=== PATIENT | female | born 1975 | race Hispanic/Latino ===

== ENCOUNTER 2017-03-13 11:59 | Inpatient (IN) | payer OTHER, MEDICARE ==
[~2017-03-13] VITALS: Ht 147.3 cm; Wt 54.2 kg
[~2017-03-13 11:59] MED LIST: ARTHRITIS PAIN650 M2 PO; BACLOFEN10 M1 PO; BACLOFEN20 M1 PO; CLARITIN10 M1 PO; COLACE100 M1 PO; DIAZEPAM10 M1 PO; IPRAT-ALBUT 0.5-3 ML INH; LEVETIRACETAM500 M2 PO; MIRALAX17 G1 PO; MUCINEX D ER T1 EACH PO; MUCINEX1200 M1 PO; MYTAB GAS80 M1 PO; NYSTATIN-TRIAMC15 GM TOP; PHENOBARBITAL32.4 M1 PO; PHENOBARBITAL64.8 M1 PO; ROBAFEN-DM SYR118 ML PO; SENNA8.8 MG/51 PO; VICKS VAPORUB O50 GM TOP
--- NOTE | 2017-03-13 12:35 | ED DYSPNEA/ASTHMA COMPLAINT ---
See Addendum History of Present Illness General Chief Complaint: Dyspnea (COPD, CHF, Other) Stated Complaint: BIBA WITH PROBLEM BREATHING Source: patient, family (SISTERS ) Exam Limitations: clinical condition Allergies Coded Allergies: Penicillins (HIVES 10/18/16) ceftriaxone (HIVES 10/18/16) Reconcile Medications Acetaminophen (Arthritis Pain) 650 MG TABLET.ER 1 TAB PO Q4H PRN PAIN/TEMP ( Reported) Baclofen 20 MG TABLET 2 TAB PO TID MUSCLE RELAXER (Reported) Diazepam 10 MG TABLET 2 TAB PO TID MUSCLE SPASMS (Reported) Docusate Sodium (Colace) 100 MG CAPSULE 1 CAP PO BID PRN STOOL SOFTENER ( Reported) Eucalyptus Oil/Menthol/Camphor (Vicks Vaporub Ointment) 1.2 %-2.6 %-4.7 % OINT...G. 1 JULIUS TOP TID PRN COUGH (Reported) Guaifenesin/Dextromethorphan (Robafen-Dm Syrup) 100 MG-10 MG/5 ML SYRUP 10 ML PO Q6 PRN COUGH/MUCUS (Reported) Guaifenesin/Pseudoephedrne HCl (Mucinex D ER Tablet) 600 MG-60 MG TAB.ER.12H 1 TAB PO DAILY SECRETIONS (Reported) Ipratropium/Albuterol Sulfate (Iprat-Albut 0.5-3(2.5) MG/3 Ml) 0.5 MG-3 MG (2.5 MG BASE)/3 ML AMPUL.NEB 1 VIAL INH Q4H PRN RESP. (Reported) Levetiracetam 500 MG TABLET 1 TAB PO TID SEIZURES (Reported) Levofloxacin 500 MG TABLET 1 TAB PO DAILY ANTIBIOTIC, INFECTION (Reported) Loratadine (Claritin) 10 MG TABLET 1 TAB PO DAILY PRN ALLERGIES (Reported) Phenobarbital 32.4 MG TABLET 1 TAB PO BID SEIZURES (Reported) Phenobarbital 64.8 MG TABLET 1 TAB PO QHS SEIZURES (Reported) Phenobarbital 32.4 MG TABLET 32.4 MG PO 8AM SEIZURES (Reported) Polyethylene Glycol 3350 (Miralax) 17 GRAM POWD.PACK 1 PAC PO DAILY PRN CONSTIPATION (Reported) dissolve in water Core Measure Meds Pre-Hospital antibiotics Triage Note: REPORT THAT THE PATIENT WAS TAKEN OFF OF THE VENT AND PLACED ON TRACH MASK O2, THE PATIENT BECAME "BRIGHT PURPLE" AND HAD A SYNCOPAL EPISODE. PATIENT WAS PUT BACK ON THE VENT. WHEN EMS ARRIVED, PULSE OX WAS 88-93% THE PATIENT WAS AMBUED AND SUCTIONED. INNER CANNULA CHANGED. CURRENTLY THE PATIENT IS ALERT, PLACED ON VENT SETTINGS BY RT. SISTER IS PRESENT AT THE BEDSIDE. Triage Nurses Notes Reviewed? yes Onset: Abrupt Duration: day(s): (1), constant, continues in ED, getting worse Timing: single episode today Severity: mild, moderate Activities at Onset: none Prior Episodes/Possible Cause: no prior episodes, occasional episodes Associated Symptoms: cough : No Patient currently breastfeeds: No HPI: 41-year-old female past medical history of cerebral palsy with trach and nighttime vent dependence presents for evaluation of cough, congestion, shortness of breath and hypoxia. Patient's sister who takes care of her reports that this morning when she took her off the vent patient was unable to breathe through her trach. She suddenly became very cyanotic and unresponsive. They were able to suction the trach and place her back on the vent and patient responded well. Patient is currently taking Levaquin prescribed by her primary care doctor for the past 3 days due to a pneumonia. She has not had Any fevers at home but has had a very large amounts of mucus in her ventilator. Patient denies any chest pain there's been no vomiting or abdominal pain. She is not able to talk when she is on the ventilator. No recent surgery or trauma. Sister does note that there is some blood in her trach in the sputum. (Brown Duarte) Vital Signs & Intake/Output Vital Signs & Intake/Output Vital Signs Date Time Temp Pulse Resp B/P B/P Pulse O2 O2 Flow FiO2 Mean Ox Delivery Rate 03/13 1631 30 03/13 1610 98.4 87 14 111/71 99 Ventilator 30% 03/13 1416 30 03/13 1404 98.8 115 15 140/83 100 Ventilator 30% 03/13 1223 100 Ventilator 30% 03/13 1220 98.4 109 16 118/81 100 Ventilator 30% 03/13 1200 30 (Lary CRUZ,Clemente Murrell) Past History Travel History Traveled to [place] past 21 day No Medical History Any Pertinent Medical History? see below for history Neurological: CP Cardiovascular: NONE Respiratory: ASP PNEUMONIA Gastrointestinal: constipation Hepatic: NONE Renal: NONE Musculoskeletal: NONE Psychiatric: NONE Endocrine: NONE Other Medical Hx: CEREBAL PALSY, PNA History of MRSA: Yes History of VRE: No History of CDIFF: No Surgical History Surgical History: TRACHEOSTOMY Psychosocial History Who do you live with Family Services at Home Home Health Aide, Nursing What is your primary language Tristanian Tobacco Use: Never used ETOH Use: denies use Illicit Drug Use: denies illicit drug use Family History Hx Contributory? No (Brown Duarte) Review of Systems Review of Systems Constitutional: Reports: no symptoms. EENTM: Reports: no symptoms. Respiratory: Reports: see HPI, cough, short of breath, sputum production. Cardiovascular: Reports: no symptoms. GI: Reports: no symptoms. Genitourinary: Reports: no symptoms. Musculoskeletal: Reports: no symptoms. Skin: Reports: no symptoms. Neurological/Psychological: Reports: no symptoms. Hematologic/Endocrine: Reports: no symptoms. Immunologic/Allergic: Reports: no symptoms. All Other Systems: Reviewed and Negative (Brown Duarte) Physical Exam Physical Exam General Appearance: well developed/nourished, no apparent distress, alert, awake Head: atraumatic, normal appearance Eyes: Bilateral: normal appearance, PERRL, EOMI. Ears, Nose, Throat: normal pharynx, normal ENT inspection, hearing grossly normal Neck: normal inspection, supple, full range of motion Respiratory: chest non-tender, no respiratory distress, rhonchi Cardiovascular: regular rate/rhythm, normal peripheral pulses Peripheral Pulses: 2+ radial (R), 2+ radial (L) Gastrointestinal: normal bowel sounds, soft, non-tender, no organomegaly Extremities: normal inspection, no edema, PATIENT IS UNABLE TO AMBULATE AT BASELINE Neurologic/Psych: no motor/sensory deficits, awake, alert, PATIENT IS NONVERBALWHEN TRACH IS IN PLACE Skin: intact, normal color, warm/dry Lymphatic: no anterior cervical olvin Core Measures ACS in differential dx? No CVA/TIA Diagnosis No Sepsis Present: No Sepsis Focused Exam Completed? No (Brown Duarte) Progress Differential Diagnosis: asthma, bronchitis, CHF, COPD, pulmonary embolism, pneumonia Diagnostic Imaging: Viewed by Me: Radiology Read, CT Scan. Discussed w/RAD: Radiology Read, CT Scan. Radiology Impression: PATIENT: ANU BROWN PRESENT AGE: 41 PATIENT ACCOUNT NO: [id number] : 75 LOCATION: [facility] ORDERING PHYSICIAN: Brown BENTON SERVICE DATE: 03/13/17 EXAM TYPE: CAT - CTA CHEST-PULMONARY EMBOLISM EXAMINATION: CT ANGIOGRAM OF THE CHEST WITH AND WITHOUT CONTRAST (CT PULMONARY ANGIOGRAM FOR PE) CLINICAL INFORMATION: SOB, hypoxia. COMPARISON: CT angiogram chest 06/22/2013. CT chest 04/03/2012. Portable chest x-ray 03/13/2017. TECHNIQUE: Prior to contrast administration, noncontrast localization images were obtained. Subsequently, multidetector volumetric imaging was performed from the thoracic inlet to below the diaphragms following the administration of 95 mL Optiray 350 intravenous contrast. No contrast reaction reported. Sagittal, coronal, and MIP oblique sagittal reformatted images were obtained on the CT workstation, uploaded to PACS, and reviewed. DLP: 370.84 mGy-cm FINDINGS: QUALITY OF STUDY/CONTRAST BOLUS: Satisfactory. There is breathing motion which limits study. There is also artifact from the Vazquez rods in the thoracic spine. PULMONARY ARTERIES: No central or segmental pulmonary emboli. THORACIC AORTA: No aneurysm or dissection. LUNG: Low inspiratory effort. This causes crowding of the bronchovascular markings. There is hazy bilateral perihilar airspace disease greater on the left than right. This could be cardiogenic in etiology versus inflammatory or infectious. No air bronchograms. There is a tracheostomy tube present. PLEURA: Small dependent left pleural effusion. MEDIASTINUM: Normal heart size. No pericardial effusion. No hilar or mediastinal lymphadenopathy. No evidence of septal bowing or right heart strain. CHEST WALL/AXILLA: No axillary or internal mammary lymphadenopathy. OSSEOUS STRUCTURES: Vazquez rods in the dorsal spine. UPPER ABDOMEN: Unremarkable. No reflux of contrast into the hepatic veins to suggest elevated right heart pressures. IMPRESSION: 1. Exam limited by low inspiratory effort, breathing motion and Vazquez rods. 2. No evidence of central pulmonary emboli. 3. Bilateral perihilar airspace disease greater on the left than right. This could be inflammatory or infectious in etiology or cardiogenic. There is a small left pleural effusion. VTE: DICTATED BY: Jm Stout MD DATE/TIME DICTATED:03/13/171525 SENIOR JAVA UI DEVELOPER:LUZ DATE/TIME TRANSCRIBED:03/13/171525 CONFIDENTIAL, DO NOT COPY WITHOUT APPROPRIATE AUTHORIZATIO Initial ED EKG: normal sinus rhythm, nonspecific ST T wave chg (Brown Duarte) Plan of Care: Orders Procedure Date/time Status Patient Data 03/13 1609 Active LACTIC ACID 03/13 1530 Complete BLOOD CULTURE 03/13 1353 Active LOWER RESPIRATORY CULTURE 03/13 1319 Active ARTERIAL BLOOD GAS (GEN) 03/13 1230 Complete TROPONIN LEVEL 03/13 1230 Complete MAGNESIUM 03/13 1230 Complete LACTIC ACID 03/13 1230 Complete D-DIMER 03/13 1230 Complete COMPREHENSIVE METABOLIC PANEL 03/13 1230 Complete CBC WITHOUT DIFFERENTIAL 03/13 1230 Complete B-TYPE NATRIURETIC PEP (BNP) 03/13 1230 Complete EKG 03/13 1230 Active VENTILATOR PARAMETERS 03/13 1200 Complete Current Medications Sig/Martinez Start time Last Medication Dose Stop Time Status Admin Ceftazidime 1,000 MG .[ONCE ] 03/13 171 UNVr (Fortaz) Vancomycin HCl 1,000 MG ONCE ONE 03/13 171 UNir Sodium Chloride 250 ML 03/13 1814 (Normal Saline 0.9%) Laboratory Tests 03/13/17 1530: Lactic Acid 1.2 03/13/17 1315: pH 7.41, pCO2 44, pO2 113 H, HCO3 27, ABG O2 Sat (Measured) 98.0, Carboxyhemoglobin 0.3 L, O2 Concentration % 30%, Respiration Rate 14, O2 Delivery Method VENT, Vent Mode AC, Expiratory Pressure 5, Tidal Volume 400, Phlebotomy Draw Site LEFT RADIAL 03/13/17 1306: Anion Gap 16, Estimated GFR > 60, BUN/Creatinine Ratio 6.7 L, Glucose 118 H, Lactic Acid 2.1, Calcium 8.9, Magnesium 1.7, Total Bilirubin 0.3, AST 18, ALT 23 , Alkaline Phosphatase 146 H, Troponin I 0.06, Exo-E-Afdbjmqkpnf Pept 87.6, Total Protein 8.1, Albumin 3.8, Globulin 4.3 H, Albumin/Globulin Ratio 0.9 L, D-Dimer High Sensitivty 1750 H, CBC w Diff MAN DIFF ORDERED, RBC 4.28, MCV 81.8 , MCH 26.8 L, RDW 15.9 H, MPV 7.4, Gran % 88.9 H, Lymphocytes % 6.1 L, Monocytes % 4.1, Eosinophils % 0.5, Basophils % 0.4, Absolute Granulocytes 14.6 H, Segmented Neutrophils 82 H, Band Neutrophils 1, Absolute Lymphocytes 1.0 L, Lymphocytes 12 L, Monocytes 5, Absolute Monocytes 0.7 H, Absolute Eosinophils 0.1, Absolute Basophils 0.1, Platelet Estimate VERIFIED BY SMEAR, Normocytic RBCs VERIFIED, Hypochromic-Microcytic 1+, Stomatocytes 1+, PUBS MCHC 32.8 L Microbiology 03/13 1537 BLOOD: Blood Culture - RECD 03/13 1530 BLOOD: Blood Culture - RECD 03/13 1319 LOWER RESP: Respiratory Culture - ORD 03/13 131 LOWER RESP: Gram Stain - ORD Patient seen and evaluated. She had an episode of hypoxia/syncope this morning when she was unable to be through her trach due to mucus plugging. She's been on antibiotics for 3 days without any improvement. She continued to cough and have large amount of mucus. Patient has a complicated medical history including ventilator use an aspiration pneumonia. She has multiple antibiotic allergies. Elevated white blood cell count and elevated lactic acid. She will require admission to the hospital for IV antibiotics serial labs chest physical therapy weaning from the ventilator, frequent suctioning of mucous plugs. She has failed outpatient treatment on antibiotics. Case discussed with Dr. Barth he agrees. Patient will be admitted to the ICU. Dr. Galvan requested antibiotics not be given until the case is discussed with infectious disease doctor Darrian Balderas MD. A page was placed for him. Infectious disease recommends starting brought with vancomycin and Fortaz and following up on sputum cultures. Patient has tolerated Fortaz in the past despite the ceftriaxone allergy. (Brown Duarte) (Lary CRUZ,Clemente Murrell) Departure Departure Disposition: STILL A PATIENT Condition: Stable Clinical Impression Primary Impression: Pneumonia Qualifiers: Pneumonia type: due to unspecified organism Laterality: left Lung location: lower lobe of lung Qualified Code: J18.1 - Lobar pneumonia, unspecified organism Referrals: Mahesh Galvan MD (PCP/Family) Departure Forms: Customer Survey General Discharge Information Admission Note Spoke With: Mahesh Galvan MD Documentation of Exam: Documentation of any treatments & extenuating circumstances including Concerns Regarding Discharge (functional status, medication knowledge or non-compliance, living conditions, etc.) that warrant an admission rather than observation: [IV antibiotics, IV fluids, serial labs, serial chest x-rays, pulmonary rehabilitation, pulmonology consult, infectious disease consult] (Brown Duarte) PA/TRIGONOMETRY TUTOR Co-Sign Statement Statement: ED Attending supervision documentation- [X] I saw and evaluated the patient. I have also reviewed all the pertinent lab results and diagnostic results. I agree with the findings and the plan of care as documented in the PA's/TRIGONOMETRY TUTOR's documentation. Patient presents for evaluation of difficulty breathing and cyanosis when she was converted from her overnight ventilator to a trach mask. On the ventilator in the emergency department the patient appears to be back to baseline mental status and respirations. Lung examination reveals clear bilateral breath sounds with good air entry. [] I have reviewed the ED Record and agree with the PA's/TRIGONOMETRY TUTOR's documentation. [] Additions or exceptions (if any) to the PAs/TRIGONOMETRY TUTOR's note and plan are summarized below: [] (Lary CRUZ,Clemente Murrell) Critical Care Note Critical Care Note Critical Care Time: non-applicable (Brown Duarte)
[2017-03-13] MEDS ORDERED: LEVOFLOXACIN500 M1 PO (12:46)
[2017-03-13] MEDS ORDERED: PHENOBARBITAL32.4 M1 PO (12:48)
[2017-03-13 13:17] LABS: ABSOLUTE BASOPHIL COUNT 0.1 /CUMM (0.0-0.2); ABSOLUTE EOSINOPHIL COUNT 0.1 /CUMM (0.0-0.7); ABSOLUTE GRANULOCYTE CT 14.6 /CUMM (1.4-6.5); ABSOLUTE MONOCYTE COUNT 0.7 /CUMM (0.10-0.60); BASOPHIL % 0.4 % (0.0-2.0); EOSINOPHIL % 0.5 % (0-5); GRANULOCYTE % 88.9 % (42.2-75.2); MEAN CORPUSCULAR HGB 26.8 PG (27.0-31.0); MEAN CORPUSCULAR HGB CONC 32.8 G/DL (33.0-37.0); MEAN CORPUSCULAR VOLUME 81.8 FL (81.0-99.0); MEAN PLATELET VOLUME 7.4 FL (7.4-10.4); PLATELET COUNT 530 /CUMM (130-400); RBC DISTRIBUTION WIDTH 15.9 % (11.5-14.5); RED BLOOD CELL CT 4.28 /CUMM (4.20-5.40); WHITE BLOOD CELL COUNT 16.5 /CUMM (4.8-10.8)
--- NOTE | 2017-03-13 13:52 | RADIOLOGY REPORT ---
EXAMINATION: XR PORTABLE CHEST CLINICAL INFORMATION: Hypoxia. COMPARISON: Chest done on 10/18/2016. TECHNIQUE: Portable frontal view of the chest was obtained. FINDINGS: There is asymmetric opacification of the entire left lung present with air bronchogram in the retrocardiac region and patchy opacification of the left upper and left perihilar lung field. The finding is highly concerning for either asymmetric edema or infection/pneumonia, or combination thereof. The right lung field is well-expanded and appear clear. The cardiac mediastinal silhouette is within normal limits. Specific note is made of a tracheostomy tube and a right-sided Port-A-Cath with its tip seen projecting at the cavoatrial junction, unchanged. Note is also made of Vazquez rods within the visualized part of the thoracic and upper lumbar spine, appear intact. IMPRESSION: Asymmetric airspace opacity involving the left lung field, may represent edema versus infection or combination thereof.
--- NOTE | 2017-03-13 15:42 | CT SCAN REPORT ---
EXAMINATION: CT ANGIOGRAM OF THE CHEST WITH AND WITHOUT CONTRAST (CT PULMONARY ANGIOGRAM FOR PE) CLINICAL INFORMATION: SOB, hypoxia. COMPARISON: CT angiogram chest 06/22/2013. CT chest 04/03/2012. Portable chest x-ray 03/13/2017. TECHNIQUE: Prior to contrast administration, noncontrast localization images were obtained. Subsequently, multidetector volumetric imaging was performed from the thoracic inlet to below the diaphragms following the administration of 95 mL Optiray 350 intravenous contrast. No contrast reaction reported. Sagittal, coronal, and MIP oblique sagittal reformatted images were obtained on the CT workstation, uploaded to PACS, and reviewed. DLP: 370.84 mGy-cm FINDINGS: QUALITY OF STUDY/CONTRAST BOLUS: Satisfactory. There is breathing motion which limits study. There is also artifact from the Vazquez rods in the thoracic spine. PULMONARY ARTERIES: No central or segmental pulmonary emboli. THORACIC AORTA: No aneurysm or dissection. LUNG: Low inspiratory effort. This causes crowding of the bronchovascular markings. There is hazy bilateral perihilar airspace disease greater on the left than right. This could be cardiogenic in etiology versus inflammatory or infectious. No air bronchograms. There is a tracheostomy tube present. PLEURA: Small dependent left pleural effusion. MEDIASTINUM: Normal heart size. No pericardial effusion. No hilar or mediastinal lymphadenopathy. No evidence of septal bowing or right heart strain. CHEST WALL/AXILLA: No axillary or internal mammary lymphadenopathy. OSSEOUS STRUCTURES: Vazquez rods in the dorsal spine. UPPER ABDOMEN: Unremarkable. No reflux of contrast into the hepatic veins to suggest elevated right heart pressures. IMPRESSION: 1. Exam limited by low inspiratory effort, breathing motion and Vazquez rods. 2. No evidence of central pulmonary emboli. 3. Bilateral perihilar airspace disease greater on the left than right. This could be inflammatory or infectious in etiology or cardiogenic. There is a small left pleural effusion. VTE:
--- NOTE | 2017-03-13 17:21 | History & Physical ---
See Addendum General Information and HPI MD Statement: I have seen and personally examined ANU BROWN and documented this H&P. The patient is a 41 year old F who presented with a patient stated chief complaint of [Difficulty breathing]. Source of Information: patient, family, Patient's sister Jenn Hill Exam Limitations: unable to give history History of Present Illness: The patient is a 41-year-old woman with a past medical history of cerebral palsy, seizures, aspiration pneumonia, chronic constipation, incontinence, status post surgery/Vazquez jeffy, status post right ORIF, and history of anoxic brain injury with full assist. She lives at home with her sister who is her records and information manager and also has visiting nurses. She is on a tracheostomy tube but requires connection to a ventilator at nighttime for respiratory support. She was in her usual state of health until 9 days ago (last Saturday) when she was noted to have intermittent dyspnea associated with facial cyanosis and breathlessness while off her ventilator. The episodes of dyspnea were aborted by connecting her back to the ventilator. During these episodes, she would have brief syncope that lasted under a minute and resolved after she was ventilated. Of note, she has also been having some pain around her tracheostomy site along with drooling, a runny nose and intermittent choking sensations after eating during this period. Prior to her current symptoms, she had experienced aspiration of fluid into her tracheostomy while she was on the ventilator. Subsequently, her tracheostomy suctioning effluent was noted to be malodorous and bloody in color for the past 3 days. She denies fever, chills, malaise, nausea, vomiting, constipation or diarrhea, abdominal pain, dysuria or hematuria. She denies seizures. She does have a sick contact in her house, her father who has been coughing for some days. On account of these symptoms she presented to her primary care physician, Dr. Galvan on 03/07 was prescribed levofloxacin which she has been taking without improvement. Today she became suddenly cyanotic and was unable to breathe through her tracheostomy tube while off her ventilator. Her sister was able to suction the tracheostomy and place her back on the ventilator after which she subsequently improved. When emergency medical services arrived her O2 sat was 88 -92% on the ventilator. She was again suctioned, and the inner cannula of her tracheostomy was changed. Allergies/Medications Allergies: Coded Allergies: Penicillins (HIVES 10/18/16) ceftriaxone (HIVES 10/18/16) Home Med list Acetaminophen (Arthritis Pain) 650 MG TABLET.ER 1 TAB PO Q4H PRN PAIN/TEMP ( Reported) Baclofen 20 MG TABLET 2 TAB PO TID MUSCLE RELAXER (Reported) Diazepam 10 MG TABLET 2 TAB PO TID MUSCLE SPASMS (Reported) Docusate Sodium (Colace) 100 MG CAPSULE 1 CAP PO BID PRN STOOL SOFTENER ( Reported) Eucalyptus Oil/Menthol/Camphor (Vicks Vaporub Ointment) 1.2 %-2.6 %-4.7 % OINT...G. 1 JULIUS TOP TID PRN COUGH (Reported) Guaifenesin/Dextromethorphan (Robafen-Dm Syrup) 100 MG-10 MG/5 ML SYRUP 10 ML PO Q6 PRN COUGH/MUCUS (Reported) Guaifenesin/Pseudoephedrne HCl (Mucinex D ER Tablet) 600 MG-60 MG TAB.ER.12H 1 TAB PO DAILY SECRETIONS (Reported) Ipratropium/Albuterol Sulfate (Iprat-Albut 0.5-3(2.5) MG/3 Ml) 0.5 MG-3 MG (2.5 MG BASE)/3 ML AMPUL.NEB 1 VIAL INH Q4H PRN RESP. (Reported) Levetiracetam 500 MG TABLET 1 TAB PO TID SEIZURES (Reported) Levofloxacin 500 MG TABLET 1 TAB PO DAILY ANTIBIOTIC, INFECTION (Reported) Loratadine (Claritin) 10 MG TABLET 1 TAB PO DAILY PRN ALLERGIES (Reported) Phenobarbital 32.4 MG TABLET 1 TAB PO BID SEIZURES (Reported) Phenobarbital 64.8 MG TABLET 1 TAB PO QHS SEIZURES (Reported) Phenobarbital 32.4 MG TABLET 32.4 MG PO 8AM SEIZURES (Reported) Polyethylene Glycol 3350 (Miralax) 17 GRAM POWD.PACK 1 PAC PO DAILY PRN CONSTIPATION (Reported) dissolve in water Past History Travel History Traveled to [place] past 21 day No Medical History Neurological: CP Cardiovascular: NONE Respiratory: ASP PNEUMONIA Gastrointestinal: constipation Hepatic: NONE Renal: NONE Musculoskeletal: NONE Psychiatric: NONE Endocrine: NONE Other Medical Hx: CEREBAL PALSY, PNA History of MRSA: Yes History of VRE: No History of CDIFF: No Surgical History Surgical History: TRACHEOSTOMY Past Family/Social History Family History Relations & Conditions if any FATHER FH: prostate cancer MOTHER FH: esophageal cancer FH: gastric cancer Relation not specified for: *No pertinent family history Psychosocial History Where do you live? Home Who Do You Live With? Sister Services at Home: Home Health Aide, Nursing Smoking Status: Never Smoked ETOH Use: denies use Illicit Drug Use: denies illicit drug use Functional Ability ADLs Needs Assist: dressing, eating, toileting, bathing. Ambulation: non-ambulatory IADLs Needs Assist: shopping, housework, finances, food prep, telephone, transportation, medication admin. Review of Systems Review of Systems Constitutional: Reports: see HPI. Exam & Diagnostic Data Last 24 Hrs of Vital Signs/I&O Vital Signs Date Time Temp Pulse Resp B/P B/P Pulse O2 O2 Flow FiO2 Mean Ox Delivery Rate 03/13 1820 98.7 105 14 105/72 93 Ventilator 30% 03/13 1719 98.7 93 14 115/82 99 Ventilator 30% 03/13 1631 30 03/13 1610 98.4 87 14 111/71 99 Ventilator 30% 03/13 1416 30 03/13 1404 98.8 115 15 140/83 100 Ventilator 30% 03/13 1223 100 Ventilator 30% 03/13 1220 98.4 109 16 118/81 100 Ventilator 30% 03/13 1200 30 Intake & Output 03/13 1600 03/13 0800 03/13 0000 Intake Total Output Total Balance Patient 150 lb Weight Weight Reported by Patient Measurement Method Physical Exam General Appearance Alert, Oriented X3, Cooperative, No Acute Distress Skin No Rashes Skin Temp/Moisture Exam: Warm/Dry Sepsis Skin Exam (color): Normal for Ethnicity HEENT Atraumatic, PERRLA, EOMI, Mucous Membr. moist/pink Neck Supple, No JVD, No thryomegaly Lymphatic Cervical nl Cardiovascular Regular Rate, Normal S1, Normal S2, No Murmurs Lungs Normal Air Movement, bronchial breath sounds in left and right upper lung regions Abdomen Normal Bowel Sounds, Soft, No Tenderness, No Hepatospenomegaly, PEG tube in situ with black effluent Neurological Sensation Intact, Cranial Nerves 3-12 NL, Strength 0/5 in all limbs (Cerebral palsy) Extremities No Clubbing, No Cyanosis, No Edema, Normal Pulses, Right knee pain/ tenderness (Chronic) from old fracture Vascular Normal Pulses, Pulses Symmetrical Sepsis Peripheral Pulse Location: Dorsalis Pedis Sepsis Peripheral Pulse Exam: Normal Sepsis Cap Refill Exam: >2 sec Last 24 Hrs of Labs/Dexter: Laboratory Tests 03/13/17 1530: Lactic Acid 1.2 03/13/17 1315: pH 7.41, pCO2 44, pO2 113 H, HCO3 27, ABG O2 Sat (Measured) 98.0, Carboxyhemoglobin 0.3 L, O2 Concentration % 30%, Respiration Rate 14, O2 Delivery Method VENT, Vent Mode AC, Expiratory Pressure 5, Tidal Volume 400, Phlebotomy Draw Site LEFT RADIAL 03/13/17 1306: Anion Gap 16, Estimated GFR > 60, BUN/Creatinine Ratio 6.7 L, Glucose 118 H, Lactic Acid 2.1, Calcium 8.9, Magnesium 1.7, Total Bilirubin 0.3, AST 18, ALT 23 , Alkaline Phosphatase 146 H, Troponin I 0.06, Rqm-L-Ekvzcsshuhu Pept 87.6, Total Protein 8.1, Albumin 3.8, Globulin 4.3 H, Albumin/Globulin Ratio 0.9 L, D-Dimer High Sensitivty 1750 H, CBC w Diff MAN DIFF ORDERED, RBC 4.28, MCV 81.8 , MCH 26.8 L, RDW 15.9 H, MPV 7.4, Gran % 88.9 H, Lymphocytes % 6.1 L, Monocytes % 4.1, Eosinophils % 0.5, Basophils % 0.4, Absolute Granulocytes 14.6 H, Segmented Neutrophils 82 H, Band Neutrophils 1, Absolute Lymphocytes 1.0 L, Lymphocytes 12 L, Monocytes 5, Absolute Monocytes 0.7 H, Absolute Eosinophils 0.1, Absolute Basophils 0.1, Platelet Estimate VERIFIED BY SMEAR, Normocytic RBCs VERIFIED, Hypochromic-Microcytic 1+, Stomatocytes 1+, PUBS MCHC 32.8 L Microbiology 03/13 1743 URINE ROUT: Urine Culture - COLB 03/13 1537 BLOOD: Blood Culture - RECD 03/13 153 BLOOD: Blood Culture - RECD 03/13 131 LOWER RESP: Respiratory Culture - ORD 03/13 1318 LOWER RESP: Gram Stain - ORD Diagnostic Data EKG Results Sinus tachycardia. Heart rate 1 15 bpm, T-wave inversion with V3 CXR Results Asymmetric airspace opacity in left lung field. Other Results CT angiogram shows no pulmonary embolism but bilateral perihilar airspace disease and a small left pleural effusion. Assessment/Plan Assessment: The patient is a 41-year-old woman with a past medical history of cerebral palsy, seizures, aspiration pneumonia, chronic constipation, incontinence, status post surgery/Vazquez jeffy, status post right ORIF, and history of anoxic brain injury with full assist. She lives at home with her sister who is her records and information manager and also has visiting nurses. She is on a tracheostomy tube but requires connection to a ventilator at nighttime for respiratory support. She presented with a 9 day history of intermittent dyspnea associated with facial cyanosis and brief syncopal episodes along with a malodorous tracheostomy aspirate. She also has some pain around her tracheostomy site and intermittent drooling and choking sensations. Her Symptoms are concerning for ventilator associated pneumonia (She has grown MRSA in the past) and she will be admitted to the ICU and pancultured. We will start broad-spectrum antibiotics including MRSA and Pseudomonas coverage. Infectious disease consultation will should be obtained in the morning. We will start low-dose IV fluids and obtain an ENT consultation in the morning for her tracheostomy site pain and discomfort. (Her tracheostomy was changed 1 month ago and it may need readjustment). Will consult general surgeon Dr. Pham if he is available (as per patient request ) for possible replacement of her PEG tube as this was scheduled for next week Saturday. Problem list 1. Ventilator associated pneumonia * Admit to ICU * Follow up blood, sputum and urine cultures * Rapid flu test negative * Start IV ceftazidime 2 g Q 8 hrs and IV vancomycin 1 g Q 12 hours * Mucinex 600 mg Q 12 hrs * Monitor CBC and WBC * Please obtain ID consult in the AM 2. Tracheostomy site pain * Patient has tracheostomy site pain and discomfort with a history of tracheostomy site scarring * Will request ENT evaluation in the morning 3. Dysphagia * Patient has been having some dysphagia and drooling * Will request swallow evaluation in the AM * Puree diet with honey thick liquids * Can give oral medications with apple sauce * Patient requests consultation with Dr. Pham for change of her PEG tube (She receives water flushes through the PEG) 4. Cerebral palsy * Continue home medications phenobarbital 32.4 mg TID; Diazepam 20 mg TID; Kepra 500 mg TID 5. DVT prophylaxis * SC lovenox 40 mg daily COde status: Full code As Ranked By This Provider Problem List: 1. Aspiration pneumonia 2. Pneumonia Qualifiers Pneumonia type: due to unspecified organism Laterality: left Lung location: lower lobe of lung Qualified Code: J18.1 - Lobar pneumonia, unspecified organism 3. Tracheostomy complication 4. Cerebral palsy Core Measures/Misc (11/11) Acute Coronary Syndrome ACS Diagnosis: No Congestive Heart Failure Congestive Heart Failure Diagnosis No Cerebrovascular Accident CVA/TIA Diagnosis: No VTE (View Protocol) VTE Risk Factors Immobility No Mechanical VTE Prophylaxis d/t N/A MechProphylax Ordered No VTE Pharm Prophylaxis d/t NA PharmProphylax ordered Sepsis (View protocol) Sepsis Present: No
--- NOTE | 2017-03-13 20:15 | Admission Certification ---
Admission Certification Certification Statement - As attending physician, I certify that at the time of - admission, based on clinical presentation, severity of - symptoms, need for further diagnostic testing and - therapeutic interventions, and risk of adverse outcomes - without in-hospital treatment, in my clinical assessment, - this patient requires an acute hospital stay for a minimum - of two nights or longer. I have also considered psychsocial - factors such as support system, advanced age, financial - issues, cognitive issues, and failed out-patient treatments, - past re-admission history, safety of patient, and lack of - compliance as applicable. Specific rationale supporting this admission is: Mucous plugs, possible left pneumonia in a patient with cerebral palsy and ventilatory support and hypoxemia at home
--- NOTE | 2017-03-13 20:18 | PN- Att Addend ---
Attending Addendum Attending Brief Note 41-year-old white female lives at home, taking care of by her family, patient has a trach and has ventilatory support at night. Last few days noted by the nurse to be more congested, she was started on Levaquin this morning sister noticed her color was poor was becoming cyanotic and she was off the respirator and couldn't breathe, almost passed out. Patient was suctioned is very thick material was aspirated is very connected to the ventilator with improvement of her symptoms and she was brought to the emergency room. Her white count is elevated to x-ray showed possibly she has a pneumonia could have been aspiration , she was afebrile in the emergency room and patient is admitted will have all the cultures to will be started on IV antibiotic therapy as per recommendations of infectious diseases would have ventilatory care and ICU follow-up her labs and cultures Laboratory Tests 03/13/17 1530: Lactic Acid 1.2 03/13/17 1315: pH 7.41, pCO2 44, pO2 113 H, HCO3 27, ABG O2 Sat (Measured) 98.0, Carboxyhemoglobin 0.3 L, O2 Concentration % 30%, Respiration Rate 14, O2 Delivery Method VENT, Vent Mode AC, Expiratory Pressure 5, Tidal Volume 400, Phlebotomy Draw Site LEFT RADIAL 03/13/17 1306: Anion Gap 16, Estimated GFR > 60, BUN/Creatinine Ratio 6.7 L, Glucose 118 H, Lactic Acid 2.1, Calcium 8.9, Magnesium 1.7, Total Bilirubin 0.3, AST 18, ALT 23 , Alkaline Phosphatase 146 H, Troponin I 0.06, Ibq-S-Apzlnblwezd Pept 87.6, Total Protein 8.1, Albumin 3.8, Globulin 4.3 H, Albumin/Globulin Ratio 0.9 L, D-Dimer High Sensitivty 1750 H, CBC w Diff MAN DIFF ORDERED, RBC 4.28, MCV 81.8 , MCH 26.8 L, RDW 15.9 H, MPV 7.4, Gran % 88.9 H, Lymphocytes % 6.1 L, Monocytes % 4.1, Eosinophils % 0.5, Basophils % 0.4, Absolute Granulocytes 14.6 H, Segmented Neutrophils 82 H, Band Neutrophils 1, Absolute Lymphocytes 1.0 L, Lymphocytes 12 L, Monocytes 5, Absolute Monocytes 0.7 H, Absolute Eosinophils 0.1, Absolute Basophils 0.1, Platelet Estimate VERIFIED BY SMEAR, Normocytic RBCs VERIFIED, Hypochromic-Microcytic 1+, Stomatocytes 1+, PUBS MCHC 32.8 L Microbiology Date/Time Procedure - Status Source Growth 03/13 174 Urine Culture - COLB URINE ROUT 03/13 1537 Blood Culture - RECD BLOOD 03/13 1530 Blood Culture - RECD BLOOD 03/13 1319 Respiratory Culture - ORD LOWER RESP 03/13 1319 Gram Stain - ORD LOWER RESP Vital Signs Date Time Temp Pulse Resp B/P B/P Pulse O2 O2 Flow FiO2 Mean Ox Delivery Rate 03/13 1955 98.3 79 14 103/69 99 Ventilator 30% 03/13 1932 30 03/13 1926 98.7 03/13 1916 98.7 103 14 110/67 95 Ventilator 30% 03/13 1820 98.7 105 14 105/72 93 Ventilator 30% 03/13 1719 98.7 93 14 115/82 99 Ventilator 30% 03/13 1631 30 03/13 1610 98.4 87 14 111/71 99 Ventilator 30% 03/13 1416 30 03/13 1404 98.8 115 15 140/83 100 Ventilator 30% 03/13 1223 100 Ventilator 30% 03/13 1220 98.4 109 16 118/81 100 Ventilator 30% 03/13 1200 30 Vital Signs Date Time Temp Pulse Resp B/P B/P Pulse O2 O2 Flow FiO2 Mean Ox Delivery Rate 03/13 1955 98.3 79 14 103/69 99 Ventilator 30% 03/13 1932 30 03/13 1926 98.7 03/13 1916 98.7 103 14 110/67 95 Ventilator 30% 03/13 1820 98.7 105 14 105/72 93 Ventilator 30% 03/13 1719 98.7 93 14 115/82 99 Ventilator 30% 03/13 1631 30 03/13 1610 98.4 87 14 111/71 99 Ventilator 30% 03/13 1416 30 03/13 1404 98.8 115 15 140/83 100 Ventilator 30% 03/13 1223 100 Ventilator 30% 03/13 1220 98.4 109 16 118/81 100 Ventilator 30% Intake & Output 03/13 1600 Intake Total Output Total Balance Patient 150 lb Weight Weight Reported by Patient Measurement Method
[2017-03-13 20:59] VITALS: BP 108/707
[2017-03-14] VITALS: BP 100/0
[2017-03-14 06:13] LABS: ABSOLUTE BASOPHIL COUNT 0.1 /CUMM (0.0-0.2); ABSOLUTE EOSINOPHIL COUNT 0.2 /CUMM (0.0-0.7); ABSOLUTE GRANULOCYTE CT 7.1 /CUMM (1.4-6.5); ABSOLUTE LYMPH COUNT 2.6 /CUMM (1.2-3.4); ABSOLUTE MONOCYTE COUNT 0.6 /CUMM (0.10-0.60); BASOPHIL % 0.6 % (0.0-2.0); EOSINOPHIL % 1.5 % (0-5); GRANULOCYTE % 67.4 % (42.2-75.2); MEAN CORPUSCULAR HGB 26.7 PG (27.0-31.0); MEAN CORPUSCULAR HGB CONC 32.6 G/DL (33.0-37.0); MEAN CORPUSCULAR VOLUME 81.8 FL (81.0-99.0); MEAN PLATELET VOLUME 8.4 FL (7.4-10.4); PLATELET COUNT 388 /CUMM (130-400); RBC DISTRIBUTION WIDTH 15.9 % (11.5-14.5); RED BLOOD CELL CT 3.37 /CUMM (4.20-5.40); WHITE BLOOD CELL COUNT 10.6 /CUMM (4.8-10.8)
[2017-03-14 06:16] LABS: HEMATOCRIT 27.6 % (37-47)
--- NOTE | 2017-03-14 07:49 | RADIOLOGY REPORT ---
EXAMINATION: XR PORTABLE CHEST CLINICAL INFORMATION: Shortness of breath. Ventilator associated pneumonia. COMPARISON: Several prior chest x-rays, most recent of which is dated 03/13/2017. TECHNIQUE: Portable AP semierect view of the chest was obtained. FINDINGS: Tracheostomy tube is in place with tip approximately 4.4 cm above the [place]. Right jugular tunneled catheter tip is in the right atrium. The cardiac mediastinal silhouette is enlarged. Ectasia of the aorta is stable. Low lung volumes are noted with asymmetric diffuse density in the left lung again noted, unchanged. There is also patchy parenchymal opacity medially within the right lung base and in the perihilar right lung. Central vascular congestion is noted. No pneumothorax is seen. Posterior spinal fusion rods are seen extending from the upper thoracic spine into the lumbar spine fusing a convex left thoracolumbar scoliosis. IMPRESSION: 1. Tracheostomy tube and right jugular tunneled catheter unchanged in position. 2. No change in diffuse opacity in the left lung, likely related to a layering pleural effusion. Superimposed bilateral perihilar opacities are seen, suggesting pulmonary edema. Alternatively, findings may be related to subtle diffuse pneumonitis. Clinical correlation is requested. Findings are similar to the previous exam.
[2017-03-14 08:00] VITALS: BP 104/50
--- NOTE | 2017-03-14 08:03 | PN- Resident CRCU ---
Subjective HPI/CRCU Issues: Ventilator Associated Pneumonia Tracheostomy evaluation 24 Hour Events: Patient has been started on broad coverage antibiotics for VAP. No issues overnight. Currenly resting comfortably in bed in no apparent distress. Objective Vital Signs & I&O Last 8 Hrs of Vitals and I&O: Intake & Output 03/14 1600 Intake Total Output Total Balance Patient 120 lb Weight Exam General Appearance: no apparent distress, awake, comfortable Head: atraumatic, normal appearance Respiratory: normal breath sounds Cardiovascular: regular rate/rhythm Gastrointestinal: soft, non-tender Extremities: no edema Skin: warm/dry Skin Temp/Moisture Exam: Warm/Dry Sepsis Skin Exam (color): Normal for Ethnicity Impression/Plan Impression/Problem List Problem List: 1. Pneumonia Pain Ratin Tomorrow's Labs & Rationales: CBC, ICU bundle Plan DVT/Prophylaxis: mechanical 1. Ventilator associated pneumonia * Continue monitoring in ICU * Will follow up blood, sputum and urine cultures * Rapid flu test was negative * Continue IV ceftazidime 2g q8 hrs and IV vancomycin 1g q12 hours * Mucinex 600 mg q12 hrs * ID consult has been placed. 2. Tracheostomy site pain * Patient has tracheostomy site pain and discomfort with a history of tracheostomy site scarring. * The tracheostomy was placed by Dr Pham. A consult has been placed for his evaluation. ENT will evaluate if required after surgery evaluation. 3. Dysphagia * Patient is reported to have had been having some dysphagia and drooling * Swallow evaluation - pending. * Puree diet with honey thick liquids * Can give oral medications with apple sauce * Patient requests consultation with Dr. Pham for change of her PEG tube (She receives water flushes through the PEG) 4. Cerebral palsy * Continue home medications phenobarbital 32.4 mg TID; Diazepam 20 mg TID; Kepra 500 mg TID 5. DVT prophylaxis * SC lovenox 40 mg daily Code status: Full code Problem List: 1. Pneumonia Pain Ratin Tomorrow's Labs & Rationales: CBC, ICU bundle Plan DVT/Prophylaxis: mechanical
--- NOTE | 2017-03-14 09:42 | Cons- CRCU ---
See Addendum Brenda CRUZ,Yoko 03/14/17 0942: General Information and HPI Consulting Request Date of Consult: 03/14/17 Requested By: Dr Galvan Reason for Consult: Intermittent dyspnea, cyanosis tracheostomy site pain. Exam Limitations: no limitations History of Present Illness: The patient is a 41-year-old woman with a past medical history of cerebral palsy, seizures, aspiration pneumonia, chronic constipation, incontinence, status post surgery/Vega percy, status post right ORIF, and history of anoxic brain injury with full assist. She lives at home with her sister who is her winding rack operator and also has visiting nurses. She is on a tracheostomy tube but requires connection to a ventilator at nighttime for respiratory support. She was in her usual state of health until 9 days ago (last Saturday) when she was noted to have intermittent dyspnea associated with facial cyanosis and breathlessness while off her ventilator. The episodes of dyspnea were aborted by connecting her back to the ventilator. During these episodes, she would have brief syncope that lasted under a minute and resolved after she was ventilated. Of note, she has also been having some pain around her tracheostomy site along with drooling, a runny nose and intermittent choking sensations after eating during this period. Prior to her current symptoms, she had experienced aspiration of fluid into her tracheostomy while she was on the ventilator. Subsequently, her tracheostomy suctioning effluent was noted to be malodorous and bloody in color for the past 3 days. She denies fever, chills, malaise, nausea, vomiting, constipation or diarrhea, abdominal pain, dysuria or hematuria. She denies seizures. She does have a sick contact in her house, her father who has been coughing for some days. On account of these symptoms she presented to her primary care physician, Dr. Galvan on 03/07 was prescribed levofloxacin which she has been taking without improvement. Yesterday she became suddenly cyanotic and was unable to breathe through her tracheostomy tube while off her ventilator. Her sister was able to suction the tracheostomy and place her back on the ventilator after which she subsequently improved. When emergency medical services arrived her O2 sat was 88 -92% on the ventilator. She was again suctioned, and the inner cannula of her tracheostomy was changed. Allergies/Medications Allergies: Coded Allergies: Penicillins (HIVES 10/18/16) ceftriaxone (HIVES 10/18/16) Home Med List: Acetaminophen (Arthritis Pain) 650 MG TABLET.ER 1 TAB PO Q4H PRN PAIN/TEMP ( Reported) Baclofen 20 MG TABLET 2 TAB PO TID MUSCLE RELAXER (Reported) Diazepam 10 MG TABLET 2 TAB PO TID MUSCLE SPASMS (Reported) Docusate Sodium (Colace) 100 MG CAPSULE 1 CAP PO BID PRN STOOL SOFTENER ( Reported) Eucalyptus Oil/Menthol/Camphor (Vicks Vaporub Ointment) 1.2 %-2.6 %-4.7 % OINT...G. 1 JULIUS TOP TID PRN COUGH (Reported) Guaifenesin/Dextromethorphan (Robafen-Dm Syrup) 100 MG-10 MG/5 ML SYRUP 10 ML PO Q6 PRN COUGH/MUCUS (Reported) Guaifenesin/Pseudoephedrne HCl (Mucinex D ER Tablet) 600 MG-60 MG TAB.ER.12H 1 TAB PO DAILY SECRETIONS (Reported) Ipratropium/Albuterol Sulfate (Iprat-Albut 0.5-3(2.5) MG/3 Ml) 0.5 MG-3 MG (2.5 MG BASE)/3 ML AMPUL.NEB 1 VIAL INH Q4H PRN RESP. (Reported) Levetiracetam 500 MG TABLET 1 TAB PO TID SEIZURES (Reported) Levofloxacin 500 MG TABLET 1 TAB PO DAILY ANTIBIOTIC, INFECTION (Reported) Loratadine (Claritin) 10 MG TABLET 1 TAB PO DAILY PRN ALLERGIES (Reported) Phenobarbital 32.4 MG TABLET 1 TAB PO BID SEIZURES (Reported) Phenobarbital 64.8 MG TABLET 1 TAB PO QHS SEIZURES (Reported) Phenobarbital 32.4 MG TABLET 32.4 MG PO 8AM SEIZURES (Reported) Polyethylene Glycol 3350 (Miralax) 17 GRAM POWD.PACK 1 PAC PO DAILY PRN CONSTIPATION (Reported) dissolve in water Current Medications: Current Medications Sig/Martinez Start time Last Medication Dose Route Stop Time Status Admin Acetaminophen 0 .STK-MED ONE 03/13 1921 DC PO Acetaminophen 650 MG Q6 03/13 1800 AC 03/14 PO 0618 Baclofen 40 MG TID 03/13 2200 AC 03/13 PO 2219 Ceftazidime 2,000 MG IQ8 03/14 0000 AC 03/14 IV 0115 Ceftazidime 0 .STK-MED ONE 03/13 1734 DC .ROUTE Ceftazidime 1,000 MG ONCE ONE 03/13 1715 DC 03/13 IV 03/13 1716 1739 Diazepam 20 MG TID 03/14 0250 AC 03/14 PO 0437 Docusate Sodium 100 MG BID PRN 03/13 1815 AC PO Enoxaparin Sodium 40 MG 1900 03/13 1900 AC 03/13 SC 2219 Guaifenesin 600 MG Q12 03/13 2200 AC 03/13 PO 2220 Levetiracetam 500 MG TID 03/13 2200 AC 03/13 PO 2220 Methyl Salicylate 1 JULIUS Q2P PRN 03/13 1800 AC TOP Morphine Sulfate 2 MG Q4 PRN 03/13 1800 AC IV Morphine Sulfate 4 MG Q4P PRN 03/13 1800 AC IV Pantoprazole Sodium 40 MG DAILY 03/14 1000 AC IV Phenobarbital 32.4 MG TID 03/13 2200 AC 03/13 PO 2222 Polyethylene Glycol 17 GM DAILY PRN 03/13 1815 AC PO Potassium Chloride 10 MEQ Q1H 03/14 0845 DC IV 03/14 0946 Sodium Chloride 1,000 ML Q13H 03/14 0900 AC IV 03/14 2159 Sodium Chloride 1,000 ML Q20H 03/13 1800 AC 03/13 IV 1811 Sodium Chloride 1,000 ML BOLUS ONE 03/13 1400 DC 03/13 IV 03/13 1459 1437 Vancomycin HCl 1,000 MG Q12 03/14 1000 AC Sodium Chloride 250 ML IV Vancomycin HCl 1,000 MG ONCE ONE 03/13 1715 DC 03/13 Sodium Chloride 250 ML IV 03/13 1814 1809 Past History Travel History Traveled to [place] past 21 day No Medical History Blood Transfusion Hx: No Neurological: CP EENT: NONE Cardiovascular: NONE Respiratory: ASP PNEUMONIA Gastrointestinal: constipation Hepatic: NONE Renal: NONE Musculoskeletal: NONE Psychiatric: NONE Endocrine: NONE Blood Disorders: NONE Cancer(s): NONE 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 Home Who Do You Live With? Sister Services at Home: Home Health Aide, Nursing Smoking Status: Never Smoked ETOH Use: denies use Illicit Drug Use: denies illicit drug use Functional Ability ADLs Needs Assist: dressing, eating, toileting, bathing. Ambulation: non-ambulatory IADLs Needs Assist: shopping, housework, finances, food prep, telephone, transportation, medication admin. Exam & Diagnostic Data Last 24 Hrs of Vital Signs/I&O Vital Signs Date Time Temp Pulse Resp B/P B/P Pulse O2 O2 Flow FiO2 Mean Ox Delivery Rate 03/14 0800 30 03/14 0604 30 03/14 0400 100 Ventilator 30% 03/14 0313 30 03/14 0024 30 03/14 0000 97 Ventilator 30% 03/14 0000 96.8 68 14 100/0 97 Ventilator 30% 03/13 2231 30 03/13 2058 98 Ventilator 30% 03/13 2058 98.8 76 14 108/707 97 Ventilator 30% 03/13 1956 98.3 79 14 103/69 99 Ventilator 30% 03/13 1932 30 03/13 1926 98.7 03/13 1916 98.7 103 14 110/67 95 Ventilator 30% 03/13 1820 98.7 105 14 105/72 93 Ventilator 30% 03/13 1719 98.7 93 14 115/82 99 Ventilator 30% 03/13 1631 30 03/13 1610 98.4 87 14 111/71 99 Ventilator 30% 03/13 1416 30 03/13 1404 98.8 115 15 140/83 100 Ventilator 30% 03/13 1223 100 Ventilator 30% 03/13 1220 98.4 109 16 118/81 100 Ventilator 30% 03/13 1200 30 Intake & Output 03/14 1600 03/14 0800 03/14 0000 Intake Total 40 60 Output Total Balance 40 60 Intake, IV 40 Intake, Oral 60 Patient 120 lb 120 lb Weight Weight Bed scale Measurement Method Physical Exam General Appearance: no apparent distress, awake, comfortable Head: atraumatic, normal appearance Eyes: Bilateral: normal appearance. Respiratory: normal breath sounds, chest non-tender Cardiovascular: regular rate/rhythm Gastrointestinal: soft, non-tender, PEG tube Neurologic/Psych: awake, alert Last 48 Hrs of Labs/Dexter: Laboratory Tests 03/14/17 0400: Anion Gap 12, Estimated GFR > 60, Glucose 78, Calcium 8.1 L, Phosphorus 3.1, Magnesium 1.7, Total Bilirubin 0.3, AST 15, ALT 24, Albumin 2.9 L, CBC w Diff NO MAN DIFF REQ, RBC 3.37 L, MCV 81.8, MCH 26.7 L, RDW 15.9 H, MPV 8.4, Gran % 67.4, Lymphocytes % 24.7, Monocytes % 5.8, Eosinophils % 1.5, Basophils % 0.6, Absolute Granulocytes 7.1 H, Absolute Lymphocytes 2.6, Absolute Monocytes 0.6, Absolute Eosinophils 0.2, Absolute Basophils 0.1, PUBS MCHC 32.6 L 03/13/17 1743: Urine Color Cancelled, Urine Clarity Cancelled, Urine pH Cancelled, Ur Specific [place] Cancelled, Urine Protein Cancelled, Urine Ketones Cancelled, Urine Nitrite Cancelled, Urine Bilirubin Cancelled, Urine Urobilinogen Cancelled, Ur Leukocyte Esterase Cancelled, Ur Microscopic Cancelled, Urine Hemoglobin Cancelled, Urine Glucose Cancelled 03/13/17 1530: Lactic Acid 1.2 03/13/17 1315: pH 7.41, pCO2 44, pO2 113 H, HCO3 27, ABG O2 Sat (Measured) 98.0, Carboxyhemoglobin 0.3 L, O2 Concentration % 30%, Respiration Rate 14, O2 Delivery Method VENT, Vent Mode AC, Expiratory Pressure 5, Tidal Volume 400, Phlebotomy Draw Site LEFT RADIAL 03/13/17 1306: Anion Gap 16, Estimated GFR > 60, BUN/Creatinine Ratio 6.7 L, Glucose 118 H, Lactic Acid 2.1, Calcium 8.9, Magnesium 1.7, Total Bilirubin 0.3, AST 18, ALT 23 , Alkaline Phosphatase 146 H, Troponin I 0.06, Bxf-L-[place]gg[place]wj Pept 87.6, Total Protein 8.1, Albumin 3.8, Globulin 4.3 H, Albumin/Globulin Ratio 0.9 L, D-Dimer High Sensitivty 1750 H, CBC w Diff MAN DIFF ORDERED, RBC 4.28, MCV 81.8 , MCH 26.8 L, RDW 15.9 H, MPV 7.4, Gran % 88.9 H, Lymphocytes % 6.1 L, Monocytes % 4.1, Eosinophils % 0.5, Basophils % 0.4, Absolute Granulocytes 14.6 H, Segmented Neutrophils 82 H, Band Neutrophils 1, Absolute Lymphocytes 1.0 L, Lymphocytes 12 L, Monocytes 5, Absolute Monocytes 0.7 H, Absolute Eosinophils 0.1, Absolute Basophils 0.1, Platelet Estimate VERIFIED BY SMEAR, Normocytic RBCs VERIFIED, Hypochromic-Microcytic 1+, Stomatocytes 1+, PUBS MCHC 32.8 L Microbiology 03/13 2044 NASOPHARYN: Influenza Virus A & B Rapid Smear - COMP Assessment/Plan Impression/Plan: The patient is a 41-year-old woman with a past medical history of cerebral palsy, seizures, aspiration pneumonia, chronic constipation, incontinence, status post surgery/Vega percy, status post right ORIF, and history of anoxic brain injury with full assist. She lives at home with her sister who is her winding rack operator and also has visiting nurses. She is on a tracheostomy tube but requires connection to a ventilator at nighttime for respiratory support. Plan: 1. Ventilator associated pneumonia * Continue monitoring in ICU * Will follow up blood, sputum and urine cultures * Rapid flu test was negative * Continue IV ceftazidime 1g q8 hrs and IV vancomycin 1g q12 hours * Mucinex 600 mg q12 hrs * ID consult has been placed. 2. Tracheostomy site pain * Patient has tracheostomy site pain and discomfort with a history of tracheostomy site scarring. * The tracheostomy was placed by Dr Pham. A consult has been placed for his evaluation. ENT will evaluate if required after surgery evaluation. 3. Dysphagia * Patient is reported to have had been having some dysphagia and drooling * Swallow evaluation - pending. * Puree diet with honey thick liquids for now * Can give oral medications with apple sauce * Patient requests consultation with Dr. Pham for change of her PEG tube (She receives water flushes through the PEG) 4. Cerebral palsy * Continue home medications phenobarbital 32.4 mg TID; Diazepam 20 mg TID; Kepra 500 mg TID 5. DVT prophylaxis * SC lovenox 40 mg daily Code status: Full code Problem List: 1. Cerebral palsy Consult Acknowledgment - Thank you for your consult request. Tomi Dupont MD 03/14/17 1032: Assessment/Plan Other Findings/Comments: 41 year old woman. Previously seen at [facility]. She has a tracheostomy and goes on a ventilator at night given chronic respiratory failure in the setting of cerebral palsy. She is able to converse and she is accompanied by her aide. She wants to establish care. She has been taken care of by Dr. Pham previously and she has been referred to an ENT specialist to have ongoing trach care, also she has had bleeding from the trach site in the past, not actively. She also has frequent phlegm that is mostly clear and yellow and difficulty in bringing up sputum given her CP. She is unable to do flutter devices and was prescribed vest therapy for mucociliary clearance. She would unable to hold the device and participate in proper technique given her CP condition. She has nebulizer therapy at home that she uses as needed. ENT referral previously was made([facility]) - [facility] does not take her insurance Impression left sided pneumonia, risk factors for mrsa/pseudomonas Plan -ID consultation appreciated -cont abx -sputum cx -tailor abx based on sputum cx -nocturnal ventilation -DC planning -TRC/Nebs DVT prophylaxis at all times TTS 35 min Consult Acknowledgment - Thank you for your consult request. Mahesh Galvan MD 03/15/17 1100: Assessment/Plan Consult Acknowledgment - Thank you for your consult request.
--- NOTE | 2017-03-14 10:57 | Cons- Infect Disease ---
General Information and HPI Consulting Request Date of Consult: 03/14/17 Requested By: Mahesh Galvan MD Reason for Consult: Rule out pneumonia Source of Information: old records Exam Limitations: unable to give history History of Present Illness: This is a 41-year-old woman with cerebral palsy, cared for at home, with a tracheostomy, on a ventilator at night for respiratory support, status post PEG placement, hospitalized several months prior to admission at [facility] for pneumonia, and one month prior to admission at [place] for replacement of her trach, treated with Levaquin for 6 days prior to admission for intermittent dyspnea, associated with facial cyanosis, episodes of syncope, increased pain and drooling around her trach site and choking sensation while eating, requiring increased use of the ventilator, admitted on March 13 after she was brought to the emergency room with increased, malodorous blood-tinged secretions and increased shortness of breath. On admission she was afebrile. Laboratory data revealed a white blood cell count of 17,000, BUN/creatinine 2 and 0.3, alkaline phosphatase 146, d-dimer 1750, ABG 7.41/44/113 on 30% ventilator. Chest x-ray revealed an asymmetric airspace opacity involving the left lung. CTA of the chest revealed bilateral perihilar airspace disease, left greater than right, with no evidence of pulmonary emboli. She was begun on Vancomycin and Ceftazidime and has remained afebrile overnight. She is unable to provide any history as she is nonverbal presently. Allergies/Medications Allergies: Coded Allergies: Penicillins (HIVES 10/18/16) ceftriaxone (HIVES 10/18/16) Home Med List: Acetaminophen (Arthritis Pain) 650 MG TABLET.ER 1 TAB PO Q4H PRN PAIN/TEMP ( Reported) Baclofen 20 MG TABLET 2 TAB PO TID MUSCLE RELAXER (Reported) Diazepam 10 MG TABLET 2 TAB PO TID MUSCLE SPASMS (Reported) Docusate Sodium (Colace) 100 MG CAPSULE 1 CAP PO BID PRN STOOL SOFTENER ( Reported) Eucalyptus Oil/Menthol/Camphor (Vicks Vaporub Ointment) 1.2 %-2.6 %-4.7 % OINT...G. 1 JULIUS TOP TID PRN COUGH (Reported) Guaifenesin/Dextromethorphan (Robafen-Dm Syrup) 100 MG-10 MG/5 ML SYRUP 10 ML PO Q6 PRN COUGH/MUCUS (Reported) Guaifenesin/Pseudoephedrne HCl (Mucinex D ER Tablet) 600 MG-60 MG TAB.ER.12H 1 TAB PO DAILY SECRETIONS (Reported) Ipratropium/Albuterol Sulfate (Iprat-Albut 0.5-3(2.5) MG/3 Ml) 0.5 MG-3 MG (2.5 MG BASE)/3 ML AMPUL.NEB 1 VIAL INH Q4H PRN RESP. (Reported) Levetiracetam 500 MG TABLET 1 TAB PO TID SEIZURES (Reported) Levofloxacin 500 MG TABLET 1 TAB PO DAILY ANTIBIOTIC, INFECTION (Reported) Loratadine (Claritin) 10 MG TABLET 1 TAB PO DAILY PRN ALLERGIES (Reported) Phenobarbital 32.4 MG TABLET 1 TAB PO BID SEIZURES (Reported) Phenobarbital 64.8 MG TABLET 1 TAB PO QHS SEIZURES (Reported) Phenobarbital 32.4 MG TABLET 32.4 MG PO 8AM SEIZURES (Reported) Polyethylene Glycol 3350 (Miralax) 17 GRAM POWD.PACK 1 PAC PO DAILY PRN CONSTIPATION (Reported) dissolve in water Past History Travel History Traveled to [place] past 21 day No Medical History Blood Transfusion Hx: No Neurological: CP EENT: NONE Cardiovascular: NONE Respiratory: ASP PNEUMONIA Gastrointestinal: constipation Hepatic: NONE Renal: NONE Musculoskeletal: NONE Psychiatric: NONE Endocrine: NONE Blood Disorders: NONE Cancer(s): NONE 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 Home Who Do You Live With? Sister Services at Home: Home Health Aide, Nursing Smoking Status: Never Smoked ETOH Use: denies use Illicit Drug Use: denies illicit drug use Functional Ability ADLs Needs Assist: dressing, eating, toileting, bathing. Ambulation: non-ambulatory IADLs Needs Assist: shopping, housework, finances, food prep, telephone, transportation, medication admin. Review of Systems Comments Not obtainable Exam & Diagnostic Data Last 24 Hrs of Vital Signs/I&O Vital Signs Date Time Temp Pulse Resp B/P B/P Pulse O2 O2 Flow FiO2 Mean Ox Delivery Rate 03/14 0800 30 03/14 0604 30 03/14 0400 100 Ventilator 30% 03/14 0313 30 03/14 0024 30 03/14 0000 97 Ventilator 30% 03/14 0000 96.8 68 14 100/0 97 Ventilator 30% 03/13 2231 30 03/13 2058 98 Ventilator 30% 03/13 2058 98.8 76 14 108/707 97 Ventilator 30% 03/13 195 98.3 79 14 103/69 99 Ventilator 30% 03/13 1932 30 03/13 1926 98.7 03/13 1916 98.7 103 14 110/67 95 Ventilator 30% 03/13 1820 98.7 105 14 105/72 93 Ventilator 30% 03/13 1719 98.7 93 14 115/82 99 Ventilator 30% 03/13 1631 30 03/13 1610 98.4 87 14 111/71 99 Ventilator 30% 03/13 1416 30 03/13 1404 98.8 115 15 140/83 100 Ventilator 30% 03/13 1223 100 Ventilator 30% 03/13 1220 98.4 109 16 118/81 100 Ventilator 30% 03/13 1200 30 Intake & Output 03/14 1600 03/14 0800 03/14 0000 Intake Total 40 60 Output Total Balance 40 60 Intake, IV 40 Intake, Oral 60 Patient 120 lb 120 lb Weight Weight Bed scale Measurement Method Physical Exam Other Physical Findings: Afebrile. She is awake and alert on the ventilator, nonverbal, but in no acute distress. Skin reveals no rash. HEENT negative. Neck supple with no adenopathy ; trach site with no inflammation. Lungs are clear. Heart regular rhythm with no murmur. Abdomen is soft, nontender with positive bowel sounds; PEG site in place with no inflammation. Back no CVA tenderness. Extremities no cyanosis, clubbing or edema. Neuro is without focality. Last 24 Hours of Lab Results: Laboratory Tests 03/14 03/13 03/13 0400 1530 1315 Blood Gas pH (7.35 - 7.45 PH) 7.41 pCO2 (35 - 45 TORR) 44 pO2 (80 - 100 TORR) 113 H HCO3 (21 - 28 MEQ/L) 27 ABG O2 Sat (Measured) (>96.0 %) 98.0 Carboxyhemoglobin (1.5 - 5.0 %) 0.3 L O2 Concentration % 30% Respiration Rate (BPM) 14 O2 Delivery Method VENT Vent Mode AC Expiratory Pressure (CMH2O/P) 5 Tidal Volume (CC) 400 Chemistry Sodium (137 - 145 mmol/L) 142 Potassium (3.5 - 5.1 mmol/L) 3.3 L Chloride (98 - 107 mmol/L) 105 Carbon Dioxide (22 - 30 mmol/L) 25 Anion Gap (5 - 16) 12 BUN (7 - 17 mg/dL) 2 L Creatinine (0.5 - 1.0 mg/dL) 0.3 L Estimated GFR (>60 ml/min) > 60 Glucose (65 - 99 mg/dL) 78 Lactic Acid (0.7 - 2.1 mmol/L) 1.2 Calcium (8.4 - 10.2 mg/dL) 8.1 L Phosphorus (2.5 - 4.5 mg/dL) 3.1 Magnesium (1.6 - 2.3 mg/dL) 1.7 Total Bilirubin (0.2 - 1.3 mg/dL) 0.3 AST (14 - 36 U/L) 15 ALT (9 - 52 U/L) 24 Albumin (3.5 - 5.0 g/dL) 2.9 L Hematology CBC w Diff NO MAN DIFF REQ WBC (4.8 - 10.8 /CUMM) 10.6 RBC (4.20 - 5.40 /CUMM) 3.37 L Hgb (12.0 - 16.0 G/DL) 9.0 L Hct (37 - 47 %) 27.6 L MCV (81.0 - 99.0 FL) 81.8 MCH (27.0 - 31.0 PG) 26.7 L RDW (11.5 - 14.5 %) 15.9 H Plt Count (130 - 400 /CUMM) 388 MPV (7.4 - 10.4 FL) 8.4 Gran % (42.2 - 75.2 %) 67.4 Lymphocytes % (20.5 - 51.1 %) 24.7 Monocytes % (1.7 - 9.3 %) 5.8 Eosinophils % (0 - 5 %) 1.5 Basophils % (0.0 - 2.0 %) 0.6 Absolute Granulocytes (1.4 - 6.5 /CUMM) 7.1 H Absolute Lymphocytes (1.2 - 3.4 /CUMM) 2.6 Absolute Monocytes (0.10 - 0.60 /CUMM) 0.6 Absolute Eosinophils (0.0 - 0.7 /CUMM) 0.2 Absolute Basophils (0.0 - 0.2 /CUMM) 0.1 PUBS MCHC (33.0 - 37.0 G/DL) 32.6 L Miscellaneous Phlebotomy Draw Site LEFT RADIAL 03/13 1306 Chemistry Sodium (137 - 145 mmol/L) 143 Potassium (3.5 - 5.1 mmol/L) 3.9 Chloride (98 - 107 mmol/L) 99 Carbon Dioxide (22 - 30 mmol/L) 28 Anion Gap (5 - 16) 16 BUN (7 - 17 mg/dL) 2 L Creatinine (0.5 - 1.0 mg/dL) 0.3 L Estimated GFR (>60 ml/min) > 60 BUN/Creatinine Ratio (7 - 25 %) 6.7 L Glucose (65 - 99 mg/dL) 118 H Lactic Acid (0.7 - 2.1 mmol/L) 2.1 Calcium (8.4 - 10.2 mg/dL) 8.9 Magnesium (1.6 - 2.3 mg/dL) 1.7 Total Bilirubin (0.2 - 1.3 mg/dL) 0.3 AST (14 - 36 U/L) 18 ALT (9 - 52 U/L) 23 Alkaline Phosphatase (<127 U/L) 146 H Troponin I (< 0.11 ng/ml) 0.06 Kcf-C-Dygfdfkujlx Pept (<125 pg/mL) 87.6 Total Protein (6.3 - 8.2 g/dL) 8.1 Albumin (3.5 - 5.0 g/dL) 3.8 Globulin (1.9 - 4.2 gm/dL) 4.3 H Albumin/Globulin Ratio (1.1 - 2.2 %) 0.9 L Coagulation D-Dimer High Sensitivty (0 - 243 ng/ml) 1750 H Hematology CBC w Diff MAN DIFF ORDERED WBC (4.8 - 10.8 /CUMM) 16.5 H RBC (4.20 - 5.40 /CUMM) 4.28 Hgb (12.0 - 16.0 G/DL) 11.5 L Hct (37 - 47 %) 35.0 L MCV (81.0 - 99.0 FL) 81.8 MCH (27.0 - 31.0 PG) 26.8 L RDW (11.5 - 14.5 %) 15.9 H Plt Count (130 - 400 /CUMM) 530 H MPV (7.4 - 10.4 FL) 7.4 Gran % (42.2 - 75.2 %) 88.9 H Lymphocytes % (20.5 - 51.1 %) 6.1 L Monocytes % (1.7 - 9.3 %) 4.1 Eosinophils % (0 - 5 %) 0.5 Basophils % (0.0 - 2.0 %) 0.4 Absolute Granulocytes (1.4 - 6.5 /CUMM) 14.6 H Segmented Neutrophils (42.2 - 75.2 %) 82 H Band Neutrophils (0.0 - 5.0 %) 1 Absolute Lymphocytes (1.2 - 3.4 /CUMM) 1.0 L Lymphocytes (20.5 - 51.1 %) 12 L Monocytes (1.7 - 9.3 %) 5 Absolute Monocytes (0.10 - 0.60 /CUMM) 0.7 H Absolute Eosinophils (0.0 - 0.7 /CUMM) 0.1 Absolute Basophils (0.0 - 0.2 /CUMM) 0.1 Platelet Estimate (ADEQUATE) VERIFIED BY SMEAR Normocytic RBCs VERIFIED Hypochromic-Microcytic 1+ Stomatocytes 1+ PUBS MCHC (33.0 - 37.0 G/DL) 32.8 L Last 24 Hours of Dexter Results: Blood cultures 2 March 13 negative Rapid flu swab March 13 negative Sputum culture March 14 pending, with gram stain revealing many white blood cells, few gram-positive cocci, few gram-positive rods and few yeast Diagnostic Data Recent Imaging Findings: Chest x-ray March 14 reveals a diffuse opacity in the left lung, likely related to a layering pleural effusion, with superimposed bilateral perihilar opacities CTA of the chest March 13 reveals bilateral perihilar airspace disease, left greater than right, with a small left pleural effusion; no evidence of central pulmonary emboli Assessment/Plan Assessment/Plan Impression: This is a 41-year-old woman with cerebral palsy, cared for at home, with a tracheostomy, on a ventilator at night for respiratory support, status post PEG placement, treated with Levaquin for 6 days prior to admission for a presumed upper respiratory tract infection without improvement admitted on March 13 with increased, malodorous blood-tinged secretions and increased shortness of breath, found to be afebrile with a leukocytosis and with her chest x-ray revealing bilateral, left greater than right, airspace opacities. The possibility of pneumonia must be considered, particularly with her increased left lung opacity, though she has been on Levaquin for nearly one week, which should have provided adequate coverage for most typical and atypical organisms, and her sputum gram stain reveals only a few organisms. Her white blood cell count has normalized today, suggesting that the increase may have been secondary to hemoconcentration, with her H&H and platelets also decreased today. She has a small left pleural effusion, but, if her temperatures and white blood cell count remain normal, an empyema seems unlikely. Suggestion: 1. Follow-up recent cultures 2. Urine for strep pneumo antigen and Legionella antigen 3. Would pursue a swallowing evaluation 4. Decrease Ceftazidime to 1 g IV every 8 hours pending above 5. Continue Vancomycin pending above Consult Acknowledgment - Thank you for your consult request.
--- NOTE | 2017-03-14 12:55 | PN- Att Addend ---
Attending Addendum Attending Brief Note Patient looks a little brighter today. Parents at the bedside. Vital signs are stable afebrile. No major changes on physical. Her potassium is slightly low at 3.3 we'll replace her white count is down to 16,500. Her swab was negative for influenza. Appreciate infectious diseases input and recommendations. Will continue respiratory support and suctioning as needed all the cultures are pending 24 TOTALS 03/14 0000 03/13 0000 Intake Total 60 Output Total Balance 60 Intake, Oral 60 Patient 120 lb Weight Weight Bed scale Measurement Method Current Medications Sig/Martinez Start time Last Medication Dose Route Stop Time Status Admin Acetaminophen 0 .STK-MED ONE 03/13 1922 DC PO Acetaminophen 650 MG Q6 03/13 1800 AC 03/14 PO 0618 Albuterol Sulfate 3 ML Q4H PRN 03/14 1115 AC INH Baclofen 40 MG TID 03/13 2200 AC 03/14 PO 1050 Ceftazidime 1,000 MG IQ8 03/14 1600 AC IV Ceftazidime 2,000 MG IQ8 03/14 0000 DC 03/14 IV 0800 Ceftazidime 0 .STK-MED ONE 03/13 1734 DC .ROUTE Ceftazidime 1,000 MG ONCE ONE 03/13 1715 DC 03/13 IV 03/13 1716 1739 Diazepam 20 MG TID 03/14 0250 AC 03/14 PO 1048 Docusate Sodium 100 MG BID PRN 03/13 1815 AC PO Enoxaparin Sodium 40 MG 1900 03/13 1900 AC 03/13 SC 2219 Guaifenesin 600 MG Q12 03/13 2200 AC 03/13 PO 2220 Ipratropium Alfred 2.5 ML Q4 HRS NEEDED PRN 03/14 1115 AC INH Levetiracetam 500 MG Q12 03/14 2200 AC N/A 1 UNIT IV Levetiracetam 500 MG BID 03/14 1040 DC 03/14 PEG 1129 Levetiracetam 500 MG TID 03/13 2200 DC 03/13 PO 2220 Methyl Salicylate 1 JULIUS Q2P PRN 03/13 1800 AC TOP Morphine Sulfate 2 MG Q4 PRN 03/13 1800 AC IV Morphine Sulfate 4 MG Q4P PRN 03/13 1800 AC IV Pantoprazole Sodium 40 MG DAILY 03/14 1000 AC 03/14 IV 1130 Phenobarbital 32.4 MG TID 03/13 2200 AC 03/14 PO 1052 Polyethylene Glycol 17 GM DAILY PRN 03/13 1815 AC PO Potassium Chloride 10 MEQ Q1H 03/14 0845 DC 03/14 IV 03/14 0946 1129 Sodium Chloride 1,000 ML Q13H 03/14 0900 AC 03/14 IV 03/14 2159 1050 Sodium Chloride 1,000 ML Q20H 03/13 1800 AC 03/13 IV 1811 Sodium Chloride 1,000 ML BOLUS ONE 03/13 1400 DC 03/13 IV 03/13 1459 1437 Vancomycin HCl 1,000 MG Q12 03/14 1000 AC 03/14 Sodium Chloride 250 ML IV 1050 Vancomycin HCl 1,000 MG ONCE ONE 03/13 1715 DC 03/13 Sodium Chloride 250 ML IV 03/13 1814 1809 Laboratory Tests 03/14/17 0400: Anion Gap 12, Estimated GFR > 60, Glucose 78, Calcium 8.1 L, Phosphorus 3.1, Magnesium 1.7, Total Bilirubin 0.3, AST 15, ALT 24, Albumin 2.9 L, CBC w Diff NO MAN DIFF REQ, RBC 3.37 L, MCV 81.8, MCH 26.7 L, RDW 15.9 H, MPV 8.4, Gran % 67.4, Lymphocytes % 24.7, Monocytes % 5.8, Eosinophils % 1.5, Basophils % 0.6, Absolute Granulocytes 7.1 H, Absolute Lymphocytes 2.6, Absolute Monocytes 0.6, Absolute Eosinophils 0.2, Absolute Basophils 0.1, PUBS MCHC 32.6 L 03/13/17 1530: Lactic Acid 1.2 03/13/17 1315: pH 7.41, pCO2 44, pO2 113 H, HCO3 27, ABG O2 Sat (Measured) 98.0, Carboxyhemoglobin 0.3 L, O2 Concentration % 30%, Respiration Rate 14, O2 Delivery Method VENT, Vent Mode AC, Expiratory Pressure 5, Tidal Volume 400, Phlebotomy Draw Site LEFT RADIAL 03/13/17 1306: Anion Gap 16, Estimated GFR > 60, BUN/Creatinine Ratio 6.7 L, Glucose 118 H, Lactic Acid 2.1, Calcium 8.9, Magnesium 1.7, Total Bilirubin 0.3, AST 18, ALT 23 , Alkaline Phosphatase 146 H, Troponin I 0.06, Fzx-M-Crwjfbgdzol Pept 87.6, Total Protein 8.1, Albumin 3.8, Globulin 4.3 H, Albumin/Globulin Ratio 0.9 L, D-Dimer High Sensitivty 1750 H, CBC w Diff MAN DIFF ORDERED, RBC 4.28, MCV 81.8 , MCH 26.8 L, RDW 15.9 H, MPV 7.4, Gran % 88.9 H, Lymphocytes % 6.1 L, Monocytes % 4.1, Eosinophils % 0.5, Basophils % 0.4, Absolute Granulocytes 14.6 H, Segmented Neutrophils 82 H, Band Neutrophils 1, Absolute Lymphocytes 1.0 L, Lymphocytes 12 L, Monocytes 5, Absolute Monocytes 0.7 H, Absolute Eosinophils 0.1, Absolute Basophils 0.1, Platelet Estimate VERIFIED BY SMEAR, Normocytic RBCs VERIFIED, Hypochromic-Microcytic 1+, Stomatocytes 1+, PUBS MCHC 32.8 L Microbiology 03/13 2044 NASOPHARYN: Influenza Virus A & B Rapid Smear - COMP Vital Signs Date Time Temp Pulse Resp B/P B/P Pulse O2 O2 Flow FiO2 Mean Ox Delivery Rate 03/14 1200 96 Ventilator 30% 03/14 1122 30 03/14 1051 Ventilator 30% 03/14 0800 30 03/14 0800 96 Ventilator 30% 03/14 0800 98.1 70 18 104/50 96 Ventilator 30% 03/14 0604 30 03/14 0400 100 Ventilator 30% 03/14 0313 30 03/14 0024 30 03/14 0000 97 Ventilator 30% 03/14 0000 96.8 68 14 100/0 97 Ventilator 30% 03/131 30 03/13 2058 98 Ventilator 30% 03/13 2058 98.8 76 14 108/707 97 Ventilator 30% 03/136 98.3 79 14 103/69 99 Ventilator 30% 03/13 1932 30 03/13 1926 98.7 03/13 1916 98.7 103 14 110/67 95 Ventilator 30% 03/13 1820 98.7 105 14 105/72 93 Ventilator 30% 03/13 1719 98.7 93 14 115/82 99 Ventilator 30% 03/13 1631 30 03/13 1610 98.4 87 14 111/71 99 Ventilator 30% 03/13 1416 30 03/13 1404 98.8 115 15 140/83 100 Ventilator 30%
--- NOTE | 2017-03-14 13:18 | PN- General Surgery ---
Surgical Brief Attending Note Brief Attending Note: PATIENT SCHEDULED TO HAVE PEG EXCHANGE IN THE OFFICE SATURDAY. WILL GET THE TUBE FROM MY OFFICE AND EXCHANGE IT TOMORROW.
[2017-03-14 16:00] VITALS: BP 90/50
[2017-03-15] VITALS: BP 120/80
[2017-03-15 04:57] LABS: ABSOLUTE BASOPHIL COUNT 0.2 /CUMM (0.0-0.2); ABSOLUTE EOSINOPHIL COUNT 0.3 /CUMM (0.0-0.7); ABSOLUTE GRANULOCYTE CT 4.6 /CUMM (1.4-6.5); ABSOLUTE LYMPH COUNT 2.8 /CUMM (1.2-3.4); ABSOLUTE MONOCYTE COUNT 0.4 /CUMM (0.10-0.60); BASOPHIL % 2.1 % (0.0-2.0); EOSINOPHIL % 3.2 % (0-5); GRANULOCYTE % 55.6 % (42.2-75.2); HEMATOCRIT 28.1 % (37-47); MEAN CORPUSCULAR HGB 26.5 PG (27.0-31.0); MEAN CORPUSCULAR HGB CONC 32.4 G/DL (33.0-37.0); MEAN CORPUSCULAR VOLUME 81.8 FL (81.0-99.0); MEAN PLATELET VOLUME 8.8 FL (7.4-10.4); PLATELET COUNT 361 /CUMM (130-400); RBC DISTRIBUTION WIDTH 16.3 % (11.5-14.5); RED BLOOD CELL CT 3.43 /CUMM (4.20-5.40); WHITE BLOOD CELL COUNT 8.3 /CUMM (4.8-10.8)
--- NOTE | 2017-03-15 07:07 | PN- Resident CRCU ---
Brenda CRUZ,[facility] 03/15/17 0707: Subjective HPI/CRCU Issues: Pneumonia Respiratory distress off ventilator tracheostomy 24 Hour Events: Respiratory culture has been growing GNR. She has remained afebrile. Had an ENT evaluation and her tracheostomy tube straps were tightened. Rested comfortably with no overnight issues. Does not offer any complaints. Objective Vital Signs & I&O Last 8 Hrs of Vitals and I&O: . Exam General Appearance: no apparent distress, alert, awake, comfortable, intubated Head: atraumatic, normal appearance Ears, Nose, Throat: tracheostomy Respiratory: normal breath sounds, chest non-tender, lungs clear Cardiovascular: regular rate/rhythm Gastrointestinal: soft, non-tender Extremities: no edema Skin: intact Skin Temp/Moisture Exam: Warm/Dry Sepsis Skin Exam (color): Normal for Ethnicity Current Medications: Current Medications Sig/Martinez Start time Last Medication Dose Route Stop Time Status Admin Acetaminophen 650 MG Q6 03/13 1800 AC 03/15 PO 0524 Albuterol Sulfate 3 ML Q4H PRN 03/14 1115 AC INH Baclofen 40 MG TID 03/13 2200 AC 03/15 PO 1030 Ceftazidime 1,000 MG IQ8 03/14 1600 AC 03/15 IV 0800 Diazepam 20 MG TID 03/14 0250 AC 03/15 PO 1029 Docusate Sodium 100 MG BID PRN 03/13 1815 AC PO Enoxaparin Sodium 40 MG 1900 03/13 1900 AC 03/14 SC 1849 Guaifenesin 600 MG Q12 03/13 2200 AC 03/13 PO 2220 Ipratropium Branch 2.5 ML Q4 HRS NEEDED PRN 03/14 1115 AC INH Levetiracetam 500 MG Q12 03/14 2200 AC 03/14 N/A 1 UNIT IV 2157 Magnesium Oxide 400 MG BID 03/15 1000 AC 03/15 PO 1031 Methyl Salicylate 1 JULIUS Q2P PRN 03/13 1800 AC TOP Morphine Sulfate 2 MG Q4 PRN 03/13 1800 AC IV Morphine Sulfate 4 MG Q4P PRN 03/13 1800 AC 03/15 IV 1119 Nystatin 1 JULIUS TID PRN 03/14 1445 AC 03/14 TOP 1747 Oxymetazoline HCl 2 SPRAY BID PRN 03/15 0745 AC PABLO Pantoprazole Sodium 40 MG DAILY 03/14 1000 AC 03/14 IV 1130 Phenobarbital 32.4 MG TID 03/13 2200 AC 03/15 PO 1030 Polyethylene Glycol 17 GM DAILY PRN 03/13 1815 AC PO Sodium Chloride 1,000 ML Q13H 03/14 0900 DC 03/14 IV 03/14 2159 1050 Sodium Chloride 1,000 ML Q20H 03/13 1800 AC 03/15 IV 0738 Vancomycin HCl 1,000 MG Q12 03/14 1000 DC 03/14 Sodium Chloride 250 ML IV 2242 Impression/Plan Impression/Problem List Impression: The patient is a 41-year-old woman with a past medical history of cerebral palsy, seizures, aspiration pneumonia, chronic constipation, incontinence, status post surgery/Vazquez jeffy, status post right ORIF, and history of anoxic brain injury with full assist. She lives at home with her sister who is her senior software engineer analytics and also has visiting nurses. She is on a tracheostomy tube but requires connection to a ventilator at nighttime for respiratory support. Plan: 1. Pneumonia * Continue monitoring in ICU * Her sputum is growing GNR. * Her Pneumonia is likely due to aspiration and not ventilator assosciated. * Will follow up blood and urine cultures * Rapid flu test was negative * Continue IV vancomycin 1g q12 hours. Ceftazidime has been discontinued. * Mucinex 600 mg q12 hrs * ID recs appreciated. 2. Tracheostomy site pain * Patient has tracheostomy site pain and discomfort with a history of tracheostomy site scarring. * The tracheostomy was placed by Dr Pham. A consult has been placed for his evaluation. * ENT suggested to tighten slightly tracheostomy tube straps so that it is not anteriorly displaced. Also the granulation tissue around the site is normal. 3. Dysphagia * Patient is reported to have had been having some dysphagia and drooling * Swallow evaluation - pending. * Puree diet with honey thick liquids for now * Can give oral medications with apple sauce * Patient requests consultation with Dr. Pham for change of her PEG tube (She receives water flushes through the PEG) 4. Cerebral palsy * Continue home medications phenobarbital 32.4 mg TID; Diazepam 20 mg TID; Kepra 500 mg TID 5. DVT prophylaxis * SC lovenox 40 mg daily Code status: Full code Problem List: 1. Cerebral palsy Problem List: 1. Pneumonia Pain Ratin Tomorrow's Labs & Rationales: CBC, ICU bundle Plan DVT/Prophylaxis: mechanical Tomi Dupont MD 03/15/17 1240: Attending MD Review Statement Attending Sign Off Attending Cosign Statement: I have: examined this patient, reviewed [facility] EMR data, personally reviewd images, discussd w/resident/PA/[employer], discussed mgmt plan w/ratna, discussed mgmt plan w/CM, discussed mgmt plan w/pt, agreed w/resident/PA/[employer], amended to note. Other Findings: 41 year old woman. Previously seen at [address]. She has a tracheostomy and goes on a ventilator at night given chronic respiratory failure in the setting of cerebral palsy. She is able to converse and she is accompanied by her aide. ENT referral previously was made([place]) - [facility] does not take her insurance Impression left sided pneumonia, risk factors for mrsa/pseudomonas chronic respiratory failure Plan -f/u ID recommendations -cont abx -f/u sputum cx -tailor abx based on sputum cx -d/w family feeding plan -DC planning -TRC/Nebs DVT prophylaxis at all times TTS 35 min
[2017-03-15 08:00] VITALS: BP 100/50
--- NOTE | 2017-03-15 08:18 | RADIOLOGY REPORT ---
EXAMINATION: XR PORTABLE CHEST CLINICAL INFORMATION: Left-sided pneumonia, for comparison. COMPARISON: 03/14/2017 and 03/13/2017. TECHNIQUE: Portable frontal view of the chest was obtained. FINDINGS: There is improved aeration noted throughout the entire left lung since the prior studies. Subtle airspace opacity is noted at the right lung base, appears new. No other significant change since the prior studies. IMPRESSION: 1. Improved aeration at the left lung since the prior studies. 2. Interval development of subtle focal airspace disease at the right lung base. 3. No other significant change.
--- NOTE | 2017-03-15 08:19 | Cons- Ear,Nose&Throat ---
General Information and HPI Consulting Request Date of Consult: 03/15/17 Requested By: Mahesh Galvan MD Reason for Consult: evaulation of tracheostomy statuus possible source of infection Source of Information: PCP, covering ICU resident and nursing staff Exam Limitations: unable to give history, clinical condition, physical impairment History of Present Illness: The patient is a 41-year-old woman with a past medical history of cerebral palsy, seizures, aspiration pneumonia, chronic constipation, incontinence, status post surgery/Vazquez percy, status post right ORIF, and history of anoxic brain injury with full assist. She lives at home with her sister who is her supervisor cemetery workers and also has visiting nurses. S/Ptracheostomy tube, requires connection to a ventilator at nighttime for respiratory support. Due to increasing respiratory symptoms she was placed on Levaquin approximately 1 week prior to admission. Her condition continued to deteriorate and so she was admitted to [facility] through the emergency room. Since admission she has been on broad-spectrum antibiotics. Consultation with infectious disease suggest possible pneumonia. There is concern due to malodorous discharge around the tracheostomy site Allergies/Medications Allergies: Coded Allergies: Penicillins (HIVES 10/18/16) ceftriaxone (HIVES 10/18/16) Home Med List: Acetaminophen (Arthritis Pain) 650 MG TABLET.ER 1 TAB PO Q4H PRN PAIN/TEMP ( Reported) Baclofen 20 MG TABLET 2 TAB PO TID MUSCLE RELAXER (Reported) Diazepam 10 MG TABLET 2 TAB PO TID MUSCLE SPASMS (Reported) Docusate Sodium (Colace) 100 MG CAPSULE 1 CAP PO BID PRN STOOL SOFTENER ( Reported) Eucalyptus Oil/Menthol/Camphor (Vicks Vaporub Ointment) 1.2 %-2.6 %-4.7 % OINT...G. 1 JULIUS TOP TID PRN COUGH (Reported) Guaifenesin/Dextromethorphan (Robafen-Dm Syrup) 100 MG-10 MG/5 ML SYRUP 10 ML PO Q6 PRN COUGH/MUCUS (Reported) Guaifenesin/Pseudoephedrne HCl (Mucinex D ER Tablet) 600 MG-60 MG TAB.ER.12H 1 TAB PO DAILY SECRETIONS (Reported) Ipratropium/Albuterol Sulfate (Iprat-Albut 0.5-3(2.5) MG/3 Ml) 0.5 MG-3 MG (2.5 MG BASE)/3 ML AMPUL.NEB 1 VIAL INH Q4H PRN RESP. (Reported) Levetiracetam 500 MG TABLET 1 TAB PO TID SEIZURES (Reported) Levofloxacin 500 MG TABLET 1 TAB PO DAILY ANTIBIOTIC, INFECTION (Reported) Loratadine (Claritin) 10 MG TABLET 1 TAB PO DAILY PRN ALLERGIES (Reported) Phenobarbital 32.4 MG TABLET 1 TAB PO BID SEIZURES (Reported) Phenobarbital 64.8 MG TABLET 1 TAB PO QHS SEIZURES (Reported) Phenobarbital 32.4 MG TABLET 32.4 MG PO 8AM SEIZURES (Reported) Polyethylene Glycol 3350 (Miralax) 17 GRAM POWD.PACK 1 PAC PO DAILY PRN CONSTIPATION (Reported) dissolve in water Past History Medical History Blood Transfusion Hx: No Neurological: CP EENT: NONE Cardiovascular: NONE Respiratory: ASP PNEUMONIA Gastrointestinal: constipation Hepatic: NONE Renal: NONE Musculoskeletal: NONE Psychiatric: NONE Endocrine: NONE Blood Disorders: NONE Cancer(s): NONE TRANSFORMATION ANALYST/Reproductive: NONE Other Medical Hx: CEREBAL PALSY, PNA Surgical History Pertinent Surgical History: TRACHEOSTOMY VAZQUEZ PERCY RIGHT ORIF Family History Relations & Conditions If Any: FATHER FH: prostate cancer MOTHER FH: esophageal cancer FH: gastric cancer Relation not specified for: *No pertinent family history Psychosocial History Where Do You Live? Home Who Do You Live With? Sister Services at Home: Home Health Aide, Nursing Smoking Status: Never Smoked ETOH Use: denies use Illicit Drug Use: denies illicit drug use Functional Ability ADLs Needs Assist: dressing, eating, toileting, bathing. Ambulation: non-ambulatory IADLs Needs Assist: shopping, housework, finances, food prep, telephone, transportation, medication admin. Exam & Diagnostic Data Vital Signs and I&O Vital Signs Date Time Temp Pulse Resp B/P B/P Pulse O2 O2 Flow FiO2 Mean Ox Delivery Rate 03/15 0801 30 03/15 0614 30 03/15 0400 99 Ventilator 30% 03/15 0325 30 03/15 0056 30 03/15 0000 97.8 68 14 120/80 98 Ventilator 30% 03/14 2229 30 03/14 2000 93 Ventilator 30% 03/14 1920 30 03/14 1600 30 03/14 1600 97 Ventilator 30% 03/14 1600 98.0 52 14 90/50 98 Ventilator 30% 03/14 1419 30 03/14 1200 96 Ventilator 30% 03/14 1122 30 03/14 1051 Ventilator 30% Intake & Output 03/15 0800 03/15 0000 03/14 1600 03/14 0800 03/14 0000 Intake Total 714 855 875 40 60 Output Total Balance 714 855 875 40 60 Intake, IV 594 735 675 40 Intake, Oral 60 Intake, Tube 120 120 200 Irrigant Patient 120 lb 120 lb Weight Weight Bed scale Measurement Method Examination at the bedside in the intensive care unit reveals that she is presently connected to a ventilator through her tracheostomy tube. There is no evidence clinically of obstruction or difficulty with ventilation. She is awake but not responsive verbally Oropharyngeal examination is unremarkable. Gag reflex is present Neck examination reveals the tracheostomy tube appears to be anteriorly displaced and somewhat weighted down by the ventilator tube. There is a slight amount of granulation tissue around the stoma however it does not appear to be friable or very abundant Fiberoptic tracheoscopy through the tracheostomy tube reveals that it is in the airway. There is slight granulation tissue on the posterior wall of the trachea but the airway itself is quite patent with good visualization of the [place]. When repositioning the tracheostomy tube, it bypasses the area of granulation Assessment/Plan Assessment/Plan Impression: I feel the tracheostomy tube and the tracheostomy site are not the causes of her respiratory difficulty. My suspicion is primarily a pulmonary process, there is also a component of reduced ventilatory effort from her underlying disease processes I did recommend to the nursing staff to elevate the ventilator tubing to avoid downward displacement of the tracheostomy tube and also to tighten slightly tracheostomy tube straps so that it is not anteriorly displaced Consult Acknowledgment - Thank you for your consult request. Attending MD Review Statement Attending Statement Attending MD Statement: examined this patient, discuss w/resident/PA/EDUCATION ANALYST, discussed w/nursing
--- NOTE | 2017-03-15 09:54 | PN- Infect Dx ---
Subjective Subjective: Afebrile. She does not relay any complaints but she remains nonverbal and it is , therefore, difficult to obtain a history. Objective Last 24 Hrs of Vital Signs/I&O Vital Signs Date Time Temp Pulse Resp B/P B/P Pulse O2 O2 Flow FiO2 Mean Ox Delivery Rate 03/15 0801 30 03/15 0614 30 03/15 0400 99 Ventilator 30% 03/15 0325 30 03/15 0056 30 03/15 0000 97.8 68 14 120/80 98 Ventilator 30% 03/14 2229 30 03/14 2000 93 Ventilator 30% 03/14 1920 30 03/14 1600 30 03/14 1600 97 Ventilator 30% 03/14 1600 98.0 52 14 90/50 98 Ventilator 30% 03/14 1419 30 03/14 1200 96 Ventilator 30% 03/14 1122 30 03/14 1051 Ventilator 30% Intake & Output 03/15 1600 03/15 0800 03/15 0000 Intake Total 714 855 Output Total Balance 714 855 Intake, IV 594 735 Intake, Tube 120 120 Irrigant Physical Exam Other Physical Findings: She appears comfortable in no acute distress on the vent Lungs scattered rhonchi bilaterally Heart regular rhythm with no murmur Abdomen is soft, nontender with positive bowel sounds; PEG in place with no inflammation at the site Extremities no cyanosis, clubbing or edema Results Last 24 Hours of Lab Results: Laboratory Tests 03/15 399 Chemistry Sodium (137 - 145 mmol/L) 145 Potassium (3.5 - 5.1 mmol/L) 3.9 Chloride (98 - 107 mmol/L) 109 H Carbon Dioxide (22 - 30 mmol/L) 23 Anion Gap (5 - 16) 13 BUN (7 - 17 mg/dL) 3 L Creatinine (0.5 - 1.0 mg/dL) 0.3 L Estimated GFR (>60 ml/min) > 60 Glucose (65 - 99 mg/dL) 69 Calcium (8.4 - 10.2 mg/dL) 8.2 L Phosphorus (2.5 - 4.5 mg/dL) 3.9 Magnesium (1.6 - 2.3 mg/dL) 1.8 Total Bilirubin (0.2 - 1.3 mg/dL) < 0.1 L AST (14 - 36 U/L) 17 ALT (9 - 52 U/L) 31 Albumin (3.5 - 5.0 g/dL) 2.9 L Hematology CBC w Diff NO MAN DIFF REQ WBC (4.8 - 10.8 /CUMM) 8.3 RBC (4.20 - 5.40 /CUMM) 3.43 L Hgb (12.0 - 16.0 G/DL) 9.1 L Hct (37 - 47 %) 28.1 L MCV (81.0 - 99.0 FL) 81.8 MCH (27.0 - 31.0 PG) 26.5 L RDW (11.5 - 14.5 %) 16.3 H Plt Count (130 - 400 /CUMM) 361 MPV (7.4 - 10.4 FL) 8.8 Gran % (42.2 - 75.2 %) 55.6 Lymphocytes % (20.5 - 51.1 %) 33.7 Monocytes % (1.7 - 9.3 %) 5.4 Eosinophils % (0 - 5 %) 3.2 Basophils % (0.0 - 2.0 %) 2.1 H Absolute Granulocytes (1.4 - 6.5 /CUMM) 4.6 Absolute Lymphocytes (1.2 - 3.4 /CUMM) 2.8 Absolute Monocytes (0.10 - 0.60 /CUMM) 0.4 Absolute Eosinophils (0.0 - 0.7 /CUMM) 0.3 Absolute Basophils (0.0 - 0.2 /CUMM) 0.2 PUBS MCHC (33.0 - 37.0 G/DL) 32.4 L Last 24 Hours of Dexter Results: Sputum culture March 14 positive for 2 types of gram-negative rods and yeast Blood cultures x2 March 13 negative Recent Imaging Studies: Chest x-ray March 15, personally reviewed, reveals improved aeration at the left lung, with a subtle focal airspace disease at the right lung base Assessment/Plan Impression: Improved with temperatures remaining normal and white blood cell count now normal on Vancomycin and Ceftazidime Day 2 of treatment for presumed pneumonia secondary to gram-negative rods. Suggestion: 1. Follow-up final cultures 2. Would pursue a swallowing evaluation 3. Discontinue Vancomycin 4. Continue Ceftazidime pending above
--- NOTE | 2017-03-15 11:03 | PN- Att Addend ---
Attending Addendum Attending Brief Note Patient laying flat in bed, getting a.m. care by nursing. No new complaints looks a little brighter. Vital signs are stable no fever, white count 8300 with no major changes on physical was seen by ENT, check the trach cavity has some granulation tissue, also repositioned the trach tube. Surgery also coming in to replace the feeding tube. Otherwise continue IV antibiotics as per infectious diseases recommendations. Intake & Output 03/15 1600 03/15 0400 03/14 1600 03/14 0400 03/13 1600 03/13 0400 Intake Total 714 855 915 60 Output Total Balance 714 855 915 60 Intake, IV 594 735 715 Intake, Oral 60 Intake, Tube 120 120 200 Irrigant Patient 120 lb 120 lb 150 lb Weight Weight Bed scale Reported by Patient Measurement Method Current Medications Sig/Martinez Start time Last Medication Dose Route Stop Time Status Admin Acetaminophen 650 MG Q6 03/13 1800 AC 03/15 PO 0524 Albuterol Sulfate 3 ML Q4H PRN 03/14 1115 AC INH Baclofen 40 MG TID 03/13 2200 AC 03/15 PO 1030 Ceftazidime 1,000 MG IQ8 03/14 1600 AC 03/15 IV 0800 Ceftazidime 2,000 MG IQ8 03/14 0000 DC 03/14 IV 0800 Diazepam 20 MG TID 03/14 0250 AC 03/15 PO 1029 Docusate Sodium 100 MG BID PRN 03/13 1815 AC PO Enoxaparin Sodium 40 MG 1900 03/13 1900 AC 03/14 SC 1849 Guaifenesin 600 MG Q12 03/13 2200 AC 03/13 PO 2220 Ipratropium [place] 2.5 ML Q4 HRS NEEDED PRN 03/14 1115 AC INH Levetiracetam 500 MG Q12 03/14 2200 AC 03/14 N/A 1 UNIT IV 2157 Levetiracetam 500 MG BID 03/14 1040 DC 03/14 PEG 1129 Magnesium Oxide 400 MG BID 03/15 1000 AC 03/15 PO 1031 Methyl Salicylate 1 JULIUS Q2P PRN 03/13 1800 AC TOP Morphine Sulfate 2 MG Q4 PRN 03/13 1800 AC IV Morphine Sulfate 4 MG Q4P PRN 03/13 1800 AC IV Nystatin 1 JULIUS TID PRN 03/14 1445 AC 03/14 TOP 1747 Oxymetazoline HCl 2 SPRAY BID PRN 03/15 0745 AC PABLO Pantoprazole Sodium 40 MG DAILY 03/14 1000 AC 03/14 IV 1130 Phenobarbital 32.4 MG TID 03/13 2200 AC 03/15 PO 1030 Polyethylene Glycol 17 GM DAILY PRN 03/13 1815 AC PO Sodium Chloride 1,000 ML Q13H 03/14 0900 DC 03/14 IV 03/14 2159 1050 Sodium Chloride 1,000 ML Q20H 03/13 1800 AC 03/15 IV 0738 Vancomycin HCl 1,000 MG Q12 03/14 1000 DC 03/14 Sodium Chloride 250 ML IV 2242 Laboratory Tests 03/15/17 0400: Anion Gap 13, Estimated GFR > 60, Glucose 69, Calcium 8.2 L, Phosphorus 3.9, Magnesium 1.8, Total Bilirubin < 0.1 L, AST 17, ALT 31, Albumin 2.9 L, CBC w Diff NO MAN DIFF REQ, RBC 3.43 L, MCV 81.8, MCH 26.5 L, RDW 16.3 H, MPV 8.8, Gran % 55.6, Lymphocytes % 33.7, Monocytes % 5.4, Eosinophils % 3.2, Basophils % 2.1 H, Absolute Granulocytes 4.6, Absolute Lymphocytes 2.8, Absolute Monocytes 0.4, Absolute Eosinophils 0.3, Absolute Basophils 0.2, PUBS MCHC 32.4 L 03/14/17 0400: Anion Gap 12, Estimated GFR > 60, Glucose 78, Calcium 8.1 L, Phosphorus 3.1, Magnesium 1.7, Total Bilirubin 0.3, AST 15, ALT 24, Albumin 2.9 L, CBC w Diff NO MAN DIFF REQ, RBC 3.37 L, MCV 81.8, MCH 26.7 L, RDW 15.9 H, MPV 8.4, Gran % 67.4, Lymphocytes % 24.7, Monocytes % 5.8, Eosinophils % 1.5, Basophils % 0.6, Absolute Granulocytes 7.1 H, Absolute Lymphocytes 2.6, Absolute Monocytes 0.6, Absolute Eosinophils 0.2, Absolute Basophils 0.1, PUBS MCHC 32.6 L 03/13/17 1743: Urine Color Cancelled, Urine Clarity Cancelled, Urine pH Cancelled, Ur Specific [place] Cancelled, Urine Protein Cancelled, Urine Ketones Cancelled, Urine Nitrite Cancelled, Urine Bilirubin Cancelled, Urine Urobilinogen Cancelled, Ur Leukocyte Esterase Cancelled, Ur Microscopic Cancelled, Urine Hemoglobin Cancelled, Urine Glucose Cancelled 03/13/17 1530: Lactic Acid 1.2 03/13/17 1315: pH 7.41, pCO2 44, pO2 113 H, HCO3 27, ABG O2 Sat (Measured) 98.0, Carboxyhemoglobin 0.3 L, O2 Concentration % 30%, Respiration Rate 14, O2 Delivery Method VENT, Vent Mode AC, Expiratory Pressure 5, Tidal Volume 400, Phlebotomy Draw Site LEFT RADIAL 03/13/17 1306: Anion Gap 16, Estimated GFR > 60, BUN/Creatinine Ratio 6.7 L, Glucose 118 H, Lactic Acid 2.1, Calcium 8.9, Magnesium 1.7, Total Bilirubin 0.3, AST 18, ALT 23 , Alkaline Phosphatase 146 H, Troponin I 0.06, Szb-B-Ytyisyihsfy Pept 87.6, Total Protein 8.1, Albumin 3.8, Globulin 4.3 H, Albumin/Globulin Ratio 0.9 L, D-Dimer High Sensitivty 1750 H, CBC w Diff MAN DIFF ORDERED, RBC 4.28, MCV 81.8 , MCH 26.8 L, RDW 15.9 H, MPV 7.4, Gran % 88.9 H, Lymphocytes % 6.1 L, Monocytes % 4.1, Eosinophils % 0.5, Basophils % 0.4, Absolute Granulocytes 14.6 H, Segmented Neutrophils 82 H, Band Neutrophils 1, Absolute Lymphocytes 1.0 L, Lymphocytes 12 L, Monocytes 5, Absolute Monocytes 0.7 H, Absolute Eosinophils 0.1, Absolute Basophils 0.1, Platelet Estimate VERIFIED BY SMEAR, Normocytic RBCs VERIFIED, Hypochromic-Microcytic 1+, Stomatocytes 1+, PUBS MCHC 32.8 L Microbiology 03/14 1829 HEAD/NECK: Head/Neck Culture - RES 03/14 1829 HEAD/NECK: Gram Stain - RES 03/14 110 URINE ROUT: Legionella Antigen - COLB 03/14 1107 URINE ROUT: Streptococcus pneumoniae Antigen (M - COLB 03/14 58 LOWER RESP: Respiratory Culture - RES YEAST GRAM NEGATIVE RODS 03/14 58 LOWER RESP: Gram Stain - RES 03/13 2054 UPPER RESP: Surveillance Culture - COMP 03/13 2054 GI: Surveillance Culture - COMP 03/13 2044 NASOPHARYN: Influenza Virus A & B Rapid Smear - COMP 03/13 174 URINE ROUT: Urine Culture - CAN Cancelled: NO SAMPLE COLLECTED 03/13 1537 BLOOD: Blood Culture - RES 03/13 1530 BLOOD: Blood Culture - RES Microbiology 03/14 1830 HEAD/NECK: Head/Neck Culture - RES 03/14 1830 HEAD/NECK: Gram Stain - RES 03/14 1108 URINE ROUT: Legionella Antigen - COLB 03/14 1108 URINE ROUT: Streptococcus pneumoniae Antigen (M - COLB 03/14 0059 LOWER RESP: Respiratory Culture - RES YEAST GRAM NEGATIVE RODS 03/14 005 LOWER RESP: Gram Stain - RES 03/13 2054 UPPER RESP: Surveillance Culture - COMP 03/13 2054 GI: Surveillance Culture - COMP 03/13 2044 NASOPHARYN: Influenza Virus A & B Rapid Smear - COMP 03/13 174 URINE ROUT: Urine Culture - CAN Cancelled: NO SAMPLE COLLECTED 03/13 153 BLOOD: Blood Culture - RES 03/13 1530 BLOOD: Blood Culture - RES Vital Signs Date Time Temp Pulse Resp B/P B/P Pulse O2 O2 Flow FiO2 Mean Ox Delivery Rate 03/15 1046 30 03/15 0801 30 03/15 0614 30 03/15 0400 99 Ventilator 30% 03/15 0325 30 03/15 0056 30 03/15 0000 97.8 68 14 120/80 98 Ventilator 30% 03/14 2229 30 03/14 2000 93 Ventilator 30% 03/14 1920 30 03/14 1600 30 03/14 1600 97 Ventilator 30% 03/14 1600 98.0 52 14 90/50 98 Ventilator 30% 03/14 1419 30 03/14 1200 96 Ventilator 30% 03/14 1122 30
--- NOTE | 2017-03-15 11:15 | Procedure ---
Minor Surgical Procedure Note Date of Procedure: 03/15/17 Procedure Note: peg tube exchange perfomed without incident with new 20fr HECTOR tube. granulation tissue chemically cauterized with silver nitrate.
--- NOTE | 2017-03-15 14:47 | Cons- General Surgery ---
General Information and HPI Consulting Request Date of Consult: 03/15/17 Requested By: Mahesh Galvan MD Reason for Consult: g tube exchange History of Present Illness: patient known to me from outpatient follow up. trach and g tube. planned g tube exchange saturday. I will do it while inpatient. Allergies/Medications Allergies: Coded Allergies: Penicillins (HIVES 10/18/16) ceftriaxone (HIVES 10/18/16) Home Med List: Acetaminophen (Arthritis Pain) 650 MG TABLET.ER 1 TAB PO Q4H PRN PAIN/TEMP ( Reported) Baclofen 20 MG TABLET 2 TAB PO TID MUSCLE RELAXER (Reported) Diazepam 10 MG TABLET 2 TAB PO TID MUSCLE SPASMS (Reported) Docusate Sodium (Colace) 100 MG CAPSULE 1 CAP PO BID PRN STOOL SOFTENER ( Reported) Eucalyptus Oil/Menthol/Camphor (Vicks Vaporub Ointment) 1.2 %-2.6 %-4.7 % OINT...G. 1 JULIUS TOP TID PRN COUGH (Reported) Guaifenesin/Dextromethorphan (Robafen-Dm Syrup) 100 MG-10 MG/5 ML SYRUP 10 ML PO Q6 PRN COUGH/MUCUS (Reported) Guaifenesin/Pseudoephedrne HCl (Mucinex D ER Tablet) 600 MG-60 MG TAB.ER.12H 1 TAB PO DAILY SECRETIONS (Reported) Ipratropium/Albuterol Sulfate (Iprat-Albut 0.5-3(2.5) MG/3 Ml) 0.5 MG-3 MG (2.5 MG BASE)/3 ML AMPUL.NEB 1 VIAL INH Q4H PRN RESP. (Reported) Levetiracetam 500 MG TABLET 1 TAB PO TID SEIZURES (Reported) Levofloxacin 500 MG TABLET 1 TAB PO DAILY ANTIBIOTIC, INFECTION (Reported) Loratadine (Claritin) 10 MG TABLET 1 TAB PO DAILY PRN ALLERGIES (Reported) Phenobarbital 32.4 MG TABLET 1 TAB PO BID SEIZURES (Reported) Phenobarbital 64.8 MG TABLET 1 TAB PO QHS SEIZURES (Reported) Phenobarbital 32.4 MG TABLET 32.4 MG PO 8AM SEIZURES (Reported) Polyethylene Glycol 3350 (Miralax) 17 GRAM POWD.PACK 1 PAC PO DAILY PRN CONSTIPATION (Reported) dissolve in water Past History Medical History Blood Transfusion Hx: No Neurological: CP EENT: NONE Cardiovascular: NONE Respiratory: ASP PNEUMONIA Gastrointestinal: constipation Hepatic: NONE Renal: NONE Musculoskeletal: NONE Psychiatric: NONE Endocrine: NONE Blood Disorders: NONE Cancer(s): NONE JOURNEYMAN MECHANIC/Reproductive: NONE Other Medical Hx: CEREBAL PALSY, PNA Surgical History Pertinent Surgical History: TRACHEOSTOMY VEGA PERCY RIGHT ORIF Family History Relations & Conditions If Any: FATHER FH: prostate cancer MOTHER FH: esophageal cancer FH: gastric cancer Relation not specified for: *No pertinent family history Psychosocial History Where Do You Live? Home Who Do You Live With? Sister Services at Home: Home Health Aide, Nursing Smoking Status: Never Smoked ETOH Use: denies use Illicit Drug Use: denies illicit drug use Functional Ability ADLs Needs Assist: dressing, eating, toileting, bathing. Ambulation: non-ambulatory IADLs Needs Assist: shopping, housework, finances, food prep, telephone, transportation, medication admin. Review of Systems Review of Systems: unobtainable Exam & Diagnostic Data Vital Signs and I&O Vital Signs Date Time Temp Pulse Resp B/P B/P Pulse O2 O2 Flow FiO2 Mean Ox Delivery Rate 03/15 1046 30 03/15 0801 30 03/15 0614 30 03/15 0400 99 Ventilator 30% 03/15 0325 30 03/15 0056 30 03/15 0000 97.8 68 14 120/80 98 Ventilator 30% 03/14 2229 30 03/14 2000 93 Ventilator 30% 03/14 1920 30 03/14 1600 30 03/14 1600 97 Ventilator 30% 03/14 1600 98.0 52 14 90/50 98 Ventilator 30% Intake & Output 03/15 1600 03/15 0800 03/15 0000 03/14 1600 03/14 0800 03/14 0000 Intake Total 714 855 875 40 60 Output Total Balance 714 855 875 40 60 Intake, IV 594 735 675 40 Intake, Oral 60 Intake, Tube 120 120 200 Irrigant Patient 120 lb 120 lb Weight Weight Bed scale Measurement Method Physical Exam: gen; comforatable on vent. normal habitus. awake. abd; soft, nt. grandulation around g tube. Last 24 Hours of Labs: Laboratory Tests 03/15 03/15 1155 0400 Blood Gas pH (7.35 - 7.45 PH) 7.34 L pCO2 (35 - 45 TORR) 43 pO2 (80 - 100 TORR) 125 H HCO3 (21 - 28 MEQ/L) 23 ABG O2 Sat (Measured) (>96.0 %) 98.0 P-50 (Temp Corrected) N Carboxyhemoglobin (1.5 - 5.0 %) 0.4 L O2 Concentration % 30% Respiration Rate (BPM) 12 O2 Delivery Method VENT Vent Mode AC Expiratory Pressure (CMH2O/P) 5 Tidal Volume (CC) 320 Pressure Support (CMH2O/P) 0 Chemistry Sodium (137 - 145 mmol/L) 145 Potassium (3.5 - 5.1 mmol/L) 3.9 Chloride (98 - 107 mmol/L) 109 H Carbon Dioxide (22 - 30 mmol/L) 23 Anion Gap (5 - 16) 13 BUN (7 - 17 mg/dL) 3 L Creatinine (0.5 - 1.0 mg/dL) 0.3 L Estimated GFR (>60 ml/min) > 60 Glucose (65 - 99 mg/dL) 69 Calcium (8.4 - 10.2 mg/dL) 8.2 L Phosphorus (2.5 - 4.5 mg/dL) 3.9 Magnesium (1.6 - 2.3 mg/dL) 1.8 Total Bilirubin (0.2 - 1.3 mg/dL) < 0.1 L AST (14 - 36 U/L) 17 ALT (9 - 52 U/L) 31 Albumin (3.5 - 5.0 g/dL) 2.9 L Hematology CBC w Diff NO MAN DIFF REQ WBC (4.8 - 10.8 /CUMM) 8.3 RBC (4.20 - 5.40 /CUMM) 3.43 L Hgb (12.0 - 16.0 G/DL) 9.1 L Hct (37 - 47 %) 28.1 L MCV (81.0 - 99.0 FL) 81.8 MCH (27.0 - 31.0 PG) 26.5 L RDW (11.5 - 14.5 %) 16.3 H Plt Count (130 - 400 /CUMM) 361 MPV (7.4 - 10.4 FL) 8.8 Gran % (42.2 - 75.2 %) 55.6 Lymphocytes % (20.5 - 51.1 %) 33.7 Monocytes % (1.7 - 9.3 %) 5.4 Eosinophils % (0 - 5 %) 3.2 Basophils % (0.0 - 2.0 %) 2.1 H Absolute Granulocytes (1.4 - 6.5 /CUMM) 4.6 Absolute Lymphocytes (1.2 - 3.4 /CUMM) 2.8 Absolute Monocytes (0.10 - 0.60 /CUMM) 0.4 Absolute Eosinophils (0.0 - 0.7 /CUMM) 0.3 Absolute Basophils (0.0 - 0.2 /CUMM) 0.2 PUBS MCHC (33.0 - 37.0 G/DL) 32.4 L Miscellaneous Phlebotomy Draw Site RIGHT BRACHIAL Assessment/Plan Assessment/Plan gtube with granulation. chemically cauterized. g tube exchanged at beside. Prior bleeding from tracheostomy when exchanging cuffed tube in the office. will defer further management of tracheostomy to ENT. Consult Acknowledgment - Thank you for your consult request.
[2017-03-15 16:00] VITALS: BP 102/50
[2017-03-16] VITALS: BP 90/00
[2017-03-16 05:55] LABS: ABSOLUTE BASOPHIL COUNT 0.1 /CUMM (0.0-0.2); ABSOLUTE EOSINOPHIL COUNT 0.2 /CUMM (0.0-0.7); ABSOLUTE GRANULOCYTE CT 6.1 /CUMM (1.4-6.5); ABSOLUTE LYMPH COUNT 2.3 /CUMM (1.2-3.4); ABSOLUTE MONOCYTE COUNT 0.4 /CUMM (0.10-0.60); BASOPHIL % 0.9 % (0.0-2.0); EOSINOPHIL % 2.1 % (0-5); GRANULOCYTE % 67.4 % (42.2-75.2); MEAN CORPUSCULAR HGB 27.2 PG (27.0-31.0); MEAN CORPUSCULAR VOLUME 82.5 FL (81.0-99.0); MEAN PLATELET VOLUME 8.2 FL (7.4-10.4); PLATELET COUNT 440 /CUMM (130-400); RBC DISTRIBUTION WIDTH 16.3 % (11.5-14.5); RED BLOOD CELL CT 3.51 /CUMM (4.20-5.40); WHITE BLOOD CELL COUNT 9.1 /CUMM (4.8-10.8)
--- NOTE | 2017-03-16 07:09 | Event Note ---
Event Note Event Note: Approximately 0100 SBP 80s - Patient's NS IVF maintenance fluids rate was increased from 50 to 75. Once her fluids were completed her BP continue to be hypotensive and she was given NS 500cc bolus. Approximately 0630 Critical value: glucose 20 - Patient was asymptomatic. She was given 50% D5 ampule x 1 dose and D5NS maintenance fluids @ 75
[2017-03-16 08:00] VITALS: BP 102/60
--- NOTE | 2017-03-16 08:13 | RADIOLOGY REPORT ---
EXAMINATION: XR PORTABLE CHEST CLINICAL INFORMATION: Pneumonia. Follow-up. COMPARISON: Chest 03/15/2017. TECHNIQUE: Portable frontal view of the chest was obtained. FINDINGS: There is mild cardiomegaly with normal pulmonary vascularity. The lungs are expanded with patchy opacity right lung base likely combination of crowding of vessels and overlying artifact. Infiltrate is considered less likely. There is a right subclavian central venous axis catheter with its tip at atriocaval junction. A tracheostomy tube is in good position approximately 3.9 cm above the [place]. There are 2 Vazquez rods extending throughout the dorsal and lumbar spine for correction of scoliosis. IMPRESSION: Expanded lungs with light improved patchy opacity in the right lung base from earlier study. Support lines and catheters are stable. Mild cardiomegaly.
--- NOTE | 2017-03-16 08:18 | PN- Resident CRCU ---
See Addendum Subjective HPI/CRCU Issues: Pneumonia Respiratory distress off ventilator tracheostomy 24 Hour Events: Patient currently off ventilator and tracheal mask. Overnight had a fall in glucose levels which responded well to IV push of dextrose. Had an episode of hypotension which responded well to fluid bolus. Objective Vital Signs & I&O Last 8 Hrs of Vitals and I&O: . Exam General Appearance: no apparent distress, alert, awake, comfortable Head: atraumatic, normal appearance Ears, Nose, Throat: tracheostomy tube Neck: normal inspection, supple Respiratory: normal breath sounds, chest non-tender Cardiovascular: regular rate/rhythm Gastrointestinal: soft, non-tender, PEG tube Extremities: normal inspection, no edema Skin: normal color Skin Temp/Moisture Exam: Warm/Dry Sepsis Skin Exam (color): Normal for Ethnicity Weaning Parameters NIF: 19 Minute Volume: 4.23 Resp rate: 13 Vt: 325 Heart Rate: 65 Weaning Schedule Start Time: 1319 Resp Rate: 21 Heart Rate: 65 Nutrition Nutrition: tube feeding Current Medications: Current Medications Sig/Martinez Start time Last Medication Dose Route Stop Time Status Admin Acetaminophen 640 MG Q6P PRN 03/16 0930 AC PO Acetaminophen 650 MG Q6 03/13 1800 DC 03/15 PO 2301 Albuterol Sulfate 3 ML Q4H PRN 03/14 1115 AC INH Baclofen 40 MG TID 03/13 2200 AC 03/16 PO 0959 Ceftazidime 1,000 MG IQ8 03/14 1600 AC 03/16 IV 0815 Dextrose 25 GM ONCE ONE 03/16 0630 DC 03/16 IV 03/16 0631 0627 Dextrose/Sodium 1,000 ML Q13H 03/16 0630 AC 03/16 Chloride IV 0629 Diazepam 20 MG TID 03/14 0250 AC 03/16 PO 0959 Docusate Sodium 100 MG BID PRN 03/13 1815 AC PO Enoxaparin Sodium 40 MG 1900 03/13 1900 AC 03/15 SC 1749 Guaifenesin 10 ML Q4P PRN 03/16 0930 AC PO Guaifenesin 600 MG Q12 03/13 2200 DC 03/13 PO 2220 Influenza Virus 0.5 ML ONCE ONE 03/15 1545 DC Vaccine IM 03/15 1546 Ipratropium Pax 2.5 ML Q4 HRS NEEDED PRN 03/14 1115 AC INH Levetiracetam 500 MG Q12 03/14 2200 AC 03/16 N/A 1 UNIT IV 0945 Magnesium Oxide 400 MG BID 03/15 1000 AC 03/16 PO 1000 Methyl Salicylate 1 JULIUS Q2P PRN 03/13 1800 AC TOP Morphine Sulfate 2 MG Q4 PRN 03/13 1800 AC IV Morphine Sulfate 4 MG Q4P PRN 03/13 1800 AC 03/15 IV 1119 Nystatin 1 JULIUS TID PRN 03/14 1445 AC 03/16 TOP 0946 Oxymetazoline HCl 2 SPRAY BID PRN 03/15 0745 AC PABLO Pantoprazole Sodium 40 MG DAILY 03/14 1000 AC 03/16 IV 0945 Phenobarbital 32.4 MG TID 03/13 2200 AC 03/16 PO 1000 Polyethylene Glycol 17 GM DAILY PRN 03/13 1815 AC PO Sodium Chloride 500 ML BOLUS ONE 03/16 0715 DC 03/16 IV 03/16 0814 0715 Sodium Chloride 1,000 ML Q20H 03/13 1800 DC 03/16 IV 0300 Vancomycin HCl 1,000 MG Q12 03/14 1000 DC 03/14 Sodium Chloride 250 ML IV 2242 Impression/Plan Impression/Problem List Impression: The patient is a 41-year-old woman with a past medical history of cerebral palsy, seizures, aspiration pneumonia, chronic constipation, incontinence, status post surgery/Vazquez jeffy, status post right ORIF, and history of anoxic brain injury with full assist. She lives at home with her sister who is her manager nc and also has visiting nurses. She is on a tracheostomy tube but requires connection to a ventilator at nighttime for respiratory support. Plan: 1. Pneumonia: * Continue monitoring in ICU * Her sputum is growing ESBL E.coli and Pseudomonas. * Her Pneumonia is likely due to aspiration and not ventilator assosciated. * Will follow up blood and urine cultures * Rapid flu test was negative * Continue IV Ceftazidime for another day. Vancomycin has been discontinued. * Mucinex 600 mg q12 hrs * ID recs appreciated. * Currently off the ventilator. 2. Tracheostomy site pain * Patient reportedly had tracheostomy site pain and discomfort with a history of tracheostomy site scarring. * ENT evalutated (03/15) and suggested to tighten slightly tracheostomy tube straps so that it is not anteriorly displaced. Also the granulation tissue around the site is normal. 3. Dysphagia * Patient is reported to have had been having some dysphagia and drooling * Swallow evaluation - pending. * Her PEG tube was changed yesterday by Dr Pham. Will administer meds and feeding via PEG for now. Family is okay with it. * Nutrition recs appreciated. 4. Cerebral palsy * Continue home medications phenobarbital 32.4 mg TID; Diazepam 20 mg TID; Kepra 500 mg TID 5. DVT prophylaxis * SC lovenox 40 mg daily Diet: On PEG tube. Code status: Full code Problem List: 1. Pneumonia Pain Ratin Tomorrow's Labs & Rationales: CBC, ICU bundle Plan DVT/Prophylaxis: mechanical
--- NOTE | 2017-03-16 13:51 | PN- Att Addend ---
Attending Addendum Attending Brief Note Patient looks better, the feeding tube was replaced and the feedings and on to be started shortly. Earlier this morning her blood pressure was a little low she got a bolus of fluid IV and the blood pressure improved also her sugars were low the stent to come up and hopefully they will normalize after the feedings are started Patient is afebrile no other major changes. We'll continue antibiotic treatment as per infectious diseases recommendations, and follow-up her blood work patient is off the vent and has the trach mask Intake & Output 03/16 1600 03/16 0400 03/15 1600 03/15 0400 03/14 1600 03/14 0400 Intake Total 131 844 9266 855 915 60 Output Total Balance 266 369 9118 855 915 60 Intake, IV 472 497 994 735 715 Intake, Oral 0 0 60 Intake, Tube 150 320 120 200 Irrigant Number 0 0 1 Bowel Movements Patient 120 lb 120 lb 120 lb Weight Weight Bed scale Measurement Method Current Medications Sig/Martinez Start time Last Medication Dose Route Stop Time Status Admin Acetaminophen 640 MG Q6P PRN 03/16 0930 AC 03/16 PO 1011 Acetaminophen 650 MG Q6 03/13 1800 DC 03/15 PO 2301 Albuterol Sulfate 3 ML Q4H PRN 03/14 1115 AC INH Baclofen 40 MG TID 03/13 2200 AC 03/16 PO 0959 Ceftazidime 1,000 MG IQ8 03/14 1600 AC 03/16 IV 0815 Dextrose 25 GM ONCE ONE 03/16 0630 DC 03/16 IV 03/16 0631 0627 Dextrose/Sodium 1,000 ML Q13H 03/16 0630 AC 03/16 Chloride IV 0629 Diazepam 20 MG TID 03/14 0250 AC 03/16 PO 0959 Docusate Sodium 100 MG BID PRN 03/13 1815 AC PO Enoxaparin Sodium 40 MG 1900 03/13 1900 AC 03/15 SC 1749 Guaifenesin 10 ML Q4P PRN 03/16 0930 AC 03/16 PO 1011 Guaifenesin 600 MG Q12 03/13 2200 DC 03/13 PO 2220 Influenza Virus 0.5 ML ONCE ONE 03/15 1545 DC Vaccine IM 03/15 1546 Ipratropium [place] 2.5 ML Q4 HRS NEEDED PRN 03/14 1115 AC INH Levetiracetam 500 MG Q12 03/14 2200 AC 03/16 N/A 1 UNIT IV 0945 Magnesium Oxide 400 MG BID 03/15 1000 AC 03/16 PO 1000 Methyl Salicylate 1 JULIUS Q2P PRN 03/13 1800 AC TOP Morphine Sulfate 2 MG Q4 PRN 03/13 1800 AC IV Morphine Sulfate 4 MG Q4P PRN 03/13 1800 AC 03/15 IV 1119 Nystatin 1 JULIUS TID PRN 03/14 1445 AC 03/16 TOP 0946 Oxymetazoline HCl 2 SPRAY BID PRN 03/15 0745 AC PABLO Pantoprazole Sodium 40 MG DAILY 03/14 1000 AC 03/16 IV 0945 Phenobarbital 32.4 MG TID 03/13 2200 AC 03/16 PO 1000 Polyethylene Glycol 17 GM DAILY PRN 03/13 1815 AC PO Sodium Chloride 500 ML BOLUS ONE 03/16 0715 DC 03/16 IV 03/16 0814 0715 Sodium Chloride 1,000 ML Q20H 03/13 1800 DC 03/16 IV 0300 Laboratory Tests 03/16/17 0415: Anion Gap 20 H, Estimated GFR > 60, Glucose 28 *L, Calcium 8.1 L, Phosphorus 3.6, Magnesium 1.8, Total Bilirubin 0.2, AST 20, ALT 31, Albumin 3.1 L, CBC w Diff NO MAN DIFF REQ, RBC 3.51 L, MCV 82.5, MCH 27.2, RDW 16.3 H, MPV 8.2, Gran % 67.4, Lymphocytes % 24.9, Monocytes % 4.7, Eosinophils % 2.1, Basophils % 0.9, Absolute Granulocytes 6.1, Absolute Lymphocytes 2.3, Absolute Monocytes 0.4 , Absolute Eosinophils 0.2, Absolute Basophils 0.1, PUBS MCHC 33.0 03/15/17 1155: pH 7.34 L, pCO2 43, pO2 125 H, HCO3 23, ABG O2 Sat (Measured) 98.0, P-50 (Temp Corrected) N, Carboxyhemoglobin 0.4 L, O2 Concentration % 30%, Respiration Rate 12, O2 Delivery Method VENT, Vent Mode AC, Expiratory Pressure 5, Tidal Volume 320, Pressure Support 0, Phlebotomy Draw Site RIGHT BRACHIAL 03/15/17 0400: Anion Gap 13, Estimated GFR > 60, Glucose 69, Calcium 8.2 L, Phosphorus 3.9, Magnesium 1.8, Total Bilirubin < 0.1 L, AST 17, ALT 31, Albumin 2.9 L, CBC w Diff NO MAN DIFF REQ, RBC 3.43 L, MCV 81.8, MCH 26.5 L, RDW 16.3 H, MPV 8.8, Gran % 55.6, Lymphocytes % 33.7, Monocytes % 5.4, Eosinophils % 3.2, Basophils % 2.1 H, Absolute Granulocytes 4.6, Absolute Lymphocytes 2.8, Absolute Monocytes 0.4, Absolute Eosinophils 0.3, Absolute Basophils 0.2, PUBS MCHC 32.4 L 03/14/17 0400: Anion Gap 12, Estimated GFR > 60, Glucose 78, Calcium 8.1 L, Phosphorus 3.1, Magnesium 1.7, Total Bilirubin 0.3, AST 15, ALT 24, Albumin 2.9 L, CBC w Diff NO MAN DIFF REQ, RBC 3.37 L, MCV 81.8, MCH 26.7 L, RDW 15.9 H, MPV 8.4, Gran % 67.4, Lymphocytes % 24.7, Monocytes % 5.8, Eosinophils % 1.5, Basophils % 0.6, Absolute Granulocytes 7.1 H, Absolute Lymphocytes 2.6, Absolute Monocytes 0.6, Absolute Eosinophils 0.2, Absolute Basophils 0.1, PUBS MCHC 32.6 L 03/13/17 1743: Urine Color Cancelled, Urine Clarity Cancelled, Urine pH Cancelled, Ur Specific [place] Cancelled, Urine Protein Cancelled, Urine Ketones Cancelled, Urine Nitrite Cancelled, Urine Bilirubin Cancelled, Urine Urobilinogen Cancelled, Ur Leukocyte Esterase Cancelled, Ur Microscopic Cancelled, Urine Hemoglobin Cancelled, Urine Glucose Cancelled 03/13/17 1530: Lactic Acid 1.2 Microbiology 03/14 1829 HEAD/NECK: Head/Neck Culture - COMP YEAST 03/14 1829 HEAD/NECK: Gram Stain - COMP 03/14 1107 URINE ROUT: Legionella Antigen - CAN Cancelled: NO URINE COLLECTED FOR TESTING 03/14 1107 URINE ROUT: Streptococcus pneumoniae Antigen (M - CAN Cancelled: NO URINE COLLECTED FOR TESTING 03/14 58 LOWER RESP: Respiratory Culture - COMP YEAST PSEUDOMONAS AERUGINOSA ESCHERICHIA COLI ESBL 03/14 58 LOWER RESP: Gram Stain - COMP 03/13 2054 UPPER RESP: Surveillance Culture - COMP 03/13 2054 GI: Surveillance Culture - COMP 03/13 2044 NASOPHARYN: Influenza Virus A & B Rapid Smear - COMP 03/13 174 URINE ROUT: Urine Culture - CAN Cancelled: NO SAMPLE COLLECTED 03/13 1537 BLOOD: Blood Culture - RES 03/13 1530 BLOOD: Blood Culture - RES Microbiology 03/14 1830 HEAD/NECK: Head/Neck Culture - COMP YEAST 03/14 183 HEAD/NECK: Gram Stain - COMP 03/14 1108 URINE ROUT: Legionella Antigen - CAN Cancelled: NO URINE COLLECTED FOR TESTING 03/14 110 URINE ROUT: Streptococcus pneumoniae Antigen (M - CAN Cancelled: NO URINE COLLECTED FOR TESTING 03/14 005 LOWER RESP: Respiratory Culture - COMP YEAST PSEUDOMONAS AERUGINOSA ESCHERICHIA COLI ESBL 03/14 58 LOWER RESP: Gram Stain - COMP 03/13 2054 UPPER RESP: Surveillance Culture - COMP 03/13 2054 GI: Surveillance Culture - COMP 03/13 2044 NASOPHARYN: Influenza Virus A & B Rapid Smear - COMP 03/13 174 URINE ROUT: Urine Culture - CAN Cancelled: NO SAMPLE COLLECTED 03/13 153 BLOOD: Blood Culture - RES 03/13 1530 BLOOD: Blood Culture - RES Vital Signs Date Time Temp Pulse Resp B/P B/P Pulse O2 O2 Flow FiO2 Mean Ox Delivery Rate 03/16 1200 95 Trach Mask 30% 03/16 0848 30 03/16 0800 96.8 51 13 102/60 99 Ventilator 30% 03/16 0800 97 Ventilator 30% 03/16 0611 30 03/16 0400 97 Ventilator 30% 03/16 0249 30 03/16 0055 30 03/16 0000 99 Ventilator 30% 03/16 0000 96.9 60 13 90/00 99 Ventilator 30% 03/15 2205 30 03/15 2000 99 Trach Mask 30% 03/15 1600 99 Trach Mask 30% 03/15 1600 98.0 62 14 102/50 98 Trach Mask 30% Potassium improved.
[2017-03-16 16:00] VITALS: BP 110/60
[2017-03-17] VITALS: BP 100/00
[2017-03-17 04:57] LABS: ABSOLUTE BASOPHIL COUNT 0 /CUMM (0.0-0.2); ABSOLUTE EOSINOPHIL COUNT 0.2 /CUMM (0.0-0.7); ABSOLUTE GRANULOCYTE CT 5.5 /CUMM (1.4-6.5); ABSOLUTE LYMPH COUNT 1.8 /CUMM (1.2-3.4); ABSOLUTE MONOCYTE COUNT 0.6 /CUMM (0.10-0.60); BASOPHIL % 0.6 % (0.0-2.0); GRANULOCYTE % 66.9 % (42.2-75.2); HEMATOCRIT 29.2 % (37-47); MEAN CORPUSCULAR HGB 27.1 PG (27.0-31.0); MEAN CORPUSCULAR VOLUME 82.2 FL (81.0-99.0); MEAN PLATELET VOLUME 7.7 FL (7.4-10.4); PLATELET COUNT 449 /CUMM (130-400); RBC DISTRIBUTION WIDTH 16.5 % (11.5-14.5); RED BLOOD CELL CT 3.55 /CUMM (4.20-5.40); WHITE BLOOD CELL COUNT 8.2 /CUMM (4.8-10.8)
--- NOTE | 2017-03-17 07:29 | RADIOLOGY REPORT ---
EXAMINATION: XR PORTABLE CHEST CLINICAL INFORMATION: Pneumonia. Follow-up. COMPARISON: Chest 03/16/2017 6:25 AM. TECHNIQUE: Portable frontal view of the chest was obtained. FINDINGS: There is mild cardiomegaly with normal pulmonary vascularity. The patchy opacity in the right lower lobe appears slightly improved. Rest of lungs are clear. There is a right central venous catheter with its tip at the atriocaval junction. Heart size is normal. The endotracheal tube tip is not well visualized on this exam but grossly unchanged. 2 Vazquez rods for correction of scoliosis is unchanged. IMPRESSION: Stable exam. No change in the support lines and catheters. Improved right basilar opacity.
[2017-03-17 08:00] VITALS: BP 92/60
--- NOTE | 2017-03-17 08:44 | PN- Resident CRCU ---
Subjective HPI/CRCU Issues: Pneumonia Respiratory distress off ventilator tracheostomy 24 Hour Events: Patient is seen and examined in the morning, responding to verbal commands( noding and opening her eyes, nonverbal, does not appear to offer any complaints) Currently she is still on the ventilator(this morning at around 6 AM, she was less responsive, with increased amount of secretions so could not be taken off the ventilator). Also was she bradyed to 40s and became hypotensive, responded well to 500 bolus of normal saline. Blood sugar levels in the normal range this morning. Objective Vital Signs & I&O Last 8 Hrs of Vitals and I&O: Vital Signs Date Time Temp Pulse Resp B/P B/P Pulse O2 O2 Flow FiO2 Mean Ox Delivery Rate 03/17 0858 30 03/17 0800 96.9 58 12 92/60 98 Ventilator 30% 03/17 0800 99 Ventilator 30% 03/17 0555 30 03/17 0412 30 03/17 0400 98 Ventilator 30% 03/17 0055 30 03/17 0000 95 Ventilator 30% 03/17 0000 99.6 92 22 100/00 99 Ventilator 40% 03/16 2148 30 03/16 2000 99 Trach Mask 30% 03/16 1600 100 Trach Mask 30% 03/16 1600 98.1 86 16 110/60 100 Trach Mask 30% 03/16 1200 95 Trach Mask 30% Intake & Output 03/17 1600 03/17 0800 03/17 0000 Intake Total 960 1426 Output Total 0 Balance 960 1426 Intake, IV 579 720 Intake, Oral 0 0 Intake, Tube 181 126 Feeding Intake, Tube 200 580 Irrigant Number 0 Bowel Movements Output, Urine 0 Exam General Appearance: well developed/nourished, comfortable Head: atraumatic, normal appearance Ears, Nose, Throat: normal pharynx, normal ENT inspection Neck: normal inspection, supple Respiratory: normal breath sounds, chest non-tender Cardiovascular: regular rate/rhythm, edema Gastrointestinal: normal bowel sounds, soft Extremities: normal inspection Cranial Nerves: normal hearing, normal speech Weaning Parameters NIF: 19 Minute Volume: 4.23 Resp rate: 13 Vt: 325 Heart Rate: 65 Weaning Schedule Start Time: 08 Resp Rate: 13 Heart Rate: 78 Current Medications: Current Medications Sig/Martinez Start time Last Medication Dose Route Stop Time Status Admin Acetaminophen 640 MG Q6P PRN 03/16 0930 AC 03/17 PO 0026 Albuterol Sulfate 3 ML Q4H PRN 03/14 1115 AC INH Baclofen 40 MG TID 03/13 2200 AC 03/18 PO 0858 Dextrose/Sodium 1,000 ML Q13H 03/16 0630 AC 03/17 Chloride IV 0804 Diazepam 20 MG TID 03/14 0250 AC 03/18 PO 0858 Docusate Sodium 100 MG BID PRN 03/13 1815 AC PO Enoxaparin Sodium 40 MG 1900 03/13 1900 AC 03/17 SC 1823 Guaifenesin 10 ML Q4P PRN 03/16 0930 AC 03/16 PO 1011 Ipratropium [place] 2.5 ML Q4 HRS NEEDED PRN 03/14 1115 AC INH Levetiracetam 500 MG Q12 03/14 2200 AC 03/18 N/A 1 UNIT IV 0858 Magnesium Oxide 400 MG BID 03/15 1000 AC 03/18 PO 0858 Magnesium Sulfate 1 GM ONCE ONE 03/17 0945 DC 03/17 Dextrose/Water 100 ML IV 03/17 1344 0943 Meropenem 1 GM Q8H 03/17 1000 AC 03/18 IV 0859 Methyl Salicylate 1 JULIUS Q2P PRN 03/13 1800 AC TOP Morphine Sulfate 2 MG Q4 PRN 03/13 1800 AC IV Morphine Sulfate 4 MG Q4P PRN 03/13 1800 AC 03/15 IV 1119 Nystatin 1 JULIUS TID PRN 03/14 1445 AC 03/16 TOP 1644 Oxymetazoline HCl 2 SPRAY BID PRN 03/15 0745 AC PABLO Pantoprazole Sodium 40 MG DAILY 03/14 1000 AC 03/18 IV 0857 Phenobarbital 32.4 MG TID 03/13 2200 AC 03/18 PO 0858 Polyethylene Glycol 17 GM DAILY PRN 03/13 1815 AC PO Potassium Chloride 40 MEQ DAILY 03/18 1000 AC 03/18 PO 0858 Potassium Chloride 40 MEQ ONCE ONE 03/17 1200 DC 03/17 PO 03/17 1201 1227 Sodium Chloride 500 ML BOLUS ONE 03/18 0300 DC 03/18 IV 03/18 0359 0300 Sodium Chloride 500 ML BOLUS ONE 03/18 0100 DC 03/18 IV 03/18 0159 0100 Sodium Chloride 500 ML BOLUS ONE 03/17 1200 DC 03/17 IV 03/17 1259 1227 Impression/Plan Impression/Problem List Impression: The patient is a 41-year-old woman with a past medical history of cerebral palsy, seizures, aspiration pneumonia, chronic constipation, incontinence, status post surgery/Vazquez jeffy, status post right ORIF, and history of anoxic brain injury with full assist. She lives at home with her sister who is her professional soccer player and also has visiting nurses. She is on a tracheostomy tube but requires connection to a ventilator at nighttime for respiratory support. Plan: 1. Respiratory failure due to Pneumonia: * Continue monitoring in ICU. * Currently back on the ventilator due to increased amount of secretions * Sputum cultures from the admission value ESBL E.coli and Pseudomonas, resistant to ceftazidime. Flu swab Negative for influenza * Will repeat sputum cultures * Mucinex 600 mg q12 hrs 2. Tracheostomy site pain * Patient reportedly had tracheostomy site pain and discomfort with a history of tracheostomy site scarring. * ENT evalutated (03/15) and suggested to tighten slightly tracheostomy tube straps so that it is not anteriorly displaced. Also the granulation tissue around the site is normal. 3. Dysphagia * Patient is reported to have had been having some dysphagia and drooling * Swallow evaluation - pending. * Her PEG tube was changed yesterday by Dr Pham. Will administer meds and feeding via PEG for now. Family is okay with it. * Nutrition recs appreciated. 4. Cerebral palsy * Continue home medications phenobarbital 32.4 mg TID; Diazepam 20 mg TID; Kepra 500 mg TID 5. Electrolyte abnormalities: * Hypokalemia: Potassium this morning 3.1, she was given K-Inga 40+60 mg today,we 'll start her on maintenance K-Inga 40 mEq every day. * Hypomagnesemia: Continue to repeat and replete electrolytes. 6. DVT prophylaxis * SC lovenox 40 mg daily Diet: On PEG tube. Code status: Full code Problem List: 1. Aspiration pneumonia Pain Ratin Tomorrow's Labs & Rationales: CBC and ICU bundle Plan DVT/Prophylaxis: mechanical
--- NOTE | 2017-03-17 09:29 | PN- Infect Dx ---
Subjective Subjective: Afebrile. She remains intermittently hypotensive. She is requiring the ventilator during the day, with moderate, mostly thin secretions reported. She does not convey any specific complaints but she remains nonverbal. Objective Last 24 Hrs of Vital Signs/I&O Vital Signs Date Time Temp Pulse Resp B/P B/P Pulse O2 O2 Flow FiO2 Mean Ox Delivery Rate 03/17 0858 30 03/17 0800 96.9 58 12 92/60 98 Ventilator 30% 03/17 0800 99 Ventilator 30% 03/17 0555 30 03/17 0412 30 03/17 0400 98 Ventilator 30% 03/17 0055 30 03/17 0000 95 Ventilator 30% 03/17 0000 99.6 92 22 100/00 99 Ventilator 40% 03/16 2148 30 03/16 2000 99 Trach Mask 30% 03/16 1600 100 Trach Mask 30% 03/16 1600 98.1 86 16 110/60 100 Trach Mask 30% 03/16 1200 95 Trach Mask 30% Intake & Output 03/17 1600 03/17 0800 03/17 0000 Intake Total 960 1426 Output Total 0 Balance 960 1426 Intake, IV 579 720 Intake, Oral 0 0 Intake, Tube 181 126 Feeding Intake, Tube 200 580 Irrigant Number 0 Bowel Movements Output, Urine 0 Physical Exam Other Physical Findings: She appears comfortable on the ventilator Lungs bilateral rhonchi Heart regular rhythm with no murmur Abdomen is soft, nontender with positive bowel sounds; PEG in place Extremities no cyanosis, clubbing or edema Results Last 24 Hours of Lab Results: Laboratory Tests 03/17 414 Chemistry Sodium (137 - 145 mmol/L) 144 Potassium (3.5 - 5.1 mmol/L) 3.1 L Chloride (98 - 107 mmol/L) 107 Carbon Dioxide (22 - 30 mmol/L) 27 Anion Gap (5 - 16) 11 BUN (7 - 17 mg/dL) < 2 L Creatinine (0.5 - 1.0 mg/dL) 0.2 L Estimated GFR (>60 ml/min) > 60 Glucose (65 - 99 mg/dL) 105 H Calcium (8.4 - 10.2 mg/dL) 7.1 L Phosphorus (2.5 - 4.5 mg/dL) 2.5 Magnesium (1.6 - 2.3 mg/dL) 1.7 Total Bilirubin (0.2 - 1.3 mg/dL) 0.1 L AST (14 - 36 U/L) 15 ALT (9 - 52 U/L) 24 Albumin (3.5 - 5.0 g/dL) 2.6 L Hematology CBC w Diff NO MAN DIFF REQ WBC (4.8 - 10.8 /CUMM) 8.2 RBC (4.20 - 5.40 /CUMM) 3.55 L Hgb (12.0 - 16.0 G/DL) 9.6 L Hct (37 - 47 %) 29.2 L MCV (81.0 - 99.0 FL) 82.2 MCH (27.0 - 31.0 PG) 27.1 RDW (11.5 - 14.5 %) 16.5 H Plt Count (130 - 400 /CUMM) 449 H MPV (7.4 - 10.4 FL) 7.7 Gran % (42.2 - 75.2 %) 66.9 Lymphocytes % (20.5 - 51.1 %) 22.4 Monocytes % (1.7 - 9.3 %) 7.1 Eosinophils % (0 - 5 %) 3.0 Basophils % (0.0 - 2.0 %) 0.6 Absolute Granulocytes (1.4 - 6.5 /CUMM) 5.5 Absolute Lymphocytes (1.2 - 3.4 /CUMM) 1.8 Absolute Monocytes (0.10 - 0.60 /CUMM) 0.6 Absolute Eosinophils (0.0 - 0.7 /CUMM) 0.2 Absolute Basophils (0.0 - 0.2 /CUMM) 0 PUBS MCHC (33.0 - 37.0 G/DL) 33.0 Last 24 Hours of Dexter Results: Sputum culture March 14 positive for ESBL producing Escherichia coli sensitive to Meropenem and Bactrim and Pseudomonas sensitive to Ceftazidime and Meropenem and resistant to Ciprofloxacin Blood cultures 2 March 13 negative Recent Imaging Studies: Chest x-ray March 17 reveals an improved right basilar opacity Assessment/Plan Impression: Respiratory failure, with increased ventilator dependence, though her temperatures and white blood cell count remain normal on Ceftazidime Day 4 of treatment for presumed pneumonia secondary to gram-negative rods. Her sputum culture from admission grew Pseudomonas sensitive to Ceftazidime and ESBL producing Escherichia coli resistant to Ceftazidime and, though these may represent colonization, her CT scan on admission did reveal bilateral perihilar opacities, possibly suggestive of pneumonia, and, given her ongoing respiratory issues, they may require treatment. Suggestion: 1. Would pursue a swallowing evaluation when able 2. Repeat sputum culture 3. Discontinue Ceftazidime 4. Begin Meropenem 1 g IV every 8 hours pending above
--- NOTE | 2017-03-17 09:54 | PN- CRCU ---
Subjective HPI/Critical Care Issues: The patient had an episode of fatigue and bradycardia early this morning. She is now awake and arouses easily. Her MAXIMUM TEMPERATURE over the past 24 hours was 99.6. She has no elevated white blood cell count. She continues to tolerate nocturnal ventilation. She is currently on 30% trach mask, with good oxygen saturations. She has moderately thin secretions. She intermittently drops her blood pressure but recovers quickly. Objective Current Medications: Current Medications Sig/Martinez Start time Last Medication Dose Route Stop Time Status Admin Acetaminophen 640 MG Q6P PRN 03/16 0930 AC 03/17 PO 0026 Albuterol Sulfate 3 ML Q4H PRN 03/14 1115 AC INH Baclofen 40 MG TID 03/13 2200 AC 03/17 PO 0944 Ceftazidime 1,000 MG IQ8 03/14 1600 AC 03/17 IV 0804 Dextrose/Sodium 1,000 ML Q13H 03/16 0630 AC 03/17 Chloride IV 0804 Diazepam 20 MG TID 03/14 0250 AC 03/17 PO 0943 Docusate Sodium 100 MG BID PRN 03/13 1815 AC PO Enoxaparin Sodium 40 MG 1900 03/13 1900 AC 03/16 SC 1815 Guaifenesin 10 ML Q4P PRN 03/16 0930 AC 03/16 PO 1011 Ipratropium [place] 2.5 ML Q4 HRS NEEDED PRN 03/14 1115 AC INH Levetiracetam 500 MG Q12 03/14 2200 AC 03/17 N/A 1 UNIT IV 0943 Magnesium Oxide 400 MG BID 03/15 1000 AC 03/17 PO 0944 Magnesium Sulfate 1 GM ONCE ONE 03/17 0945 AC 03/17 Dextrose/Water 100 ML IV 03/17 1344 0943 Methyl Salicylate 1 JULIUS Q2P PRN 03/13 1800 AC TOP Morphine Sulfate 2 MG Q4 PRN 03/13 1800 AC IV Morphine Sulfate 4 MG Q4P PRN 03/13 1800 AC 03/15 IV 1119 Nystatin 1 JULIUS TID PRN 03/14 1445 AC 03/16 TOP 1644 Oxymetazoline HCl 2 SPRAY BID PRN 03/15 0745 AC PABLO Pantoprazole Sodium 40 MG DAILY 03/14 1000 AC 03/17 IV 0943 Phenobarbital 32.4 MG TID 03/13 2200 AC 03/17 PO 0944 Polyethylene Glycol 17 GM DAILY PRN 03/13 1815 AC PO Potassium Chloride 40 MEQ DAILY 03/18 1000 AC PO Potassium Chloride 40 MEQ ONCE ONE 03/17 1200 AC PO 03/17 1201 Potassium Chloride 60 MEQ ONCE ONE 03/17 0815 DC 03/17 PO 03/17 0816 0804 Sodium Chloride 500 ML BOLUS ONE 03/17 0615 DC 03/17 IV 03/17 0714 0615 Vital Signs & I&O Last 24 Hrs of Vitals and I&O: Vital Signs Date Time Temp Pulse Resp B/P B/P Pulse O2 O2 Flow FiO2 Mean Ox Delivery Rate 03/17 0858 30 03/17 0800 96.9 58 12 92/60 98 Ventilator 30% 03/17 0800 99 Ventilator 30% 03/17 0555 30 03/17 0412 30 03/17 0400 98 Ventilator 30% 03/17 0055 30 03/17 0000 95 Ventilator 30% 03/17 0000 99.6 92 22 100/00 99 Ventilator 40% 03/16 2148 30 03/16 2000 99 Trach Mask 30% 03/16 1600 100 Trach Mask 30% 03/16 1600 98.1 86 16 110/60 100 Trach Mask 30% 03/16 1200 95 Trach Mask 30% Intake & Output 03/17 1600 03/17 0800 03/17 0000 Intake Total 960 1426 Output Total 0 Balance 960 1426 Intake, IV 579 720 Intake, Oral 0 0 Intake, Tube 181 126 Feeding Intake, Tube 200 580 Irrigant Number 0 Bowel Movements Output, Urine 0 Exam General Appearance: no apparent distress, alert, awake, comfortable Head: atraumatic, normal appearance Ears, Nose, Throat: tracheostomy Respiratory: normal breath sounds, chest non-tender, lungs clear Cardiovascular: regular rate/rhythm Gastrointestinal: soft, non-tender Extremities: no edema Skin: intact Skin Temp/Moisture Exam: Warm/Dry Sepsis Skin Exam (color): Normal for Ethnicity Results Last 24 Hrs of Lab Results: Laboratory Tests 03/17/17 0415: Anion Gap 11, Estimated GFR > 60, Glucose 105 H, Calcium 7.1 L, Phosphorus 2.5 , Magnesium 1.7, Total Bilirubin 0.1 L, AST 15, ALT 24, Albumin 2.6 L, CBC w Diff NO MAN DIFF REQ, RBC 3.55 L, MCV 82.2, MCH 27.1, RDW 16.5 H, MPV 7.7, Gran % 66.9, Lymphocytes % 22.4, Monocytes % 7.1, Eosinophils % 3.0, Basophils % 0.6, Absolute Granulocytes 5.5, Absolute Lymphocytes 1.8, Absolute Monocytes 0.6 , Absolute Eosinophils 0.2, Absolute Basophils 0, PUBS MCHC 33.0 Impression/Plan Impression/Plan Impression/Plan: 1. Multi lobar pneumonia. 2. Chronic respiratory failure. 3. Probable recurrent aspiration. 4. Status post G-tube placement. 5. History of cerebral palsy. Recommendations: * Replete electrolytes and continue to monitor. * Continue nocturnal ventilation. * Continue nebs/TRC. * For g tube exchange on Saturday. * Agree with pursuing a swallowing evaluation. * Repeat sputum culture as per id. * Change from ceftazidime to meropenem as per id. * Continue all home meds. * DVT/GI prophylaxis at all times. * Continue ventilator bundle and monitor closely. * Continue to monitor in the critical care unit. I have discussed the plan of care with the housestaff in detail and asked him to contact me should the patient's condition change or deteriorate.
--- NOTE | 2017-03-17 15:22 | PN- Att Addend ---
Attending Addendum Attending Brief Note Patient not as bright today. Still has areas of hypertension has gotten boluses of IV fluid. Fever. 30% trach mask and nocturnal ventilation, to saturations are adequate. Last blood pressure around 80/60, no major changes on physical with appreciate Dr. Mcgowan inputs and recommendations and will continue close observation suction when necessary follow-up labs, last white count 8200. Intake & Output 03/17 1600 03/17 0400 03/16 1600 03/16 0400 03/15 1600 03/15 0400 Intake Total 960 1426 0343 359 8503 855 Output Total 0 Balance 960 1426 9994 287 9551 855 Intake, IV 104 641 0580 497 994 735 Intake, Oral 0 0 0 0 Intake, Tube 181 126 30 Feeding Intake, Tube 200 580 140 150 320 120 Irrigant Number 0 1 0 1 Bowel Movements Output, Urine 0 Patient 120 lb Weight Current Medications Sig/Martinez Start time Last Medication Dose Route Stop Time Status Admin Acetaminophen 640 MG Q6P PRN 03/16 0930 AC 03/17 PO 0026 Albuterol Sulfate 3 ML Q4H PRN 03/14 1115 AC INH Baclofen 40 MG TID 03/13 2200 AC 03/17 PO 0944 Ceftazidime 1,000 MG IQ8 03/14 1600 DC 03/17 IV 0804 Dextrose/Sodium 1,000 ML Q13H 03/16 0630 AC 03/17 Chloride IV 0804 Diazepam 20 MG TID 03/14 0250 AC 03/17 PO 0943 Docusate Sodium 100 MG BID PRN 03/13 1815 AC PO Enoxaparin Sodium 40 MG 1900 03/13 1900 AC 03/16 SC 1815 Guaifenesin 10 ML Q4P PRN 03/16 0930 AC 03/16 PO 1011 Ipratropium [place] 2.5 ML Q4 HRS NEEDED PRN 03/14 1115 AC INH Levetiracetam 500 MG Q12 03/14 2200 AC 03/17 N/A 1 UNIT IV 0943 Magnesium Oxide 400 MG BID 03/15 1000 AC 03/17 PO 0944 Magnesium Sulfate 1 GM ONCE ONE 03/17 0945 DC 03/17 Dextrose/Water 100 ML IV 03/17 1344 0943 Meropenem 1 GM Q8H 03/17 1000 AC 03/17 IV 1227 Methyl Salicylate 1 JULIUS Q2P PRN 03/13 1800 AC TOP Morphine Sulfate 2 MG Q4 PRN 03/13 1800 AC IV Morphine Sulfate 4 MG Q4P PRN 03/13 1800 AC 03/15 IV 1119 Nystatin 1 JULIUS TID PRN 03/14 1445 AC 03/16 TOP 1644 Oxymetazoline HCl 2 SPRAY BID PRN 03/15 0745 AC PABLO Pantoprazole Sodium 40 MG DAILY 03/14 1000 AC 03/17 IV 0943 Phenobarbital 32.4 MG TID 03/13 2200 AC 03/17 PO 0944 Polyethylene Glycol 17 GM DAILY PRN 03/13 1815 AC PO Potassium Chloride 40 MEQ DAILY 03/18 1000 AC PO Potassium Chloride 40 MEQ ONCE ONE 03/17 1200 DC 03/17 PO 03/17 1201 1227 Potassium Chloride 60 MEQ ONCE ONE 03/17 0815 DC 03/17 PO 03/17 0816 0804 Sodium Chloride 500 ML BOLUS ONE 03/17 1200 DC 03/17 IV 03/17 1259 1227 Sodium Chloride 500 ML BOLUS ONE 03/17 0615 DC 03/17 IV 03/17 0714 0615 Laboratory Tests 03/17/17 0415: Anion Gap 11, Estimated GFR > 60, Glucose 105 H, Calcium 7.1 L, Phosphorus 2.5 , Magnesium 1.7, Total Bilirubin 0.1 L, AST 15, ALT 24, Albumin 2.6 L, CBC w Diff NO MAN DIFF REQ, RBC 3.55 L, MCV 82.2, MCH 27.1, RDW 16.5 H, MPV 7.7, Gran % 66.9, Lymphocytes % 22.4, Monocytes % 7.1, Eosinophils % 3.0, Basophils % 0.6, Absolute Granulocytes 5.5, Absolute Lymphocytes 1.8, Absolute Monocytes 0.6 , Absolute Eosinophils 0.2, Absolute Basophils 0, PUBS MCHC 33.0 03/16/17 0415: Anion Gap 20 H, Estimated GFR > 60, Glucose 28 *L, Calcium 8.1 L, Phosphorus 3.6, Magnesium 1.8, Total Bilirubin 0.2, AST 20, ALT 31, Albumin 3.1 L, CBC w Diff NO MAN DIFF REQ, RBC 3.51 L, MCV 82.5, MCH 27.2, RDW 16.3 H, MPV 8.2, Gran % 67.4, Lymphocytes % 24.9, Monocytes % 4.7, Eosinophils % 2.1, Basophils % 0.9, Absolute Granulocytes 6.1, Absolute Lymphocytes 2.3, Absolute Monocytes 0.4 , Absolute Eosinophils 0.2, Absolute Basophils 0.1, PUBS MCHC 33.0 03/15/17 1155: pH 7.34 L, pCO2 43, pO2 125 H, HCO3 23, ABG O2 Sat (Measured) 98.0, P-50 (Temp Corrected) N, Carboxyhemoglobin 0.4 L, O2 Concentration % 30%, Respiration Rate 12, O2 Delivery Method VENT, Vent Mode AC, Expiratory Pressure 5, Tidal Volume 320, Pressure Support 0, Phlebotomy Draw Site RIGHT BRACHIAL 03/15/17 0400: Anion Gap 13, Estimated GFR > 60, Glucose 69, Calcium 8.2 L, Phosphorus 3.9, Magnesium 1.8, Total Bilirubin < 0.1 L, AST 17, ALT 31, Albumin 2.9 L, CBC w Diff NO MAN DIFF REQ, RBC 3.43 L, MCV 81.8, MCH 26.5 L, RDW 16.3 H, MPV 8.8, Gran % 55.6, Lymphocytes % 33.7, Monocytes % 5.4, Eosinophils % 3.2, Basophils % 2.1 H, Absolute Granulocytes 4.6, Absolute Lymphocytes 2.8, Absolute Monocytes 0.4, Absolute Eosinophils 0.3, Absolute Basophils 0.2, PUBS MCHC 32.4 L Microbiology 03/17 1432 LOWER RESP: Respiratory Culture - ORD 03/17 1432 LOWER RESP: Gram Stain - ORD 03/14 1829 HEAD/NECK: Head/Neck Culture - COMP YEAST 03/14 1829 HEAD/NECK: Gram Stain - COMP Microbiology 03/17 1432 LOWER RESP: Respiratory Culture - ORD 03/17 143 LOWER RESP: Gram Stain - ORD 03/14 1829 HEAD/NECK: Head/Neck Culture - COMP YEAST 03/14 1829 HEAD/NECK: Gram Stain - COMP Vital Signs Date Time Temp Pulse Resp B/P B/P Pulse O2 O2 Flow FiO2 Mean Ox Delivery Rate 03/17 1355 30 03/17 1200 98 Ventilator 30% 03/17 1132 30 03/17 0858 30 03/17 0800 96.9 58 12 92/60 98 Ventilator 30% 03/17 0800 99 Ventilator 30% 03/17 0555 30 03/17 0412 30 03/17 0400 98 Ventilator 30% 03/17 0055 30 03/17 0000 95 Ventilator 30% 03/17 0000 99.6 92 22 100/00 99 Ventilator 40% 03/16 2148 30 03/16 1999 99 Trach Mask 30% 03/16 1600 100 Trach Mask 30% 03/16 1600 98.1 86 16 110/60 100 Trach Mask 30% Hypokalemic today replacing potassium.
[2017-03-17 16:00] VITALS: BP 90/60
[2017-03-18] VITALS: BP 82/60
[2017-03-18 06:18] LABS: ABSOLUTE BASOPHIL COUNT 0 /CUMM (0.0-0.2); ABSOLUTE EOSINOPHIL COUNT 0.3 /CUMM (0.0-0.7); ABSOLUTE GRANULOCYTE CT 5.3 /CUMM (1.4-6.5); ABSOLUTE LYMPH COUNT 1.7 /CUMM (1.2-3.4); ABSOLUTE MONOCYTE COUNT 0.5 /CUMM (0.10-0.60); BASOPHIL % 0.5 % (0.0-2.0); EOSINOPHIL % 3.7 % (0-5); GRANULOCYTE % 67.9 % (42.2-75.2); HEMATOCRIT 29.6 % (37-47); MEAN CORPUSCULAR HGB CONC 32.7 G/DL (33.0-37.0); MEAN CORPUSCULAR VOLUME 82.7 FL (81.0-99.0); MEAN PLATELET VOLUME 7.9 FL (7.4-10.4); PLATELET COUNT 385 /CUMM (130-400); RED BLOOD CELL CT 3.58 /CUMM (4.20-5.40); WHITE BLOOD CELL COUNT 7.8 /CUMM (4.8-10.8)
--- NOTE | 2017-03-18 07:10 | PN- Resident CRCU ---
See Addendum Brenda CRUZ,[facility] 03/18/17 0710: Subjective HPI/CRCU Issues: Pneumonia Respiratory distress off ventilator tracheostomy 24 Hour Events: Patient was seen and examined this morning. Was awake and alert. Responds to oral commands by nodding. Had an episode of hypotension overnight, was given 750cc of fluid bolus to which she responded well. Was on ventilator overnight. Now on trachemask with 30% FiO2. Objective Vital Signs & I&O Last 8 Hrs of Vitals and I&O: . Exam General Appearance: well developed/nourished, no apparent distress, alert, awake , comfortable Head: atraumatic, normal appearance Ears, Nose, Throat: tracheostomy Respiratory: normal breath sounds, chest non-tender Cardiovascular: regular rate/rhythm Gastrointestinal: soft, non-tender Extremities: no edema Skin: intact Skin Temp/Moisture Exam: Warm/Dry Sepsis Skin Exam (color): Normal for Ethnicity Weaning Parameters NIF: 19 Minute Volume: 4.23 Resp rate: 13 Vt: 325 Heart Rate: 65 Weaning Schedule Start Time: 1610 Resp Rate: 18 Vt: 205 Heart Rate: 80 Current Medications: Current Medications Sig/Martinez Start time Last Medication Dose Route Stop Time Status Admin Acetaminophen 640 MG Q6P PRN 03/16 0930 AC 03/17 PO 0026 Albuterol Sulfate 3 ML Q4H PRN 03/14 1115 AC INH Baclofen 40 MG TID 03/13 2200 AC 03/18 PO 0858 Dextrose/Sodium 1,000 ML Q13H 03/16 0630 AC 03/18 Chloride IV 1154 Diazepam 20 MG TID 03/14 0250 AC 03/18 PO 0858 Docusate Sodium 100 MG BID PRN 03/13 1815 AC PO Enoxaparin Sodium 40 MG 1900 03/13 1900 AC 03/17 SC 1823 Guaifenesin 10 ML Q4P PRN 03/16 0930 AC 03/16 PO 1011 Ipratropium [place] 2.5 ML Q4 HRS NEEDED PRN 03/14 1115 AC INH Levetiracetam 500 MG Q12 03/14 2200 AC 03/18 N/A 1 UNIT IV 0858 Magnesium Oxide 400 MG BID 03/15 1000 AC 03/18 PO 0858 Meropenem 1 GM Q8H 03/17 1000 AC 03/18 IV 0859 Methyl Salicylate 1 JULIUS Q2P PRN 03/13 1800 AC TOP Morphine Sulfate 2 MG Q4 PRN 03/13 1800 AC IV Morphine Sulfate 4 MG Q4P PRN 03/13 1800 AC 03/15 IV 1119 Nystatin 1 JULIUS TID PRN 03/14 1445 AC 03/16 TOP 1644 Oxymetazoline HCl 2 SPRAY BID PRN 03/15 0745 AC PABLO Pantoprazole Sodium 40 MG DAILY 03/14 1000 AC 03/18 IV 0857 Phenobarbital 32.4 MG TID 03/13 2200 AC 03/18 PO 0858 Polyethylene Glycol 17 GM DAILY PRN 03/13 1815 AC PO Potassium Chloride 40 MEQ DAILY 03/18 1000 AC 03/18 PO 0858 Sodium Chloride 500 ML BOLUS ONE 03/18 0300 DC 03/18 IV 03/18 0359 0300 Sodium Chloride 500 ML BOLUS ONE 03/18 0100 DC 03/18 IV 03/18 0159 0100 Impression/Plan Impression/Problem List Impression: The patient is a 41-year-old woman with a past medical history of cerebral palsy, seizures, aspiration pneumonia, chronic constipation, incontinence, status post surgery/Vazquez jeffy, status post right ORIF, and history of anoxic brain injury with full assist. She lives at home with her sister who is her tilesetter and also has visiting nurses. She is on a tracheostomy tube but requires connection to a ventilator at nighttime for respiratory support. Plan: 1. Pneumonia: * Continue monitoring in ICU * Her sputum is growing ESBL E.coli and Pseudomonas. * Repeat sputum culture is growing GNR. * Her Pneumonia is likely due to aspiration and not ventilator assosciated. * Will follow up blood and urine cultures * Rapid flu test was negative * Her antibiotics have been switched to IV Meropenem. Will continue as per ID recs. * Mucinex 600 mg q12 hrs * ID recs appreciated. * Currently off the ventilator and on trach mask. 2. Tracheostomy site pain * Patient reportedly had tracheostomy site pain and discomfort with a history of tracheostomy site scarring. * ENT evalutated (03/15) and suggested to tighten slightly tracheostomy tube straps so that it is not anteriorly displaced. Also the granulation tissue around the site is normal. 3. Dysphagia * Patient is reported to have had been having some dysphagia and drooling * Swallow evaluation - pending. * Her PEG tube was changed by Dr Pham. Will administer meds and feeding via PEG for now. Family is okay with it. * Nutrition recs appreciated. 4. Anemia: * Her Hb has been low but stable around 9. * Her iron studies show low iron, transferrin saturation, TIBC with normal ferritin and reticulocyte count. 5. Cerebral palsy * Continue home medications phenobarbital 32.4 mg TID; Diazepam 20 mg TID; Kepra 500 mg TID 6. DVT prophylaxis * SC lovenox 40 mg daily Diet: On PEG tube. Code status: Full code Problem List: 1. Cerebral palsy Pain Ratin Tomorrow's Labs & Rationales: CBC, ICU Bundle Plan DVT/Prophylaxis: mechanical Tomi Dupont MD 03/18/17 0956: Attending MD Review Statement Attending Sign Off Attending Cosign Statement: I have: examined this patient, reviewed [facility] EMR data, personally reviewd images, discussd w/resident/PA/PRESSROOM SUPERVISOR, discussed mgmt plan w/ratna, discussed mgmt plan w/CM, discussed mgmt plan w/pt, agreed w/resident/PA/PRESSROOM SUPERVISOR, amended to note. Other Findings: Impression left sided pneumonia, risk factors for mrsa/pseudomonas chronic respiratory failure Plan -f/u ID recommendations -cont abx - currently on Meropenem (pseudomonas and E.coli) -feeding -electrolyte repletion -skin care -DC planning -TRC/Nebs DVT prophylaxis at all times TTS 35 min
[2017-03-18 08:00] VITALS: BP 86/60
--- NOTE | 2017-03-18 10:12 | RADIOLOGY REPORT ---
EXAMINATION: CR PORTABLE CHEST CLINICAL INFORMATION: Intubated. COMPARISON: Multiple prior chest x-rays, most recent of which is dated 03/17/2017. TECHNIQUE: Portable AP semierect view of the chest was obtained. FINDINGS: Tracheostomy tube is in place, approximately 4 cm above the [place]. Right jugular tunneled catheter is in place with tip obscured by the spinal fusion hardware. Multiple EKG leads overlie the chest. The cardiomediastinal silhouette is enlarged, unchanged when allowing for differences in technique. Low lung volumes are seen, similar to prior exam. Previously seen bibasilar opacities have nearly completely resolved. Minimal bibasilar linear atelectatic changes are noted. Diffuse osteopenia, thoracolumbar scoliosis and posterior spinal fusion hardware again noted. IMPRESSION: 1. Tracheostomy tube tip 4 cm above the [place]. 2. Right jugular tunneled catheter tip obscured by spinal fusion hardware. 3. Mild residual bibasilar subsegmental atelectasis.
--- NOTE | 2017-03-18 10:18 | PN- Infect Dx ---
Subjective Subjective: Afebrile without complaints. Her blood pressure has remained low. Objective Last 24 Hrs of Vital Signs/I&O Vital Signs Date Time Temp Pulse Resp B/P B/P Pulse O2 O2 Flow FiO2 Mean Ox Delivery Rate 03/18 0452 30 03/18 0400 100 Ventilator 30% 03/18 0144 30 03/18 0000 97.1 72 12 82/60 96 Ventilator 30% 03/18 0000 96 Ventilator 30% 03/17 2234 30 03/17 2000 98 Trach Mask 30% 03/17 1600 99 Ventilator 30% 03/17 1600 97.4 72 14 90/60 100 Ventilator 30% 03/17 1355 30 03/17 1200 98 Ventilator 30% 03/17 1132 30 Intake & Output 03/18 1600 03/18 0800 03/18 0000 Intake Total 1883 1408 Output Total Balance 1883 1408 Intake, IV 1433 749 Intake, Tube 325 339 Feeding Intake, Tube 125 320 Irrigant Physical Exam Other Physical Findings: She is awake and alert in no acute distress, now off the vent Lungs bilateral rhonchi Heart regular rhythm with no murmur Abdomen is soft, nontender with positive bowel sounds; PEG in place Extremities trace edema both lower extremities Results Last 24 Hours of Lab Results: Laboratory Tests 03/18 0500 Chemistry Sodium (137 - 145 mmol/L) 141 Potassium (3.5 - 5.1 mmol/L) 4.0 Chloride (98 - 107 mmol/L) 101 Carbon Dioxide (22 - 30 mmol/L) 32 H Anion Gap (5 - 16) 7 BUN (7 - 17 mg/dL) 2 L Creatinine (0.5 - 1.0 mg/dL) 0.2 L Estimated GFR (>60 ml/min) > 60 Glucose (65 - 99 mg/dL) 96 Calcium (8.4 - 10.2 mg/dL) 7.5 L Phosphorus (2.5 - 4.5 mg/dL) 2.5 Magnesium (1.6 - 2.3 mg/dL) 2.0 Total Bilirubin (0.2 - 1.3 mg/dL) 0.1 L AST (14 - 36 U/L) 24 ALT (9 - 52 U/L) 26 Albumin (3.5 - 5.0 g/dL) 2.7 L Hematology CBC w Diff NO MAN DIFF REQ WBC (4.8 - 10.8 /CUMM) 7.8 RBC (4.20 - 5.40 /CUMM) 3.58 L Hgb (12.0 - 16.0 G/DL) 9.7 L Hct (37 - 47 %) 29.6 L MCV (81.0 - 99.0 FL) 82.7 MCH (27.0 - 31.0 PG) 27.0 RDW (11.5 - 14.5 %) 17.0 H Plt Count (130 - 400 /CUMM) 385 MPV (7.4 - 10.4 FL) 7.9 Gran % (42.2 - 75.2 %) 67.9 Lymphocytes % (20.5 - 51.1 %) 21.2 Monocytes % (1.7 - 9.3 %) 6.7 Eosinophils % (0 - 5 %) 3.7 Basophils % (0.0 - 2.0 %) 0.5 Absolute Granulocytes (1.4 - 6.5 /CUMM) 5.3 Absolute Lymphocytes (1.2 - 3.4 /CUMM) 1.7 Absolute Monocytes (0.10 - 0.60 /CUMM) 0.5 Absolute Eosinophils (0.0 - 0.7 /CUMM) 0.3 Absolute Basophils (0.0 - 0.2 /CUMM) 0 PUBS MCHC (33.0 - 37.0 G/DL) 32.7 L Last 24 Hours of Dexter Results: Sputum culture March 17 positive for gram-negative rods Recent Imaging Studies: Chest x-ray March 18 reveals bilateral densities, unchanged from the previous study Assessment/Plan Impression: Ongoing respiratory failure, requiring the ventilator during the day yesterday, though her temperatures and white blood cell count remain normal now on Meropenem Day 2 of treatment for presumed pneumonia secondary to ESBL producing Escherichia coli and Pseudomonas, isolated from her initial sputum culture. Suggestion: 1. Would pursue a swallowing evaluation when able 2. Continue Meropenem
--- NOTE | 2017-03-18 10:38 | PN- Att Addend ---
Attending Addendum Attending Brief Note Patient had little brighter, blood pressure still running low specially overnight got 1 L of the bolus of fluid. BP 82/60 pulse 72 respirations 14 temperature 97.1. WBC 7800 with no major changes on physical. Will check with Darrian Balderas MD regarding the antibiotic coverage Intake & Output 03/18 1600 03/18 0400 03/17 1600 03/17 0400 03/16 1600 03/16 0400 Intake Total 1883 1408 2768 1426 1759 647 Output Total 0 Balance 1883 1408 2768 1426 1759 647 Intake, IV 9054 719 2585 720 1589 497 Intake, Oral 0 0 0 0 Intake, Tube 325 339 441 126 30 Feeding Intake, Tube 125 320 520 580 140 150 Irrigant Number 1 0 1 0 Bowel Movements Output, Urine 0 Patient 120 lb Weight Current Medications Sig/Martinez Start time Last Medication Dose Route Stop Time Status Admin Acetaminophen 640 MG Q6P PRN 03/16 0930 AC 03/17 PO 0026 Albuterol Sulfate 3 ML Q4H PRN 03/14 1115 AC INH Baclofen 40 MG TID 03/13 2200 AC 03/18 PO 0858 Dextrose/Sodium 1,000 ML Q13H 03/16 0630 AC 03/17 Chloride IV 0804 Diazepam 20 MG TID 03/14 0250 AC 03/18 PO 0858 Docusate Sodium 100 MG BID PRN 03/13 1815 AC PO Enoxaparin Sodium 40 MG 1900 03/13 1900 AC 03/17 SC 1823 Guaifenesin 10 ML Q4P PRN 03/16 0930 AC 03/16 PO 1011 Ipratropium [place] 2.5 ML Q4 HRS NEEDED PRN 03/14 1115 AC INH Levetiracetam 500 MG Q12 03/14 2200 AC 03/18 N/A 1 UNIT IV 0858 Magnesium Oxide 400 MG BID 03/15 1000 AC 03/18 PO 0858 Magnesium Sulfate 1 GM ONCE ONE 03/17 0945 DC 03/17 Dextrose/Water 100 ML IV 03/17 1344 0943 Meropenem 1 GM Q8H 03/17 1000 AC 03/18 IV 0859 Methyl Salicylate 1 JULIUS Q2P PRN 03/13 1800 AC TOP Morphine Sulfate 2 MG Q4 PRN 03/13 1800 AC IV Morphine Sulfate 4 MG Q4P PRN 03/13 1800 AC 03/15 IV 1119 Nystatin 1 JULIUS TID PRN 03/14 1445 AC 03/16 TOP 1644 Oxymetazoline HCl 2 SPRAY BID PRN 03/15 0745 AC PABLO Pantoprazole Sodium 40 MG DAILY 03/14 1000 AC 03/18 IV 0857 Phenobarbital 32.4 MG TID 03/13 2200 AC 03/18 PO 0858 Polyethylene Glycol 17 GM DAILY PRN 03/13 1815 AC PO Potassium Chloride 40 MEQ DAILY 03/18 1000 AC 03/18 PO 0858 Potassium Chloride 40 MEQ ONCE ONE 03/17 1200 DC 03/17 PO 03/17 1201 1227 Sodium Chloride 500 ML BOLUS ONE 03/18 0300 DC 03/18 IV 03/18 0359 0300 Sodium Chloride 500 ML BOLUS ONE 03/18 0100 DC 03/18 IV 03/18 0159 0100 Sodium Chloride 500 ML BOLUS ONE 03/17 1200 DC 03/17 IV 03/17 1259 1227 Laboratory Tests 03/18/17 0500: Anion Gap 7, Estimated GFR > 60, Glucose 96, Calcium 7.5 L, Phosphorus 2.5, Magnesium 2.0, Total Bilirubin 0.1 L, AST 24, ALT 26, Albumin 2.7 L, CBC w Diff NO MAN DIFF REQ, RBC 3.58 L, MCV 82.7, MCH 27.0, RDW 17.0 H, MPV 7.9, Gran % 67.9, Lymphocytes % 21.2, Monocytes % 6.7, Eosinophils % 3.7, Basophils % 0.5, Absolute Granulocytes 5.3, Absolute Lymphocytes 1.7, Absolute Monocytes 0.5 , Absolute Eosinophils 0.3, Absolute Basophils 0, PUBS MCHC 32.7 L 03/17/17 0415: Anion Gap 11, Estimated GFR > 60, Glucose 105 H, Calcium 7.1 L, Phosphorus 2.5 , Magnesium 1.7, Total Bilirubin 0.1 L, AST 15, ALT 24, Albumin 2.6 L, CBC w Diff NO MAN DIFF REQ, RBC 3.55 L, MCV 82.2, MCH 27.1, RDW 16.5 H, MPV 7.7, Gran % 66.9, Lymphocytes % 22.4, Monocytes % 7.1, Eosinophils % 3.0, Basophils % 0.6, Absolute Granulocytes 5.5, Absolute Lymphocytes 1.8, Absolute Monocytes 0.6 , Absolute Eosinophils 0.2, Absolute Basophils 0, PUBS MCHC 33.0 03/16/17 0415: Anion Gap 20 H, Estimated GFR > 60, Glucose 28 *L, Calcium 8.1 L, Phosphorus 3.6, Magnesium 1.8, Total Bilirubin 0.2, AST 20, ALT 31, Albumin 3.1 L, CBC w Diff NO MAN DIFF REQ, RBC 3.51 L, MCV 82.5, MCH 27.2, RDW 16.3 H, MPV 8.2, Gran % 67.4, Lymphocytes % 24.9, Monocytes % 4.7, Eosinophils % 2.1, Basophils % 0.9, Absolute Granulocytes 6.1, Absolute Lymphocytes 2.3, Absolute Monocytes 0.4 , Absolute Eosinophils 0.2, Absolute Basophils 0.1, PUBS MCHC 33.0 03/15/17 1155: pH 7.34 L, pCO2 43, pO2 125 H, HCO3 23, ABG O2 Sat (Measured) 98.0, P-50 (Temp Corrected) N, Carboxyhemoglobin 0.4 L, O2 Concentration % 30%, Respiration Rate 12, O2 Delivery Method VENT, Vent Mode AC, Expiratory Pressure 5, Tidal Volume 320, Pressure Support 0, Phlebotomy Draw Site RIGHT BRACHIAL Microbiology 03/17 1714 LOWER RESP: Respiratory Culture - RES GRAM NEGATIVE RODS 03/17 1714 LOWER RESP: Gram Stain - RES Microbiology 03/17 1714 LOWER RESP: Respiratory Culture - RES GRAM NEGATIVE RODS 03/17 1714 LOWER RESP: Gram Stain - RES Vital Signs Date Time Temp Pulse Resp B/P B/P Pulse O2 O2 Flow FiO2 Mean Ox Delivery Rate 03/18 0452 03/18 0400 100 Ventilator 30% 03/18 0144 30 03/18 0000 97.1 72 12 82/60 96 Ventilator 30% 03/18 0000 96 Ventilator 30% 03/17 2234 30 03/17 2000 98 Trach Mask 30% 03/17 1600 99 Ventilator 30% 03/17 1600 97.4 72 14 90/60 100 Ventilator 30% 03/17 1355 30 03/17 1200 98 Ventilator 30% 03/17 1132 30
[2017-03-18 12:00] VITALS: BP 112/60
[2017-03-18 16:00] VITALS: BP 112/80
[2017-03-19] VITALS: BP 94/0
[2017-03-19 04:45] LABS: ABSOLUTE BASOPHIL COUNT 0.1 /CUMM (0.0-0.2); ABSOLUTE EOSINOPHIL COUNT 0.2 /CUMM (0.0-0.7); ABSOLUTE GRANULOCYTE CT 4.7 /CUMM (1.4-6.5); ABSOLUTE LYMPH COUNT 1.6 /CUMM (1.2-3.4); ABSOLUTE MONOCYTE COUNT 0.7 /CUMM (0.10-0.60); BASOPHIL % 0.9 % (0.0-2.0); EOSINOPHIL % 2.5 % (0-5); GRANULOCYTE % 65.4 % (42.2-75.2); HEMATOCRIT 30.3 % (37-47); MEAN CORPUSCULAR HGB 26.8 PG (27.0-31.0); MEAN CORPUSCULAR HGB CONC 32.7 G/DL (33.0-37.0); MEAN CORPUSCULAR VOLUME 81.8 FL (81.0-99.0); MEAN PLATELET VOLUME 7.9 FL (7.4-10.4); PLATELET COUNT 405 /CUMM (130-400); RBC DISTRIBUTION WIDTH 16.7 % (11.5-14.5); RED BLOOD CELL CT 3.71 /CUMM (4.20-5.40); WHITE BLOOD CELL COUNT 7.2 /CUMM (4.8-10.8)
--- NOTE | 2017-03-19 07:29 | PN- Resident CRCU ---
Brenda CRUZ,[facility] 03/19/17 0729: Subjective HPI/CRCU Issues: Pneumonia Respiratory distress off ventilator tracheostomy 24 Hour Events: Continues to have intermittent episodes of hypotension overnight which responds well to fluid bolus. Could be autonomic dysfunction. No other active issues overnight. Patient was seen and examined this morning. She is off the ventilator in the morning and on trach mask. Responds to oral commands. No acute distress. Objective Vital Signs & I&O Last 8 Hrs of Vitals and I&O: . Exam General Appearance: no apparent distress, alert, awake, comfortable Head: atraumatic, normal appearance Ears, Nose, Throat: tracheostomy Respiratory: normal breath sounds, chest non-tender Cardiovascular: regular rate/rhythm Gastrointestinal: normal bowel sounds, soft, non-tender Extremities: no edema Skin: normal color, warm/dry Skin Temp/Moisture Exam: Warm/Dry Sepsis Skin Exam (color): Normal for Ethnicity Weaning Parameters NIF: 19 Minute Volume: 4.5 Resp rate: 27 Vt: 200 Heart Rate: 88 Weaning Schedule Start Time: 1005 Minute Volume: 4.5 Resp Rate: 27 Vt: 200 Heart Rate: 88 Current Medications: Current Medications Sig/Martinez Start time Last Medication Dose Route Stop Time Status Admin Acetaminophen 640 MG Q6P PRN 03/16 0930 AC 03/17 PO 0026 Albuterol Sulfate 3 ML Q4H PRN 03/14 1115 AC INH Baclofen 40 MG TID 03/13 2200 AC 03/19 PO 0942 Dextrose/Sodium 1,000 ML Q13H 03/16 0630 DC 03/18 Chloride IV 1154 Diazepam 20 MG TID 03/14 0250 AC 03/19 PO 0941 Docusate Sodium 100 MG BID PRN 03/13 1815 AC PO Enoxaparin Sodium 40 MG 1900 03/13 1900 AC 03/18 SC 1752 Guaifenesin 10 ML Q4P PRN 03/16 0930 AC 03/16 PO 1011 Ipratropium [place] 2.5 ML Q4 HRS NEEDED PRN 03/14 1115 AC INH Levetiracetam 500 MG Q12 03/14 2200 AC 03/19 N/A 1 UNIT IV 0941 Magnesium Oxide 400 MG BID 03/15 1000 AC 03/19 PO 0942 Meropenem 1 GM Q8H 03/17 1000 AC 03/19 IV 0941 Methyl Salicylate 1 JULIUS Q2P PRN 03/13 1800 AC TOP Morphine Sulfate 2 MG Q4 PRN 03/13 1800 AC IV Morphine Sulfate 4 MG Q4P PRN 03/13 1800 AC 03/15 IV 1119 Nystatin 1 JULIUS TID PRN 03/14 1445 AC 03/16 TOP 1644 Oxymetazoline HCl 2 SPRAY BID PRN 03/15 0745 AC PABLO Pantoprazole Sodium 40 MG DAILY 03/14 1000 AC 03/19 IV 0941 Phenobarbital 32.4 MG TID 03/13 2200 AC 03/19 PO 0942 Polyethylene Glycol 17 GM DAILY PRN 03/13 1815 AC PO Potassium Chloride 40 MEQ DAILY 03/18 1000 DC 03/18 PO 0858 Sodium Chloride 500 ML BOLUS ONE 03/19 0415 DC IV 03/19 0514 Impression/Plan Impression/Problem List Impression: The patient is a 41-year-old woman with a past medical history of cerebral palsy, seizures, aspiration pneumonia, chronic constipation, incontinence, status post surgery/Vazquez jeffy, status post right ORIF, and history of anoxic brain injury with full assist. She lives at home with her sister who is her director of digital platforms and also has visiting nurses. She is on a tracheostomy tube but requires connection to a ventilator at nighttime for respiratory support. Plan: 1. Pneumonia: * Continue monitoring in ICU * Her sputum is growing ESBL E.coli and Pseudomonas. * Repeat sputum culture is growing GNR. * Her Pneumonia is likely due to aspiration and not ventilator assosciated. * Will follow up blood and urine cultures * Rapid flu test was negative * Will continue IV Meropenem for now. * Mucinex 600 mg q12 hrs * ID recs appreciated. * On nocturnal ventilator and trach mask during the day. 2. Tracheostomy site pain * Patient reportedly had tracheostomy site pain and discomfort with a history of tracheostomy site scarring. * ENT evalutated (03/15) and suggested to tighten slightly tracheostomy tube straps so that it is not anteriorly displaced. Also the granulation tissue around the site is normal. 3. Dysphagia * Patient is reported to have had been having some dysphagia and drooling * Swallow evaluation unable to be done as she has poor oropharyngeal swallowing. * She will likely need continued tube feeding as she does not appear to have a gag reflex. * Her PEG tube was changed by Dr Pham. Will continue feeding via PEG tube. Family is okay with it. * Nutrition recs appreciated. 4. Anemia: * Her Hb has been low but stable around 9. * Her iron studies show low iron, transferrin saturation, TIBC with normal ferritin and reticulocyte count. 5. Cerebral palsy * Continue home medications phenobarbital 32.4 mg TID; Diazepam 20 mg TID; Kepra 500 mg TID 6. DVT prophylaxis * SC lovenox 40 mg daily Diet: On PEG tube. Code status: Full code Problem List: 1. Cerebral palsy Pain Ratin Tomorrow's Labs & Rationales: CBC, ICU bundle Plan DVT/Prophylaxis: mechanical Tomi Dupont MD 03/19/17 1049: Attending MD Review Statement Attending Sign Off Attending Cosign Statement: I have: examined this patient, reviewed [facility] EMR data, personally reviewd images, discussd w/resident/PA/DIRECTOR OPERATING ROOM, discussed mgmt plan w/ratna, discussed mgmt plan w/CM, discussed mgmt plan w/pt, agreed w/resident/PA/DIRECTOR OPERATING ROOM, amended to note. Other Findings: Impression left sided pneumonia, risk factors for mrsa/pseudomonas chronic respiratory failure Improving chest x-ray Her transient hypotension intermittently could be a sign of autonomic dysreflexia fit persists we will consider midodrine addition Plan -f/u ID recommendations -cont abx - currently on Meropenem (pseudomonas and E.coli) -feeding -electrolyte repletion -skin care -DC planning -TRC/Nebs DVT prophylaxis at all times TTS 35 min
[2017-03-19 08:00] VITALS: BP 108/78
--- NOTE | 2017-03-19 10:12 | PN- Infect Dx ---
Subjective Subjective: Afebrile without complaints. She continues to have intermittent episodes of hypotension. Objective Last 24 Hrs of Vital Signs/I&O Vital Signs Date Time Temp Pulse Resp B/P B/P Pulse O2 O2 Flow FiO2 Mean Ox Delivery Rate 03/19 0830 30 03/19 0800 96.6 77 13 108/78 99 Ventilator 30% 03/19 0800 97 Ventilator 30% 03/19 0653 30 03/19 0422 30 03/19 0400 93 Ventilator 30% 03/19 0037 30 03/19 0000 97.6 84 14 94/0 100 Ventilator 30% 03/19 0000 100 Ventilator 30% 03/18 2211 30 03/18 2200 30 03/18 2000 97 Trach Mask 28% 03/18 1645 96 Trach Mask 28% 03/18 1600 100 Trach Mask 28% 03/18 1600 98.1 89 12 112/80 100 Trach Mask 28% 03/18 1452 98 Trach Mask 28% 03/18 1200 97.6 84 16 112/60 100 Trach Mask 30% 03/18 1200 100 Trach Mask 30% Intake & Output 03/19 1600 03/19 0800 03/19 0000 Intake Total 1142 1242 Output Total Balance 1142 1242 Intake, IV 500 390 Intake, Tube 417 432 Feeding Intake, Tube 225 420 Irrigant Physical Exam Other Physical Findings: She is awake and alert in no acute distress on the trach mask Lungs bilateral rhonchi Heart regular rhythm with no murmur Abdomen is soft, nontender with positive bowel sounds; PEG in place Extremities no cyanosis, clubbing or edema Results Last 24 Hours of Lab Results: Laboratory Tests 03/195 Chemistry Sodium (137 - 145 mmol/L) 139 Potassium (3.5 - 5.1 mmol/L) 4.7 Chloride (98 - 107 mmol/L) 95 L Carbon Dioxide (22 - 30 mmol/L) 36 H Anion Gap (5 - 16) 8 BUN (7 - 17 mg/dL) 7 Creatinine (0.5 - 1.0 mg/dL) 0.3 L Estimated GFR (>60 ml/min) > 60 Glucose (65 - 99 mg/dL) 91 Calcium (8.4 - 10.2 mg/dL) 8.1 L Phosphorus (2.5 - 4.5 mg/dL) 2.8 Magnesium (1.6 - 2.3 mg/dL) 2.1 Total Bilirubin (0.2 - 1.3 mg/dL) 0.2 AST (14 - 36 U/L) 36 ALT (9 - 52 U/L) 31 Albumin (3.5 - 5.0 g/dL) 2.8 L Hematology CBC w Diff NO MAN DIFF REQ WBC (4.8 - 10.8 /CUMM) 7.2 RBC (4.20 - 5.40 /CUMM) 3.71 L Hgb (12.0 - 16.0 G/DL) 9.9 L Hct (37 - 47 %) 30.3 L MCV (81.0 - 99.0 FL) 81.8 MCH (27.0 - 31.0 PG) 26.8 L RDW (11.5 - 14.5 %) 16.7 H Plt Count (130 - 400 /CUMM) 405 H MPV (7.4 - 10.4 FL) 7.9 Gran % (42.2 - 75.2 %) 65.4 Lymphocytes % (20.5 - 51.1 %) 21.6 Monocytes % (1.7 - 9.3 %) 9.6 H Eosinophils % (0 - 5 %) 2.5 Basophils % (0.0 - 2.0 %) 0.9 Absolute Granulocytes (1.4 - 6.5 /CUMM) 4.7 Absolute Lymphocytes (1.2 - 3.4 /CUMM) 1.6 Absolute Monocytes (0.10 - 0.60 /CUMM) 0.7 H Absolute Eosinophils (0.0 - 0.7 /CUMM) 0.2 Absolute Basophils (0.0 - 0.2 /CUMM) 0.1 PUBS MCHC (33.0 - 37.0 G/DL) 32.7 L Last 24 Hours of Dexter Results: Sputum culture March 17 positive for gram-negative rods Sputum culture March 18 mixed valentina Assessment/Plan Impression: Stable, on the trach mask during the day yesterday and again this morning, with her temperatures and white blood cell count remaining normal now on Meropenem Day 3 of treatment for presumed pneumonia secondary to ESBL producing Escherichia coli and Pseudomonas, isolated from her initial sputum culture. Swallowing evaluation noted with patient not felt to be appropriate for po trials. The etiology of her intermittent hypotension remains unclear. Suggestion: 1. Continue NPO 2. Continue Meropenem
--- NOTE | 2017-03-19 13:18 | PN- Att Addend ---
Attending Addendum Attending Brief Note Laying in bed and getting a.m. care by nurse, BP 108/70. Afebrile. No new changes on physical still getting the ventilatory support at night . Continue present treatment Intake & Output 03/19 1600 03/19 0400 03/18 1600 03/18 0400 03/17 1600 03/17 0400 Intake Total 1142 1242 3120 1408 2768 1426 Output Total 0 Balance 1142 1242 3120 1408 2768 1426 Intake, IV 981 727 3117 749 1807 720 Intake, Oral 0 0 Intake, Tube 417 432 656 339 441 126 Feeding Intake, Tube 225 420 350 320 520 580 Irrigant Number 2 1 0 Bowel Movements Output, Urine 0 Current Medications Sig/Martinez Start time Last Medication Dose Route Stop Time Status Admin Acetaminophen 640 MG Q6P PRN 03/16 0930 AC 03/17 PO 0026 Albuterol Sulfate 3 ML Q4H PRN 03/14 1115 AC INH Baclofen 40 MG TID 03/130 AC 03/19 PO 0942 Dextrose/Sodium 1,000 ML Q13H 03/16 0630 DC 03/18 Chloride IV 1154 Diazepam 20 MG TID 03/14 0250 AC 03/19 PO 0941 Docusate Sodium 100 MG BID PRN 03/13 1815 AC PO Enoxaparin Sodium 40 MG 1900 03/13 1900 AC 03/18 SC 1752 Ferrous Sulfate 325 MG DAILY 03/19 1137 AC PO Guaifenesin 10 ML Q4P PRN 03/16 0930 AC 03/16 PO 1011 Ipratropium [place] 2.5 ML Q4 HRS NEEDED PRN 03/14 1115 AC INH Levetiracetam 500 MG Q12 03/14 2200 AC 03/19 N/A 1 UNIT IV 0941 Magnesium Oxide 400 MG BID 03/15 1000 AC 03/19 PO 0942 Meropenem 1 GM Q8H 03/17 1000 AC 03/19 IV 0941 Methyl Salicylate 1 JULIUS Q2P PRN 03/13 1800 AC TOP Morphine Sulfate 2 MG Q4 PRN 03/13 1800 AC IV Morphine Sulfate 4 MG Q4P PRN 03/13 1800 AC 03/15 IV 1119 Nystatin 1 JULIUS TID PRN 03/14 1445 AC 03/16 TOP 1644 Oxymetazoline HCl 2 SPRAY BID PRN 03/15 0745 AC PABLO Pantoprazole Sodium 40 MG DAILY 03/14 1000 AC 03/19 IV 0941 Phenobarbital 32.4 MG TID 03/13 2200 AC 03/19 PO 0942 Polyethylene Glycol 17 GM DAILY PRN 03/13 1815 AC PO Potassium Chloride 40 MEQ DAILY 03/18 1000 DC 03/18 PO 0858 Sodium Chloride 500 ML BOLUS ONE 03/19 414 DC IV 03/19 0514 Laboratory Tests 03/19/17414: Anion Gap 8, Estimated GFR > 60, Glucose 91, Calcium 8.1 L, Phosphorus 2.8, Magnesium 2.1, Total Bilirubin 0.2, AST 36, ALT 31, Albumin 2.8 L, CBC w Diff NO MAN DIFF REQ, RBC 3.71 L, MCV 81.8, MCH 26.8 L, RDW 16.7 H, MPV 7.9, Gran % 65.4, Lymphocytes % 21.6, Monocytes % 9.6 H, Eosinophils % 2.5, Basophils % 0.9, Absolute Granulocytes 4.7, Absolute Lymphocytes 1.6, Absolute Monocytes 0.7 H, Absolute Eosinophils 0.2, Absolute Basophils 0.1, PUBS MCHC 32.7 L 03/18/17 0500: Anion Gap 7, Estimated GFR > 60, Glucose 96, Calcium 7.5 L, Phosphorus 2.5, Magnesium 2.0, Iron 32 L, TIBC 206 L, % Saturation 15 L, Ferritin 58.7, Total Bilirubin 0.1 L, AST 24, ALT 26, Albumin 2.7 L, CBC w Diff NO MAN DIFF REQ, RBC 3.58 L, MCV 82.7, MCH 27.0, RDW 17.0 H, MPV 7.9, Gran % 67.9, Lymphocytes % 21.2, Monocytes % 6.7, Eosinophils % 3.7, Basophils % 0.5, Absolute Granulocytes 5.3, Absolute Lymphocytes 1.7, Absolute Monocytes 0.5, Absolute Eosinophils 0.3, Absolute Basophils 0, PUBS MCHC 32.7 L, Retic Count 0.70 03/17/17414: Anion Gap 11, Estimated GFR > 60, Glucose 105 H, Calcium 7.1 L, Phosphorus 2.5 , Magnesium 1.7, Total Bilirubin 0.1 L, AST 15, ALT 24, Albumin 2.6 L, CBC w Diff NO MAN DIFF REQ, RBC 3.55 L, MCV 82.2, MCH 27.1, RDW 16.5 H, MPV 7.7, Gran % 66.9, Lymphocytes % 22.4, Monocytes % 7.1, Eosinophils % 3.0, Basophils % 0.6, Absolute Granulocytes 5.5, Absolute Lymphocytes 1.8, Absolute Monocytes 0.6 , Absolute Eosinophils 0.2, Absolute Basophils 0, PUBS MCHC 33.0 Microbiology 03/18 1100 LOWER RESP: Respiratory Culture - RES 03/18 1100 LOWER RESP: Gram Stain - RES 03/17 1714 LOWER RESP: Respiratory Culture - COMP CITROBACTER AMALONITICUS 03/17 1714 LOWER RESP: Gram Stain - COMP Microbiology 03/18 1100 LOWER RESP: Respiratory Culture - RES 03/18 1100 LOWER RESP: Gram Stain - RES 03/17 1714 LOWER RESP: Respiratory Culture - COMP CITROBACTER AMALONITICUS 03/17 1714 LOWER RESP: Gram Stain - COMP Vital Signs Date Time Temp Pulse Resp B/P B/P Pulse O2 O2 Flow FiO2 Mean Ox Delivery Rate 03/19 1200 97 Trach Mask 30% 03/19 1145 98 Trach Mask 35% 03/19 0830 30 03/19 0800 96.6 77 13 108/78 99 Ventilator 30% 03/19 0800 97 Ventilator 30% 03/19 0653 30 03/19 0422 30 03/19 0400 93 Ventilator 30% 03/19 0037 30 03/19 0000 97.6 84 14 94/0 100 Ventilator 30% 03/19 0000 100 Ventilator 30% 03/18 2211 30 03/18 2200 30 03/18 2000 97 Trach Mask 28% 03/18 1645 96 Trach Mask 28% 03/18 1600 100 Trach Mask 28% 03/18 1600 98.1 89 12 112/80 100 Trach Mask 28% 03/18 1452 98 Trach Mask 28%
[2017-03-19 16:00] VITALS: BP 100/67
[2017-03-20] VITALS: BP 80/60
[2017-03-20 06:01] LABS: ABSOLUTE BASOPHIL COUNT 0 /CUMM (0.0-0.2); ABSOLUTE EOSINOPHIL COUNT 0.1 /CUMM (0.0-0.7); ABSOLUTE GRANULOCYTE CT 2.6 /CUMM (1.4-6.5); ABSOLUTE LYMPH COUNT 1.7 /CUMM (1.2-3.4); ABSOLUTE MONOCYTE COUNT 0.7 /CUMM (0.10-0.60); EOSINOPHIL % 2.9 % (0-5); GRANULOCYTE % 50.5 % (42.2-75.2); HEMATOCRIT 30.3 % (37-47); MEAN CORPUSCULAR HGB 26.5 PG (27.0-31.0); MEAN CORPUSCULAR HGB CONC 32.1 G/DL (33.0-37.0); MEAN CORPUSCULAR VOLUME 82.8 FL (81.0-99.0); MEAN PLATELET VOLUME 8.1 FL (7.4-10.4); PLATELET COUNT 395 /CUMM (130-400); RBC DISTRIBUTION WIDTH 17.1 % (11.5-14.5); RED BLOOD CELL CT 3.66 /CUMM (4.20-5.40); WHITE BLOOD CELL COUNT 5.2 /CUMM (4.8-10.8)
--- NOTE | 2017-03-20 07:00 | PN- Resident CRCU ---
Brenda CRUZ,[facility] 03/20/17 0700: Subjective HPI/CRCU Issues: Pneumonia Respiratory distress off ventilator tracheostomy 24 Hour Events: Intermittent episodes of hypotension continue overnight which respond to fluid bolus. She may have some component of autonomic dysfunction. No other acute events. Patient was seen and examined this morning. No acute distress. Responds to oral commands, acknowledges with nodding her head and blinking. Objective Vital Signs & I&O Last 8 Hrs of Vitals and I&O: . Exam General Appearance: no apparent distress, alert, awake Head: atraumatic, normal appearance Ears, Nose, Throat: tracheostomy Respiratory: normal breath sounds, chest non-tender, lungs clear Cardiovascular: regular rate/rhythm Gastrointestinal: soft, non-tender Extremities: no edema Cranial Nerves: normal hearing Skin: intact Skin Temp/Moisture Exam: Warm/Dry Sepsis Skin Exam (color): Normal for Ethnicity Weaning Parameters NIF: 19 Minute Volume: 4.5 Resp rate: 27 Vt: 200 Heart Rate: 88 Weaning Schedule Start Time: 1005 Minute Volume: 4.5 Resp Rate: 27 Vt: 200 Heart Rate: 88 Current Medications: Current Medications Sig/Martinez Start time Last Medication Dose Route Stop Time Status Admin Acetaminophen 640 MG Q6P PRN 03/16 0930 AC 03/17 PO 0026 Albuterol Sulfate 3 ML Q4H PRN 03/14 1115 AC INH Baclofen 40 MG TID 03/13 2199 AC 03/20 PO 0925 Dextrose 12.5 GM ONCE ONE 03/20 0115 DC 03/20 IV 03/20 0116 0116 Diazepam 20 MG TID 03/14 0250 AC 03/20 PO 0925 Docusate Sodium 100 MG BID PRN 03/13 1815 AC PO Enoxaparin Sodium 40 MG 1900 03/13 1900 AC 03/19 SC 1758 Ferrous Sulfate 300 MG DAILY 03/19 1352 AC 03/20 PO 0925 Ferrous Sulfate 325 MG DAILY 03/19 1137 DC PO Guaifenesin 10 ML Q4P PRN 03/16 929 AC 03/16 PO 1011 Ipratropium [place] 2.5 ML Q4 HRS NEEDED PRN 03/14 1115 AC INH Levetiracetam 500 MG Q12 03/14 2200 AC 03/20 N/A 1 UNIT IV 0925 Magnesium Oxide 400 MG BID 03/15 1000 AC 03/20 PO 0925 Meropenem 1 GM Q8H 03/17 1000 AC 03/20 IV 0925 Methyl Salicylate 1 JULIUS Q2P PRN 03/13 1800 AC TOP Morphine Sulfate 2 MG Q4 PRN 03/13 1800 AC IV Morphine Sulfate 4 MG Q4P PRN 03/13 1800 AC 03/15 IV 1119 Nystatin 1 JULIUS TID PRN 03/14 1445 AC 03/16 TOP 1644 Oxymetazoline HCl 2 SPRAY BID PRN 03/15 0745 AC PABLO Pantoprazole Sodium 40 MG DAILY 03/14 1000 AC 03/20 IV 0925 Phenobarbital 32.4 MG TID 03/13 2200 AC 03/20 PO 0925 Polyethylene Glycol 17 GM DAILY PRN 03/13 1815 AC PO Sodium Chloride 500 ML BOLUS ONE 03/20 0030 DC 03/20 IV 03/20 0129 0021 Impression/Plan Impression/Problem List Impression: The patient is a 41-year-old woman with a past medical history of cerebral palsy, seizures, aspiration pneumonia, chronic constipation, incontinence, status post surgery/Vazquez jeffy, status post right ORIF, and history of anoxic brain injury with full assist. She lives at home with her sister who is her air hammer stripper and also has visiting nurses. She is on a tracheostomy tube but requires connection to a ventilator at nighttime for respiratory support. Plan: 1. Pneumonia: * Continue monitoring in ICU * Her sputum is growing ESBL E.coli, Pseudomonas and Citrobacter. All sensitive to Meropenem. * Repeat sputum culture is growing GNR. * Her Pneumonia is likely due to aspiration and not ventilator assosciated. * Will follow up blood and urine cultures * Rapid flu test was negative * Will continue IV Meropenem for now. * Mucinex 600 mg q12 hrs * ID recs appreciated. * On nocturnal ventilator and trach mask during the day. * Will start her on Midodrine 5mg TID. She gets hypotensive each night roundabout the same time. There could be some component of autonomic dysfunction. 2. Tracheostomy site pain * Patient reportedly had tracheostomy site pain and discomfort with a history of tracheostomy site scarring. * ENT evalutated (03/15) and suggested to tighten slightly tracheostomy tube straps so that it is not anteriorly displaced. Also the granulation tissue around the site is normal. 3. Dysphagia * Patient is reported to have had been having some dysphagia and drooling * Swallow evaluation unable to be done as she has poor oropharyngeal swallowing. * She will likely need continued tube feeding as she does not appear to have a gag reflex. * Her PEG tube was changed by Dr Pham. Will continue feeding via PEG tube. Family is okay with it. * Nutrition recs appreciated. 4. Anemia: * Her Hb has been low but stable around 9. * Her iron studies show low iron, transferrin saturation, TIBC with normal ferritin and reticulocyte count. * Started on liq Ferrous sulphate daily 5. Cerebral palsy * Continue home medications phenobarbital 32.4 mg TID; Diazepam 20 mg TID; Kepra 500 mg TID 6. DVT prophylaxis * SC lovenox 40 mg daily Diet: On PEG tube. Code status: Full code Problem List: 1. Pneumonia Pain Ratin Tomorrow's Labs & Rationales: CBC, ICU bundle Plan DVT/Prophylaxis: mechanical Tomi Dupont MD 03/20/17 1321: Attending MD Review Statement Attending Sign Off Attending Cosign Statement: I have: examined this patient, reviewed [email or web address] EMR data, personally reviewd images, discussd w/resident/PA/COST ACCOUNTING MANAGER, discussed mgmt plan w/ratna, discussed mgmt plan w/CM, discussed mgmt plan w/pt, agreed w/resident/PA/COST ACCOUNTING MANAGER, amended to note. Other Findings: Impression left sided pneumonia, risk factors for mrsa/pseudomonas chronic respiratory failure Improving chest x-ray Her transient hypotension intermittently could be a sign of autonomic dysreflexia fit persists we will consider midodrine addition Plan -f/u ID recommendations -cont abx - currently on Meropenem (pseudomonas and E.coli) -feeding -electrolyte repletion -skin care -DC planning -TRC/Nebs -add low dose midodrine - likely autonomic dysreflexia - consistently borderline BP in pm DVT prophylaxis at all times TTS 35 min
[2017-03-20 08:00] VITALS: BP 104/80
--- NOTE | 2017-03-20 09:31 | RADIOLOGY REPORT ---
EXAMINATION: CR PORTABLE CHEST CLINICAL INFORMATION: Comparison from previous. Presumptive diagnosis of pneumonia. COMPARISON: Multiple prior chest x-rays, most recent of which is dated 03/18/2017. TECHNIQUE: Portable AP semiupright view of the chest was obtained. FINDINGS: Tracheostomy tube is in place with the tip obscured by the thoracolumbar spinal fusion hardware. Right jugular tunneled catheter tip is at the cavoatrial junction. Multiple EKG leads overlie the chest. The cardiomediastinal silhouette is enlarged, unchanged. Low lung volumes are noted with minimal bibasilar atelectatic changes noted. No focal consolidation, effusion or pneumothorax is seen. Mild gaseous distention of viscus structures in the upper abdomen is noted. IMPRESSION: 1. Tracheostomy tube tip obscured by the spinal fusion hardware. 2. Right jugular tunneled catheter tip in the cavoatrial junction. 3. Low lung volumes with mild bibasilar subsegmental atelectasis.
--- NOTE | 2017-03-20 11:14 | PN- Infect Dx ---
Subjective Subjective: Afebrile without apparent complaints. She continues to have episodes of hypotension. She has had several loose stools reported over the last 2 days. Objective Last 24 Hrs of Vital Signs/I&O Vital Signs Date Time Temp Pulse Resp B/P B/P Pulse O2 O2 Flow FiO2 Mean Ox Delivery Rate 03/20 0948 97 Trach Mask 30% 03/20 0830 30 03/20 0800 97.8 72 13 104/80 98 Ventilator 30% 03/20 0800 97 Ventilator 30% 03/20 0504 30 03/20 0400 5 Ventilator 30% 03/20 0037 30 03/20 0000 97.8 87 15 80/60 97 Ventilator 30% 03/20 0000 97 Ventilator 30% 03/19 2229 30 03/19 2000 94 Trach Mask 30% 03/19 1600 98.6 93 16 100/67 97 Trach Mask 30% 03/19 1600 99 Trach Mask 30% 03/19 1200 97 Trach Mask 30% 03/19 1145 98 Trach Mask 35% Intake & Output 03/20 1600 03/20 0800 03/20 0000 Intake Total 1579 1206 Output Total Balance 1579 1206 Intake, IV 1000 150 Intake, Tube 454 430 Feeding Intake, Tube 125 626 Irrigant Number 2 Bowel Movements Physical Exam Other Physical Findings: She appears comfortable on the trach mask in no acute distress Chest Port-A-Cath in the right upper chest with no inflammation at the site Lungs bilateral rhonchi Heart regular rhythm with no murmur Abdomen is soft, nontender with positive bowel sounds Extremities no cyanosis, clubbing or edema Results Last 24 Hours of Lab Results: Laboratory Tests 03/20 0430 Chemistry Sodium (137 - 145 mmol/L) 140 Potassium (3.5 - 5.1 mmol/L) 4.1 Chloride (98 - 107 mmol/L) 96 L Carbon Dioxide (22 - 30 mmol/L) 33 H Anion Gap (5 - 16) 11 BUN (7 - 17 mg/dL) 9 Creatinine (0.5 - 1.0 mg/dL) 0.3 L Estimated GFR (>60 ml/min) > 60 Glucose (65 - 99 mg/dL) 98 Calcium (8.4 - 10.2 mg/dL) 8.0 L Phosphorus (2.5 - 4.5 mg/dL) 3.6 Magnesium (1.6 - 2.3 mg/dL) 2.1 Total Bilirubin (0.2 - 1.3 mg/dL) < 0.1 L AST (14 - 36 U/L) 33 ALT (9 - 52 U/L) 34 Albumin (3.5 - 5.0 g/dL) 2.9 L Hematology CBC w Diff NO MAN DIFF REQ WBC (4.8 - 10.8 /CUMM) 5.2 RBC (4.20 - 5.40 /CUMM) 3.66 L Hgb (12.0 - 16.0 G/DL) 9.7 L Hct (37 - 47 %) 30.3 L MCV (81.0 - 99.0 FL) 82.8 MCH (27.0 - 31.0 PG) 26.5 L RDW (11.5 - 14.5 %) 17.1 H Plt Count (130 - 400 /CUMM) 395 MPV (7.4 - 10.4 FL) 8.1 Gran % (42.2 - 75.2 %) 50.5 Lymphocytes % (20.5 - 51.1 %) 32.8 Monocytes % (1.7 - 9.3 %) 12.8 H Eosinophils % (0 - 5 %) 2.9 Basophils % (0.0 - 2.0 %) 1.0 Absolute Granulocytes (1.4 - 6.5 /CUMM) 2.6 Absolute Lymphocytes (1.2 - 3.4 /CUMM) 1.7 Absolute Monocytes (0.10 - 0.60 /CUMM) 0.7 H Absolute Eosinophils (0.0 - 0.7 /CUMM) 0.1 Absolute Basophils (0.0 - 0.2 /CUMM) 0 PUBS MCHC (33.0 - 37.0 G/DL) 32.1 L Last 24 Hours of Dexter Results: Sputum culture March 17 positive for Citrobacter sensitive to Meropenem Sputum culture March 18 mixed val[place] Stool C. difficile March 19 pending Recent Imaging Studies: Chest x-ray March 20 reveals low lung volumes with bibasilar atelectasis Assessment/Plan Impression: Stable, remaining on the trach mask during the day, with her temperatures and white blood cell count remaining normal on Meropenem Day 4 of treatment for presumed pneumonia secondary to ESBL producing Escherichia coli and Pseudomonas, isolated from her initial sputum culture, with a more recent sputum culture positive for Citrobacter, also sensitive to Meropenem. Swallowing evaluation noted with patient not felt to be appropriate for po trials. Her episodes of hypotension are felt to be autonomic in etiology. Recent diarrhea is noted and a C. difficile has been ordered. Suggestion: 1. Follow-up stool for C. difficile 2. Continue Meropenem
--- NOTE | 2017-03-20 13:47 | PN- Att Addend ---
Attending Addendum Attending Brief Note No major issues, had some loose bowel movements and to be checked for C. difficile signs are stable blood pressure still in the lower side. No fever white count is 5200. No major changes on physical. Appreciate Dr. Roca input and recommendations regarding antibiotic therapy Intake & Output 03/20 1600 03/20 0400 03/19 1600 03/19 0400 03/18 1600 03/18 0400 Intake Total 1579 1206 1844 1242 3120 1408 Output Total Balance 1579 1206 1844 1242 3120 1408 Intake, IV 1000 150 389 603 0271 749 Intake, Oral 0 Intake, Tube 454 430 769 432 656 339 Feeding Intake, Tube 125 626 445 420 350 320 Irrigant Number 2 2 2 Bowel Movements Current Medications Sig/Martinez Start time Last Medication Dose Route Stop Time Status Admin Acetaminophen 640 MG Q6P PRN 03/16 0930 AC 03/17 PO 0026 Albuterol Sulfate 3 ML Q4H PRN 03/14 1115 AC INH Baclofen 40 MG TID 03/13 2199 AC 03/20 PO 0925 Dextrose 12.5 GM ONCE ONE 03/20 0115 DC 03/20 IV 03/20 0116 0116 Diazepam 20 MG TID 03/14 0250 AC 03/20 PO 0925 Docusate Sodium 100 MG BID PRN 03/13 1815 AC PO Enoxaparin Sodium 40 MG 1900 03/13 1900 AC 03/19 SC 1758 Ferrous Sulfate 300 MG DAILY 03/19 1352 AC 03/20 PO 0925 Ferrous Sulfate 325 MG DAILY 03/19 1137 DC PO Guaifenesin 10 ML Q4P PRN 03/16 0930 AC 03/16 PO 1011 Ipratropium [place] 2.5 ML Q4 HRS NEEDED PRN 03/14 1115 AC INH Levetiracetam 500 MG Q12 03/14 2200 AC 03/20 N/A 1 UNIT IV 0925 Magnesium Oxide 400 MG BID 03/15 1000 AC 03/20 PO 0925 Meropenem 1 GM Q8H 03/17 1000 AC 03/20 IV 0925 Methyl Salicylate 1 JULIUS Q2P PRN 03/13 1800 AC TOP Midodrine 5 MG 0800,1200,1600 03/20 1600 AC PO Morphine Sulfate 2 MG Q4 PRN 03/13 1800 AC IV Morphine Sulfate 4 MG Q4P PRN 03/13 1800 AC 03/15 IV 1119 Nystatin 1 JULIUS TID PRN 03/14 1445 AC 03/16 TOP 1644 Oxymetazoline HCl 2 SPRAY BID PRN 03/15 0745 AC PABLO Pantoprazole Sodium 40 MG DAILY 03/14 1000 AC 03/20 IV 0925 Phenobarbital 32.4 MG TID 03/13 2200 AC 03/20 PO 0925 Polyethylene Glycol 17 GM DAILY PRN 03/13 1815 AC PO Sodium Chloride 500 ML BOLUS ONE 03/20 0030 DC 03/20 IV 03/20 0129 0021 Laboratory Tests 03/20/17 0430: Anion Gap 11, Estimated GFR > 60, Glucose 98, Calcium 8.0 L, Phosphorus 3.6, Magnesium 2.1, Total Bilirubin < 0.1 L, AST 33, ALT 34, Albumin 2.9 L, CBC w Diff NO MAN DIFF REQ, RBC 3.66 L, MCV 82.8, MCH 26.5 L, RDW 17.1 H, MPV 8.1, Gran % 50.5, Lymphocytes % 32.8, Monocytes % 12.8 H, Eosinophils % 2.9, Basophils % 1.0, Absolute Granulocytes 2.6, Absolute Lymphocytes 1.7, Absolute Monocytes 0.7 H, Absolute Eosinophils 0.1, Absolute Basophils 0, PUBS MCHC 32.1 L 03/19/17 0415: Anion Gap 8, Estimated GFR > 60, Glucose 91, Calcium 8.1 L, Phosphorus 2.8, Magnesium 2.1, Total Bilirubin 0.2, AST 36, ALT 31, Albumin 2.8 L, CBC w Diff NO MAN DIFF REQ, RBC 3.71 L, MCV 81.8, MCH 26.8 L, RDW 16.7 H, MPV 7.9, Gran % 65.4, Lymphocytes % 21.6, Monocytes % 9.6 H, Eosinophils % 2.5, Basophils % 0.9, Absolute Granulocytes 4.7, Absolute Lymphocytes 1.6, Absolute Monocytes 0.7 H, Absolute Eosinophils 0.2, Absolute Basophils 0.1, PUBS MCHC 32.7 L 03/18/17 0500: Anion Gap 7, Estimated GFR > 60, Glucose 96, Calcium 7.5 L, Phosphorus 2.5, Magnesium 2.0, Iron 32 L, TIBC 206 L, % Saturation 15 L, Ferritin 58.7, Total Bilirubin 0.1 L, AST 24, ALT 26, Albumin 2.7 L, CBC w Diff NO MAN DIFF REQ, RBC 3.58 L, MCV 82.7, MCH 27.0, RDW 17.0 H, MPV 7.9, Gran % 67.9, Lymphocytes % 21.2, Monocytes % 6.7, Eosinophils % 3.7, Basophils % 0.5, Absolute Granulocytes 5.3, Absolute Lymphocytes 1.7, Absolute Monocytes 0.5, Absolute Eosinophils 0.3, Absolute Basophils 0, PUBS MCHC 32.7 L, Retic Count 0.70 Microbiology 03/19 1700 STOOL: Clostridium difficile Toxin A & B - COMP 03/18 1100 LOWER RESP: Respiratory Culture - RES GRAM NEGATIVE RODS 03/18 1100 LOWER RESP: Gram Stain - RES 03/17 171 LOWER RESP: Respiratory Culture - COMP CITROBACTER AMALONITICUS 03/17 171 LOWER RESP: Gram Stain - COMP Microbiology 03/19 170 STOOL: Clostridium difficile Toxin A & B - COMP 03/18 1100 LOWER RESP: Respiratory Culture - RES GRAM NEGATIVE RODS 03/18 1100 LOWER RESP: Gram Stain - RES 03/17 171 LOWER RESP: Respiratory Culture - COMP CITROBACTER AMALONITICUS 03/17 171 LOWER RESP: Gram Stain - COMP Vital Signs Date Time Temp Pulse Resp B/P B/P Pulse O2 O2 Flow FiO2 Mean Ox Delivery Rate 03/20 1200 98 Trach Mask 30% 03/20 0948 97 Trach Mask 30% 03/20 0830 03/20 0800 97.8 72 13 104/80 98 Ventilator 30% 03/20 0800 97 Ventilator 30% 03/20 0504 30 03/20 0400 5 Ventilator 30% 03/20 0037 30 03/20 0000 97.8 87 15 80/60 97 Ventilator 30% 03/20 0000 97 Ventilator 30% 03/19 2229 30 03/19 2000 94 Trach Mask 30% 03/19 1600 98.6 93 16 100/67 97 Trach Mask 30% 03/19 1600 99 Trach Mask 30%
[2017-03-20 15:42] VITALS: BP 110/80
[2017-03-21] VITALS: BP 80/54
[2017-03-21 05:02] LABS: ABSOLUTE BASOPHIL COUNT 0 /CUMM (0.0-0.2); ABSOLUTE EOSINOPHIL COUNT 0.2 /CUMM (0.0-0.7); ABSOLUTE GRANULOCYTE CT 1.9 /CUMM (1.4-6.5); ABSOLUTE LYMPH COUNT 1.9 /CUMM (1.2-3.4); ABSOLUTE MONOCYTE COUNT 0.8 /CUMM (0.10-0.60); BASOPHIL % 0.7 % (0.0-2.0); EOSINOPHIL % 4.6 % (0-5); GRANULOCYTE % 38.9 % (42.2-75.2); HEMATOCRIT 28.6 % (37-47); MEAN CORPUSCULAR HGB 26.8 PG (27.0-31.0); MEAN CORPUSCULAR HGB CONC 32.7 G/DL (33.0-37.0); MEAN CORPUSCULAR VOLUME 81.9 FL (81.0-99.0); MEAN PLATELET VOLUME 8.4 FL (7.4-10.4); PLATELET COUNT 372 /CUMM (130-400); RBC DISTRIBUTION WIDTH 17.1 % (11.5-14.5); RED BLOOD CELL CT 3.49 /CUMM (4.20-5.40); WHITE BLOOD CELL COUNT 4.8 /CUMM (4.8-10.8)
--- NOTE | 2017-03-21 07:06 | PN- Resident CRCU ---
Subjective HPI/CRCU Issues: Pneumonia Respiratory distress off ventilator tracheostomy 24 Hour Events: Continues to have intermittent hypotensive episodes during the night despite being on Midodrine. Recevied 500cc x 3 bolus. Blood pressure was reported to be 60 systolic (auto) and 80s systolic by manual. Also has nocturnal episodes of hypoglycemia resolved with dextrose push. Will upgrade her feed to Jevity 1.5. Objective Vital Signs & I&O Last 8 Hrs of Vitals and I&O: . Exam General Appearance: no apparent distress, alert, awake, comfortable Head: atraumatic, normal appearance Neck: tracheostomy Respiratory: normal breath sounds, chest non-tender Cardiovascular: regular rate/rhythm Gastrointestinal: soft, non-tender, PEG tube Extremities: no edema Skin: normal color, warm/dry Skin Temp/Moisture Exam: Warm/Dry Sepsis Skin Exam (color): Normal for Ethnicity Weaning Parameters NIF: 19 Minute Volume: 4.5 Resp rate: 27 Vt: 200 Heart Rate: 88 Weaning Schedule Start Time: 0815 Minute Volume: 4.5 Resp Rate: 27 Vt: 200 Heart Rate: 75 Current Medications: Current Medications Sig/Martinez Start time Last Medication Dose Route Stop Time Status Admin Acetaminophen 640 MG Q6P PRN 03/16 0930 AC 03/17 PO 0026 Albuterol Sulfate 3 ML Q4H PRN 03/14 1115 AC 03/21 INH 0857 Baclofen 40 MG TID 03/13 2199 AC 03/21 PO 0906 Dextrose 25 GM ONCE ONE 03/21 0015 DC 03/21 IV 03/21 0016 0019 Diazepam 20 MG TID 03/14 0250 AC 03/21 PO 0905 Docusate Sodium 100 MG BID PRN 03/13 1815 AC PO Enoxaparin Sodium 40 MG 1900 03/13 1900 AC 03/20 SC 1805 Ferrous Sulfate 300 MG DAILY 03/19 1352 AC 03/21 PO 0906 Guaifenesin 10 ML Q4P PRN 03/16 0930 AC 03/16 PO 1011 Heparin Sodium 100 UNIT ONCE PRN 03/21 0345 AC 03/21 (Porcine) IV 0354 Ipratropium [place] 2.5 ML Q4 HRS NEEDED PRN 03/14 1115 AC INH Levetiracetam 500 MG Q12 03/14 2200 AC 03/21 N/A 1 UNIT IV 0906 Magnesium Oxide 400 MG BID 03/15 1000 AC 03/21 PO 0906 Meropenem 1 GM Q8H 03/17 1000 AC 03/21 IV 0905 Methyl Salicylate 1 JULIUS Q2P PRN 03/13 1800 AC TOP Midodrine 10 MG 0800,1200,1600 03/21 1200 AC PO Midodrine 5 MG 0800,1200,1600 03/20 1600 DC 03/21 PO 0752 Morphine Sulfate 2 MG Q4 PRN 03/13 1800 AC IV Morphine Sulfate 4 MG Q4P PRN 03/13 1800 AC 03/15 IV 1119 Nystatin 1 JULIUS TID PRN 03/14 1445 AC 03/16 TOP 1644 Oxymetazoline HCl 2 SPRAY BID PRN 03/15 0745 AC PABLO Pantoprazole Sodium 40 MG DAILY 03/14 1000 AC 03/21 IV 0905 Phenobarbital 32.4 MG TID 03/13 2200 AC 03/21 PO 0906 Polyethylene Glycol 17 GM DAILY PRN 03/13 1815 AC PO Sodium Chloride 500 ML BOLUS ONE 03/21 0530 DC 03/21 IV 03/21 0629 0520 Sodium Chloride 500 ML BOLUS ONE 03/21 0315 DC 03/21 IV 03/21 0414 0314 Sodium Chloride 500 ML BOLUS ONE 03/21 0015 DC 03/21 IV 03/21 0114 0019 Impression/Plan Impression/Problem List Impression: The patient is a 41-year-old woman with a past medical history of cerebral palsy, seizures, aspiration pneumonia, chronic constipation, incontinence, status post surgery/Vazquez jeffy, status post right ORIF, and history of anoxic brain injury with full assist. She lives at home with her sister who is her brand attendant and also has visiting nurses. She is on a tracheostomy tube but requires connection to a ventilator at nighttime for respiratory support. Plan: 1. Pneumonia: * Continue monitoring in ICU * Her sputum is growing ESBL E.coli, Pseudomonas and Citrobacter. All sensitive to Meropenem. * Repeat sputum culture is growing GNR. * Her Pneumonia is likely due to aspiration and not ventilator assosciated. * Blood cultures have showed no growth. * Rapid flu test was negative * Will continue IV Meropenem for total of 7 days. Today is day 5. * Mucinex 600 mg q12 hrs * ID recs appreciated. * On nocturnal ventilator and trach mask during the day. * Will increase her Midodrine to 10mg TID. 2. Tracheostomy site pain * Patient reportedly had tracheostomy site pain and discomfort with a history of tracheostomy site scarring. * ENT evalutated (03/15) and suggested to tighten slightly tracheostomy tube straps so that it is not anteriorly displaced. Also the granulation tissue around the site is normal. 3. Dysphagia * Patient is reported to have had been having some dysphagia and drooling prior admission. * Swallow evaluation unable to be done as she has poor oropharyngeal swallowing and absent gag reflex. * She will likely need continued tube feeding. * Her PEG tube was changed by Dr Pham. Will continue feeding via PEG tube. Family is okay with it. * Changed to Jevity 1.5. Will provide higher calories. Her blood sugars have been running low at night. * Nutrition recs appreciated. 4. Anemia: * Her Hb has been low but stable around 9. * Her iron studies show low iron, transferrin saturation, TIBC with normal ferritin and reticulocyte count. * Continue liq Ferrous sulphate daily 5. Cerebral palsy * Continue home medications phenobarbital 32.4 mg TID; Diazepam 20 mg TID; Kepra 500 mg TID 6. DVT prophylaxis * SC lovenox 40 mg daily Diet: On PEG tube. Code status: Full code Problem List: 1. Cerebral palsy Pain Ratin Tomorrow's Labs & Rationales: CBC, ICU bundle Plan DVT/Prophylaxis: mechanical
[2017-03-21 08:00] VITALS: BP 84/60
--- NOTE | 2017-03-21 10:54 | PN- Infect Dx ---
Subjective Subjective: Afebrile without complaints. She was again hypotensive overnight, though she was asymptomatic.. Objective Last 24 Hrs of Vital Signs/I&O Vital Signs Date Time Temp Pulse Resp B/P B/P Pulse O2 O2 Flow FiO2 Mean Ox Delivery Rate 03/21 1034 98 Trach Mask 30% 03/21 0849 30 03/21 0800 96.9 56 13 84/60 98 Ventilator 30% 03/21 0532 30 03/21 0400 97 Ventilator 30% 03/21 0324 30 03/21 0038 30 03/21 0000 98 Ventilator 30% 03/21 0000 98.0 72 12 80/54 98 Ventilator 30% 03/20 2111 30 03/20 2000 96 Trach Mask 30% 03/20 1705 98 Trach Mask 30% 03/20 1542 98.1 84 18 110/80 98 Trach Mask 30% 03/20 1536 98 Trach Mask 30% 03/20 1200 98 Trach Mask 30% Intake & Output 03/21 1600 03/21 0800 03/21 0000 Intake Total 2117 834 Output Total Balance 2117 834 Intake, IV 1500 150 Intake, Tube 417 424 Feeding Intake, Tube 200 260 Irrigant Physical Exam Other Physical Findings: She is awake and alert in no acute distress on the trach mask Lungs scattered rhonchi bilaterally Heart regular rhythm with no murmur Abdomen is soft, nontender with positive bowel sounds Extremities no cyanosis, clubbing or edema Results Last 24 Hours of Lab Results: Laboratory Tests 03/21 0345 Chemistry Sodium (137 - 145 mmol/L) 140 Potassium (3.5 - 5.1 mmol/L) 4.4 Chloride (98 - 107 mmol/L) 97 L Carbon Dioxide (22 - 30 mmol/L) 34 H Anion Gap (5 - 16) 9 BUN (7 - 17 mg/dL) 11 Creatinine (0.5 - 1.0 mg/dL) 0.3 L Estimated GFR (>60 ml/min) > 60 Glucose (65 - 99 mg/dL) 98 Calcium (8.4 - 10.2 mg/dL) 7.8 L Phosphorus (2.5 - 4.5 mg/dL) 3.7 Magnesium (1.6 - 2.3 mg/dL) 2.2 Total Bilirubin (0.2 - 1.3 mg/dL) < 0.1 L AST (14 - 36 U/L) 25 ALT (9 - 52 U/L) 32 Albumin (3.5 - 5.0 g/dL) 2.8 L Hematology CBC w Diff NO MAN DIFF REQ WBC (4.8 - 10.8 /CUMM) 4.8 RBC (4.20 - 5.40 /CUMM) 3.49 L Hgb (12.0 - 16.0 G/DL) 9.4 L Hct (37 - 47 %) 28.6 L MCV (81.0 - 99.0 FL) 81.9 MCH (27.0 - 31.0 PG) 26.8 L MCHC (33.0 - 37.0 G/DL) 32.7 L RDW (11.5 - 14.5 %) 17.1 H Plt Count (130 - 400 /CUMM) 372 MPV (7.4 - 10.4 FL) 8.4 Gran % (42.2 - 75.2 %) 38.9 L Lymphocytes % (20.5 - 51.1 %) 39.3 Monocytes % (1.7 - 9.3 %) 16.5 H Eosinophils % (0 - 5 %) 4.6 Basophils % (0.0 - 2.0 %) 0.7 Absolute Granulocytes (1.4 - 6.5 /CUMM) 1.9 Absolute Lymphocytes (1.2 - 3.4 /CUMM) 1.9 Absolute Monocytes (0.10 - 0.60 /CUMM) 0.8 H Absolute Eosinophils (0.0 - 0.7 /CUMM) 0.2 Absolute Basophils (0.0 - 0.2 /CUMM) 0 Last 24 Hours of Dexter Results: Sputum culture March 18 positive for gram-negative rods Stool C. difficile March 19 negative Assessment/Plan Impression: Stable, remaining on the trach mask during the day, with her temperatures and white blood cell count remaining normal on Meropenem Day 5 of treatment for presumed pneumonia secondary to ESBL producing Escherichia coli and Pseudomonas, isolated from her initial sputum culture, with a more recent sputum culture positive for Citrobacter, also sensitive to Meropenem. Swallowing evaluation noted with patient not felt to be appropriate for po trials. Her episodes of hypotension are felt to be possibly autonomic in etiology, and she has been started on Midodrine. Suggestion: 1. Maintain NPO status 2. Continue Meropenem to complete a 7 day course of treatment
--- NOTE | 2017-03-21 11:51 | PN- CRCU ---
Subjective HPI/Critical Care Issues: patient seen and examined this morning. She is appearing to be doing very well. She has had some blood pressure fluctuations which we are going to try to control with midodrine. Objective Current Medications: Current Medications Sig/Martinez Start time Last Medication Dose Route Stop Time Status Admin Acetaminophen 640 MG Q6P PRN 03/16 0930 AC 03/17 PO 0026 Albuterol Sulfate 3 ML Q4H PRN 03/14 1115 AC 03/21 INH 0857 Baclofen 40 MG TID 03/13 2200 AC 03/21 PO 0906 Dextrose 25 GM ONCE ONE 03/21 0015 DC 03/21 IV 03/21 0016 0019 Diazepam 20 MG TID 03/14 0250 AC 03/21 PO 0905 Docusate Sodium 100 MG BID PRN 03/13 1815 AC PO Enoxaparin Sodium 40 MG 1900 03/13 1900 AC 03/20 SC 1805 Ferrous Sulfate 300 MG DAILY 03/19 1352 AC 03/21 PO 0906 Guaifenesin 10 ML Q4P PRN 03/16 0930 AC 03/16 PO 1011 Heparin Sodium 100 UNIT ONCE PRN 03/21 0345 AC 03/21 (Porcine) IV 0354 Ipratropium [place] 2.5 ML Q4 HRS NEEDED PRN 03/14 1115 AC INH Levetiracetam 500 MG Q12 03/14 2200 AC 03/21 N/A 1 UNIT IV 0906 Magnesium Oxide 400 MG BID 03/15 1000 AC 03/21 PO 0906 Meropenem 1 GM Q8H 03/17 1000 AC 03/21 IV 0905 Methyl Salicylate 1 JULIUS Q2P PRN 03/13 1800 AC TOP Midodrine 10 MG 0800,1200,1600 03/21 1200 AC PO Midodrine 5 MG 0800,1200,1600 03/20 1600 DC 03/21 PO 0752 Morphine Sulfate 2 MG Q4 PRN 03/13 1800 AC IV Morphine Sulfate 4 MG Q4P PRN 03/13 1800 AC 03/15 IV 1119 Nystatin 1 JULIUS TID PRN 03/14 1445 AC 03/16 TOP 1644 Oxymetazoline HCl 2 SPRAY BID PRN 03/15 0745 AC PABLO Pantoprazole Sodium 40 MG DAILY 03/14 1000 AC 03/21 IV 0905 Phenobarbital 32.4 MG TID 03/13 2200 AC 03/21 PO 0906 Polyethylene Glycol 17 GM DAILY PRN 03/13 1815 AC PO Sodium Chloride 500 ML BOLUS ONE 03/21 05 DC 03/21 IV 03/21 0629 0520 Sodium Chloride 500 ML BOLUS ONE 03/21 0315 DC 03/21 IV 03/21 0414 0314 Sodium Chloride 500 ML BOLUS ONE 03/21 0015 DC 03/21 IV 03/21 0114 0019 Vital Signs & I&O Last 24 Hrs of Vitals and I&O: Vital Signs Date Time Temp Pulse Resp B/P B/P Pulse O2 O2 Flow FiO2 Mean Ox Delivery Rate 03/21 1034 98 Trach Mask 30% 03/21 0849 30 03/21 0800 96.9 56 13 84/60 98 Ventilator 30% 03/21 0800 98 Ventilator 30% 03/21 0532 30 03/21 0400 97 Ventilator 30% 03/21 0324 30 03/21 0038 30 03/21 0000 98 Ventilator 30% 03/21 0000 98.0 72 12 80/54 98 Ventilator 30% 03/20 2111 30 03/20 2000 96 Trach Mask 30% 03/20 1705 98 Trach Mask 30% 03/20 1542 98.1 84 18 110/80 98 Trach Mask 30% 03/20 1536 98 Trach Mask 30% 03/20 1200 98 Trach Mask 30% Intake & Output 03/21 1600 03/21 0800 03/21 0000 Intake Total 2117 834 Output Total Balance 2117 834 Intake, IV 1500 150 Intake, Tube 417 424 Feeding Intake, Tube 200 260 Irrigant Exam Other Physical Findings: Generally - Awake, alert and comfortable without distress Head and neck - normocephalic, atraumatic, EOMI grossly intact Cardiovascular - S1, S2, no murmurs, rubs or gallops Lungs -transmitted breath sounds Abdomen - Bowel sounds positive, soft, non-tender Extremities - without edema Results Last 24 Hrs of Lab Results: Laboratory Tests 03/21/17 0345: Anion Gap 9, Estimated GFR > 60, Glucose 98, Calcium 7.8 L, Phosphorus 3.7, Magnesium 2.2, Total Bilirubin < 0.1 L, AST 25, ALT 32, Albumin 2.8 L, CBC w Diff NO MAN DIFF REQ, RBC 3.49 L, MCV 81.9, MCH 26.8 L, MCHC 32.7 L, RDW 17.1 H, MPV 8.4, Gran % 38.9 L, Lymphocytes % 39.3, Monocytes % 16.5 H, Eosinophils % 4.6, Basophils % 0.7, Absolute Granulocytes 1.9, Absolute Lymphocytes 1.9, Absolute Monocytes 0.8 H, Absolute Eosinophils 0.2, Absolute Basophils 0 Impression/Plan Impression/Plan Impression/Plan: Impression left sided pneumonia, risk factors for mrsa/pseudomonas chronic respiratory failure Improving chest x-ray Her transient hypotension intermittently could be a sign of autonomic dysreflexia fit persists we will consider midodrine addition Plan -f/u ID recommendations -cont abx - currently on Meropenem (pseudomonas and E.coli) -feeding -electrolyte repletion -skin care -DC planning -TRC/Nebs -add low dose midodrine - likely autonomic dysreflexia - consistently borderline BP in pm DVT prophylaxis at all times TTS 35 min
[2017-03-21 12:00] VITALS: BP 110/70
--- NOTE | 2017-03-21 12:24 | PN- Att Addend ---
Attending Addendum Attending Brief Note Patient sitting in the chair had a trach mask is on. Not short of breath. The blood pressure still on the low side usually in the morning despite starting Midodrin Patient is afebrile major changes on physical white count is 4800. Will continue treatment as per Dr. Dupont's recommendations Intake & Output 03/21 1600 03/21 0400 03/20 1600 03/20 0400 03/19 1600 03/19 0400 Intake Total 2117 834 2344 1206 1844 1242 Output Total Balance 2117 834 2344 1206 1844 1242 Intake, IV 1731 821 1911 150 630 390 Intake, Oral 0 Intake, Tube 417 424 799 430 769 432 Feeding Intake, Tube 200 260 405 626 445 420 Irrigant Number 0 2 2 Bowel Movements Current Medications Sig/Martinez Start time Last Medication Dose Route Stop Time Status Admin Acetaminophen 640 MG Q6P PRN 03/16 0930 AC 03/17 PO 0026 Albuterol Sulfate 3 ML Q4H PRN 03/14 1115 AC 03/21 INH 0857 Baclofen 40 MG TID 03/13 220 AC 03/21 PO 0906 Dextrose 25 GM ONCE ONE 03/21 0015 DC 03/21 IV 03/21 0016 0019 Diazepam 20 MG TID 03/14 0250 AC 03/21 PO 0905 Docusate Sodium 100 MG BID PRN 03/13 1815 AC PO Enoxaparin Sodium 40 MG 1900 03/13 1900 AC 03/20 SC 1805 Ferrous Sulfate 300 MG DAILY 03/19 1352 AC 03/21 PO 0906 Guaifenesin 10 ML Q4P PRN 03/16 0930 AC 03/16 PO 1011 Heparin Sodium 100 UNIT ONCE PRN 03/21 0345 AC 03/21 (Porcine) IV 0354 Ipratropium [place] 2.5 ML Q4 HRS NEEDED PRN 03/14 1115 AC INH Levetiracetam 500 MG Q12 03/14 2200 AC 03/21 N/A 1 UNIT IV 0906 Magnesium Oxide 400 MG BID 03/15 1000 AC 03/21 PO 0906 Meropenem 1 GM Q8H 03/17 1000 AC 03/21 IV 0905 Methyl Salicylate 1 JULIUS Q2P PRN 03/13 1800 AC TOP Midodrine 10 MG 0800,1200,1600 03/21 1200 AC PO Midodrine 5 MG 0800,1200,1600 03/20 1600 DC 03/21 PO 0752 Morphine Sulfate 2 MG Q4 PRN 03/13 1800 AC IV Morphine Sulfate 4 MG Q4P PRN 03/13 1800 AC 03/15 IV 1119 Nystatin 1 JULIUS TID PRN 03/14 1445 AC 03/16 TOP 1644 Oxymetazoline HCl 2 SPRAY BID PRN 03/15 0745 AC PABLO Pantoprazole Sodium 40 MG DAILY 03/14 1000 AC 03/21 IV 0905 Phenobarbital 32.4 MG TID 03/13 2200 AC 03/21 PO 0906 Polyethylene Glycol 17 GM DAILY PRN 03/13 1815 AC PO Sodium Chloride 500 ML BOLUS ONE 03/21 0530 DC 03/21 IV 03/21 0629 0520 Sodium Chloride 500 ML BOLUS ONE 03/21 0315 DC 03/21 IV 03/21 0414 0314 Sodium Chloride 500 ML BOLUS ONE 03/21 0015 DC 03/21 IV 03/21 0114 0019 Laboratory Tests 03/21/17 0345: Anion Gap 9, Estimated GFR > 60, Glucose 98, Calcium 7.8 L, Phosphorus 3.7, Magnesium 2.2, Total Bilirubin < 0.1 L, AST 25, ALT 32, Albumin 2.8 L, CBC w Diff NO MAN DIFF REQ, RBC 3.49 L, MCV 81.9, MCH 26.8 L, MCHC 32.7 L, RDW 17.1 H, MPV 8.4, Gran % 38.9 L, Lymphocytes % 39.3, Monocytes % 16.5 H, Eosinophils % 4.6, Basophils % 0.7, Absolute Granulocytes 1.9, Absolute Lymphocytes 1.9, Absolute Monocytes 0.8 H, Absolute Eosinophils 0.2, Absolute Basophils 0 03/20/17 0430: Anion Gap 11, Estimated GFR > 60, Glucose 98, Calcium 8.0 L, Phosphorus 3.6, Magnesium 2.1, Total Bilirubin < 0.1 L, AST 33, ALT 34, Albumin 2.9 L, CBC w Diff NO MAN DIFF REQ, RBC 3.66 L, MCV 82.8, MCH 26.5 L, RDW 17.1 H, MPV 8.1, Gran % 50.5, Lymphocytes % 32.8, Monocytes % 12.8 H, Eosinophils % 2.9, Basophils % 1.0, Absolute Granulocytes 2.6, Absolute Lymphocytes 1.7, Absolute Monocytes 0.7 H, Absolute Eosinophils 0.1, Absolute Basophils 0, PUBS MCHC 32.1 L 03/19/17 0415: Anion Gap 8, Estimated GFR > 60, Glucose 91, Calcium 8.1 L, Phosphorus 2.8, Magnesium 2.1, Total Bilirubin 0.2, AST 36, ALT 31, Albumin 2.8 L, CBC w Diff NO MAN DIFF REQ, RBC 3.71 L, MCV 81.8, MCH 26.8 L, RDW 16.7 H, MPV 7.9, Gran % 65.4, Lymphocytes % 21.6, Monocytes % 9.6 H, Eosinophils % 2.5, Basophils % 0.9, Absolute Granulocytes 4.7, Absolute Lymphocytes 1.6, Absolute Monocytes 0.7 H, Absolute Eosinophils 0.2, Absolute Basophils 0.1, PUBS MCHC 32.7 L Microbiology 03/19 1699 STOOL: Clostridium difficile Toxin A & B - COMP Microbiology 03/19 1699 STOOL: Clostridium difficile Toxin A & B - COMP Vital Signs Date Time Temp Pulse Resp B/P B/P Pulse O2 O2 Flow FiO2 Mean Ox Delivery Rate 03/21 1034 98 Trach Mask 30% 03/21 0849 30 03/21 0800 96.9 56 13 84/60 98 Ventilator 30% 03/21 0800 98 Ventilator 30% 03/21 0532 30 03/21 0400 97 Ventilator 30% 03/21 0324 30 03/21 0038 30 03/21 0000 98 Ventilator 30% 03/21 0000 98.0 72 12 80/54 98 Ventilator 30% 03/20 2111 30 03/20 1999 96 Trach Mask 30% 03/20 1705 98 Trach Mask 30% 03/20 1542 98.1 84 18 110/80 98 Trach Mask 30% 03/20 1536 98 Trach Mask 30%
[2017-03-21 16:00] VITALS: BP 108/72
[2017-03-22] VITALS: BP 104/64
[2017-03-22 05:54] LABS: ABSOLUTE BASOPHIL COUNT 0.1 /CUMM (0.0-0.2); ABSOLUTE EOSINOPHIL COUNT 0.3 /CUMM (0.0-0.7); ABSOLUTE MONOCYTE COUNT 0.8 /CUMM (0.10-0.60); BASOPHIL % 0.6 % (0.0-2.0)
[2017-03-22 06:08] LABS: ABSOLUTE GRANULOCYTE CT 6.2 /CUMM (1.4-6.5); ABSOLUTE LYMPH COUNT 1.8 /CUMM (1.2-3.4); EOSINOPHIL % 3.1 % (0-5); HEMATOCRIT 28.7 % (37-47); MEAN CORPUSCULAR HGB 26.7 PG (27.0-31.0); MEAN CORPUSCULAR HGB CONC 32.5 G/DL (33.0-37.0); MEAN CORPUSCULAR VOLUME 82.1 FL (81.0-99.0); MEAN PLATELET VOLUME 8.6 FL (7.4-10.4); PLATELET COUNT 395 /CUMM (130-400); RED BLOOD CELL CT 3.49 /CUMM (4.20-5.40)
[2017-03-22 06:11] LABS: GRANULOCYTE % 67.7 % (42.2-75.2); WHITE BLOOD CELL COUNT 9.2 /CUMM (4.8-10.8)
--- NOTE | 2017-03-22 07:25 | PN- Resident CRCU ---
See Addendum Subjective HPI/CRCU Issues: Pneumonia Respiratory distress off ventilator tracheostomy 24 Hour Events: Midodrine was increased to 10mg tid. However, continues to have hypotensive episodes overnight. Received 500cc x 2 bolus overnight to which she responded well. Received a 25gm IV dextrose push due to hypoglycemia. Objective Vital Signs & I&O Last 8 Hrs of Vitals and I&O: . Exam General Appearance: no apparent distress, alert, awake Head: atraumatic, normal appearance Respiratory: normal breath sounds, chest non-tender, lungs clear Cardiovascular: regular rate/rhythm Gastrointestinal: soft, non-tender Extremities: no edema Cranial Nerves: normal hearing Skin: intact, normal color Skin Temp/Moisture Exam: Warm/Dry Sepsis Skin Exam (color): Normal for Ethnicity Weaning Parameters NIF: 19 Minute Volume: 4.5 Resp rate: 27 Vt: 200 Heart Rate: 88 Weaning Schedule Start Time: 0815 Minute Volume: 4.5 Resp Rate: 27 Vt: 200 Heart Rate: 75 Current Medications: Current Medications Sig/Martinez Start time Last Medication Dose Route Stop Time Status Admin Acetaminophen 640 MG Q6P PRN 03/16 0930 AC 03/17 PO 0026 Albuterol Sulfate 3 ML Q4H PRN 03/14 1115 AC 03/21 INH 0857 Baclofen 40 MG TID 03/13 2199 AC 03/21 PO 221 Dextrose 25 GM ONCE ONE 03/22 0045 DC 03/22 IV 03/22 0046 0046 Diazepam 20 MG TID 03/14 0250 AC 03/21 PO 2219 Docusate Sodium 100 MG BID PRN 03/13 1815 AC PO Enoxaparin Sodium 40 MG 1900 03/13 1900 AC 03/21 SC 1713 Ferrous Sulfate 300 MG DAILY 03/19 1352 AC 03/21 PO 0906 Guaifenesin 10 ML Q4P PRN 03/16 0930 AC 03/16 PO 1011 Heparin Sodium 100 UNIT ONCE PRN 03/21 0345 AC 03/21 (Porcine) IV 0354 Ipratropium [place] 2.5 ML Q4 HRS NEEDED PRN 03/14 1115 AC INH Levetiracetam 500 MG Q12 03/14 2200 AC 03/21 N/A 1 UNIT IV 2219 Magnesium Oxide 400 MG BID 03/15 1000 AC 03/21 PO 221 Meropenem 1 GM Q8H 03/17 1000 AC 03/22 IV 0148 Methyl Salicylate 1 JULIUS Q2P PRN 03/13 1800 AC TOP Midodrine 10 MG 0800,1200,1600 03/21 1200 AC 03/22 PO 0827 Midodrine 5 MG 0800,1200,1600 03/20 1600 DC 03/21 PO 0752 Morphine Sulfate 2 MG Q4 PRN 03/13 1800 AC IV Morphine Sulfate 4 MG Q4P PRN 03/13 1800 AC 03/15 IV 1119 Nystatin 1 JULIUS TID PRN 03/14 1445 DC 03/16 TOP 1644 Oxymetazoline HCl 2 SPRAY BID PRN 03/15 0745 AC PABLO Pantoprazole Sodium 40 MG DAILY 03/14 1000 AC 03/21 IV 0905 Phenobarbital 32.4 MG TID 03/13 2200 AC 03/21 PO 2219 Polyethylene Glycol 17 GM DAILY PRN 03/13 1815 AC PO Sodium Chloride 500 ML BOLUS ONE 03/22 0515 DC 03/22 IV 03/22 0614 0507 Sodium Chloride 500 ML BOLUS ONE 03/21 2315 DC 03/21 IV 03/22 0014 2316 Impression/Plan Impression/Problem List Impression: The patient is a 41-year-old woman with a past medical history of cerebral palsy, seizures, aspiration pneumonia, chronic constipation, incontinence, status post surgery/Vazquez jeffy, status post right ORIF, and history of anoxic brain injury with full assist. She lives at home with her sister who is her cloth shrinking supervisor and also has visiting nurses. She is on a tracheostomy tube but requires connection to a ventilator at nighttime for respiratory support. Plan: Pneumonia: * Continue monitoring in ICU * Her sputum is growing ESBL E.coli, Pseudomonas and Citrobacter. All sensitive to Meropenem. * CXR today shows no evidence of lobar consolidation. * Her Pneumonia was likely due to aspiration and not ventilator assosciated. * Blood cultures have showed no growth. * Rapid flu test was negative * Will continue IV Meropenem for total of 7 days. Today is day 6. * Mucinex 600 mg q12 hrs * ID recs appreciated. * On nocturnal ventilator and trach mask during the day. Nocturnal Hypotension/Hypoglycemia: * She tends to have hypotensive episodes overnight which responds well to fluid bolus. * She was started on Midodrine 10mg TID without significant improvement. * Will obtain Endo consult to r/o adrenal insufficiency as she has had hypoglycemic episodes. Tracheostomy site pain /resolved * Patient reportedly had tracheostomy site pain and discomfort with a history of tracheostomy site scarring. * ENT evalutated (03/15) and suggested to tighten slightly tracheostomy tube straps so that it is not anteriorly displaced. Also the granulation tissue around the site is normal. Dysphagia * Patient is reported to have had been having some dysphagia and drooling prior admission. * Swallow evaluation unable to be done as she has poor oropharyngeal swallowing and absent gag reflex. * She will likely need continued tube feeding. * Her PEG tube was changed by Dr Pham. Will continue feeding via PEG tube. Family is okay with it. * Continue Jevity 1.5. Will provide higher calories. However, her blood sugars have been running low at night despite change in her diet. * Nutrition recs appreciated. Anemia: * Her Hb has been low but stable around 9. * Her iron studies show low iron, transferrin saturation, TIBC with normal ferritin and reticulocyte count. * Continue liq Ferrous sulphate daily Cerebral palsy * Continue home medications phenobarbital 32.4 mg TID; Diazepam 20 mg TID; Kepra 500 mg TID DVT prophylaxis * SC lovenox 40 mg daily Diet: Jevity 1.5 Code status: Full code Problem List: 1. Cerebral palsy Pain Ratin Tomorrow's Labs & Rationales: CBC, ICU bundle Plan DVT/Prophylaxis: mechanical
[2017-03-22 08:00] VITALS: BP 94/60
--- NOTE | 2017-03-22 08:07 | RADIOLOGY REPORT ---
EXAMINATION: XR PORTABLE CHEST CLINICAL INFORMATION: Pneumonia COMPARISON: Several prior chest x-rays, the most recent 03/20/2015 TECHNIQUE: Portable frontal view of the chest was obtained. Examination mildly limited secondary to patient orientation and spinal hardware. FINDINGS: Stable cardiac silhouette. Endotracheal or tracheostomy tube is mainly obscured by overlying spinal hardware. Right-sided port in stable position. Similar low lung volumes with bibasilar atelectasis. No lobar consolidation identified. No gross pleural effusion. No pneumothorax. IMPRESSION: Stable examination demonstrating low lung volumes without lobar consolidation.
--- NOTE | 2017-03-22 09:34 | PN- Infect Dx ---
Subjective Subjective: Afebrile. She is unable to verbalize any complaints. Objective Last 24 Hrs of Vital Signs/I&O Vital Signs Date Time Temp Pulse Resp B/P B/P Pulse O2 O2 Flow FiO2 Mean Ox Delivery Rate 03/22 0811 30 03/22 0526 30 03/22 0400 98 Ventilator 30% 03/22 0209 30 03/22 0000 97 Ventilator 30% 03/22 0000 97.8 86 18 104/64 96 Ventilator 30% 03/21 2205 30 03/21 2000 97 Trach Mask 30% 03/21 1945 99 Trach Mask 30% 03/21 1702 99 Trach Mask 30% 03/21 1600 95 Trach Mask 30% 03/21 1600 98.6 106 11 108/72 95 Trach Mask 30% 03/21 1200 100 Trach Mask 30% 03/21 1200 97.5 90 16 110/70 100 Trach Mask 30% 03/21 1034 98 Trach Mask 30% Intake & Output 03/22 1600 03/22 0800 03/22 0000 Intake Total 1665 792 Output Total Balance 1665 792 Intake, IV 1000 140 Intake, Tube 365 402 Feeding Intake, Tube 300 250 Irrigant Number 2 Bowel Movements Physical Exam Other Physical Findings: She appears comfortable on the trach mask Lungs scattered rhonchi bilaterally Heart regular rhythm with no murmur Abdomen is soft, nontender with positive bowel sounds Extremities no cyanosis, clubbing or edema Results Last 24 Hours of Lab Results: Laboratory Tests 03/22 0445 Chemistry Sodium (137 - 145 mmol/L) 138 Potassium (3.5 - 5.1 mmol/L) 4.5 Chloride (98 - 107 mmol/L) 95 L Carbon Dioxide (22 - 30 mmol/L) 33 H Anion Gap (5 - 16) 11 BUN (7 - 17 mg/dL) 10 Creatinine (0.5 - 1.0 mg/dL) 0.3 L Estimated GFR (>60 ml/min) > 60 Glucose (65 - 99 mg/dL) 95 Calcium (8.4 - 10.2 mg/dL) 8.2 L Phosphorus (2.5 - 4.5 mg/dL) 3.6 Magnesium (1.6 - 2.3 mg/dL) 2.2 Total Bilirubin (0.2 - 1.3 mg/dL) < 0.1 L AST (14 - 36 U/L) 22 ALT (9 - 52 U/L) 28 Albumin (3.5 - 5.0 g/dL) 3.0 L Hematology CBC w Diff NO MAN DIFF REQ WBC (4.8 - 10.8 /CUMM) 9.2 RBC (4.20 - 5.40 /CUMM) 3.49 L Hgb (12.0 - 16.0 G/DL) 9.3 L Hct (37 - 47 %) 28.7 L MCV (81.0 - 99.0 FL) 82.1 MCH (27.0 - 31.0 PG) 26.7 L MCHC (33.0 - 37.0 G/DL) 32.5 L RDW (11.5 - 14.5 %) 17.0 H Plt Count (130 - 400 /CUMM) 395 MPV (7.4 - 10.4 FL) 8.6 Gran % (42.2 - 75.2 %) 67.7 Lymphocytes % (20.5 - 51.1 %) 19.4 L Monocytes % (1.7 - 9.3 %) 9.2 Eosinophils % (0 - 5 %) 3.1 Basophils % (0.0 - 2.0 %) 0.6 Absolute Granulocytes (1.4 - 6.5 /CUMM) 6.2 Absolute Lymphocytes (1.2 - 3.4 /CUMM) 1.8 Absolute Monocytes (0.10 - 0.60 /CUMM) 0.8 H Absolute Eosinophils (0.0 - 0.7 /CUMM) 0.3 Absolute Basophils (0.0 - 0.2 /CUMM) 0.1 Last 24 Hours of Dexter Results: Sputum culture March 18 positive for Pseudomonas sensitive to Meropenem Recent Imaging Studies: Chest x-ray March 22 stable with low lung volumes and bibasilar atelectasis with no lobar consolidation Assessment/Plan Impression: Stable, with her respiratory status apparently back to her baseline, only requiring the ventilator at night. She remains afebrile with her white blood cell count remaining normal on Meropenem Day 6 of treatment for presumed pneumonia secondary to multiple gram-negative rods, with ESBL producing Escherichia coli, Pseudomonas and Citrobacter isolated from her sputum cultures. Suggestion: 1. Discontinue Meropenem on March 23 and then follow off antibiotics
--- NOTE | 2017-03-22 13:12 | PN- Att Addend ---
Attending Addendum Attending Brief Note Patient laying comfortably in bed. Vital signs are stable not pressure still on the low side afebrile. No major changes on physical. Appreciate Dr. Dupont's input and recommendations. Continue antibiotic treatment continue respiratory treatment. Talk to the family regarding the feeding tubes and avoid oral intake Intake & Output 03/22 1600 03/22 0400 03/21 1600 03/21 0400 03/20 1600 03/20 0400 Intake Total 4639 858 6853 834 2344 1206 Output Total Balance 5793 396 7476 834 2344 1206 Intake, IV 8024 331 4480 150 1140 150 Intake, Tube 365 402 863 424 799 430 Feeding Intake, Tube 300 250 626 260 405 626 Irrigant Number 2 1 0 2 Bowel Movements Current Medications Sig/Maritnez Start time Last Medication Dose Route Stop Time Status Admin Acetaminophen 640 MG Q6P PRN 03/16 0930 AC 03/17 PO 0026 Albuterol Sulfate 3 ML Q4H PRN 03/14 1115 AC 03/21 INH 0857 Baclofen 40 MG TID 03/13 220 AC 03/22 PO 1026 Dextrose 25 GM ONCE ONE 03/22 0045 DC 03/22 IV 03/22 0046 0046 Diazepam 20 MG TID 03/14 0250 AC 03/22 PO 1025 Docusate Sodium 100 MG BID PRN 03/13 1815 AC PO Enoxaparin Sodium 40 MG 1900 03/13 1900 AC 03/21 SC 1713 Ferrous Sulfate 300 MG DAILY 03/19 1352 AC 03/22 PO 1000 Guaifenesin 10 ML Q4P PRN 03/16 0930 AC 03/16 PO 1011 Heparin Sodium 100 UNIT ONCE PRN 03/21 0345 AC 03/21 (Porcine) IV 0354 Ipratropium [place] 2.5 ML Q4 HRS NEEDED PRN 03/14 1115 AC INH Levetiracetam 500 MG Q12 03/14 2200 AC 03/22 N/A 1 UNIT IV 1027 Magnesium Oxide 400 MG BID 03/15 1000 AC 03/22 PO 1025 Meropenem 1 GM Q8H 03/17 1000 AC 03/22 IV 03/23 1800 1027 Methyl Salicylate 1 JULIUS Q2P PRN 03/13 1800 AC TOP Midodrine 10 MG 0800,1200,1600 03/21 1200 AC 03/22 PO 1122 Morphine Sulfate 2 MG Q4 PRN 03/13 1800 AC IV Morphine Sulfate 4 MG Q4P PRN 03/13 1800 AC 03/15 IV 1119 Nystatin 1 JULIUS TID PRN 03/14 1445 DC 03/16 TOP 1644 Oxymetazoline HCl 2 SPRAY BID PRN 03/15 0745 AC PABLO Pantoprazole Sodium 40 MG DAILY 03/14 1000 AC 03/22 IV 1028 Phenobarbital 32.4 MG TID 03/13 2200 AC 03/22 PO 1025 Polyethylene Glycol 17 GM DAILY PRN 03/13 1815 AC PO Sodium Chloride 500 ML BOLUS ONE 03/22 0515 DC 03/22 IV 03/22 0614 0507 Sodium Chloride 500 ML BOLUS ONE 03/21 2315 DC 03/21 IV 03/22 0014 2316 Laboratory Tests 03/22/17 0445: Anion Gap 11, Estimated GFR > 60, Glucose 95, Calcium 8.2 L, Phosphorus 3.6, Magnesium 2.2, Total Bilirubin < 0.1 L, AST 22, ALT 28, Albumin 3.0 L, TSH Pending, Free T4 Pending, Total T3 Pending, Estradiol (E2) Level Pending, Prolactin Pending, Cortisol AM Sample Pending, CBC w Diff NO MAN DIFF REQ, RBC 3.49 L, MCV 82.1, MCH 26.7 L, MCHC 32.5 L, RDW 17.0 H, MPV 8.6, Gran % 67.7, Lymphocytes % 19.4 L, Monocytes % 9.2, Eosinophils % 3.1, Basophils % 0.6, Absolute Granulocytes 6.2, Absolute Lymphocytes 1.8, Absolute Monocytes 0.8 H, Absolute Eosinophils 0.3, Absolute Basophils 0.1 03/21/17 0345: Anion Gap 9, Estimated GFR > 60, Glucose 98, Calcium 7.8 L, Phosphorus 3.7, Magnesium 2.2, Total Bilirubin < 0.1 L, AST 25, ALT 32, Albumin 2.8 L, CBC w Diff NO MAN DIFF REQ, RBC 3.49 L, MCV 81.9, MCH 26.8 L, MCHC 32.7 L, RDW 17.1 H, MPV 8.4, Gran % 38.9 L, Lymphocytes % 39.3, Monocytes % 16.5 H, Eosinophils % 4.6, Basophils % 0.7, Absolute Granulocytes 1.9, Absolute Lymphocytes 1.9, Absolute Monocytes 0.8 H, Absolute Eosinophils 0.2, Absolute Basophils 0 03/20/17 0430: Anion Gap 11, Estimated GFR > 60, Glucose 98, Calcium 8.0 L, Phosphorus 3.6, Magnesium 2.1, Total Bilirubin < 0.1 L, AST 33, ALT 34, Albumin 2.9 L, CBC w Diff NO MAN DIFF REQ, RBC 3.66 L, MCV 82.8, MCH 26.5 L, RDW 17.1 H, MPV 8.1, Gran % 50.5, Lymphocytes % 32.8, Monocytes % 12.8 H, Eosinophils % 2.9, Basophils % 1.0, Absolute Granulocytes 2.6, Absolute Lymphocytes 1.7, Absolute Monocytes 0.7 H, Absolute Eosinophils 0.1, Absolute Basophils 0, PUBS MCHC 32.1 L Microbiology 03/19 1699 STOOL: Clostridium difficile Toxin A & B - COMP Microbiology 03/19 1699 STOOL: Clostridium difficile Toxin A & B - COMP Vital Signs Date Time Temp Pulse Resp B/P B/P Pulse O2 O2 Flow FiO2 Mean Ox Delivery Rate 03/22 1239 99 Trach Mask 30% 03/22 0811 30 03/22 0800 98 Trach Mask 30% 03/22 0800 97.7 60 12 94/60 98 Trach Mask 30% 03/22 0526 30 03/22 0400 98 Ventilator 30% 03/22 0209 30 03/22 0000 97 Ventilator 30% 03/22 0000 97.8 86 18 104/64 96 Ventilator 30% 03/21 2205 30 03/21 2000 97 Trach Mask 30% 03/21 1945 99 Trach Mask 30% 03/21 1702 99 Trach Mask 30% 03/21 1600 95 Trach Mask 30% 03/21 1600 98.6 106 11 108/72 95 Trach Mask 30%
--- NOTE | 2017-03-22 13:29 | Cons- Endocrinology ---
General Information and HPI Consulting Request Date of Consult: 03/22/17 Requested By: ICU Reason for Consult: evaluation for possible adrenal insufficiency. Source of Information: old records Exam Limitations: unable to give history (patient is nonverbal) History of Present Illness: 41-year-old woman with a past medical history of cerebral palsy, seizures, aspiration pneumonia, chronic constipation, incontinence, and history of anoxic brain injury with full assist, was admitted for pneumonia and respiratory failure, s/p tracheostomy. She is currently on tube feeling. However, she was hypotensive and hypoglycemia. Her BP and glucose level improved after she received IV fluid bolus and iv glucose.Midodrine was increased to 10 mg x 3 times a day. Allergies/Medications Allergies: Coded Allergies: Penicillins (HIVES 10/18/16) ceftriaxone (HIVES 10/18/16) Home Med List: Acetaminophen (Arthritis Pain) 650 MG TABLET.ER 1 TAB PO Q4H PRN PAIN/TEMP ( Reported) Baclofen 20 MG TABLET 2 TAB PO TID MUSCLE RELAXER (Reported) Diazepam 10 MG TABLET 2 TAB PO TID MUSCLE SPASMS (Reported) Docusate Sodium (Colace) 100 MG CAPSULE 1 CAP PO BID PRN STOOL SOFTENER ( Reported) Eucalyptus Oil/Menthol/Camphor (Vicks Vaporub Ointment) 1.2 %-2.6 %-4.7 % OINT...G. 1 JULIUS TOP TID PRN COUGH (Reported) Guaifenesin/Dextromethorphan (Robafen-Dm Syrup) 100 MG-10 MG/5 ML SYRUP 10 ML PO Q6 PRN COUGH/MUCUS (Reported) Guaifenesin/Pseudoephedrne HCl (Mucinex D ER Tablet) 600 MG-60 MG TAB.ER.12H 1 TAB PO DAILY SECRETIONS (Reported) Ipratropium/Albuterol Sulfate (Iprat-Albut 0.5-3(2.5) MG/3 Ml) 0.5 MG-3 MG (2.5 MG BASE)/3 ML AMPUL.NEB 1 VIAL INH Q4H PRN RESP. (Reported) Levetiracetam 500 MG TABLET 1 TAB PO TID SEIZURES (Reported) Levofloxacin 500 MG TABLET 1 TAB PO DAILY ANTIBIOTIC, INFECTION (Reported) Loratadine (Claritin) 10 MG TABLET 1 TAB PO DAILY PRN ALLERGIES (Reported) Phenobarbital 32.4 MG TABLET 1 TAB PO BID SEIZURES (Reported) Phenobarbital 64.8 MG TABLET 1 TAB PO QHS SEIZURES (Reported) Phenobarbital 32.4 MG TABLET 32.4 MG PO 8AM SEIZURES (Reported) Polyethylene Glycol 3350 (Miralax) 17 GRAM POWD.PACK 1 PAC PO DAILY PRN CONSTIPATION (Reported) dissolve in water Review of Systems Review of Systems Constitutional: Reports: see HPI (patient is non-verbal). 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 Home Who Do You Live With? Sister Services at Home: Home Health Aide, Nursing Smoking Status: Never Smoked ETOH Use: denies use Illicit Drug Use: denies illicit drug use Functional Ability ADLs Needs Assist: dressing, eating, toileting, bathing. Ambulation: non-ambulatory IADLs Needs Assist: shopping, housework, finances, food prep, telephone, transportation, medication admin. Exam & Diagnostic Data Last 24 Hrs of Vital Signs/I&O Vital Signs Date Time Temp Pulse Resp B/P B/P Pulse O2 O2 Flow FiO2 Mean Ox Delivery Rate 03/22 1239 99 Trach Mask 30% 03/22 0811 30 03/22 0800 98 Trach Mask 30% 03/22 0800 97.7 60 12 94/60 98 Trach Mask 30% 03/22 0526 30 03/22 0400 98 Ventilator 30% 03/22 0209 30 03/22 0000 97 Ventilator 30% 03/22 0000 97.8 86 18 104/64 96 Ventilator 30% 03/21 2205 30 03/21 1999 97 Trach Mask 30% 03/21 1945 99 Trach Mask 30% 03/21 1702 99 Trach Mask 30% 03/21 1600 95 Trach Mask 30% 03/21 1600 98.6 106 11 108/72 95 Trach Mask 30% Intake & Output 03/22 1600 03/22 0800 03/22 0000 Intake Total 1665 792 Output Total Balance 1665 792 Intake, IV 1000 140 Intake, Tube 365 402 Feeding Intake, Tube 300 250 Irrigant Number 2 Bowel Movements Physical Exam General Appearance: awake Respiratory: decreased breath sounds Cardiovascular: regular rate/rhythm Gastrointestinal: soft, non-tender Extremities: no edema Labs/Dexter Results: Laboratory Tests 03/22 03/21 0445 0345 Chemistry Sodium (137 - 145 mmol/L) 138 140 Potassium (3.5 - 5.1 mmol/L) 4.5 4.4 Chloride (98 - 107 mmol/L) 95 L 97 L Carbon Dioxide (22 - 30 mmol/L) 33 H 34 H Anion Gap (5 - 16) 11 9 BUN (7 - 17 mg/dL) 10 11 Creatinine (0.5 - 1.0 mg/dL) 0.3 L 0.3 L Estimated GFR (>60 ml/min) > 60 > 60 Glucose (65 - 99 mg/dL) 95 98 Calcium (8.4 - 10.2 mg/dL) 8.2 L 7.8 L Phosphorus (2.5 - 4.5 mg/dL) 3.6 3.7 Magnesium (1.6 - 2.3 mg/dL) 2.2 2.2 Total Bilirubin (0.2 - 1.3 mg/dL) < 0.1 L < 0.1 L AST (14 - 36 U/L) 22 25 ALT (9 - 52 U/L) 28 32 Albumin (3.5 - 5.0 g/dL) 3.0 L 2.8 L TSH (0.270 - 4.200 uIU/mL) Pending Free T4 (0.64 - 1.79 ng/dL) Pending Total T3 (0.97 - 1.69 ng/mL) Pending Estradiol (E2) Level (pg/mL) Pending Prolactin (3.0 - 18.6 ng/mL) Pending Cortisol AM Sample (4.46 - 22.7 ug/dL) Pending Hematology CBC w Diff NO MAN DIFF REQ NO MAN DIFF REQ WBC (4.8 - 10.8 /CUMM) 9.2 4.8 RBC (4.20 - 5.40 /CUMM) 3.49 L 3.49 L Hgb (12.0 - 16.0 G/DL) 9.3 L 9.4 L Hct (37 - 47 %) 28.7 L 28.6 L MCV (81.0 - 99.0 FL) 82.1 81.9 MCH (27.0 - 31.0 PG) 26.7 L 26.8 L MCHC (33.0 - 37.0 G/DL) 32.5 L 32.7 L RDW (11.5 - 14.5 %) 17.0 H 17.1 H Plt Count (130 - 400 /CUMM) 395 372 MPV (7.4 - 10.4 FL) 8.6 8.4 Gran % (42.2 - 75.2 %) 67.7 38.9 L Lymphocytes % (20.5 - 51.1 %) 19.4 L 39.3 Monocytes % (1.7 - 9.3 %) 9.2 16.5 H Eosinophils % (0 - 5 %) 3.1 4.6 Basophils % (0.0 - 2.0 %) 0.6 0.7 Absolute Granulocytes (1.4 - 6.5 /CUMM) 6.2 1.9 Absolute Lymphocytes (1.2 - 3.4 /CUMM) 1.8 1.9 Absolute Monocytes (0.10 - 0.60 /CUMM) 0.8 H 0.8 H Absolute Eosinophils (0.0 - 0.7 /CUMM) 0.3 0.2 Absolute Basophils (0.0 - 0.2 /CUMM) 0.1 0 Assessment/Plan Assessment/Plan 41-year-old woman with a past medical history of cerebral palsy, seizures, aspiration pneumonia, chronic constipation, incontinence, and history of anoxic brain injury with full assist, was admitted for pneumonia and respiratory failure, s/p tracheostomy. She is currently on tube feeling. However, she was hypotensive and hypoglycemia. Her BP and glucose level improved after she received IV fluid bolus and iv glucose. I have recommended pituitary hormone evaluation-- checking am cortisol, TSH, free T4 and TT3, prolactin, E2, FSH and LH. We will continue monitoring her glucose level, vital sign. If he glucose level drops again, I will recommend checking cortisol and insulin level stat at that time. will follow. Consult Acknowledgment - Thank you for your consult request.
[2017-03-22 16:00] VITALS: BP 90/60
[2017-03-22 23:00] VITALS: BP 86/53
[2017-03-23 06:00] LABS: ABSOLUTE BASOPHIL COUNT 0 /CUMM (0.0-0.2); ABSOLUTE EOSINOPHIL COUNT 0.3 /CUMM (0.0-0.7); ABSOLUTE GRANULOCYTE CT 1.9 /CUMM (1.4-6.5); ABSOLUTE LYMPH COUNT 2.3 /CUMM (1.2-3.4); ABSOLUTE MONOCYTE COUNT 0.6 /CUMM (0.10-0.60); BASOPHIL % 0.7 % (0.0-2.0); EOSINOPHIL % 6.8 % (0-5); GRANULOCYTE % 36.5 % (42.2-75.2); HEMATOCRIT 27.6 % (37-47); MEAN CORPUSCULAR HGB 26.2 PG (27.0-31.0); MEAN CORPUSCULAR VOLUME 81.9 FL (81.0-99.0); PLATELET COUNT 339 /CUMM (130-400); RBC DISTRIBUTION WIDTH 16.9 % (11.5-14.5); RED BLOOD CELL CT 3.38 /CUMM (4.20-5.40); WHITE BLOOD CELL COUNT 5.1 /CUMM (4.8-10.8)
[2017-03-23 07:00] VITALS: BP 92/54
--- NOTE | 2017-03-23 08:00 | PN- Resident CRCU ---
See Addendum Subjective HPI/CRCU Issues: Pneumonia Respiratory distress off ventilator tracheostomy 24 Hour Events: Continues to have hypotensive and hypoglycemic events overnight for which she received 500c x 2 NS and dextrose push x2. She had a morning cortisol level today and yesterday which show inappropriate low cortisol levels. Endo evaluation in progress. Objective Vital Signs & I&O Last 8 Hrs of Vitals and I&O: . Exam General Appearance: no apparent distress, alert, awake Head: atraumatic, normal appearance Respiratory: normal breath sounds, chest non-tender Cardiovascular: regular rate/rhythm Gastrointestinal: normal bowel sounds, soft, non-tender Extremities: no edema Cranial Nerves: normal hearing Skin: intact Skin Temp/Moisture Exam: Warm/Dry Sepsis Skin Exam (color): Normal for Ethnicity Weaning Parameters NIF: 19 Minute Volume: 4.5 Resp rate: 27 Vt: 200 Heart Rate: 88 Weaning Schedule Start Time: 0815 Minute Volume: 4.5 Resp Rate: 27 Vt: 200 Heart Rate: 75 Current Medications: Current Medications Sig/Martinez Start time Last Medication Dose Route Stop Time Status Admin Acetaminophen 640 MG Q6P PRN 03/16 0930 03/22 PO 1503 Albuterol Sulfate 3 ML Q4H PRN 03/14 1115 AC 03/21 INH 0857 Baclofen 40 MG TID 03/13 2200 03/22 PO 2141 Dextrose 25 GM ONCE ONE 03/23 0615 DC 03/23 IV 03/23 0616 0618 Dextrose 25 GM ONCE ONE 03/23 0015 DC 03/23 IV 03/23 0016 0041 Diazepam 20 MG TID 03/14 0250 AC 03/22 PO 1504 Docusate Sodium 100 MG BID PRN 03/13 1815 AC PO Enoxaparin Sodium 40 MG 1900 03/13 1900 AC 03/22 SC 1805 Ferrous Sulfate 300 MG DAILY 03/19 1352 AC 03/22 PO 1000 Guaifenesin 10 ML Q4P PRN 03/16 0930 AC 03/16 PO 1011 Heparin Sodium 100 UNIT ONCE PRN 03/21 0345 03/21 (Porcine) IV 0354 Ipratropium [place] 2.5 ML Q4 HRS NEEDED PRN 03/14 1115 AC INH Levetiracetam 500 MG Q12 03/14 2200 03/22 N/A 1 UNIT IV 2143 Magnesium Oxide 400 MG BID 03/15 1000 AC 03/22 PO 2141 Meropenem 1 GM Q8H 03/17 1000 AC 03/23 IV 03/23 1800 1004 Methyl Salicylate 1 JULIUS Q2P PRN 03/13 1800 AC TOP Midodrine 10 MG 0800,1200,1600 03/21 1200 AC 03/23 PO 0956 Morphine Sulfate 2 MG Q4 PRN 03/13 1800 AC 03/22 IV 1337 Morphine Sulfate 4 MG Q4P PRN 03/13 1800 AC 03/15 IV 1119 Oxymetazoline HCl 2 SPRAY BID PRN 03/15 0745 AC PABLO Pantoprazole Sodium 40 MG DAILY 03/14 1000 AC 03/23 IV 1004 Phenobarbital 32.4 MG TID 03/13 2200 AC 03/22 PO 2141 Polyethylene Glycol 17 GM DAILY PRN 03/13 1815 AC PO Sodium Chloride 500 ML BOLUS ONE 03/23 0900 DC 03/23 IV 03/23 0959 0957 Sodium Chloride 500 ML BOLUS ONE 03/23 0200 DC 03/23 IV 03/23 0259 0158 Impression/Plan Impression/Problem List Impression: The patient is a 41-year-old woman with a past medical history of cerebral palsy, seizures, aspiration pneumonia, chronic constipation, incontinence, status post surgery/Vazquez jeffy, status post right ORIF, and history of anoxic brain injury with full assist. She lives at home with her sister who is her underground mine superintendent and also has visiting nurses. She is on a tracheostomy tube but requires connection to a ventilator at nighttime for respiratory support. Plan: Pneumonia: * Continue monitoring in ICU * Her sputum grew ESBL E.coli, Pseudomonas and Citrobacter. All sensitive to Meropenem. * CXR 03/22 showed no evidence of lobar consolidation. * Her Pneumonia was likely due to aspiration and not ventilator assosciated. * Blood cultures have showed no growth. * Rapid flu test was negative * Discontinue Meropenem today. * ID recs appreciated. * On nocturnal ventilator and trach mask during the day. Nocturnal Hypotension/Hypoglycemia: * She tends to have hypotensive episodes overnight which responds well to fluid bolus. * She was started on Midodrine 10mg TID without significant improvement. * Her morning cortisol AM yesterday and today are inappropriately low. * ACTH level pending * Following results of ACTH levels will do a ACTH stimulation test. Tracheostomy site pain /resolved * Patient reportedly had tracheostomy site pain and discomfort with a history of tracheostomy site scarring. * ENT evalutated (03/15) and suggested to tighten slightly tracheostomy tube straps so that it is not anteriorly displaced. Also the granulation tissue around the site is normal. Dysphagia * Patient was reported to have had been having some dysphagia and drooling prior admission. * Swallow evaluation unable to be done as she has poor oropharyngeal swallowing and absent gag reflex. * She will likely need continued tube feeding. Will need to discuss this with family. * Continue Jevity 1.5. Will provide higher calories. However, her blood sugars have been running low at night despite change in her diet. * Nutrition recs appreciated. Anemia: * Her Hb has been low but stable around 9. * Her iron studies show low iron, transferrin saturation, TIBC with normal ferritin and reticulocyte count. * Continue liq Ferrous sulphate daily Cerebral palsy * Continue home medications phenobarbital 32.4 mg TID; Diazepam 20 mg TID; Kepra 500 mg TID DVT prophylaxis * SC lovenox 40 mg daily Diet: Jevity 1.5 Code status: Full code Problem List: 1. Cerebral palsy Pain Ratin Tomorrow's Labs & Rationales: CBC, ICU bundle Plan DVT/Prophylaxis: mechanical
--- NOTE | 2017-03-23 09:28 | PN- Pulmonary ---
Subjective HPI/Critical Care Issues: Patient is comfortable on mechanical ventilation is tolerating tube feedings Objective Current Medications: Current Medications Sig/Martinez Start time Last Medication Dose Route Stop Time Status Admin Acetaminophen 640 MG Q6P PRN 03/16 0930 AC 03/22 PO 1503 Albuterol Sulfate 3 ML Q4H PRN 03/14 1115 AC 03/21 INH 0857 Baclofen 40 MG TID 03/13 2200 AC 03/22 PO 2141 Dextrose 25 GM ONCE ONE 03/23 0615 DC 03/23 IV 03/23 0616 0618 Dextrose 25 GM ONCE ONE 03/23 0015 DC 03/23 IV 03/23 0016 0041 Diazepam 20 MG TID 03/14 0250 AC 03/22 PO 1504 Docusate Sodium 100 MG BID PRN 03/13 1815 AC PO Enoxaparin Sodium 40 MG 1900 03/13 1900 AC 03/22 SC 1805 Ferrous Sulfate 300 MG DAILY 03/19 1352 AC 03/22 PO 1000 Guaifenesin 10 ML Q4P PRN 03/16 0930 AC 03/16 PO 1011 Heparin Sodium 100 UNIT ONCE PRN 03/21 0345 03/21 (Porcine) IV 0354 Ipratropium [place] 2.5 ML Q4 HRS NEEDED PRN 03/14 1115 AC INH Levetiracetam 500 MG Q12 03/14 2200 AC 03/22 N/A 1 UNIT IV 2143 Magnesium Oxide 400 MG BID 03/15 1000 AC 03/22 PO 2141 Meropenem 1 GM Q8H 03/17 1000 AC 03/23 IV 03/23 1800 0134 Methyl Salicylate 1 JULIUS Q2P PRN 03/13 1800 AC TOP Midodrine 10 MG 0800,1200,1600 03/21 1200 AC 03/22 PO 1504 Morphine Sulfate 2 MG Q4 PRN 03/13 1800 AC 03/22 IV 1337 Morphine Sulfate 4 MG Q4P PRN 03/13 1800 AC 03/15 IV 1119 Oxymetazoline HCl 2 SPRAY BID PRN 03/15 0745 AC PABLO Pantoprazole Sodium 40 MG DAILY 03/14 1000 AC 03/22 IV 1028 Phenobarbital 32.4 MG TID 03/13 2200 AC 03/22 PO 2141 Polyethylene Glycol 17 GM DAILY PRN 03/13 1815 AC PO Sodium Chloride 500 ML BOLUS ONE 03/23 0900 AC IV 03/23 0959 Sodium Chloride 500 ML BOLUS ONE 03/23 0200 DC 03/23 IV 03/23 0259 0158 Vital Signs & I&O Last 24 Hrs of Vitals and I&O: Vital Signs Date Time Temp Pulse Resp B/P B/P Pulse O2 O2 Flow FiO2 Mean Ox Delivery Rate 03/23 0700 97.2 58 12 92/54 99 Ventilator 30% 03/23 0605 30 03/23 0400 99 Ventilator 30% 03/23 0223 30 03/23 0000 98 Ventilator 30% 03/22 2300 97.8 68 14 86/53 98 Ventilator 30% 03/22 2238 30 03/22 2000 97 Trach Mask 30% 03/22 1600 97 Trach Mask 30% 03/22 1600 97.7 62 11 90/60 97 Trach Mask 30% 03/22 1239 99 Trach Mask 30% 03/22 1200 99 Trach Mask 30% Intake & Output 03/23 1600 03/23 0800 03/23 0000 Intake Total 1260 620 Output Total Balance 1260 620 Intake, IV 600 110 Intake, Oral 0 Intake, Other 360 Intake, Tube 510 Feeding Intake, Tube 300 Irrigant Saturation FiO2 0.399% exam for chest shows diminished breath sounds there are no wheezes or crackles cardiac exam shows a regular S1 and S2 without murmurs abdomen is soft nontender Impression/Plan Impression/Plan Impression/Plan: 41-year-old chronically ventilator dependent is awaiting placement her overall status is remained stable now off antibiotics Recommendations: Continue current ventilator settings. Await final disposition and family training
[2017-03-23 12:00] VITALS: BP 106/60
--- NOTE | 2017-03-23 13:16 | PN- Endocrinology ---
Assessment/Plan Assessment: 41-year-old woman with a past medical history of cerebral palsy, seizures, aspiration pneumonia, chronic constipation, incontinence, and history of anoxic brain injury with full assist, was admitted for pneumonia and respiratory failure, s/p tracheostomy. She is currently on tube feeling. However, she was hypotensive and hypoglycemia. Her BP and glucose level improved after she received IV fluid bolus and iv glucose. pituitary hormones were done-- am cortisol 6.5, TSH 2.96, free T4 1.02 and TT3 1.56, prolactin 16.9, E2 73.4, FSH 14.3 and LH 16. At around midnight on 03/23/2017, her glucose level was down to 70, cortisol was only 3.2 and insulin was 17. It is not clear whether insulin level was measured before D50 w was given or after D50 w was given. But her cortisol was only 3.2 when her glucose level was low suggestive of adrenal insufficiency. ACTH level is still pending. Plan: 1. start hydrocortisone 50 mg iv every 12 hours; 2. follow ACTH level; might consider pituitary imaging as it is indicated; 3. continue monitoring BP, glucose level and electrolytes; 4. recommend checking plasma glucose, insulin, c-peptide and proinsulin if her FSG is < 60. will follow. Subjective Subjective: She is non verbal. Objective Last 24 Hrs of Vital Signs/I&O Vital Signs Date Time Temp Pulse Resp B/P B/P Pulse O2 O2 Flow FiO2 Mean Ox Delivery Rate 03/23 1219 95 Trach Mask 30% 03/23 1045 97 Trach Mask 30% 03/23 1025 30 03/23 0800 98 Ventilator 30% 03/23 0700 97.2 58 12 92/54 99 Ventilator 30% 03/23 0605 30 03/23 0400 99 Ventilator 30% 03/23 0223 30 03/23 0000 98 Ventilator 30% 03/22 2300 97.8 68 14 86/53 98 Ventilator 30% 03/22 2238 30 03/22 2000 97 Trach Mask 30% 03/22 1600 97 Trach Mask 30% 03/22 1600 97.7 62 11 90/60 97 Trach Mask 30% Intake & Output 03/23 1600 03/23 0800 03/23 0000 Intake Total 1260 620 Output Total Balance 1260 620 Intake, IV 600 110 Intake, Oral 0 Intake, Other 360 Intake, Tube 510 Feeding Intake, Tube 300 Irrigant Results Pertinent Lab/Dexter Results: Laboratory Tests 03/23 03/23 03/23 0435 0435 0018 Chemistry Sodium (137 - 145 mmol/L) 137 Potassium (3.5 - 5.1 mmol/L) 4.5 Chloride (98 - 107 mmol/L) 94 L Carbon Dioxide (22 - 30 mmol/L) 35 H Anion Gap (5 - 16) 8 BUN (7 - 17 mg/dL) 14 Creatinine (0.5 - 1.0 mg/dL) 0.2 L Estimated GFR (>60 ml/min) > 60 Glucose (65 - 99 mg/dL) 93 Insulin Level (3.0 - 25.0 mIU/mL) 17.7 Calcium (8.4 - 10.2 mg/dL) 8.2 L Phosphorus (2.5 - 4.5 mg/dL) 3.8 Magnesium (1.6 - 2.3 mg/dL) 2.3 Total Bilirubin (0.2 - 1.3 mg/dL) 0.1 L AST (14 - 36 U/L) 24 ALT (9 - 52 U/L) 24 Albumin (3.5 - 5.0 g/dL) 2.9 L Cortisol AM Sample (4.46 - 22.7 ug/dL) 7.7 3.2 L ACTH Stimulation Pending Hematology CBC w Diff NO MAN DIFF REQ WBC (4.8 - 10.8 /CUMM) 5.1 RBC (4.20 - 5.40 /CUMM) 3.38 L Hgb (12.0 - 16.0 G/DL) 8.9 L Hct (37 - 47 %) 27.6 L MCV (81.0 - 99.0 FL) 81.9 MCH (27.0 - 31.0 PG) 26.2 L MCHC (33.0 - 37.0 G/DL) 32.0 L RDW (11.5 - 14.5 %) 16.9 H Plt Count (130 - 400 /CUMM) 339 MPV (7.4 - 10.4 FL) 9.0 Gran % (42.2 - 75.2 %) 36.5 L Lymphocytes % (20.5 - 51.1 %) 44.3 Monocytes % (1.7 - 9.3 %) 11.7 H Eosinophils % (0 - 5 %) 6.8 H Basophils % (0.0 - 2.0 %) 0.7 Absolute Granulocytes (1.4 - 6.5 /CUMM) 1.9 Absolute Lymphocytes (1.2 - 3.4 /CUMM) 2.3 Absolute Monocytes (0.10 - 0.60 /CUMM) 0.6 Absolute Eosinophils (0.0 - 0.7 /CUMM) 0.3 Absolute Basophils (0.0 - 0.2 /CUMM) 0
[2017-03-23 16:00] VITALS: BP 94/66
[2017-03-24] VITALS: BP 96/50
[2017-03-24 05:31] LABS: ABSOLUTE BASOPHIL COUNT 0 /CUMM (0.0-0.2); ABSOLUTE EOSINOPHIL COUNT 0 /CUMM (0.0-0.7); ABSOLUTE LYMPH COUNT 1.6 /CUMM (1.2-3.4); ABSOLUTE MONOCYTE COUNT 0.3 /CUMM (0.10-0.60); BASOPHIL % 0.7 % (0.0-2.0); EOSINOPHIL % 0.2 % (0-5); HEMATOCRIT 27.7 % (37-47); MEAN CORPUSCULAR HGB 26.8 PG (27.0-31.0); MEAN CORPUSCULAR HGB CONC 32.8 G/DL (33.0-37.0); MEAN CORPUSCULAR VOLUME 81.9 FL (81.0-99.0); PLATELET COUNT 364 /CUMM (130-400); RBC DISTRIBUTION WIDTH 16.5 % (11.5-14.5); RED BLOOD CELL CT 3.38 /CUMM (4.20-5.40)
[2017-03-24 05:32] LABS: GRANULOCYTE % 66.3 % (42.2-75.2)
[2017-03-24 08:00] VITALS: BP 102/60
--- NOTE | 2017-03-24 09:12 | PN- Resident CRCU ---
Shivani Herron 03/24/17 0912: Subjective HPI/CRCU Issues: Pneumonia Respiratory distress off ventilator tracheostomy 24 Hour Events: Patient was seen and examined this morning. She was lying comfortably with trach mask in place. She remained hemodynamically stable over night. Her blood sugars were remained in 170s and no event of hypoglycemia was noticed. She was started on Solu-Cortef and her ACTH stimulation is still pending. If warranted where he might consider pituitary imaging. Her bicarbonate remain on the higher side to 39 and we will check ABGs today. Objective Vital Signs & I&O Last 8 Hrs of Vitals and I&O: Laboratory Tests 03/24 0445 Chemistry Sodium (137 - 145 mmol/L) 139 Potassium (3.5 - 5.1 mmol/L) 4.2 Chloride (98 - 107 mmol/L) 92 L Carbon Dioxide (22 - 30 mmol/L) 39 H Anion Gap (5 - 16) 7 BUN (7 - 17 mg/dL) 13 Creatinine (0.5 - 1.0 mg/dL) 0.2 L Estimated GFR (>60 ml/min) > 60 Glucose (65 - 99 mg/dL) 124 H Calcium (8.4 - 10.2 mg/dL) 8.2 L Phosphorus (2.5 - 4.5 mg/dL) 2.6 Magnesium (1.6 - 2.3 mg/dL) 2.5 H Total Bilirubin (0.2 - 1.3 mg/dL) 0.1 L AST (14 - 36 U/L) 24 ALT (9 - 52 U/L) 22 Albumin (3.5 - 5.0 g/dL) 3.1 L Hematology CBC w Diff NO MAN DIFF REQ WBC (4.8 - 10.8 /CUMM) 6.0 RBC (4.20 - 5.40 /CUMM) 3.38 L Hgb (12.0 - 16.0 G/DL) 9.1 L Hct (37 - 47 %) 27.7 L MCV (81.0 - 99.0 FL) 81.9 MCH (27.0 - 31.0 PG) 26.8 L MCHC (33.0 - 37.0 G/DL) 32.8 L RDW (11.5 - 14.5 %) 16.5 H Plt Count (130 - 400 /CUMM) 364 MPV (7.4 - 10.4 FL) 9.0 Gran % (42.2 - 75.2 %) 66.3 Lymphocytes % (20.5 - 51.1 %) 27.1 Monocytes % (1.7 - 9.3 %) 5.7 Eosinophils % (0 - 5 %) 0.2 Basophils % (0.0 - 2.0 %) 0.7 Absolute Granulocytes (1.4 - 6.5 /CUMM) 4.0 Absolute Lymphocytes (1.2 - 3.4 /CUMM) 1.6 Absolute Monocytes (0.10 - 0.60 /CUMM) 0.3 Absolute Eosinophils (0.0 - 0.7 /CUMM) 0 Absolute Basophils (0.0 - 0.2 /CUMM) 0 Exam General Appearance: alert, awake, comfortable Head: atraumatic, normal appearance Respiratory: chest non-tender, lungs clear Cardiovascular: regular rate/rhythm Gastrointestinal: soft, non-tender, no organomegaly Extremities: no edema Weaning Parameters NIF: 19 Minute Volume: 4.8 Resp rate: 22 Vt: 223 Heart Rate: 80 Weaning Schedule Start Time: 0845 Minute Volume: 4.5 Resp Rate: 27 Vt: 200 Heart Rate: 75 Current Medications: Current Medications Sig/Martinez Start time Last Medication Dose Route Stop Time Status Admin Acetaminophen 640 MG Q6P PRN 03/16 0930 AC 03/22 PO 1503 Albuterol Sulfate 3 ML Q4H PRN 03/14 1115 AC 03/21 INH 0857 Baclofen 40 MG TID 03/13 2200 AC 03/24 PO 0825 Diazepam 20 MG TID 03/14 0250 AC 03/24 PO 0825 Docusate Sodium 100 MG BID PRN 03/13 1815 AC PO Enoxaparin Sodium 40 MG 1900 03/13 1900 AC 03/23 SC 1838 Ferrous Sulfate 300 MG DAILY 03/19 1352 AC 03/24 PO 0826 Guaifenesin 10 ML Q4P PRN 03/16 0930 AC 03/16 PO 1011 Heparin Sodium 100 UNIT ONCE PRN 03/21 0345 AC 03/21 (Porcine) IV 0354 Hydrocortisone 50 MG Q12 03/23 1300 AC 03/24 Sodium Succinate IV 0825 Ipratropium [place] 2.5 ML Q4 HRS NEEDED PRN 03/14 1115 AC INH Levetiracetam 500 MG Q12 03/14 2200 AC 03/24 N/A 1 UNIT IV 0826 Magnesium Oxide 400 MG BID 03/15 1000 AC 03/24 PO 0825 Meropenem 1 GM Q8H 03/17 1000 DC 03/23 IV 03/23 1800 1838 Methyl Salicylate 1 JULIUS Q2P PRN 03/13 1800 AC TOP Midodrine 10 MG 0800,1200,1600 03/21 1200 AC 03/24 PO 0825 Morphine Sulfate 2 MG Q4 PRN 03/13 1800 AC 03/22 IV 1337 Morphine Sulfate 4 MG Q4P PRN 03/13 1800 AC 03/15 IV 1119 Oxymetazoline HCl 2 SPRAY BID PRN 03/15 0745 AC PABLO Pantoprazole Sodium 40 MG DAILY 03/14 1000 AC 03/24 IV 0825 Phenobarbital 32.4 MG TID 03/13 220 AC 03/24 PO 0825 Polyethylene Glycol 17 GM DAILY PRN 03/13 1815 AC PO Antibiotics Antibiotics? none Impression/Plan Impression/Problem List Impression: The patient is a 41-year-old woman with a past medical history of cerebral palsy, seizures, aspiration pneumonia, chronic constipation, incontinence, status post surgery/Vazquez jeffy, status post right ORIF, and history of anoxic brain injury with full assist. She lives at home with her sister who is her cured meats supervisor and also has visiting nurses. She is on a tracheostomy tube but requires connection to a ventilator at nighttime for respiratory support. Plan: Pneumonia: * Continue monitoring in ICU * Her sputum grew ESBL E.coli, Pseudomonas and Citrobacter. All sensitive to Meropenem and she completed her course of antibiotics. * CXR 03/22 showed no evidence of lobar consolidation. * Her Pneumonia was likely due to aspiration and not ventilator assosciated. * Blood cultures have showed no growth. * Rapid flu test was negative * ID recs appreciated. * On nocturnal ventilator and trach mask during the day. Nocturnal Hypotension/Hypoglycemia: * She tends to have hypotensive episodes overnight which responds well to fluid bolus. * She was started on Midodrine 10mg TID without significant improvement. * Her morning cortisol AM yesterday and today are inappropriately low and was started on hydrocortisone 50 mg every 12 hours . No hypoglycemic events were noted overnight * ACTH level pending * Following results of ACTH levels will do a ACTH stimulation test. Tracheostomy site pain /resolved * Patient reportedly had tracheostomy site pain and discomfort with a history of tracheostomy site scarring. * ENT evalutated (03/15) and suggested to tighten slightly tracheostomy tube straps so that it is not anteriorly displaced. Also the granulation tissue around the site is normal. Dysphagia * Patient was reported to have had been having some dysphagia and drooling prior admission. * Swallow evaluation unable to be done as she has poor oropharyngeal swallowing and absent gag reflex. * She will likely need continued tube feeding. Will need to discuss this with family. * Continue Jevity 1.5. Will provide higher calories. However, her blood sugars have been running low at night despite change in her diet. * Nutrition recs appreciated. Anemia: * Her Hb has been low but stable around 9. * Her iron studies show low iron, transferrin saturation, TIBC with normal ferritin and reticulocyte count. * Continue liq Ferrous sulphate daily Cerebral palsy * Continue home medications phenobarbital 32.4 mg TID; Diazepam 20 mg TID; Kepra 500 mg TID DVT prophylaxis * SC lovenox 40 mg daily Diet: Jevity 1.5 Code status: Full code Problem List: 1. Pneumonia 2. Trachea, stenosis Pain Ratin Tomorrow's Labs & Rationales: CBC and ICU bundle Plan DVT/Prophylaxis: mechanical Mendez Lobo MD 03/24/17 1327: Attending MD Review Statement Attending Sign Off Attending Cosign Statement: I have: examined this patient, reviewed [facility] EMR data, discussd w/resident/PA/ CRYSTAL MACHINING COORDINATOR, discussed mgmt plan w/ratna, agreed w/resident/PA/CRYSTAL MACHINING COORDINATOR, amended to note. Other Findings: Patient is managed to maintain her pressure and glucose levels overnight since the initiation of hydrocortisone therapy. She is now off antibiotics and has remained afebrile with a stable WBC. As noted by Dr. Ibanez her serum bicarbonate has been rising and this will be followed up. We're also awaiting her ACTH study to return.
--- NOTE | 2017-03-24 09:29 | PN- Pulmonary ---
Subjective HPI/Critical Care Issues: Patient is comfortable on trach mask. Preparations are being made for home discharge. Of note patient has had progressive increase in serum bicarbonate Objective Current Medications: Current Medications Sig/Martinez Start time Last Medication Dose Route Stop Time Status Admin Acetaminophen 640 MG Q6P PRN 03/16 0930 AC 03/22 PO 1503 Albuterol Sulfate 3 ML Q4H PRN 03/14 1115 AC 03/21 INH 0857 Baclofen 40 MG TID 03/13 2200 AC 03/24 PO 0825 Diazepam 20 MG TID 03/14 0250 AC 03/24 PO 0825 Docusate Sodium 100 MG BID PRN 03/13 1815 AC PO Enoxaparin Sodium 40 MG 1900 03/13 1900 AC 03/23 SC 1838 Ferrous Sulfate 300 MG DAILY 03/19 1352 AC 03/24 PO 0826 Guaifenesin 10 ML Q4P PRN 03/16 0930 AC 03/16 PO 1011 Heparin Sodium 100 UNIT ONCE PRN 03/21 0345 AC 03/21 (Porcine) IV 0354 Hydrocortisone 50 MG Q12 03/23 1300 AC 03/24 Sodium Succinate IV 0825 Ipratropium [place] 2.5 ML Q4 HRS NEEDED PRN 03/14 1115 AC INH Levetiracetam 500 MG Q12 03/14 2200 AC 03/24 N/A 1 UNIT IV 0826 Magnesium Oxide 400 MG BID 03/15 1000 AC 03/24 PO 0825 Meropenem 1 GM Q8H 03/17 1000 DC 03/23 IV 03/23 1800 1838 Methyl Salicylate 1 JULIUS Q2P PRN 03/13 1800 AC TOP Midodrine 10 MG 0800,1200,1600 03/21 1200 AC 03/24 PO 0825 Morphine Sulfate 2 MG Q4 PRN 03/13 1800 AC 03/22 IV 1337 Morphine Sulfate 4 MG Q4P PRN 03/13 1800 AC 03/15 IV 1119 Oxymetazoline HCl 2 SPRAY BID PRN 03/15 0745 AC PABLO Pantoprazole Sodium 40 MG DAILY 03/14 1000 AC 03/24 IV 0825 Phenobarbital 32.4 MG TID 03/13 2200 AC 03/24 PO 0825 Polyethylene Glycol 17 GM DAILY PRN 03/13 1815 AC PO Sodium Chloride 500 ML BOLUS ONE 03/23 0900 DC 03/23 IV 03/23 0959 0957 Vital Signs & I&O Last 24 Hrs of Vitals and I&O: Vital Signs Date Time Temp Pulse Resp B/P B/P Pulse O2 O2 Flow FiO2 Mean Ox Delivery Rate 03/24 0845 30 03/24 0845 97 Trach Mask 30% 03/24 0800 100 Ventilator 30% 03/24 0800 98.3 75 13 102/60 100 Ventilator 30% 03/24 0605 30 03/24 0419 98 Ventilator 30% 03/24 0324 30 03/24 0059 30 03/24 0000 97 Ventilator 30% 03/24 0000 96.5 65 12 96/50 97 Ventilator 30% 03/23 2150 30 03/23 2000 98 Trach Mask 30% 03/23 1941 97 Trach Mask 30% 03/23 1740 97 Trach Mask 30% 03/23 1600 98 Trach Mask 30% 03/23 1600 97.9 75 16 94/66 98 Trach Mask 30% 03/23 1448 97 Trach Mask 30% 03/23 1219 95 Trach Mask 30% 03/23 1200 94 Trach Mask 30% 03/23 1200 97.9 106 22 106/60 96 Trach Mask 30% 03/23 1045 97 Trach Mask 30% 03/23 1025 30 Intake & Output 03/24 1600 03/24 0800 03/24 0000 Intake Total 660 960 Output Total Balance 660 960 Intake, IV 100 Intake, Tube 360 360 Feeding Intake, Tube 300 500 Irrigant Number 1 2 Bowel Movements Oxygen saturation 98% FiO2 0.3 exam for chest shows somewhat diminished breath sounds there are no wheezes or crackles cardiac exam shows regular S1 and S2 without murmurs abdomen is soft Impression/Plan Impression/Plan Impression/Plan: 41-year-old chronically ventilator dependent is awaiting placement her overall status is remained stable now off antibiotics serum bicarbonate is increasing suggesting a possible degree of hypercarbia Recommendations: Continue current ventilator settings. Await final disposition and family training repeat arterial blood gases
--- NOTE | 2017-03-24 11:06 | PN- Endocrinology ---
Assessment/Plan Assessment: 41-year-old woman with a past medical history of cerebral palsy, seizures, aspiration pneumonia, chronic constipation, incontinence, and history of anoxic brain injury with full assist, was admitted for pneumonia and respiratory failure, s/p tracheostomy. She is currently on tube feeling. However, she was hypotensive and hypoglycemia. Her BP and glucose level improved after she received IV fluid bolus and iv glucose. pituitary hormones were done-- am cortisol 6.5, TSH 2.96, free T4 1.02 and TT3 1.56, prolactin 16.9, E2 73.4, FSH 14.3 and LH 16. At around midnight on 03/23/2017, her glucose level was down to 70, cortisol was only 3.2 and insulin was 17 and corresponding glucose level was 104 ( blood sample was collected after D50w was given). However, her cortisol was only 3.2 suggestive of adrenal insufficiency. ACTH level is still pending. Patient was started on Hydrocortisone 50 mg iv every 12 hours. Her FSGs were 130 , 107 and 172. Her BP has been relatively stable-- 94-102/50-66. Plan: 1. decrease Hydrocortisone to 25 mg iv every 12 hours today; 2. continue monitoring FSGs and vital signs. will follow. Subjective Subjective: Patient is non verbal. Objective Last 24 Hrs of Vital Signs/I&O Vital Signs Date Time Temp Pulse Resp B/P B/P Pulse O2 O2 Flow FiO2 Mean Ox Delivery Rate 03/24 0845 30 03/24 0845 97 Trach Mask 30% 03/24 0800 100 Ventilator 30% 03/24 0800 98.3 75 13 102/60 100 Ventilator 30% 03/24 0605 30 03/24 0419 98 Ventilator 30% 03/24 0324 30 03/24 0059 30 03/24 0000 97 Ventilator 30% 03/24 0000 96.5 65 12 96/50 97 Ventilator 30% 03/23 2150 30 03/23 2000 98 Trach Mask 30% 03/23 1941 97 Trach Mask 30% 03/23 1740 97 Trach Mask 30% 03/23 1600 98 Trach Mask 30% 03/23 1600 97.9 75 16 94/66 98 Trach Mask 30% 03/23 1448 97 Trach Mask 30% 03/23 1219 95 Trach Mask 30% 03/23 1200 94 Trach Mask 30% 03/23 1200 97.9 106 22 106/60 96 Trach Mask 30% Intake & Output 03/24 1600 03/24 0800 03/24 0000 Intake Total 660 960 Output Total Balance 660 960 Intake, IV 100 Intake, Tube 360 360 Feeding Intake, Tube 300 500 Irrigant Number 1 2 Bowel Movements Results Pertinent Lab/Dexter Results: Laboratory Tests 03/24 0445 Chemistry Sodium (137 - 145 mmol/L) 139 Potassium (3.5 - 5.1 mmol/L) 4.2 Chloride (98 - 107 mmol/L) 92 L Carbon Dioxide (22 - 30 mmol/L) 39 H Anion Gap (5 - 16) 7 BUN (7 - 17 mg/dL) 13 Creatinine (0.5 - 1.0 mg/dL) 0.2 L Estimated GFR (>60 ml/min) > 60 Glucose (65 - 99 mg/dL) 124 H Calcium (8.4 - 10.2 mg/dL) 8.2 L Phosphorus (2.5 - 4.5 mg/dL) 2.6 Magnesium (1.6 - 2.3 mg/dL) 2.5 H Total Bilirubin (0.2 - 1.3 mg/dL) 0.1 L AST (14 - 36 U/L) 24 ALT (9 - 52 U/L) 22 Albumin (3.5 - 5.0 g/dL) 3.1 L Hematology CBC w Diff NO MAN DIFF REQ WBC (4.8 - 10.8 /CUMM) 6.0 RBC (4.20 - 5.40 /CUMM) 3.38 L Hgb (12.0 - 16.0 G/DL) 9.1 L Hct (37 - 47 %) 27.7 L MCV (81.0 - 99.0 FL) 81.9 MCH (27.0 - 31.0 PG) 26.8 L MCHC (33.0 - 37.0 G/DL) 32.8 L RDW (11.5 - 14.5 %) 16.5 H Plt Count (130 - 400 /CUMM) 364 MPV (7.4 - 10.4 FL) 9.0 Gran % (42.2 - 75.2 %) 66.3 Lymphocytes % (20.5 - 51.1 %) 27.1 Monocytes % (1.7 - 9.3 %) 5.7 Eosinophils % (0 - 5 %) 0.2 Basophils % (0.0 - 2.0 %) 0.7 Absolute Granulocytes (1.4 - 6.5 /CUMM) 4.0 Absolute Lymphocytes (1.2 - 3.4 /CUMM) 1.6 Absolute Monocytes (0.10 - 0.60 /CUMM) 0.3 Absolute Eosinophils (0.0 - 0.7 /CUMM) 0 Absolute Basophils (0.0 - 0.2 /CUMM) 0
[2017-03-24 12:00] VITALS: BP 96/70
[2017-03-24 16:00] VITALS: BP 98/66
[2017-03-24 23:57] VITALS: BP 90/60
[2017-03-25 04:58] LABS: ABSOLUTE BASOPHIL COUNT 0.1 /CUMM (0.0-0.2); ABSOLUTE EOSINOPHIL COUNT 0 /CUMM (0.0-0.7); ABSOLUTE GRANULOCYTE CT 11.4 /CUMM (1.4-6.5); ABSOLUTE MONOCYTE COUNT 0.4 /CUMM (0.10-0.60); BASOPHIL % 0.6 % (0.0-2.0); EOSINOPHIL % 0 % (0-5); GRANULOCYTE % 81.9 % (42.2-75.2); HEMATOCRIT 27.6 % (37-47); MEAN CORPUSCULAR HGB 26.6 PG (27.0-31.0); MEAN CORPUSCULAR HGB CONC 32.8 G/DL (33.0-37.0); PLATELET COUNT 411 /CUMM (130-400); RBC DISTRIBUTION WIDTH 16.7 % (11.5-14.5)
[2017-03-25 05:06] LABS: WHITE BLOOD CELL COUNT 13.9 /CUMM (4.8-10.8)
--- NOTE | 2017-03-25 07:01 | PN- Resident CRCU ---
Brenda CRUZ,Yoko 03/25/17 0700: Subjective HPI/CRCU Issues: Pneumonia Respiratory distress off ventilator tracheostomy 24 Hour Events: No acute events overnight. Patient was previously noted to have nocturnal hypoglycemia/hypotension which has responded well to hydrocortisone. She does have an elevated white count today which could be explained by steroids. Patient was seen and examined. Currently on trach mask. No acute distress. Objective Vital Signs & I&O Last 8 Hrs of Vitals and I&O: . Exam General Appearance: no apparent distress, alert, awake, comfortable Head: atraumatic, normal appearance Respiratory: chest non-tender, wheezing Cardiovascular: regular rate/rhythm Gastrointestinal: soft, non-tender Extremities: normal inspection, no edema Cranial Nerves: normal hearing Skin: intact Skin Temp/Moisture Exam: Warm/Dry Sepsis Skin Exam (color): Normal for Ethnicity Weaning Parameters NIF: 19 Minute Volume: 4.8 Resp rate: 22 Vt: 223 Heart Rate: 80 Weaning Schedule Start Time: 0845 Minute Volume: 4.5 Resp Rate: 27 Vt: 200 Heart Rate: 75 Current Medications: Current Medications Sig/Martinez Start time Last Medication Dose Route Stop Time Status Admin Acetaminophen 640 MG Q6P PRN 03/16 0930 AC 03/22 PO 1503 Albuterol Sulfate 3 ML Q4H PRN 03/14 1115 AC 03/21 INH 0857 Baclofen 40 MG TID 03/13 220 AC 03/24 PO 2133 Diazepam 20 MG .STK-MED ONE 03/24 2127 DC PO 03/24 2128 Diazepam 20 MG TID 03/14 0250 AC 03/24 PO 2132 Docusate Sodium 100 MG BID PRN 03/13 1815 AC PO Enoxaparin Sodium 40 MG 1900 03/13 1900 AC 03/24 SC 1859 Ferrous Sulfate 300 MG DAILY 03/19 1352 AC 03/24 PO 0826 Guaifenesin 10 ML Q4P PRN 03/16 0930 AC 03/16 PO 1011 Heparin Sodium 100 UNIT ONCE PRN 03/21 0345 AC 03/21 (Porcine) IV 0354 Hydrocortisone 25 MG Q12 03/24 2200 AC 03/24 Sodium Succinate IV 2133 Hydrocortisone 50 MG Q12 03/23 1300 DC 03/24 Sodium Succinate IV 0825 Ipratropium [place] 2.5 ML Q4 HRS NEEDED PRN 03/14 1115 AC INH Levetiracetam 500 MG Q12 03/14 2200 AC 03/24 N/A 1 UNIT IV 2133 Magnesium Oxide 400 MG BID 03/15 1000 DC 03/24 PO 2134 Methyl Salicylate 1 JULIUS Q2P PRN 03/13 1800 AC TOP Midodrine 7.5 MG 0800,1200,1600 03/25 0800 AC 03/25 PO 0802 Midodrine 10 MG 0800,1200,1600 03/21 1200 DC 03/24 PO 1635 Morphine Sulfate 2 MG Q4 PRN 03/13 1800 AC 03/22 IV 1337 Morphine Sulfate 4 MG Q4P PRN 03/13 1800 AC 03/15 IV 1119 Oxymetazoline HCl 2 SPRAY BID PRN 03/15 0745 AC PABLO Pantoprazole Sodium 40 MG DAILY 03/14 1000 AC 03/24 IV 0825 Phenobarbital 32.4 MG TID 03/13 2200 AC 03/24 PO 2131 Polyethylene Glycol 17 GM DAILY PRN 03/13 1815 AC PO Impression/Plan Impression/Problem List Impression: The patient is a 41-year-old woman with a past medical history of cerebral palsy, seizures, aspiration pneumonia, chronic constipation, incontinence, status post surgery/Vazquez jeffy, status post right ORIF, and history of anoxic brain injury with full assist. She lives at home with her sister who is her trimmer and reinforcer and also has visiting nurses. She is on a tracheostomy tube but requires connection to a ventilator at nighttime for respiratory support. Plan: Pneumonia: * Continue monitoring in ICU * Her sputum grew ESBL E.coli, Pseudomonas and Citrobacter. All sensitive to Meropenem. * CXR 03/22 showed no evidence of lobar consolidation. * Her Pneumonia was likely due to aspiration and not ventilator assosciated. * Blood cultures have showed no growth. * Rapid flu test was negative * Discontinue Meropenem today. * ID recs appreciated. * On nocturnal ventilator and trach mask during the day. Adrenal Insufficiency: * She tends to have hypotensive episodes overnight which responds well to fluid bolus. * Her morning cortisol AM was found be inappropriately low. * ACTH level pending * Following results of ACTH levels may do a ACTH stimulation test. * For now will keep her on PO Hydrocortisone twice a day. She has responded well to it. Midodrine can be tapered off. Tracheostomy site pain /resolved * Patient reportedly had tracheostomy site pain and discomfort with a history of tracheostomy site scarring. * ENT evalutated (03/15) and suggested to tighten slightly tracheostomy tube straps so that it is not anteriorly displaced. Also the granulation tissue around the site is normal. Dysphagia * Patient was reported to have had been having some dysphagia and drooling prior admission. * Swallow evaluation unable to be done as she has poor oropharyngeal swallowing and absent gag reflex. * She will likely need continued tube feeding. Will need to discuss this with family. * Continue Jevity 1.5. Will provide higher calories. However, her blood sugars have been running low at night despite change in her diet. * Nutrition recs appreciated. Anemia: * Her Hb has been low but stable around 9. * Her iron studies show low iron, transferrin saturation, TIBC with normal ferritin and reticulocyte count. * Continue liq Ferrous sulphate daily Cerebral palsy * Continue home medications phenobarbital 32.4 mg TID; Diazepam 20 mg TID; Kepra 500 mg TID DVT prophylaxis * SC lovenox 40 mg daily Diet: Jevity 1.5 Code status: Full code Problem List: 1. Cerebral palsy Pain Ratin Tomorrow's Labs & Rationales: CBC, ICU bundle Plan DVT/Prophylaxis: Tomi Orr MD 03/25/17 1119: Attending MD Review Statement Attending Sign Off Attending Cosign Statement: I have: examined this patient, reviewed avalbl EMR data, personally reviewd images, discussd w/resident/PA/PSYCHIATRIC CLINICIAN, discussed mgmt plan w/ratna, discussed mgmt plan w/CM, discussed mgmt plan w/pt, agreed w/resident/PA/PSYCHIATRIC CLINICIAN, amended to note. Other Findings: ITomi M.D. have examined this patient, reviewed available EMR data, personally reviewed images, discussed with resident/PA/PSYCHIATRIC CLINICIAN, discussed management plan with housestaff and nursing staff, discussed managment plan all of healthcare providers, discussed management plan with patient and/or family, agreed with resident/PA/PSYCHIATRIC CLINICIAN. The past history and parts of the chart have been autopopulated. Impression left sided pneumonia, risk factors for mrsa/pseudomonas chronic respiratory failure Improving chest x-ray Her transient hypotension intermittently could be a sign of autonomic dysreflexia fit persists we will consider midodrine addition Plan -f/u ID recommendations -s/p pseudomonas -feeding -skin care -DC planning -TRC/Nebs -endocrinology appreciated for concern of adrenal insufficiency DVT prophylaxis at all times TTS 35 min
[2017-03-25 08:00] VITALS: BP 92/60
--- NOTE | 2017-03-25 08:14 | PN- Endocrinology ---
Assessment/Plan Assessment: 41-year-old woman with a past medical history of cerebral palsy, seizures, aspiration pneumonia, chronic constipation, incontinence, and history of anoxic brain injury with full assist, was admitted for pneumonia and respiratory failure, s/p tracheostomy. She is currently on tube feeling. However, she was hypotensive and hypoglycemia. Her BP and glucose level improved after she received IV fluid bolus and iv glucose. pituitary hormones were done-- am cortisol 6.5, TSH 2.96, free T4 1.02 and TT3 1.56, prolactin 16.9, E2 73.4, FSH 14.3 and LH 16. At around midnight on 03/23/2017, her glucose level was down to 70, cortisol was only 3.2 and insulin was 17 and corresponding glucose level was 104 ( blood sample was collected after D50w was given). However, her cortisol was only 3.2 suggestive of adrenal insufficiency. ACTH level is still pending. Patient was started on Hydrocortisone 50 mg iv every 12 hours 03/23/2017. Her BP and glucose level were better. Hydrocortisone was decresaed to 25 mg iv every 12 hours. Her BP were 90-102/60-70; her FSGs were 118. 120, 81 and 135. Plan: continue Hydrocortisone 25 mg iv every 12 hours for now; consider cutting down on midodrine; continue monitoring BP and glucose level. will follow. Subjective Subjective: Patient is nonverbal. Objective Last 24 Hrs of Vital Signs/I&O Vital Signs Date Time Temp Pulse Resp B/P B/P Pulse O2 O2 Flow FiO2 Mean Ox Delivery Rate 03/25 0346 99 Ventilator 3.0L 03/24 2356 99 Ventilator 3.0L 03/24 2356 97.0 76 18 90/60 99 Ventilator 3.0L 03/24 2227 3 03/24 2000 100 Trach Mask 30% 03/24 1915 98 Trach Mask 30% 03/24 1600 99 Trach Mask 30% 03/24 1600 97.1 84 21 98/66 99 Trach Mask 30% 03/24 1446 96 Trach Mask 30% 03/24 1200 99 Trach Mask 30% 03/24 1200 97.2 69 23 96/70 99 Trach Mask 30% 03/24 0845 30 03/24 0845 97 Trach Mask 30% Intake & Output 03/25 1600 03/25 0800 03/25 0000 Intake Total 660 960 Output Total Balance 660 960 Intake, IV 100 Intake, Tube 360 360 Feeding Intake, Tube 300 500 Irrigant Number 1 Bowel Movements Results Pertinent Lab/Dexter Results: Laboratory Tests 03/25 0430 Chemistry Sodium (137 - 145 mmol/L) 141 Potassium (3.5 - 5.1 mmol/L) 4.4 Chloride (98 - 107 mmol/L) 95 L Carbon Dioxide (22 - 30 mmol/L) 35 H Anion Gap (5 - 16) 11 BUN (7 - 17 mg/dL) 15 Creatinine (0.5 - 1.0 mg/dL) 0.2 L Estimated GFR (>60 ml/min) > 60 Glucose (65 - 99 mg/dL) 123 H Calcium (8.4 - 10.2 mg/dL) 8.4 Phosphorus (2.5 - 4.5 mg/dL) 2.9 Magnesium (1.6 - 2.3 mg/dL) 2.4 H Total Bilirubin (0.2 - 1.3 mg/dL) 0.1 L AST (14 - 36 U/L) 37 H ALT (9 - 52 U/L) 35 Albumin (3.5 - 5.0 g/dL) 3.2 L Hematology CBC w Diff NO MAN DIFF REQ WBC (4.8 - 10.8 /CUMM) 13.9 H RBC (4.20 - 5.40 /CUMM) 3.40 L Hgb (12.0 - 16.0 G/DL) 9.0 L Hct (37 - 47 %) 27.6 L MCV (81.0 - 99.0 FL) 81.0 MCH (27.0 - 31.0 PG) 26.6 L MCHC (33.0 - 37.0 G/DL) 32.8 L RDW (11.5 - 14.5 %) 16.7 H Plt Count (130 - 400 /CUMM) 411 H MPV (7.4 - 10.4 FL) 9.0 Gran % (42.2 - 75.2 %) 81.9 H Lymphocytes % (20.5 - 51.1 %) 14.3 L Monocytes % (1.7 - 9.3 %) 3.2 Eosinophils % (0 - 5 %) 0 Basophils % (0.0 - 2.0 %) 0.6 Absolute Granulocytes (1.4 - 6.5 /CUMM) 11.4 H Absolute Lymphocytes (1.2 - 3.4 /CUMM) 2.0 Absolute Monocytes (0.10 - 0.60 /CUMM) 0.4 Absolute Eosinophils (0.0 - 0.7 /CUMM) 0 Absolute Basophils (0.0 - 0.2 /CUMM) 0.1
--- NOTE | 2017-03-25 10:53 | PN- Infect Dx ---
Subjective Subjective: Afebrile on steroids. She does not express any complaints. Objective Last 24 Hrs of Vital Signs/I&O Vital Signs Date Time Temp Pulse Resp B/P B/P Pulse O2 O2 Flow FiO2 Mean Ox Delivery Rate 03/25 0824 3 03/25 0800 100 Ventilator 3.0L 03/25 08 96.7 55 12 92/60 100 Ventilator 3.0L 03/25 0346 99 Ventilator 3.0L 03/24 2357 99 Ventilator 3.0L 03/24 2357 97.0 76 18 90/60 99 Ventilator 3.0L 03/24 2227 3 03/24 2000 100 Trach Mask 30% 03/24 1915 98 Trach Mask 30% 03/24 1600 99 Trach Mask 30% 03/24 1600 97.1 84 21 98/66 99 Trach Mask 30% 03/24 1446 96 Trach Mask 30% 03/24 1200 99 Trach Mask 30% 03/24 1200 97.2 69 23 96/70 99 Trach Mask 30% Intake & Output 03/25 1600 03/25 0800 03/25 0000 Intake Total 660 960 Output Total Balance 660 960 Intake, IV 100 Intake, Tube 360 360 Feeding Intake, Tube 300 500 Irrigant Number 1 Bowel Movements Physical Exam Other Physical Findings: She is awake and alert on a trach mask in no acute distress Lungs bilateral rhonchi Heart regular rhythm with no murmur Abdomen is soft, nontender with positive bowel sounds Extremities no cyanosis, clubbing or edema Results Last 24 Hours of Lab Results: Laboratory Tests 03/25 03/24 0430 1455 Blood Gas pH (7.35 - 7.45 PH) 7.42 pCO2 (35 - 45 TORR) 56 H pO2 (80 - 100 TORR) 125 H HCO3 (21 - 28 MEQ/L) 36 H ABG O2 Sat (Measured) (>96.0 %) 98.0 Carboxyhemoglobin (1.5 - 5.0 %) 0.3 L O2 Concentration % 30 O2 Delivery Method TM Chemistry Sodium (137 - 145 mmol/L) 141 Potassium (3.5 - 5.1 mmol/L) 4.4 Chloride (98 - 107 mmol/L) 95 L Carbon Dioxide (22 - 30 mmol/L) 35 H Anion Gap (5 - 16) 11 BUN (7 - 17 mg/dL) 15 Creatinine (0.5 - 1.0 mg/dL) 0.2 L Estimated GFR (>60 ml/min) > 60 Glucose (65 - 99 mg/dL) 123 H Calcium (8.4 - 10.2 mg/dL) 8.4 Phosphorus (2.5 - 4.5 mg/dL) 2.9 Magnesium (1.6 - 2.3 mg/dL) 2.4 H Total Bilirubin (0.2 - 1.3 mg/dL) 0.1 L AST (14 - 36 U/L) 37 H ALT (9 - 52 U/L) 35 Albumin (3.5 - 5.0 g/dL) 3.2 L Hematology CBC w Diff NO MAN DIFF REQ WBC (4.8 - 10.8 /CUMM) 13.9 H RBC (4.20 - 5.40 /CUMM) 3.40 L Hgb (12.0 - 16.0 G/DL) 9.0 L Hct (37 - 47 %) 27.6 L MCV (81.0 - 99.0 FL) 81.0 MCH (27.0 - 31.0 PG) 26.6 L MCHC (33.0 - 37.0 G/DL) 32.8 L RDW (11.5 - 14.5 %) 16.7 H Plt Count (130 - 400 /CUMM) 411 H MPV (7.4 - 10.4 FL) 9.0 Gran % (42.2 - 75.2 %) 81.9 H Lymphocytes % (20.5 - 51.1 %) 14.3 L Monocytes % (1.7 - 9.3 %) 3.2 Eosinophils % (0 - 5 %) 0 Basophils % (0.0 - 2.0 %) 0.6 Absolute Granulocytes (1.4 - 6.5 /CUMM) 11.4 H Absolute Lymphocytes (1.2 - 3.4 /CUMM) 2.0 Absolute Monocytes (0.10 - 0.60 /CUMM) 0.4 Absolute Eosinophils (0.0 - 0.7 /CUMM) 0 Absolute Basophils (0.0 - 0.2 /CUMM) 0.1 Miscellaneous Phlebotomy Draw Site LEFT RADIAL Last 24 Hours of Dexter Results: No new cultures Assessment/Plan Impression: Stable, with her respiratory status apparently back to her baseline, only requiring the ventilator at night. She has been started on Hydrocortisone for relative adrenal insufficiency, which is felt to explain her hypoglycemic and hypotensive episodes. She remains afebrile (on steroids) with her white blood cell count now elevated, presumably secondary to the steroids, now off antibiotics after one week of Meropenem for presumed pneumonia secondary to multiple gram-negative rods, including ESBL producing Escherichia coli, Pseudomonas and Citrobacter. Suggestion: 1. Continue to follow off antibiotics Will no longer follow at this time, but please call with any questions
--- NOTE | 2017-03-25 11:05 | PN- Att Addend ---
Attending Addendum Attending Brief Note No major issues, is stable, no fever and no major changes on physical. Was switched to feeding tube meds from IV iron start disposition plans and talk to the family regarding to avoid by mouth intake. Intake & Output 03/25 1600 03/25 0400 03/24 1600 03/24 0400 03/23 1600 03/23 0400 Intake Total 301 832 6134 960 2470 620 Output Total Balance 395 246 5925 960 2470 620 Intake, IV 100 089 666 8188 110 Intake, Oral 0 Intake, Other 360 Intake, Tube 360 360 625 360 410 510 Feeding Intake, Tube 300 500 524 500 550 Irrigant Number 1 3 2 1 Bowel Movements Current Medications Sig/Martinez Start time Last Medication Dose Route Stop Time Status Admin Acetaminophen 640 MG Q6P PRN 03/16 0930 03/22 PO 1503 Albuterol Sulfate 3 ML Q4H PRN 03/14 1115 AC 03/21 INH 0857 Baclofen 40 MG TID 03/13 220 AC 03/25 PO 0940 Diazepam 20 MG .STK-MED ONE 03/24 2127 DC PO 03/24 2128 Diazepam 20 MG TID 03/14 0250 03/25 PO 0940 Docusate Sodium 100 MG BID PRN 03/13 1815 AC PO Enoxaparin Sodium 40 MG 1900 03/13 1900 03/24 SC 1859 Ferrous Sulfate 300 MG DAILY 03/19 1352 AC 03/25 PO 0947 Guaifenesin 10 ML Q4P PRN 03/16 0930 03/16 PO 1011 Heparin Sodium 100 UNIT ONCE PRN 03/21 0345 03/21 (Porcine) IV 0354 Hydrocortisone 25 MG Q12 03/24 2199 AC 03/25 Sodium Succinate IV 0939 Ipratropium [place] 2.5 ML Q4 HRS NEEDED PRN 03/14 1115 AC INH Levetiracetam 500 MG Q12 03/14 220 AC 03/25 N/A 1 UNIT IV 0939 Magnesium Oxide 400 MG BID 03/15 1000 [place] 03/24 PO 2134 Methyl Salicylate 1 JULIUS Q2P PRN 03/13 1800 AC TOP Midodrine 7.5 MG 0800,1200,1600 03/25 0800 AC 03/25 PO 0802 Midodrine 10 MG 0800,1200,1600 03/21 1200 DC 03/24 PO 1635 Morphine Sulfate 2 MG Q4 PRN 03/13 1800 AC 03/22 IV 1337 Morphine Sulfate 4 MG Q4P PRN 03/13 1800 AC 03/15 IV 1119 Oxymetazoline HCl 2 SPRAY BID PRN 03/15 0745 AC PABLO Pantoprazole Sodium 40 MG DAILY 03/14 1000 AC 03/25 IV 0939 Phenobarbital 32.4 MG TID 03/13 2200 AC 03/25 PO 0940 Polyethylene Glycol 17 GM DAILY PRN 03/13 1815 AC PO Laboratory Tests 03/25/17 0430: Anion Gap 11, Estimated GFR > 60, Glucose 123 H, Calcium 8.4, Phosphorus 2.9, Magnesium 2.4 H, Total Bilirubin 0.1 L, AST 37 H, ALT 35, Albumin 3.2 L, CBC w Diff NO MAN DIFF REQ, RBC 3.40 L, MCV 81.0, MCH 26.6 L, MCHC 32.8 L, RDW 16.7 H, MPV 9.0, Gran % 81.9 H, Lymphocytes % 14.3 L, Monocytes % 3.2, Eosinophils % 0, Basophils % 0.6, Absolute Granulocytes 11.4 H, Absolute Lymphocytes 2.0, Absolute Monocytes 0.4, Absolute Eosinophils 0, Absolute Basophils 0.1 03/24/17 1455: pH 7.42, pCO2 56 H, pO2 125 H, HCO3 36 H, ABG O2 Sat (Measured) 98.0, Carboxyhemoglobin 0.3 L, O2 Concentration % 30, O2 Delivery Method TM, Phlebotomy Draw Site LEFT RADIAL 03/24/17 6155: Anion Gap 7, Estimated GFR > 60, Glucose 124 H, Calcium 8.2 L, Phosphorus 2.6, Magnesium 2.5 H, Total Bilirubin 0.1 L, AST 24, ALT 22, Albumin 3.1 L, CBC w Diff NO MAN DIFF REQ, RBC 3.38 L, MCV 81.9, MCH 26.8 L, MCHC 32.8 L, RDW 16.5 H, MPV 9.0, Gran % 66.3, Lymphocytes % 27.1, Monocytes % 5.7, Eosinophils % 0.2 , Basophils % 0.7, Absolute Granulocytes 4.0, Absolute Lymphocytes 1.6, Absolute Monocytes 0.3, Absolute Eosinophils 0, Absolute Basophils 0 03/23/17 0435: Anion Gap 8, Estimated GFR > 60, Glucose 93, Calcium 8.2 L, Phosphorus 3.8, Magnesium 2.3, Total Bilirubin 0.1 L, AST 24, ALT 24, Albumin 2.9 L, Cortisol AM Sample 7.7 03/23/17 0435: ACTH Stimulation Pending, CBC w Diff NO MAN DIFF REQ, RBC 3.38 L, MCV 81.9, MCH 26.2 L, MCHC 32.0 L, RDW 16.9 H, MPV 9.0, Gran % 36.5 L, Lymphocytes % 44.3, Monocytes % 11.7 H, Eosinophils % 6.8 H, Basophils % 0.7, Absolute Granulocytes 1.9, Absolute Lymphocytes 2.3, Absolute Monocytes 0.6, Absolute Eosinophils 0.3, Absolute Basophils 0 03/23/17 0018: Glucose 104 H, Insulin Level 17.7, Cortisol AM Sample 3.2 L Vital Signs Date Time Temp Pulse Resp B/P B/P Pulse O2 O2 Flow FiO2 Mean Ox Delivery Rate 03/25 0824 3 03/25 0800 100 Ventilator 3.0L 03/25 0800 96.7 55 12 92/60 100 Ventilator 3.0L 03/25 0346 99 Ventilator 3.0L 03/24 2357 99 Ventilator 3.0L 03/24 2357 97.0 76 18 90/60 99 Ventilator 3.0L 03/24 2227 3 03/24 2000 100 Trach Mask 30% 03/24 1915 98 Trach Mask 30% 03/24 1600 99 Trach Mask 30% 03/24 1600 97.1 84 21 98/66 99 Trach Mask 30% 03/24 1446 96 Trach Mask 30% 03/24 1200 99 Trach Mask 30% 03/24 1200 97.2 69 23 96/70 99 Trach Mask 30%
[2017-03-25 12:00] VITALS: BP 96/64
--- NOTE | 2017-03-25 14:06 | RADIOLOGY REPORT ---
EXAMINATION: CR PORTABLE CHEST CLINICAL INFORMATION: Leukocytosis. Presumptive diagnosis of pneumonia. COMPARISON: Multiple prior chest x-rays, most recent of which is dated 03/22/2017. TECHNIQUE: Portable AP semierect view of the chest was obtained. FINDINGS: The patient is status post tracheostomy. Positioning of the tube cannot be verified due to obscuration by posterior spinal fusion hardware. Right jugular tunneled catheter tip is unchanged in the right atrium. The cardiac mediastinal silhouette is enlarged. Low lung volumes are seen with persistent patchy bibasilar opacities, perhaps increased on the right side compared to the previous exam. No pneumothorax is seen. IMPRESSION: 1. Tracheostomy tube positioning cannot be assessed due to obscuration by spinal fusion hardware. 2. No change in positioning of right jugular tunneled catheter. 3. Increasing patchy parenchymal opacity in the right greater than left base, likely due to pneumonia in the clinical setting provided. Subsegmental atelectasis and small effusion may have a similar appearance. Clinical correlation requested.
[2017-03-25 16:00] VITALS: BP 100/58
[2017-03-26 04:43] LABS: ABSOLUTE BASOPHIL COUNT 0.1 /CUMM (0.0-0.2); ABSOLUTE EOSINOPHIL COUNT 0.1 /CUMM (0.0-0.7); ABSOLUTE GRANULOCYTE CT 9.5 /CUMM (1.4-6.5); ABSOLUTE LYMPH COUNT 3.6 /CUMM (1.2-3.4); ABSOLUTE MONOCYTE COUNT 0.9 /CUMM (0.10-0.60); BASOPHIL % 0.5 % (0.0-2.0); EOSINOPHIL % 0.7 % (0-5); GRANULOCYTE % 67.2 % (42.2-75.2); HEMATOCRIT 27.9 % (37-47); MEAN CORPUSCULAR HGB 26.8 PG (27.0-31.0); MEAN CORPUSCULAR VOLUME 81.4 FL (81.0-99.0); MEAN PLATELET VOLUME 8.9 FL (7.4-10.4); PLATELET COUNT 409 /CUMM (130-400); RBC DISTRIBUTION WIDTH 17.3 % (11.5-14.5); RED BLOOD CELL CT 3.43 /CUMM (4.20-5.40); WHITE BLOOD CELL COUNT 14.2 /CUMM (4.8-10.8)
--- NOTE | 2017-03-26 07:32 | PN- Resident CRCU ---
Brenda CRUZ,[facility] [place] 03/26/17 0732: Subjective HPI/CRCU Issues: Pneumonia Respiratory distress off ventilator tracheostomy 24 Hour Events: Blood pressure dropped again overnight in the low 80s systolics. Received a fluid bolus of 500cc to which she responded well. Objective Vital Signs & I&O Last 8 Hrs of Vitals and I&O: . Exam General Appearance: no apparent distress, alert, awake, intubated Head: atraumatic, normal appearance Respiratory: normal breath sounds, chest non-tender, lungs clear Cardiovascular: regular rate/rhythm Gastrointestinal: soft, non-tender Extremities: no edema Cranial Nerves: normal hearing Skin: intact Skin Temp/Moisture Exam: Warm/Dry Sepsis Skin Exam (color): Normal for Ethnicity Weaning Parameters NIF: 19 Minute Volume: 4.8 Resp rate: 22 Vt: 223 Heart Rate: 80 Weaning Schedule Start Time: 0820 Minute Volume: 4.5 Resp Rate: 27 Vt: 200 Heart Rate: 75 Current Medications: Current Medications Sig/Martinez Start time Last Medication Dose Route Stop Time Status Admin Acetaminophen 640 MG Q6P PRN 03/16 0930 AC 03/22 PO 1503 Albuterol Sulfate 3 ML Q4H PRN 03/14 1115 AC 03/21 INH 0857 Baclofen 40 MG TID 03/13 2200 AC 03/26 PO 0948 Diazepam 20 MG TID 03/14 0250 AC 03/26 PO 0947 Docusate Sodium 100 MG BID PRN 03/13 181 AC PO Enoxaparin Sodium 40 MG 1900 03/13 1900 AC 03/25 SC 1810 Ferrous Sulfate 300 MG DAILY 03/19 1352 AC 03/26 PO 0948 Guaifenesin 10 ML Q4P PRN 03/16 0930 AC 03/16 PO 1011 Heparin Sodium 100 UNIT ONCE PRN 03/21 0345 AC 03/21 (Porcine) IV 0354 Hydrocortisone 10 MG 03/26 2200 AC PO Hydrocortisone 20 MG 0900 03/26 0900 AC 03/26 PO 0948 Hydrocortisone 10 MG 1600 03/25 1600 DC 03/25 PO 1642 Ipratropium [place] 2.5 ML Q4 HRS NEEDED PRN 03/14 1115 AC INH Levetiracetam 500 MG Q12 03/14 2200 AC 03/26 N/A 1 UNIT IV 0948 Methyl Salicylate 1 JULIUS Q2P PRN 03/13 1800 AC TOP Midodrine 10 MG 0800,1200,1600 03/26 1200 AC 03/26 PO 1214 Midodrine 7.5 MG 0800,1200,1600 03/25 0800 DC 03/26 PO 0757 Morphine Sulfate 2 MG Q4 PRN 03/13 1800 AC 03/22 IV 1337 Morphine Sulfate 4 MG Q4P PRN 03/13 1800 AC 03/15 IV 1119 Oxymetazoline HCl 2 SPRAY BID PRN 03/15 0745 AC PABLO Pantoprazole Sodium 40 MG DAILY 03/14 1000 AC 03/26 IV 0948 Phenobarbital 32.4 MG TID 03/13 2200 AC 03/26 PO 0947 Polyethylene Glycol 17 GM DAILY PRN 03/13 1815 AC PO Sodium Chloride 500 ML BOLUS ONE 03/26 0845 DC 03/26 IV 03/26 0944 0830 Sodium Chloride 500 ML BOLUS ONE 03/26 0245 DC IV 03/26 0344 Impression/Plan Impression/Problem List Impression: The patient is a 41-year-old woman with a past medical history of cerebral palsy, seizures, aspiration pneumonia, chronic constipation, incontinence, status post surgery/Vazquez jeffy, status post right ORIF, and history of anoxic brain injury with full assist. She lives at home with her sister who is her silicator and also has visiting nurses. She is on a tracheostomy tube but requires connection to a ventilator at nighttime for respiratory support. Plan: Pneumonia: - resolved * Continue monitoring in ICU * Her sputum grew ESBL E.coli, Pseudomonas and Citrobacter. All sensitive to Meropenem. * CXR 03/22 showed no evidence of lobar consolidation. * Her Pneumonia was likely due to aspiration and not ventilator assosciated. * Blood cultures have showed no growth. * Rapid flu test was negative * Meropenem discontinued. * ID recs appreciated. * On nocturnal ventilator and trach mask during the day. Adrenal Insufficiency: * She tends to have hypotensive episodes overnight which responds well to fluid bolus. * Her morning cortisol AM was found be inappropriately low. * ACTH level pending * Following results of ACTH levels may do a ACTH stimulation test. * For now will keep her on PO Hydrocortisone twice a day. Will adjust her evening dose for later during the day to avoid hypotensive episodes. Tracheostomy site pain /resolved * Patient reportedly had tracheostomy site pain and discomfort with a history of tracheostomy site scarring. * ENT evalutated (03/15) and suggested to tighten slightly tracheostomy tube straps so that it is not anteriorly displaced. Also the granulation tissue around the site is normal. Dysphagia * Patient was reported to have had been having some dysphagia and drooling prior admission. * Swallow evaluation unable to be done as she has poor oropharyngeal swallowing and absent gag reflex. * She will likely need continued tube feeding. Will need to discuss this with family. * Continue Jevity 1.5. Will provide higher calories. However, her blood sugars have been running low at night despite change in her diet. * Nutrition recs appreciated. Anemia: * Her Hb has been low but stable around 9. * Her iron studies show low iron, transferrin saturation, TIBC with normal ferritin and reticulocyte count. * Continue liq Ferrous sulphate daily Cerebral palsy * Continue home medications phenobarbital 32.4 mg TID; Diazepam 20 mg TID; Kepra 500 mg TID DVT prophylaxis * SC lovenox 40 mg daily Diet: Jevity 1.5 Code status: Full code Problem List: 1. Cerebral palsy Pain Ratin Tomorrow's Labs & Rationales: CBC, ICU bundle Plan DVT/Prophylaxis: mechanical Tomi Dupont MD 03/26/17 1218: Attending MD Review Statement Attending Sign Off Attending Cosign Statement: I have: examined this patient, reviewed avalbl EMR data, personally reviewd images, discussd w/resident/PA/COLOR GRINDER, discussed mgmt plan w/ratna, discussed mgmt plan w/CM, discussed mgmt plan w/pt, agreed w/resident/PA/COLOR GRINDER, amended to note. Other Findings: ITomi M.D. have examined this patient, reviewed available EMR data, personally reviewed images, discussed with resident/PA/COLOR GRINDER, discussed management plan with housestaff and nursing staff, discussed managment plan all of healthcare providers, discussed management plan with patient and/or family, agreed with resident/PA/COLOR GRINDER. The past history and parts of the chart have been autopopulated. Impression left sided pneumonia, risk factors for mrsa/pseudomonas chronic respiratory failure Improving chest x-ray Her transient hypotension intermittently could be a sign of autonomic dysreflexia fit persists we will consider midodrine addition Plan -f/u ID recommendations -s/p pseudomonas -feeding -skin care -DC planning -TRC/Nebs -endocrinology appreciated for concern of adrenal insufficiency DVT prophylaxis at all times
[2017-03-26 08:00] VITALS: BP 90/50
--- NOTE | 2017-03-26 08:10 | RADIOLOGY REPORT ---
EXAMINATION: XR PORTABLE CHEST CLINICAL INFORMATION: Intubation question pneumonia. COMPARISON: Portable chest x-ray dated 03/25/2017 at 11:02 AM. TECHNIQUE: Portable frontal view of the chest was obtained. FINDINGS: The spinal fusion hardware is directly overlying the tracheostomy tube, precluding evaluation for positioning of the tip. A right-sided central line is present, the tip is probably within the right atrium, although the patient is rotated and the position may be somewhat distorted. No focal areas of airspace opacification are noted. There is prominence of the pulmonary interstitial markings particularly in the central portions of the bilateral lungs, with low lung volumes bilaterally. However visualization of the left and right hemidiaphragms is improved since the prior study. IMPRESSION: 1. Improved aeration in the right lung base. No new infiltrates are definitely identified, however the study is suboptimal. 2. Tip of the tracheostomy is difficult to determine due to direct overlap of the spinal fusion hardware.
--- NOTE | 2017-03-26 09:39 | PN- Att Addend ---
Attending Addendum Attending Brief Note Still having issues with low blood pressures in the morning endocrine was notified and just at times of the medications hopefully to avoid this low pressures otherwise she is afebrile no new changes on physical I spoke to patient's sister and recommended to keep the patient nothing by mouth and not to feed her to avoid aspirations with no other changes are the blood pressure issues are stable then we can start disposition plans. Intake & Output 03/26 1600 03/26 0400 03/25 0400 03/24 1600 03/24 0400 Intake Total 770 8315 907 3905 960 Output Total Balance 770 1484 022 5755 960 Intake, IV 100 120 100 150 100 Intake, Tube 360 653 360 625 360 Feeding Intake, Tube 310 750 500 524 500 Irrigant Number 1 1 3 2 Bowel Movements Current Medications Sig/Martinez Start time Last Medication Dose Route Stop Time Status Admin Acetaminophen 640 MG Q6P PRN 03/16 0930 03/22 PO 1503 Albuterol Sulfate 3 ML Q4H PRN 03/14 1115 AC 03/21 INH 0857 Baclofen 40 MG TID 03/13 220 AC 03/25 PO 2205 Diazepam 20 MG TID 03/14 0250 AC 03/25 PO 2206 Docusate Sodium 100 MG BID PRN 03/13 181 AC PO Enoxaparin Sodium 40 MG 1900 03/13 1900 AC 03/25 SC 1810 Ferrous Sulfate 300 MG DAILY 03/19 1352 AC 03/25 PO 0947 Guaifenesin 10 ML Q4P PRN 03/16 0930 AC 03/16 PO 1011 Heparin Sodium 100 UNIT ONCE PRN 03/21 0345 AC 03/21 (Porcine) IV 0354 Hydrocortisone 20 MG 0903/26 0900 AC PO Hydrocortisone 10 MG 1600 03/25 1600 03/25 PO 1642 Hydrocortisone 25 MG Q12 03/24 2200 DC 03/25 Sodium Succinate IV 0939 Ipratropium [place] 2.5 ML Q4 HRS NEEDED PRN 03/14 1115 AC INH Levetiracetam 500 MG Q12 03/14 220 AC 03/25 N/A 1 UNIT IV 2208 Methyl Salicylate 1 JULIUS Q2P PRN 03/13 1800 AC TOP Midodrine 7.5 MG 0800,1200,1600 03/25 0800 AC 03/26 PO 0757 Morphine Sulfate 2 MG Q4 PRN 03/13 1800 AC 03/22 IV 1337 Morphine Sulfate 4 MG Q4P PRN 03/13 1800 AC 03/15 IV 1119 Oxymetazoline HCl 2 SPRAY BID PRN 03/15 0745 AC PABLO Pantoprazole Sodium 40 MG DAILY 03/14 1000 AC 03/25 IV 0939 Phenobarbital 32.4 MG TID 03/13 2200 AC 03/25 PO 2203 Polyethylene Glycol 17 GM DAILY PRN 03/13 1815 AC PO Sodium Chloride 500 ML BOLUS ONE 03/26 0845 AC 03/26 IV 03/26 0944 0830 Sodium Chloride 500 ML BOLUS ONE 03/26 0245 DC IV 03/26 0344 Laboratory Tests 03/26/17 0700: pH 7.46 H, pCO2 48 H, pO2 115 H, HCO3 34 H, ABG O2 Sat (Measured) 98.0, P-50 (Temp Corrected) Y, Carboxyhemoglobin 0.3 L, O2 Concentration % 3 LPM, Temperature 96.8 L, Respiration Rate 12, O2 Delivery Method HOME VENT, Vent Mode AC, Expiratory Pressure 5, Tidal Volume 330, Phlebotomy Draw Site RIGHT RADIAL 03/26/17 2415: Anion Gap 10, Estimated GFR > 60, Glucose 96, Calcium 8.5, Phosphorus 3.5, Magnesium 2.3, Total Bilirubin < 0.1 L, AST 38 H, ALT 37, Albumin 3.2 L, CBC w Diff MAN DIFF ORDERED, RBC 3.43 L, MCV 81.4, MCH 26.8 L, MCHC 33.0, RDW 17.3 H, MPV 8.9, Gran % 67.2, Lymphocytes % 25.5, Monocytes % 6.1, Eosinophils % 0.7 , Basophils % 0.5, Absolute Granulocytes 9.5 H, Segmented Neutrophils 60, Absolute Lymphocytes 3.6 H, Lymphocytes 31, Monocytes 7, Absolute Monocytes 0.9 H, Eosinophils 2, Absolute Eosinophils 0.1, Absolute Basophils 0.1, Platelet Estimate INCREASED, Polychromasia 1+, Poikilocytosis 2+, Ovalocytes 1+, Stomatocytes 1+, Fld Total RBCs Counted 100 03/25/17 0430: Anion Gap 11, Estimated GFR > 60, Glucose 123 H, Calcium 8.4, Phosphorus 2.9, Magnesium 2.4 H, Total Bilirubin 0.1 L, AST 37 H, ALT 35, Albumin 3.2 L, CBC w Diff NO MAN DIFF REQ, RBC 3.40 L, MCV 81.0, MCH 26.6 L, MCHC 32.8 L, RDW 16.7 H, MPV 9.0, Gran % 81.9 H, Lymphocytes % 14.3 L, Monocytes % 3.2, Eosinophils % 0, Basophils % 0.6, Absolute Granulocytes 11.4 H, Absolute Lymphocytes 2.0, Absolute Monocytes 0.4, Absolute Eosinophils 0, Absolute Basophils 0.1 03/24/17 1455: pH 7.42, pCO2 56 H, pO2 125 H, HCO3 36 H, ABG O2 Sat (Measured) 98.0, Carboxyhemoglobin 0.3 L, O2 Concentration % 30, O2 Delivery Method TM, Phlebotomy Draw Site LEFT RADIAL 03/24/17 0445: Anion Gap 7, Estimated GFR > 60, Glucose 124 H, Calcium 8.2 L, Phosphorus 2.6, Magnesium 2.5 H, Total Bilirubin 0.1 L, AST 24, ALT 22, Albumin 3.1 L, CBC w Diff NO MAN DIFF REQ, RBC 3.38 L, MCV 81.9, MCH 26.8 L, MCHC 32.8 L, RDW 16.5 H, MPV 9.0, Gran % 66.3, Lymphocytes % 27.1, Monocytes % 5.7, Eosinophils % 0.2 , Basophils % 0.7, Absolute Granulocytes 4.0, Absolute Lymphocytes 1.6, Absolute Monocytes 0.3, Absolute Eosinophils 0, Absolute Basophils 0 Vital Signs Date Time Temp Pulse Resp B/P B/P Pulse O2 O2 Flow FiO2 Mean Ox Delivery Rate 03/26 0705 3 03/26 0448 99 Ventilator 3.0L 03/26 0040 3 03/25 2329 95 Ventilator 3.0L 03/25 2232 98 Ventilator 3.0L 03/25 2229 95 Trach Mask 28% 03/25 1600 97.9 85 24 100/58 97 Trach Mask 28% 03/25 1600 97 Trach Mask 28% 03/25 1359 99 Trach Mask 28% 03/25 1200 93 Trach Mask 28% 03/25 1200 97.2 65 10 96/64 93 Trach Mask 28%
--- NOTE | 2017-03-26 11:28 | PN- Endocrinology ---
Assessment/Plan Assessment: 41-year-old woman with a past medical history of cerebral palsy, seizures, aspiration pneumonia, chronic constipation, incontinence, and history of anoxic brain injury with full assist, was admitted for pneumonia and respiratory failure, s/p tracheostomy. She is currently on tube feeling. However, she was hypotensive and hypoglycemia. Her BP and glucose level improved after she received IV fluid bolus and iv glucose. pituitary hormones were done-- am cortisol 6.5, TSH 2.96, free T4 1.02 and TT3 1.56, prolactin 16.9, E2 73.4, FSH 14.3 and LH 16. At around midnight on 03/23/2017, her glucose level was down to 70, cortisol was only 3.2 and insulin was 17 and corresponding glucose level was 104 ( blood sample was collected after D50w was given). However, her cortisol was only 3.2 suggestive of adrenal insufficiency. ACTH level is still pending. Patient was started on Hydrocortisone 50 mg iv every 12 hours 03/23/2017. Her BP and glucose level were better. Hydrocortisone was decresaed to 25 mg iv every 12 hours. And then hydrocortisone was further decreased to 20 mg po daily at 8 am and 10 mg at 4 pm. But her BP was low again last night. Plan: change Hydrocortisone to 20 mg at 8 am and 10 mg at 10 pm today; continue monitoring glucose and BP. will follow. Subjective Subjective: Patient is non-verbal. Objective Last 24 Hrs of Vital Signs/I&O Vital Signs Date Time Temp Pulse Resp B/P B/P Pulse O2 O2 Flow FiO2 Mean Ox Delivery Rate 03/26 0940 3 03/26 0800 100 Ventilator 3.0L 03/26 0800 96.7 64 24 90/50 100 Ventilator 3.0L 03/26 0705 3 03/26 0448 99 Ventilator 3.0L 03/26 0040 3 03/25 2329 95 Ventilator 3.0L 03/25 2233 98 Ventilator 3.0L 03/25 2230 95 Trach Mask 28% 03/25 1600 97.9 85 24 100/58 97 Trach Mask 28% 03/25 1600 97 Trach Mask 28% 03/25 1359 99 Trach Mask 28% 03/25 1200 93 Trach Mask 28% 03/25 1200 97.2 65 10 96/64 93 Trach Mask 28% Intake & Output 03/26 1600 03/26 0800 03/26 0000 Intake Total 770 Output Total Balance 770 Intake, IV 100 Intake, Tube 360 Feeding Intake, Tube 310 Irrigant Number 1 Bowel Movements Results Pertinent Lab/Dexter Results: Laboratory Tests 03/26 03/26 0700 0415 Blood Gas pH (7.35 - 7.45 PH) 7.46 H pCO2 (35 - 45 TORR) 48 H pO2 (80 - 100 TORR) 115 H HCO3 (21 - 28 MEQ/L) 34 H ABG O2 Sat (Measured) (>96.0 %) 98.0 P-50 (Temp Corrected) Y Carboxyhemoglobin (1.5 - 5.0 %) 0.3 L O2 Concentration % 3 LPM Temperature (97.0 - 100.0 FARH) 96.8 L Respiration Rate (BPM) 12 O2 Delivery Method HOME VENT Vent Mode AC Expiratory Pressure (CMH2O/P) 5 Tidal Volume (CC) 330 Chemistry Sodium (137 - 145 mmol/L) 140 Potassium (3.5 - 5.1 mmol/L) 3.9 Chloride (98 - 107 mmol/L) 96 L Carbon Dioxide (22 - 30 mmol/L) 33 H Anion Gap (5 - 16) 10 BUN (7 - 17 mg/dL) 13 Creatinine (0.5 - 1.0 mg/dL) 0.3 L Estimated GFR (>60 ml/min) > 60 Glucose (65 - 99 mg/dL) 96 Calcium (8.4 - 10.2 mg/dL) 8.5 Phosphorus (2.5 - 4.5 mg/dL) 3.5 Magnesium (1.6 - 2.3 mg/dL) 2.3 Total Bilirubin (0.2 - 1.3 mg/dL) < 0.1 L AST (14 - 36 U/L) 38 H ALT (9 - 52 U/L) 37 Albumin (3.5 - 5.0 g/dL) 3.2 L Hematology CBC w Diff MAN DIFF ORDERED WBC (4.8 - 10.8 /CUMM) 14.2 H RBC (4.20 - 5.40 /CUMM) 3.43 L Hgb (12.0 - 16.0 G/DL) 9.2 L Hct (37 - 47 %) 27.9 L MCV (81.0 - 99.0 FL) 81.4 MCH (27.0 - 31.0 PG) 26.8 L MCHC (33.0 - 37.0 G/DL) 33.0 RDW (11.5 - 14.5 %) 17.3 H Plt Count (130 - 400 /CUMM) 409 H MPV (7.4 - 10.4 FL) 8.9 Gran % (42.2 - 75.2 %) 67.2 Lymphocytes % (20.5 - 51.1 %) 25.5 Monocytes % (1.7 - 9.3 %) 6.1 Eosinophils % (0 - 5 %) 0.7 Basophils % (0.0 - 2.0 %) 0.5 Absolute Granulocytes (1.4 - 6.5 /CUMM) 9.5 H Segmented Neutrophils (42.2 - 75.2 %) 60 Absolute Lymphocytes (1.2 - 3.4 /CUMM) 3.6 H Lymphocytes (20.5 - 51.1 %) 31 Monocytes (1.7 - 9.3 %) 7 Absolute Monocytes (0.10 - 0.60 /CUMM) 0.9 H Eosinophils (0 - 5.0 %) 2 Absolute Eosinophils (0.0 - 0.7 /CUMM) 0.1 Absolute Basophils (0.0 - 0.2 /CUMM) 0.1 Platelet Estimate (ADEQUATE) INCREASED Polychromasia 1+ Poikilocytosis 2+ Ovalocytes 1+ Stomatocytes 1+ Miscellaneous Phlebotomy Draw Site RIGHT RADIAL Other Body Source Fld Total RBCs Counted (%) 100
[2017-03-26 12:00] VITALS: BP 110/80
[2017-03-26 16:00] VITALS: BP 108/66
[2017-03-27] VITALS: BP 70/52
[2017-03-27 02:00] VITALS: BP 84/60
[2017-03-27 04:00] VITALS: BP 84/60
[2017-03-27 05:17] LABS: ABSOLUTE BASOPHIL COUNT 0.1 /CUMM (0.0-0.2); ABSOLUTE EOSINOPHIL COUNT 0.2 /CUMM (0.0-0.7); ABSOLUTE GRANULOCYTE CT 8.5 /CUMM (1.4-6.5); ABSOLUTE LYMPH COUNT 2.9 /CUMM (1.2-3.4); ABSOLUTE MONOCYTE COUNT 0.8 /CUMM (0.10-0.60); BASOPHIL % 0.5 % (0.0-2.0); EOSINOPHIL % 1.3 % (0-5); GRANULOCYTE % 68.2 % (42.2-75.2); HEMATOCRIT 25.7 % (37-47); MEAN CORPUSCULAR HGB 26.7 PG (27.0-31.0); MEAN CORPUSCULAR HGB CONC 32.7 G/DL (33.0-37.0); MEAN CORPUSCULAR VOLUME 81.6 FL (81.0-99.0); MEAN PLATELET VOLUME 9.6 FL (7.4-10.4); PLATELET COUNT 360 /CUMM (130-400); RBC DISTRIBUTION WIDTH 16.6 % (11.5-14.5); RED BLOOD CELL CT 3.14 /CUMM (4.20-5.40); WHITE BLOOD CELL COUNT 12.5 /CUMM (4.8-10.8)
--- NOTE | 2017-03-27 07:00 | PN- Resident CRCU ---
Brenda CRUZ,[facility] 03/27/17 0700: Subjective HPI/CRCU Issues: Pneumonia Respiratory distress off ventilator tracheostomy Hypotension 24 Hour Events: Continues to have hypotensive episodes going down as low as 70s systolics. She received 500cc x 3 overnight. She appears to be asymptomatic during these episodes. Her blood sugar levels have been 80 during that time which is acceptable. Will consider adding Fludrocortisone. The Midodrine schedule has been changed so she receives a dose at night. Objective Vital Signs & I&O Last 8 Hrs of Vitals and I&O: . Exam General Appearance: no apparent distress, alert, awake, comfortable Head: atraumatic, normal appearance Neck: tracheostomy Respiratory: normal breath sounds, chest non-tender, no respiratory distress Cardiovascular: regular rate/rhythm Gastrointestinal: soft, non-tender, PEG tube Extremities: no edema Cranial Nerves: normal hearing Skin: intact Skin Temp/Moisture Exam: Warm/Dry Sepsis Skin Exam (color): Normal for Ethnicity Weaning Parameters NIF: 19 Minute Volume: 4.8 Resp rate: 22 Vt: 223 Heart Rate: 80 Weaning Schedule Start Time: 934 Minute Volume: 4.5 Resp Rate: 27 Vt: 200 Heart Rate: 75 Current Medications: Current Medications Sig/Martinez Start time Last Medication Dose Route Stop Time Status Admin Acetaminophen 640 MG Q6P PRN 03/16 0903/22 PO 1503 Albuterol Sulfate 3 ML Q4H PRN 03/14 1115 AC 03/21 INH 0857 Baclofen 40 MG TID 03/13 2200 AC 03/26 PO 2151 Diazepam 20 MG TID 03/14 0250 AC 03/26 PO 2152 Docusate Sodium 100 MG BID PRN 03/13 1815 AC PO Enoxaparin Sodium 40 MG 1900 03/13 1900 AC 03/26 SC 2154 Ferrous Sulfate 300 MG DAILY 03/19 1352 AC 03/26 PO 0948 Fludrocortisone 100 MCG DAILY 03/27 1000 AC Acetate PO Guaifenesin 10 ML Q4P PRN 03/16 09 AC 03/16 PO 1011 Heparin Sodium 100 UNIT ONCE PRN 03/21 0345 AC 03/21 (Porcine) IV 0354 Hydrocortisone 20 MG 03/27 0800 AC 03/27 PO 0836 Hydrocortisone 10 MG 03/26 2200 AC 03/26 PO 2154 Hydrocortisone 20 MG 03/26 0900 DC 03/26 PO 0948 Hydrocortisone 10 MG 1600 03/25 1600 DC 03/25 PO 1642 Ipratropium [place] 2.5 ML Q4 HRS NEEDED PRN 03/14 1115 AC INH Levetiracetam 500 MG Q12 03/14 2200 AC 03/26 N/A 1 UNIT IV 2151 Methyl Salicylate 1 JULIUS Q2P PRN 03/13 1800 AC TOP Midodrine 10 MG 0800 1400 2200 03/27 0800 AC 03/27 PO 0836 Midodrine 10 MG 0800,1200,1600 03/26 1200 DC 03/26 PO 1727 Midodrine 7.5 MG 0800,1200,1600 03/25 0800 DC 03/26 PO 0757 Morphine Sulfate 2 MG Q4 PRN 03/13 1800 AC 03/22 IV 1337 Morphine Sulfate 4 MG Q4P PRN 03/13 1800 AC 03/15 IV 1119 Oxymetazoline HCl 2 SPRAY BID PRN 03/15 0745 AC PABLO Pantoprazole Sodium 40 MG DAILY 03/14 1000 AC 03/26 IV 0948 Phenobarbital 32.4 MG TID 03/13 2200 AC 03/26 PO 2153 Polyethylene Glycol 17 GM DAILY PRN 03/13 1815 AC PO Sodium Chloride 500 ML BOLUS ONE 03/27 0315 DC 03/27 IV 03/27 0414 0331 Sodium Chloride 500 ML BOLUS ONE 03/27 0145 DC 03/27 IV 03/27 0244 0015 Sodium Chloride 500 ML BOLUS ONE 03/27 0145 DC 03/27 IV 03/27 0244 0115 Sodium Chloride 500 ML BOLUS ONE 03/26 0845 DC 03/26 IV 03/26 0944 0830 Impression/Plan Impression/Problem List Impression: The patient is a 41-year-old woman with a past medical history of cerebral palsy, seizures, aspiration pneumonia, chronic constipation, incontinence, status post surgery/Vazquez jeffy, status post right ORIF, and history of anoxic brain injury with full assist. She lives at home with her sister who is her health center assistant and also has visiting nurses. She is on a tracheostomy tube but requires connection to a ventilator at nighttime for respiratory support. Plan: Pneumonia: - resolved * Continue monitoring in ICU * Her sputum grew ESBL E.coli, Pseudomonas and Citrobacter. All sensitive to Meropenem. * CXR 03/22 showed no evidence of lobar consolidation. * Her Pneumonia was likely due to aspiration and not ventilator assosciated. * Blood cultures have showed no growth. * Rapid flu test was negative * Meropenem discontinued. * ID recs appreciated. * On nocturnal ventilator and trach mask during the day. Adrenal Insufficiency: * She tends to have hypotensive episodes overnight which responds well to fluid bolus. * Her morning cortisol AM was found be inappropriately low. * ACTH level 15 * She is on PO Hydrocortisone BID. 20mg at 0800 and 10mg at 2200. * Added Fludrocortisone 100mcg today. * She can be discharged today. She will have to follow Dr Odonnell as an outpatient. This has been discussed with her sister who is her health center assistant. Tracheostomy site pain /resolved * Patient reportedly had tracheostomy site pain and discomfort with a history of tracheostomy site scarring. * ENT evalutated (03/15) and suggested to tighten slightly tracheostomy tube straps so that it is not anteriorly displaced. Also the granulation tissue around the site is normal. Dysphagia * Patient was reported to have had been having some dysphagia and drooling prior admission. * Swallow evaluation unable to be done as she has poor oropharyngeal swallowing and absent gag reflex. * She will likely need continued tube feeding. This has been discussed with her family. * Continue Jevity 1.5. * She can have a repeat swallow evaluation later as an outpatient. * Nutrition recs appreciated. Anemia: * Her Hb has been low but stable around 9. * Her iron studies show low iron, transferrin saturation, TIBC with normal ferritin and reticulocyte count. * Continue liq Ferrous sulphate daily Cerebral palsy * Continue home medications phenobarbital 32.4 mg TID; Diazepam 20 mg TID; Kepra 500 mg TID DVT prophylaxis * SC lovenox 40 mg daily Diet: Jevity 1.5 Code status: Full code Problem List: 1. Cerebral palsy Pain Ratin Tomorrow's Labs & Rationales: CBC, ICU bundle Plan DVT/Prophylaxis: Tomi Orr MD 03/27/17 1118: Attending MD Review Statement Attending Sign Off Attending Cosign Statement: I have: examined this patient, reviewed aval EMR data, personally reviewd images, discussd w/resident/PA/PHYSICAL SCIENCES INSTRUCTOR, discussed mgmt plan w/ratna, discussed mgmt plan w/CM, discussed mgmt plan w/pt, agreed w/resident/PA/PHYSICAL SCIENCES INSTRUCTOR, amended to note. Other Findings: Tomi Silverio M.D. have examined this patient, reviewed available EMR data, personally reviewed images, discussed with resident/PA/PHYSICAL SCIENCES INSTRUCTOR, discussed management plan with housestaff and nursing staff, discussed managment plan all of healthcare providers, discussed management plan with patient and/or family, agreed with resident/PA/PHYSICAL SCIENCES INSTRUCTOR. The past history and parts of the chart have been autopopulated. Impression left sided pneumonia, risk factors for mrsa/pseudomonas chronic respiratory failure Improving chest x-ray Her transient hypotension intermittently could be a sign of autonomic dysreflexia fit persists we will consider midodrine addition Plan -f/u ID recommendations -s/p pseudomonas -feeding -skin care -DC planning -TRC/Nebs -endocrinology appreciated for concern of adrenal insufficiency DVT prophylaxis at all times
[2017-03-27 08:00] VITALS: BP 96/60
--- NOTE | 2017-03-27 08:01 | PN- Endocrinology ---
Assessment/Plan Assessment: 41-year-old woman with a past medical history of cerebral palsy, seizures, aspiration pneumonia, chronic constipation, incontinence, and history of anoxic brain injury with full assist, was admitted for pneumonia and respiratory failure, s/p tracheostomy. She is currently on tube feeling. However, she was hypotensive and hypoglycemia. Her BP and glucose level improved after she received IV fluid bolus and iv glucose. pituitary hormones were done-- am cortisol 6.5, TSH 2.96, free T4 1.02 and TT3 1.56, prolactin 16.9, E2 73.4, FSH 14.3 and LH 16. At around midnight on 03/23/2017, her glucose level was down to 70, cortisol was only 3.2 and insulin was 17 and corresponding glucose level was 104 ( blood sample was collected after D50w was given). However, her cortisol was only 3.2 suggestive of adrenal insufficiency. ACTH level is still pending. Patient was started on Hydrocortisone 50 mg iv every 12 hours 03/23/2017. Her BP and glucose level were better. Hydrocortisone was decresaed to 25 mg iv every 12 hours. And then hydrocortisone was further decreased to 20 mg po daily at 8 am and 10 mg at 10 pm. But her BP was low again last night with lowest BP 70/52. Her FSGs were 88, 87, 81 and 98. Plan: 1. continue the current midodrine; 2. continue the current Hydrocortisone 20 mg at 8 am and 10 mg at 10 pm; 3. add Florinef 0.1 mg daily; 4. continue monitoring vital signs and FSGs. will follow. Subjective Subjective: patient is nonverbal. Objective Last 24 Hrs of Vital Signs/I&O Vital Signs Date Time Temp Pulse Resp B/P B/P Pulse O2 O2 Flow FiO2 Mean Ox Delivery Rate 03/27 0400 96 Ventilator 3.0L 03/27 0400 97.8 58 10 84/60 96 Ventilator 3.0L 03/27 0200 84/60 03/27 0156 3 03/27 0000 96.9 52 12 70/52 97 Ventilator 3.0L 03/27 0000 97 Ventilator 3.0L 03/26 1730 93 Trach Mask 03/26 1600 97.9 94 18 108/66 98 Trach Mask 30% 03/26 1349 95 Trach Mask 30% 03/26 1200 99 Trach Mask 30% 03/26 1200 97.5 78 18 110/80 98 Trach Mask 30% 03/26 0940 3 Intake & Output 03/27 1600 03/27 0800 03/27 0000 Intake Total 2194 920 Output Total Balance 2194 920 Intake, IV 1500 100 Intake, Tube 394 360 Feeding Intake, Tube 300 460 Irrigant Number 1 Bowel Movements Results Pertinent Lab/Dexter Results: Laboratory Tests 03/27 0430 Chemistry Sodium (137 - 145 mmol/L) 140 Potassium (3.5 - 5.1 mmol/L) 4.3 Chloride (98 - 107 mmol/L) 100 Carbon Dioxide (22 - 30 mmol/L) 31 H Anion Gap (5 - 16) 9 BUN (7 - 17 mg/dL) 11 Creatinine (0.5 - 1.0 mg/dL) 0.2 L Estimated GFR (>60 ml/min) > 60 Glucose (65 - 99 mg/dL) 90 Calcium (8.4 - 10.2 mg/dL) 7.9 L Phosphorus (2.5 - 4.5 mg/dL) 4.3 Magnesium (1.6 - 2.3 mg/dL) 2.1 Total Bilirubin (0.2 - 1.3 mg/dL) < 0.1 L AST (14 - 36 U/L) 34 ALT (9 - 52 U/L) 38 Albumin (3.5 - 5.0 g/dL) 2.8 L Hematology CBC w Diff NO MAN DIFF REQ WBC (4.8 - 10.8 /CUMM) 12.5 H RBC (4.20 - 5.40 /CUMM) 3.14 L Hgb (12.0 - 16.0 G/DL) 8.4 L Hct (37 - 47 %) 25.7 L MCV (81.0 - 99.0 FL) 81.6 MCH (27.0 - 31.0 PG) 26.7 L MCHC (33.0 - 37.0 G/DL) 32.7 L RDW (11.5 - 14.5 %) 16.6 H Plt Count (130 - 400 /CUMM) 360 MPV (7.4 - 10.4 FL) 9.6 Gran % (42.2 - 75.2 %) 68.2 Lymphocytes % (20.5 - 51.1 %) 23.4 Monocytes % (1.7 - 9.3 %) 6.6 Eosinophils % (0 - 5 %) 1.3 Basophils % (0.0 - 2.0 %) 0.5 Absolute Granulocytes (1.4 - 6.5 /CUMM) 8.5 H Absolute Lymphocytes (1.2 - 3.4 /CUMM) 2.9 Absolute Monocytes (0.10 - 0.60 /CUMM) 0.8 H Absolute Eosinophils (0.0 - 0.7 /CUMM) 0.2 Absolute Basophils (0.0 - 0.2 /CUMM) 0.1
--- NOTE | 2017-03-27 09:31 | Patient Discharge Instructions ---
Discharge Instructions General Discharge Information You were seen/treated for: Aspiration Pneumonia Hypotension Special Instructions: Please follow up with your PCP and Slip Operator within one week of discharge. Diet Continue normal diet: No Recommended Diet: Tube feeding with Jevity 1.5. Additional DIET Information: Please feed via PEG tube with a goal rate of 45ml/hr, continuous along with free water 150ml flushes every 4 hours. Activity Full Activity/No Limits: No Activity Self Limited: Yes Acute Coronary Syndrome Inclusion Criteria At DC or during hospital stay patient has or had the following: ACS DIAGNOSIS No Discharge Core Measures Meds if any: Prescribed or Continued at Discharge Meds if any: NOT Prescribed or Continued at Discharge Congestive Heart Failure Inclusion Criteria At DC or during hospital stay patient has or had the following: CHF DIAGNOSIS No Discharge Core Measures Meds if any: Prescribed or Continued at Discharge Meds if any: NOT Prescribed or Continued at Discharge Cerebrovascular accident Inclusion Criteria At DC or during hospital stay patient has or had the following: CVA/TIA Diagnosis No Discharge Core Measures Meds if any: Prescribed or Continued at Discharge Meds if any: NOT Prescribed or Continued at Discharge Venous thromboembolism Inclusion Criteria VTE Diagnosis No VTE Type NONE VTE Confirmed by (Test) NONE Discharge Core Measures - Per Current guidelines, there needs to be overlap - treatment for the first 5 days of Warfarin therapy. - If discharged on Warfarin prior to 5 days of - overlap therapy, the patient will need to be - assessed for post discharge needs including - *Post discharge parental anticoagulation - *Warfarin and/or parental anticoagulation education - *Follow up date to check INR post discharge At least 5 days overlap therapy as Inpatient No Meds if any: Prescribed or Continued at Discharge Note: Overlap Therapy is Warfarin and Anticoagulant Meds if any: NOT Prescribed or Continued at Discharge
--- NOTE | 2017-03-27 09:37 | PN- Att Addend ---
Attending Addendum Attending Brief Note Patient in bed, still having trouble with her blood pressure being low early in the morning. Dr. galaviz came to reevaluate the patient and adjusted the medication. Hopefully her blood pressure will stabilize and be be able to start disposition plans. Intake & Output 03/27 1600 03/27 0400 03/26 1600 03/26 0400 03/25 1600 03/25 0400 Intake Total 2194 920 0560 644 6804 960 Output Total Balance 2194 920 8562 988 3306 960 Intake, IV 1500 100 650 100 120 100 Intake, Tube 394 360 340 360 653 360 Feeding Intake, Tube 300 460 325 310 750 500 Irrigant Number 1 2 1 1 Bowel Movements Current Medications Sig/Martinez Start time Last Medication Dose Route Stop Time Status Admin Acetaminophen 640 MG Q6P PRN 03/16 929 AC 03/22 PO 1503 Albuterol Sulfate 3 ML Q4H PRN 03/14 1115 AC 03/21 INH 0857 Baclofen 40 MG TID 03/13 2200 03/27 PO 0902 Diazepam 20 MG TID 03/14 0250 AC 03/27 PO 0902 Docusate Sodium 100 MG BID PRN 03/13 1815 AC PO Enoxaparin Sodium 40 MG 1900 03/13 1900 AC 03/26 SC 2154 Ferrous Sulfate 300 MG DAILY 03/19 1352 AC 03/27 PO 0903 Fludrocortisone 100 MCG DAILY 03/27 1000 AC Acetate PO Guaifenesin 10 ML Q4P PRN 03/16 0930 AC 03/16 PO 1011 Heparin Sodium 100 UNIT ONCE PRN 03/21 0345 AC 03/21 (Porcine) IV 0354 Hydrocortisone 20 MG 0803/27 0800 AC 03/27 PO 0836 Hydrocortisone 10 MG 2200 03/26 2200 AC 03/26 PO 2154 Hydrocortisone 20 MG 0903/26 0900 DC 03/26 PO 0948 Hydrocortisone 10 MG 1600 03/25 1600 DC 03/25 PO 1642 Ipratropium [place] 2.5 ML Q4 HRS NEEDED PRN 03/14 1115 AC INH Levetiracetam 500 MG Q12 03/14 2200 AC 03/27 N/A 1 UNIT IV 0902 Methyl Salicylate 1 JULIUS Q2P PRN 03/13 1800 AC TOP Midodrine 10 MG 0800 1400 22003/27 0800 AC 03/27 PO 0836 Midodrine 10 MG 0800,1200,1600 03/26 1200 DC 03/26 PO 1727 Midodrine 7.5 MG 0800,1200,1600 03/25 0800 DC 03/26 PO 0757 Morphine Sulfate 2 MG Q4 PRN 03/13 1800 AC 03/22 IV 1337 Morphine Sulfate 4 MG Q4P PRN 03/13 1800 AC 03/15 IV 1119 Oxymetazoline HCl 2 SPRAY BID PRN 03/15 0745 AC PABLO Pantoprazole Sodium 40 MG DAILY 03/14 1000 AC 03/27 IV 0902 Phenobarbital 32.4 MG TID 03/13 2200 AC 03/27 PO 0902 Polyethylene Glycol 17 GM DAILY PRN 03/13 1815 AC PO Sodium Chloride 500 ML BOLUS ONE 03/27 0315 DC 03/27 IV 03/27 0414 0331 Sodium Chloride 500 ML BOLUS ONE 03/27 0145 DC 03/27 IV 03/27 0244 0015 Sodium Chloride 500 ML BOLUS ONE 03/27 0145 DC 03/27 IV 03/27 0244 0115 Sodium Chloride 500 ML BOLUS ONE 03/26 0845 DC 03/26 IV 03/26 0944 0830 Laboratory Tests 03/27/17 0430: Anion Gap 9, Estimated GFR > 60, Glucose 90, Calcium 7.9 L, Phosphorus 4.3, Magnesium 2.1, Total Bilirubin < 0.1 L, AST 34, ALT 38, Albumin 2.8 L, CBC w Diff NO MAN DIFF REQ, RBC 3.14 L, MCV 81.6, MCH 26.7 L, MCHC 32.7 L, RDW 16.6 H, MPV 9.6, Gran % 68.2, Lymphocytes % 23.4, Monocytes % 6.6, Eosinophils % 1.3 , Basophils % 0.5, Absolute Granulocytes 8.5 H, Absolute Lymphocytes 2.9, Absolute Monocytes 0.8 H, Absolute Eosinophils 0.2, Absolute Basophils 0.1 03/26/17 0700: pH 7.46 H, pCO2 48 H, pO2 115 H, HCO3 34 H, ABG O2 Sat (Measured) 98.0, P-50 (Temp Corrected) Y, Carboxyhemoglobin 0.3 L, O2 Concentration % 3 LPM, Temperature 96.8 L, Respiration Rate 12, O2 Delivery Method HOME VENT, Vent Mode AC, Expiratory Pressure 5, Tidal Volume 330, Phlebotomy Draw Site RIGHT RADIAL 03/26/17 0415: Anion Gap 10, Estimated GFR > 60, Glucose 96, Calcium 8.5, Phosphorus 3.5, Magnesium 2.3, Total Bilirubin < 0.1 L, AST 38 H, ALT 37, Albumin 3.2 L, CBC w Diff MAN DIFF ORDERED, RBC 3.43 L, MCV 81.4, MCH 26.8 L, MCHC 33.0, RDW 17.3 H, MPV 8.9, Gran % 67.2, Lymphocytes % 25.5, Monocytes % 6.1, Eosinophils % 0.7 , Basophils % 0.5, Absolute Granulocytes 9.5 H, Segmented Neutrophils 60, Absolute Lymphocytes 3.6 H, Lymphocytes 31, Monocytes 7, Absolute Monocytes 0.9 H, Eosinophils 2, Absolute Eosinophils 0.1, Absolute Basophils 0.1, Platelet Estimate INCREASED, Polychromasia 1+, Poikilocytosis 2+, Ovalocytes 1+, Stomatocytes 1+, Fld Total RBCs Counted 100 03/25/17 0430: Anion Gap 11, Estimated GFR > 60, Glucose 123 H, Calcium 8.4, Phosphorus 2.9, Magnesium 2.4 H, Total Bilirubin 0.1 L, AST 37 H, ALT 35, Albumin 3.2 L, CBC w Diff NO MAN DIFF REQ, RBC 3.40 L, MCV 81.0, MCH 26.6 L, MCHC 32.8 L, RDW 16.7 H, MPV 9.0, Gran % 81.9 H, Lymphocytes % 14.3 L, Monocytes % 3.2, Eosinophils % 0, Basophils % 0.6, Absolute Granulocytes 11.4 H, Absolute Lymphocytes 2.0, Absolute Monocytes 0.4, Absolute Eosinophils 0, Absolute Basophils 0.1 03/24/17 1455: pH 7.42, pCO2 56 H, pO2 125 H, HCO3 36 H, ABG O2 Sat (Measured) 98.0, Carboxyhemoglobin 0.3 L, O2 Concentration % 30, O2 Delivery Method TM, Phlebotomy Draw Site LEFT RADIAL Vital Signs Date Time Temp Pulse Resp B/P B/P Pulse O2 O2 Flow FiO2 Mean Ox Delivery Rate 03/27 824 3 03/27 824 95 Trach Mask 28% 03/27 799 99 Trach Mask 30% 01/31 0800 96.8 77 12 96/60 99 Trach Mask 30% 03/27 0400 96 Ventilator 3.0L 03/27 0400 97.8 58 10 84/60 96 Ventilator 3.0L 03/27 0200 84/60 03/27 0156 3 03/27 0000 96.9 52 12 70/52 97 Ventilator 3.0L 03/27 0000 97 Ventilator 3.0L 03/26 1730 93 Trach Mask 03/26 1600 97.9 94 18 108/66 98 Trach Mask 30% 03/26 1349 95 Trach Mask 30% 03/26 1200 99 Trach Mask 30% 03/26 1200 97.5 78 18 110/80 98 Trach Mask 30% 03/26 0940 3
[2017-03-27] MEDS ORDERED: MIDODRINE HCL10 M1 PEG (09:51)
[2017-03-27] MEDS ORDERED: FLUDROCORTISON0.1 M1 PEG (09:51)
[2017-03-27] MEDS ORDERED: HYDROCORTISONE20 M1 PEG (09:51)
[2017-03-27] MEDS ORDERED: HYDROCORTISONE10 M2 PEG (09:51)
[2017-03-27] MEDS ORDERED: FERROUS SU220 MG/51 PO (10:11)
--- NOTE | 2017-03-27 10:25 | Discharge Summary ---
Visit Information Visit Dates Admission Date: 03/13/17 Discharge Date: 03-29-17 Hospital Course Course Attending Physician: Mahesh Galvan MD Primary Care Physician: Mahesh Galvan MD Hospital Course: Ms Ramos is a 41 year old woman with a past medical history of cerebral palsy, seizures, aspiration pneumonia, chronic constipation, incontinence, status post surgery/Vazquez jeffy, status post right ORIF, and history of anoxic brain injury with full assist. She is on a tracheostomy tube but requires connection to a ventilator at nighttime for respiratory support. She was brought in to the ED after a 9 day history of intermittent dyspnea associated with facial cyanosis and brief syncopal episodes along with a malodorous tracheostomy aspirate. Also reported to have some pain around her tracheostomy site and intermittent drooling and choking sensations. Below is a list of conditions she was admitted and treated for: Aspiration Pneumonia: Her chest imaging on admission on admission showed concerns of developing infection. She did have an elevated white count. A sputum sample obtained grew ESBL E.coli, Pseudomonas and Citrobacter. A swallow evaluation showed poor gag reflex. She does have a history of aspiration pneumonia and it was believed her current symptoms were due to aspiration. She was started on a week long course of Meropenem. Patient responded well to treatment. Her CXR on 03/22 showed no evidence of consolidation. She was discharged in stable disposition. Adrenal Insufficiency: Routine monitoring in the ICU showed nocturnal episodes of hypotension and hypoglycemia. Her morning cortisol levels were found to be inappropriately low. She likely has secondary adrenal insufficiency. She was started daily Hydrocortisone and Fludrocortisone for control of her symptoms. At the time of discharge, the family was advised to follow with Glass Cleaner Dr Odonnell within one week of discharge. Dysphagia Patient was reported to have been having some dysphagia and drooling prior admission. A Swallow evaluation was attempeted but unable to be done as she has poor oropharyngeal swallowing and poor gag reflex. She is at high risk of aspiration. She should be fed through her PEG tube. She received Jevity 1.5 via PEG tube with a goal rate of 45ml/hr. She can have a repeat swallow evaluation later as an outpatient to determine if her oral diet can be restarted. Anemia: Her Hb is low but has been stable around 9 during the course of her hospital stay. Her iron studies show low iron, transferrin saturation, TIBC with normal ferritin and reticulocyte count. She should continue liq Ferrous sulphate daily administered via PEG tube. Cerebral palsy and History of Seizures: Continued on home medications, phenobarbital 32.4 mg TID; Diazepam 20 mg TID; Kepra 500 mg TID DVT prophylaxis Maintained with SC lovenox 40 mg daily Allergies: Coded Allergies: Penicillins (HIVES 10/18/16) ceftriaxone (HIVES 10/18/16) Significant Procedures: SERVICE DATE: 03/26/17 EXAM TYPE: RAD - XRY-PORTABLE CHEST XRAY FINDINGS: The spinal fusion hardware is directly overlying the tracheostomy tube, precluding evaluation for positioning of the tip. A right-sided central line is present, the tip is probably within the right atrium, although the patient is rotated and the position may be somewhat distorted. No focal areas of airspace opacification are noted. There is prominence of the pulmonary interstitial markings particularly in the central portions of the bilateral lungs, with low lung volumes bilaterally. However visualization of the left and right hemidiaphragms is improved since the prior study. IMPRESSION: 1. Improved aeration in the right lung base. No new infiltrates are definitely identified, however the study is suboptimal. 2. Tip of the tracheostomy is difficult to determine due to direct overlap of the spinal fusion hardware. SERVICE DATE: 03/13/170 EXAM TYPE: RAD - XRY-PORTABLE CHEST XRAY FINDINGS: There is asymmetric opacification of the entire left lung present with air bronchogram in the retrocardiac region and patchy opacification of the left upper and left perihilar lung field. The finding is highly concerning for either asymmetric edema or infection/pneumonia, or combination thereof. The right lung field is well-expanded and appear clear. The cardiac mediastinal silhouette is within normal limits. Specific note is made of a tracheostomy tube and a right-sided Port-A-Cath with its tip seen projecting at the cavoatrial junction, unchanged. Note is also made of Vazquez rods within the visualized part of the thoracic and upper lumbar spine, appear intact. IMPRESSION: Asymmetric airspace opacity involving the left lung field, may represent edema versus infection or combination thereof. SERVICE DATE: 03/13/171354 EXAM TYPE: CAT - CTA CHEST-PULMONARY EMBOLISM FINDINGS: QUALITY OF STUDY/CONTRAST BOLUS: Satisfactory. There is breathing motion which limits study. There is also artifact from the Vazquez rods in the thoracic spine. PULMONARY ARTERIES: No central or segmental pulmonary emboli. THORACIC AORTA: No aneurysm or dissection. LUNG: Low inspiratory effort. This causes crowding of the bronchovascular markings. There is hazy bilateral perihilar airspace disease greater on the left than right. This could be cardiogenic in etiology versus inflammatory or infectious. No air bronchograms. There is a tracheostomy tube present. PLEURA: Small dependent left pleural effusion. MEDIASTINUM: Normal heart size. No pericardial effusion. No hilar or mediastinal lymphadenopathy. No evidence of septal bowing or right heart strain. CHEST WALL/AXILLA: No axillary or internal mammary lymphadenopathy. OSSEOUS STRUCTURES: Vazquez rods in the dorsal spine. UPPER ABDOMEN: Unremarkable. No reflux of contrast into the hepatic veins to suggest elevated right heart pressures. IMPRESSION: 1. Exam limited by low inspiratory effort, breathing motion and Vazquez rods. 2. No evidence of central pulmonary emboli. 3. Bilateral perihilar airspace disease greater on the left than right. This could be inflammatory or infectious in etiology or cardiogenic. There is a small left pleural effusion. Disposition Summary Disposition Principal Diagnosis: Aspiration Pneumonia Secondary Adrenal Insufficiency Additional Diagnosis: Cerebral Palsy Seizures Constipation Discharge Disposition: home health services Discharge Instructions General Discharge Information Code Status: Full Code Patient's Diet: Jevity 1.5 via PEG tube at a goal rate of 45ml/hr. Please flush the PEG tube with 100cc of free water, every 4 hours. Patient's Activity: As tolerated Follow-Up Instructions/Appts: Please follow up with your PCP and tool carrier Dr Odonnell within one week of discharge. Medications at Discharge Discharge Medications: Continue taking these medications: Baclofen (Baclofen) 20 MG TABLET 2 Tablet ORAL THREE TIMES DAILY Qty = 180 Comments: Last Taken:03/29/17 Time: 1030 AM Phenobarbital (Phenobarbital) 32.4 MG TABLET 1 Tablet ORAL TWICE DAILY Qty = 240 Levetiracetam (Levetiracetam) 500 MG TABLET 1 Tablet ORAL THREE TIMES DAILY Qty = 90 Comments: IV FORMAT Last Taken: 03/29/17 Time: 1030 Docusate Sodium (Colace) 100 MG CAPSULE 1 Capsule ORAL TWICE DAILY as needed for STOOL SOFTENER Comments: NOT GIVEN Polyethylene Glycol 3350 (Miralax) 17 GRAM POWD.PACK 1 Packet ORAL DAILY as needed for CONSTIPATION Instructions: dissolve in water Comments: NOT GIVEN Diazepam (Diazepam) 10 MG TABLET 2 Tablet ORAL THREE TIMES DAILY Qty = 180 Comments: Last Taken:03/27/17 Time:0900 Guaifenesin/Pseudoephedrne HCl (Mucinex D ER Tablet) 600 MG-60 MG TAB.ER.12H 1 Tablet ORAL DAILY Comments: NOT GIVEN Phenobarbital (Phenobarbital) 64.8 MG TABLET 1 Tablet ORAL TAKE AT BEDTIME Acetaminophen (Arthritis Pain) 650 MG TABLET.ER 1 Tablet ORAL Q4H as needed for PAIN/TEMP Comments: NOT GIVEN Loratadine (Claritin) 10 MG TABLET 1 Tablet ORAL DAILY as needed for ALLERGIES Comments: NOT GIVEN Ipratropium/Albuterol Sulfate (Iprat-Albut 0.5-3(2.5) MG/3 Ml) 0.5 MG-3 MG (2.5 MG BASE)/3 ML AMPUL.NEB 1 VIAL Inhale through mouth Q4H as needed for RESP. Comments: NOT GIVEN Guaifenesin/Dextromethorphan (Robafen-Dm Syrup) 100 MG-10 MG/5 ML SYRUP 10 Milliliters ORAL EVERY SIX HOURS as needed for COUGH/MUCUS Comments: NOT GIVEN Eucalyptus Oil/Menthol/Camphor (Vicks Vaporub Ointment) 1.2 %-2.6 %-4.7 % OINT...G. 1 Application On the skin THREE TIMES DAILY as needed for COUGH Comments: NOT GIVEN Phenobarbital (Phenobarbital) 32.4 MG TABLET 32.4 Milligram ORAL DAILY @8AM Comments: Last Taken:03/27/17 Time:0900 Start taking the following new medications: Hydrocortisone (Hydrocortisone) 20 MG TABLET 1 Tablet PEG TUBE DAILY @8 AM Qty = 30 No Refills Instructions: . Comments: Last Taken: 03/29/17 Time: 0900 AM Hydrocortisone (Hydrocortisone) 10 MG TABLET 1 Tablet PEG TUBE 2200 Qty = 30 No Refills Instructions: . Comments: Last Taken: 03/28/17 Time: 0919 PM Fludrocortisone Acetate (Fludrocortisone Acetate) 0.1 MG TABLET 1 Tablet PEG TUBE DAILY Qty = 30 No Refills Instructions: . Comments: Last Taken: 03/29/17 Time: 1030 AM Lactose-Reduced Food/Fiber (Jevity 1.5 Bryan Liquid) 0.06 GRAM-1.5 KCAL/ML LIQUID 0 PEG TUBE As Directed Qty = 120 No Refills Comments: Please administer Jevity 1.5 at a goal rate of 45ml/hr for 24 hours per day , continuous infusion along with 150ml of free water flushes every 4 hours. Midodrine HCl (Midodrine HCl) 10 MG TABLET 1 Tablet PEG TUBE THREE TIMES DAILY Qty = 30 No Refills Instructions: . Comments: Last Taken: 03/29/17 Time: 0900 AM Ferrous Sulfate (Ferosul) 300 MG (60 MG IRON)/6.82 ML SOLUTION 300 Milligram PEG TUBE DAILY Qty = 30 No Refills Instructions: . Comments: Last Taken:03/29/17 Time: 1030 AM Copies To: Mandy CRUZ,Gretchen Odonnell MD,Nya
[2017-03-27] MEDS ORDERED: JEVITY 1.5 CAL237 ML PEG (11:26)
[2017-03-27] MEDS ORDERED: FEROSUL300 MG/6.8 PEG (12:10)
[2017-03-27 16:00] VITALS: BP 110/70
[2017-03-28] VITALS: BP 106/68
[2017-03-28 05:11] LABS: ABSOLUTE BASOPHIL COUNT 0.1 /CUMM (0.0-0.2); ABSOLUTE EOSINOPHIL COUNT 0.2 /CUMM (0.0-0.7); ABSOLUTE LYMPH COUNT 2.8 /CUMM (1.2-3.4); BASOPHIL % 0.7 % (0.0-2.0); EOSINOPHIL % 1.9 % (0-5); MEAN CORPUSCULAR HGB 26.8 PG (27.0-31.0); MEAN CORPUSCULAR HGB CONC 32.9 G/DL (33.0-37.0); MEAN CORPUSCULAR VOLUME 81.3 FL (81.0-99.0); MEAN PLATELET VOLUME 9.5 FL (7.4-10.4); PLATELET COUNT 403 /CUMM (130-400); RBC DISTRIBUTION WIDTH 16.6 % (11.5-14.5); RED BLOOD CELL CT 3.32 /CUMM (4.20-5.40); WHITE BLOOD CELL COUNT 11.1 /CUMM (4.8-10.8)
--- NOTE | 2017-03-28 07:11 | PN- Resident CRCU ---
Brenda CRUZ,[place] 03/28/17 0711: Subjective HPI/CRCU Issues: Pneumonia Respiratory distress off ventilator tracheostomy Hypotension 24 Hour Events: No acute events overnight. Objective Vital Signs & I&O Last 8 Hrs of Vitals and I&O: . Exam General Appearance: no apparent distress, alert, awake Head: atraumatic, normal appearance Respiratory: normal breath sounds, chest non-tender Cardiovascular: regular rate/rhythm Gastrointestinal: soft, non-tender Extremities: no edema Cranial Nerves: normal hearing Skin: intact Skin Temp/Moisture Exam: Warm/Dry Sepsis Skin Exam (color): Normal for Ethnicity Weaning Parameters NIF: 19 Minute Volume: 4.8 Resp rate: 22 Vt: 223 Heart Rate: 80 Weaning Schedule Start Time: 934 Minute Volume: 4.5 Resp Rate: 27 Vt: 200 Heart Rate: 75 Current Medications: Current Medications Sig/Martinez Start time Last Medication Dose Route Stop Time Status Admin Acetaminophen 640 MG Q6P PRN 03/16 0930 AC 03/22 PO 1503 Albuterol Sulfate 3 ML Q4H PRN 03/14 1115 AC 03/21 INH 0857 Baclofen 40 MG TID 03/13 2200 AC 03/27 PO 2156 Diazepam 20 MG TID 03/14 0250 DC 03/27 PO 0902 Docusate Sodium 100 MG BID PRN 03/13 1815 AC PO Enoxaparin Sodium 40 MG 1900 03/13 1900 AC 03/27 SC 1802 Ferrous Sulfate 300 MG DAILY 03/19 1352 AC 03/27 PO 0903 Fludrocortisone 100 MCG DAILY 03/27 1000 AC 03/27 Acetate PO 1432 Guaifenesin 10 ML Q4P PRN 03/16 0930 AC 03/16 PO 1011 Heparin Sodium 100 UNIT ONCE PRN 03/21 0345 AC 03/21 (Porcine) IV 0354 Hydrocortisone 20 MG 0800 03/27 0800 AC 03/28 PO 0805 Hydrocortisone 10 MG 03/26 2200 AC 03/27 PO 2156 Ipratropium [place] 2.5 ML Q4 HRS NEEDED PRN 03/14 1115 AC INH Levetiracetam 500 MG Q12 03/14 2200 AC 03/27 N/A 1 UNIT IV 2156 Methyl Salicylate 1 JULIUS Q2P PRN 03/13 1800 AC TOP Midodrine 10 MG 0800 1400 22003/27 0800 AC 03/28 PO 0805 Morphine Sulfate 2 MG Q4 PRN 03/13 1800 DC 03/22 IV 1337 Morphine Sulfate 4 MG Q4P PRN 03/13 1800 DC 03/15 IV 1119 Oxymetazoline HCl 2 SPRAY BID PRN 03/15 0745 AC PABLO Pantoprazole Sodium 40 MG DAILY 03/14 1000 AC 03/27 IV 0902 Phenobarbital 32.4 MG TID 03/13 2200 DC 03/27 PO 0902 Polyethylene Glycol 17 GM DAILY PRN 03/13 1815 AC PO Impression/Plan Impression/Problem List Impression: The patient is a 41-year-old woman with a past medical history of cerebral palsy, seizures, aspiration pneumonia, chronic constipation, incontinence, status post surgery/Vazquez jeffy, status post right ORIF, and history of anoxic brain injury with full assist. She lives at home with her sister who is her setter off and also has visiting nurses. She is on a tracheostomy tube but requires connection to a ventilator at nighttime for respiratory support. Plan: Pneumonia: - resolved * Stable to be discharged home. * Her sputum grew ESBL E.coli, Pseudomonas and Citrobacter. All sensitive to Meropenem. * CXR 03/22 showed no evidence of lobar consolidation. * Her Pneumonia was likely due to aspiration and not ventilator assosciated. * Blood cultures have showed no growth. * Rapid flu test was negative * Meropenem discontinued. * ID recs appreciated. * On nocturnal ventilator and trach mask during the day. She is currently on 28% Oxygen. She can likely even go on a ventimask during transportation. Adrenal Insufficiency: * She tends to have hypotensive episodes overnight which responds well to fluid bolus. * Her morning cortisol AM was found be inappropriately low. * ACTH level 15 * She is on PO Hydrocortisone BID. 20mg at 0800 and 10mg at 2200. * Continue Fludrocortisone 100mcg daily. * She can be discharged today. She will have to follow Dr Odonnell as an outpatient. This has been discussed with her sister who is her setter off. Tracheostomy site pain /resolved * Patient reportedly had tracheostomy site pain and discomfort with a history of tracheostomy site scarring. * ENT evalutated (03/15) and suggested to tighten slightly tracheostomy tube straps so that it is not anteriorly displaced. Also the granulation tissue around the site is normal. Dysphagia * Patient was reported to have had been having some dysphagia and drooling prior admission. * Swallow evaluation unable to be done as she has poor oropharyngeal swallowing and absent gag reflex. * She will likely need continued tube feeding for at least 3 months. This has been discussed with her family. * Continue Jevity 1.5 continous. Normally one bottle is consumed in a day. * She can have a repeat swallow evaluation later as an outpatient. * Nutrition recs appreciated. Anemia: * Her Hb has been low but stable around 9. * Her iron studies show low iron, transferrin saturation, TIBC with normal ferritin and reticulocyte count. * Continue liq Ferrous sulphate daily Cerebral palsy * Continue home medications phenobarbital 32.4 mg TID; Diazepam 20 mg TID; Kepra 500 mg TID DVT prophylaxis * SC lovenox 40 mg daily Diet: Jevity 1.5 Code status: Full code Problem List: 1. Cerebral palsy Pain Ratin Tomorrow's Labs & Rationales: CBC, ICU bundle Plan DVT/Prophylaxis: mechanical Code Status: Full Code Tomi Dupont MD 03/28/17 1022: Attending MD Review Statement Attending Sign Off Attending Cosign Statement: I have: examined this patient, reviewed avalbl EMR data, personally reviewd images, discussd w/resident/PA/CLINICAL PHARMACY MANAGER, discussed mgmt plan w/ratna, discussed mgmt plan w/CM, discussed mgmt plan w/pt, agreed w/resident/PA/CLINICAL PHARMACY MANAGER, amended to note. Other Findings: Tomi Silverio M.D. have examined this patient, reviewed available EMR data, personally reviewed images, discussed with resident/PA/CLINICAL PHARMACY MANAGER, discussed management plan with housestaff and nursing staff, discussed managment plan all of healthcare providers, discussed management plan with patient and/or family, agreed with resident/PA/CLINICAL PHARMACY MANAGER. The past history and parts of the chart have been autopopulated. Impression left sided pneumonia, risk factors for mrsa/pseudomonas chronic respiratory failure Improving chest x-ray Her transient hypotension intermittently could be a sign of autonomic dysreflexia fit persists we will consider midodrine addition Plan -f/u ID recommendations -s/p pseudomonas -feeding -skin care -DC planning -TRC/Nebs -endocrinology appreciated for concern of adrenal insufficiency DVT prophylaxis at all times
[2017-03-28 08:00] VITALS: BP 112/70
--- NOTE | 2017-03-28 09:00 | PN- Endocrinology ---
Assessment/Plan Assessment: 41-year-old woman with a past medical history of cerebral palsy, seizures, aspiration pneumonia, chronic constipation, incontinence, and history of anoxic brain injury with full assist, was admitted for pneumonia and respiratory failure, s/p tracheostomy. She is currently on tube feeling. However, she was hypotensive and hypoglycemia. Her BP and glucose level improved after she received IV fluid bolus and iv glucose. pituitary hormones were done-- am cortisol 6.5, TSH 2.96, free T4 1.02 and TT3 1.56, prolactin 16.9, E2 73.4, FSH 14.3 and LH 16. At around midnight on 03/23/2017, her glucose level was down to 70, cortisol was only 3.2 and insulin was 17 and corresponding glucose level was 104 ( blood sample was collected after D50w was given). However, her cortisol was only 3.2 suggestive of adrenal insufficiency. ACTH level is still pending. Patient was started on Hydrocortisone 50 mg iv every 12 hours 03/23/2017. Her BP and glucose level were better. Hydrocortisone was decresaed to 25 mg iv every 12 hours. And then hydrocortisone was further decreased to 20 mg po daily at 8 am and 10 mg at 10 pm. But her BP was still low overnight. Florinef 0.1 mg daily was added. Her BP was better 106-110/68-70. Her FSGs were 98, 90, 91 and 89. Plan: continue the current treatment for now. Subjective Subjective: she is non-verbal. Objective Last 24 Hrs of Vital Signs/I&O Vital Signs Date Time Temp Pulse Resp B/P B/P Pulse O2 O2 Flow FiO2 Mean Ox Delivery Rate 03/28 0616 3 03/28 0155 60 03/28 0147 3 03/28 0000 99 Ventilator 3.0L 03/28 0000 97.8 78 20 106/68 99 Ventilator 3.0L 03/27 1600 99 Trach Mask 30% 03/27 1600 98.4 78 20 110/70 99 Trach Mask 30% 03/27 1200 99 Trach Mask 30% 03/27 1138 95 Trach Mask 28% Intake & Output 03/28 1600 03/28 0800 03/28 0000 Intake Total 660 640 Output Total Balance 660 640 Intake, Tube 360 340 Feeding Intake, Tube 300 300 Irrigant Results Pertinent Lab/Dexter Results: Laboratory Tests 03/28 0400 Chemistry Sodium (137 - 145 mmol/L) 139 Potassium (3.5 - 5.1 mmol/L) 4.6 Chloride (98 - 107 mmol/L) 97 L Carbon Dioxide (22 - 30 mmol/L) 32 H Anion Gap (5 - 16) 10 BUN (7 - 17 mg/dL) 10 Creatinine (0.5 - 1.0 mg/dL) 0.3 L Estimated GFR (>60 ml/min) > 60 Glucose (65 - 99 mg/dL) 101 H Calcium (8.4 - 10.2 mg/dL) 8.7 Phosphorus (2.5 - 4.5 mg/dL) 4.6 H Magnesium (1.6 - 2.3 mg/dL) 2.1 Total Bilirubin (0.2 - 1.3 mg/dL) < 0.1 L AST (14 - 36 U/L) 34 ALT (9 - 52 U/L) 42 Albumin (3.5 - 5.0 g/dL) 3.2 L Hematology CBC w Diff NO MAN DIFF REQ WBC (4.8 - 10.8 /CUMM) 11.1 H RBC (4.20 - 5.40 /CUMM) 3.32 L Hgb (12.0 - 16.0 G/DL) 8.9 L Hct (37 - 47 %) 27.0 L MCV (81.0 - 99.0 FL) 81.3 MCH (27.0 - 31.0 PG) 26.8 L MCHC (33.0 - 37.0 G/DL) 32.9 L RDW (11.5 - 14.5 %) 16.6 H Plt Count (130 - 400 /CUMM) 403 H MPV (7.4 - 10.4 FL) 9.5 Gran % (42.2 - 75.2 %) 63.0 Lymphocytes % (20.5 - 51.1 %) 25.7 Monocytes % (1.7 - 9.3 %) 8.7 Eosinophils % (0 - 5 %) 1.9 Basophils % (0.0 - 2.0 %) 0.7 Absolute Granulocytes (1.4 - 6.5 /CUMM) 7.0 H Absolute Lymphocytes (1.2 - 3.4 /CUMM) 2.8 Absolute Monocytes (0.10 - 0.60 /CUMM) 1.0 H Absolute Eosinophils (0.0 - 0.7 /CUMM) 0.2 Absolute Basophils (0.0 - 0.2 /CUMM) 0.1
--- NOTE | 2017-03-28 11:01 | PN- Att Addend ---
Attending Addendum Attending Brief Note No major issues with as soon as the feeding prescription is approved by insurance company will be able to discharged patient home with home care visiting nurses. No changes on physical see the CMR discharge summary and W 10. Laboratory Tests 03/28 03/27 0400 0430 Chemistry Sodium (137 - 145 mmol/L) 139 140 Potassium (3.5 - 5.1 mmol/L) 4.6 4.3 Chloride (98 - 107 mmol/L) 97 L 100 Carbon Dioxide (22 - 30 mmol/L) 32 H 31 H Anion Gap (5 - 16) 10 9 BUN (7 - 17 mg/dL) 10 11 Creatinine (0.5 - 1.0 mg/dL) 0.3 L 0.2 L Estimated GFR (>60 ml/min) > 60 > 60 Glucose (65 - 99 mg/dL) 101 H 90 Calcium (8.4 - 10.2 mg/dL) 8.7 7.9 L Phosphorus (2.5 - 4.5 mg/dL) 4.6 H 4.3 Magnesium (1.6 - 2.3 mg/dL) 2.1 2.1 Total Bilirubin (0.2 - 1.3 mg/dL) < 0.1 L < 0.1 L AST (14 - 36 U/L) 34 34 ALT (9 - 52 U/L) 42 38 Albumin (3.5 - 5.0 g/dL) 3.2 L 2.8 L Hematology CBC w Diff NO MAN DIFF REQ NO MAN DIFF REQ WBC (4.8 - 10.8 /CUMM) 11.1 H 12.5 H RBC (4.20 - 5.40 /CUMM) 3.32 L 3.14 L Hgb (12.0 - 16.0 G/DL) 8.9 L 8.4 L Hct (37 - 47 %) 27.0 L 25.7 L MCV (81.0 - 99.0 FL) 81.3 81.6 MCH (27.0 - 31.0 PG) 26.8 L 26.7 L MCHC (33.0 - 37.0 G/DL) 32.9 L 32.7 L RDW (11.5 - 14.5 %) 16.6 H 16.6 H Plt Count (130 - 400 /CUMM) 403 H 360 MPV (7.4 - 10.4 FL) 9.5 9.6 Gran % (42.2 - 75.2 %) 63.0 68.2 Lymphocytes % (20.5 - 51.1 %) 25.7 23.4 Monocytes % (1.7 - 9.3 %) 8.7 6.6 Eosinophils % (0 - 5 %) 1.9 1.3 Basophils % (0.0 - 2.0 %) 0.7 0.5 Absolute Granulocytes (1.4 - 6.5 /CUMM) 7.0 H 8.5 H Absolute Lymphocytes (1.2 - 3.4 /CUMM) 2.8 2.9 Absolute Monocytes (0.10 - 0.60 /CUMM) 1.0 H 0.8 H Absolute Eosinophils (0.0 - 0.7 /CUMM) 0.2 0.2 Absolute Basophils (0.0 - 0.2 /CUMM) 0.1 0.1 03/26 03/26 0700 0415 Blood Gas pH (7.35 - 7.45 PH) 7.46 H pCO2 (35 - 45 TORR) 48 H pO2 (80 - 100 TORR) 115 H HCO3 (21 - 28 MEQ/L) 34 H ABG O2 Sat (Measured) (>96.0 %) 98.0 P-50 (Temp Corrected) Y Carboxyhemoglobin (1.5 - 5.0 %) 0.3 L O2 Concentration % 3 LPM Temperature (97.0 - 100.0 FARH) 96.8 L Respiration Rate (BPM) 12 O2 Delivery Method HOME VENT Vent Mode AC Expiratory Pressure (CMH2O/P) 5 Tidal Volume (CC) 330 Chemistry Sodium (137 - 145 mmol/L) 140 Potassium (3.5 - 5.1 mmol/L) 3.9 Chloride (98 - 107 mmol/L) 96 L Carbon Dioxide (22 - 30 mmol/L) 33 H Anion Gap (5 - 16) 10 BUN (7 - 17 mg/dL) 13 Creatinine (0.5 - 1.0 mg/dL) 0.3 L Estimated GFR (>60 ml/min) > 60 Glucose (65 - 99 mg/dL) 96 Calcium (8.4 - 10.2 mg/dL) 8.5 Phosphorus (2.5 - 4.5 mg/dL) 3.5 Magnesium (1.6 - 2.3 mg/dL) 2.3 Total Bilirubin (0.2 - 1.3 mg/dL) < 0.1 L AST (14 - 36 U/L) 38 H ALT (9 - 52 U/L) 37 Albumin (3.5 - 5.0 g/dL) 3.2 L Hematology CBC w Diff MAN DIFF ORDERED WBC (4.8 - 10.8 /CUMM) 14.2 H RBC (4.20 - 5.40 /CUMM) 3.43 L Hgb (12.0 - 16.0 G/DL) 9.2 L Hct (37 - 47 %) 27.9 L MCV (81.0 - 99.0 FL) 81.4 MCH (27.0 - 31.0 PG) 26.8 L MCHC (33.0 - 37.0 G/DL) 33.0 RDW (11.5 - 14.5 %) 17.3 H Plt Count (130 - 400 /CUMM) 409 H MPV (7.4 - 10.4 FL) 8.9 Gran % (42.2 - 75.2 %) 67.2 Lymphocytes % (20.5 - 51.1 %) 25.5 Monocytes % (1.7 - 9.3 %) 6.1 Eosinophils % (0 - 5 %) 0.7 Basophils % (0.0 - 2.0 %) 0.5 Absolute Granulocytes (1.4 - 6.5 /CUMM) 9.5 H Segmented Neutrophils (42.2 - 75.2 %) 60 Absolute Lymphocytes (1.2 - 3.4 /CUMM) 3.6 H Lymphocytes (20.5 - 51.1 %) 31 Monocytes (1.7 - 9.3 %) 7 Absolute Monocytes (0.10 - 0.60 /CUMM) 0.9 H Eosinophils (0 - 5.0 %) 2 Absolute Eosinophils (0.0 - 0.7 /CUMM) 0.1 Absolute Basophils (0.0 - 0.2 /CUMM) 0.1 Platelet Estimate (ADEQUATE) INCREASED Polychromasia 1+ Poikilocytosis 2+ Ovalocytes 1+ Stomatocytes 1+ Miscellaneous Phlebotomy Draw Site RIGHT RADIAL Other Body Source Fld Total RBCs Counted (%) 100 Vital Signs Date Time Temp Pulse Resp B/P B/P Pulse O2 O2 Flow FiO2 Mean Ox Delivery Rate 03/28 0616 3 03/28 0155 60 03/28 0147 3 03/28 0000 99 Ventilator 3.0L 03/28 0000 97.8 78 20 106/68 99 Ventilator 3.0L 03/27 1600 99 Trach Mask 30% 03/27 1600 98.4 78 20 110/70 99 Trach Mask 30% 03/27 1200 99 Trach Mask 30% 03/27 1138 95 Trach Mask 28%
[2017-03-28 16:00] VITALS: BP 118/80
[2017-03-29] VITALS: BP 100/70
[2017-03-29 05:08] LABS: ABSOLUTE BASOPHIL COUNT 0.1 /CUMM (0.0-0.2); ABSOLUTE EOSINOPHIL COUNT 0.2 /CUMM (0.0-0.7); ABSOLUTE GRANULOCYTE CT 9.1 /CUMM (1.4-6.5); ABSOLUTE LYMPH COUNT 3.1 /CUMM (1.2-3.4); ABSOLUTE MONOCYTE COUNT 1.2 /CUMM (0.10-0.60); BASOPHIL % 0.4 % (0.0-2.0); EOSINOPHIL % 1.7 % (0-5); GRANULOCYTE % 66.6 % (42.2-75.2); HEMATOCRIT 28.6 % (37-47); MEAN CORPUSCULAR HGB 26.5 PG (27.0-31.0); MEAN CORPUSCULAR HGB CONC 32.5 G/DL (33.0-37.0); MEAN CORPUSCULAR VOLUME 81.8 FL (81.0-99.0); MEAN PLATELET VOLUME 9.3 FL (7.4-10.4); PLATELET COUNT 408 /CUMM (130-400); RBC DISTRIBUTION WIDTH 16.2 % (11.5-14.5); RED BLOOD CELL CT 3.49 /CUMM (4.20-5.40); WHITE BLOOD CELL COUNT 13.6 /CUMM (4.8-10.8)
[2017-03-29 08:00] VITALS: BP 100/60
--- NOTE | 2017-03-29 08:58 | PN- Resident CRCU ---
[facility] 0857: Subjective HPI/CRCU Issues: Pneumonia Respiratory distress off ventilator tracheostomy Hypotension 24 Hour Events: No acute events overnight. Objective Vital Signs & I&O Last 8 Hrs of Vitals and I&O: . Exam General Appearance: well developed/nourished, no apparent distress, alert, awake , comfortable Head: atraumatic, normal appearance Respiratory: normal breath sounds, chest non-tender, lungs clear Cardiovascular: regular rate/rhythm Gastrointestinal: soft, non-tender Extremities: no edema Cranial Nerves: normal hearing Skin: intact Skin Temp/Moisture Exam: Warm/Dry Sepsis Skin Exam (color): Normal for Ethnicity Weaning Parameters NIF: 19 Minute Volume: 4.8 Resp rate: 22 Vt: 223 Heart Rate: 80 Weaning Schedule Start Time: 934 Minute Volume: 4.5 Resp Rate: 27 Vt: 200 Heart Rate: 75 Current Medications: Current Medications Sig/Martinez Start time Last Medication Dose Route Stop Time Status Admin Acetaminophen 640 MG Q6P PRN 03/16 0930 AC 03/22 PO 1503 Albuterol Sulfate 3 ML Q4H PRN 03/14 1115 AC 03/21 INH 0857 Baclofen 40 MG TID 03/13 2200 AC 03/28 PO 2119 Docusate Sodium 100 MG BID PRN 03/13 1815 AC PO Enoxaparin Sodium 40 MG 19003/13 1900 AC 03/28 SC 1820 Ferrous Sulfate 300 MG DAILY 03/19 1352 AC 03/28 PO 1010 Fludrocortisone 100 MCG DAILY 03/27 1000 AC 03/28 Acetate PO 1009 Guaifenesin 10 ML Q4P PRN 03/16 0930 AC 03/16 PO 1011 Heparin Sodium 100 UNIT ONCE PRN 03/21 0345 AC 03/21 (Porcine) IV 0354 Hydrocortisone 20 MG 0800 03/27 0800 AC 03/28 PO 0805 Hydrocortisone 10 MG 03/26 2200 AC 03/28 PO 211 Ipratropium [place] 2.5 ML Q4 HRS NEEDED PRN 03/14 1115 AC INH Levetiracetam 500 MG Q12 03/14 2200 AC 03/28 N/A 1 UNIT IV 211 Methyl Salicylate 1 JULIUS Q2P PRN 03/13 1800 AC TOP Midodrine 10 MG 0800 1400 22003/27 0800 AC 03/28 PO 2119 Oxymetazoline HCl 2 SPRAY BID PRN 03/15 0745 AC PABLO Pantoprazole Sodium 40 MG DAILY 03/14 1000 AC 03/28 IV 1004 Polyethylene Glycol 17 GM DAILY PRN 03/13 1815 AC PO Impression/Plan Impression/Problem List Impression: The patient is a 41-year-old woman with a past medical history of cerebral palsy, seizures, aspiration pneumonia, chronic constipation, incontinence, status post surgery/Vazquez jeffy, status post right ORIF, and history of anoxic brain injury with full assist. She lives at home with her sister who is her research epidemiologist and also has visiting nurses. She is on a tracheostomy tube but requires connection to a ventilator at nighttime for respiratory support. Plan: Patient is stable to be discharged, however, her Jevity feeds need to be approved by Medicare. No change in her plan for now. Continue current care. Pneumonia: - resolved * Stable to be discharged home. * Her sputum grew ESBL E.coli, Pseudomonas and Citrobacter. All sensitive to Meropenem. * CXR 03/22 showed no evidence of lobar consolidation. * Her Pneumonia was likely due to aspiration and not ventilator assosciated. * Blood cultures have showed no growth. * Rapid flu test was negative * Meropenem discontinued. * ID recs appreciated. * On nocturnal ventilator and trach mask during the day. She is currently on 28% Oxygen. She can likely even go on a ventimask during transportation. Adrenal Insufficiency: * She tends to have hypotensive episodes overnight which responds well to fluid bolus. * Her morning cortisol AM was found be inappropriately low. * ACTH level 15 * She is on PO Hydrocortisone BID. 20mg at 0800 and 10mg at 2200. * Continue Fludrocortisone 100mcg daily. * She can be discharged today. She will have to follow Dr Odonnell as an outpatient. This has been discussed with her sister who is her research epidemiologist. Tracheostomy site pain /resolved * Patient reportedly had tracheostomy site pain and discomfort with a history of tracheostomy site scarring. * ENT evalutated (03/15) and suggested to tighten slightly tracheostomy tube straps so that it is not anteriorly displaced. Also the granulation tissue around the site is normal. Dysphagia * Patient was reported to have had been having some dysphagia and drooling prior admission. * Swallow evaluation unable to be done as she has poor oropharyngeal swallowing and absent gag reflex. * She will likely need continued tube feeding for at least 3 months. This has been discussed with her family. * Continue Jevity 1.5 continous. Normally one bottle is consumed in a day. * She can have a repeat swallow evaluation later as an outpatient. * Nutrition recs appreciated. Anemia: * Her Hb has been low but stable around 9. * Her iron studies show low iron, transferrin saturation, TIBC with normal ferritin and reticulocyte count. * Continue liq Ferrous sulphate daily Cerebral palsy * Continue home medications phenobarbital 32.4 mg TID; Diazepam 20 mg TID; Kepra 500 mg TID DVT prophylaxis * SC lovenox 40 mg daily Diet: Jevity 1.5 Code status: Full code Problem List: 1. Cerebral palsy Pain Ratin Tomorrow's Labs & Rationales: CBC, ICU bundle Plan DVT/Prophylaxis: mechanical Code Status: Full Code Tomi Dupont MD 03/29/17 1032: Attending MD Review Statement Attending Sign Off Attending Cosign Statement: I have: examined this patient, reviewed avalbl EMR data, personally reviewd images, discussd w/resident/PA/RIPRAP PLACER, discussed mgmt plan w/ratna, discussed mgmt plan w/CM, discussed mgmt plan w/pt, agreed w/resident/PA/RIPRAP PLACER, amended to note. Other Findings: ITomi M.D. have examined this patient, reviewed available EMR data, personally reviewed images, discussed with resident/PA/RIPRAP PLACER, discussed management plan with housestaff and nursing staff, discussed managment plan all of healthcare providers, discussed management plan with patient and/or family, agreed with resident/PA/RIPRAP PLACER. The past history and parts of the chart have been autopopulated. Impression left sided pneumonia, risk factors for mrsa/pseudomonas chronic respiratory failure Improving chest x-ray Her transient hypotension intermittently could be a sign of autonomic dysreflexia fit persists we will consider midodrine addition Plan -feeding -skin care -DC planning -TRC/Nebs -endocrinology appreciated for concern of adrenal insufficiency DVT prophylaxis at all times
--- NOTE | 2017-03-29 11:03 | PN- Att Addend ---
Attending Addendum Attending Brief Note 41-year-old white female was admitted with aspiration pneumonia later on having issues with hypotension low sugar was seen by endocrine thinking about some adrenal issues, started on proper medications. Patient still has some secretions which are aspirated. Patient is a febrile. Insurance approved her nutrition for home. The patient would be discharged later on today will have visiting nurses services. Intake & Output 03/29 1600 03/29 0400 03/28 1600 03/28 0400 03/27 1600 03/27 0400 Intake Total 235 589 8948 640 3154 920 Output Total Balance 833 310 5619 640 3154 920 Intake, IV 0 007 332 5473 100 Intake, Oral 0 0 Intake, Other 295 Intake, Tube 432 520 772 340 754 360 Feeding Intake, Tube 325 150 300 300 800 460 Irrigant Number 0 2 3 1 1 Bowel Movements Current Medications Sig/Martinez Start time Last Medication Dose Route Stop Time Status Admin Acetaminophen 640 MG Q6P PRN 03/16 0930 AC 03/22 PO 1503 Albuterol Sulfate 3 ML Q4H PRN 03/14 1115 AC 03/21 INH 0857 Baclofen 40 MG TID 03/13 220 AC 03/28 PO 2119 Docusate Sodium 100 MG BID PRN 03/13 1815 AC PO Enoxaparin Sodium 40 MG 19003/13 1900 AC 03/28 SC 1820 Ferrous Sulfate 300 MG DAILY 03/19 1352 AC 03/28 PO 1010 Fludrocortisone 100 MCG DAILY 03/27 1000 AC 03/28 Acetate PO 1009 Guaifenesin 10 ML Q4P PRN 03/16 0930 AC 03/16 PO 1011 Heparin Sodium 100 UNIT ONCE PRN 03/21 0345 AC 03/21 (Porcine) IV 0354 Hydrocortisone 20 MG 0800 03/27 0800 AC 03/28 PO 0805 Hydrocortisone 10 MG 03/26 2200 AC 03/28 PO 2119 Ipratropium [place] 2.5 ML Q4 HRS NEEDED PRN 03/14 1115 AC INH Levetiracetam 500 MG Q12 03/14 2200 AC 03/28 N/A 1 UNIT IV 2119 Methyl Salicylate 1 JULIUS Q2P PRN 03/13 1800 AC TOP Midodrine 10 MG 0800 1400 22003/27 0800 AC 03/28 PO 2119 Oxymetazoline HCl 2 SPRAY BID PRN 03/15 0745 AC PABLO Pantoprazole Sodium 40 MG DAILY 03/14 1000 AC 03/28 IV 1004 Polyethylene Glycol 17 GM DAILY PRN 03/13 1815 AC PO Laboratory Tests 03/29/17 0435: Anion Gap 11, Estimated GFR > 60, BUN/Creatinine Ratio 65.0 H, CBC w Diff NO MAN DIFF REQ, RBC 3.49 L, MCV 81.8, MCH 26.5 L, MCHC 32.5 L, RDW 16.2 H, MPV 9.3, Gran % 66.6, Lymphocytes % 22.8, Monocytes % 8.5, Eosinophils % 1.7, Basophils % 0.4, Absolute Granulocytes 9.1 H, Absolute Lymphocytes 3.1, Absolute Monocytes 1.2 H, Absolute Eosinophils 0.2, Absolute Basophils 0.1 03/28/17 0400: Anion Gap 10, Estimated GFR > 60, Glucose 101 H, Calcium 8.7, Phosphorus 4.6 H , Magnesium 2.1, Total Bilirubin < 0.1 L, AST 34, ALT 42, Albumin 3.2 L, CBC w Diff NO MAN DIFF REQ, RBC 3.32 L, MCV 81.3, MCH 26.8 L, MCHC 32.9 L, RDW 16.6 H, MPV 9.5, Gran % 63.0, Lymphocytes % 25.7, Monocytes % 8.7, Eosinophils % 1.9 , Basophils % 0.7, Absolute Granulocytes 7.0 H, Absolute Lymphocytes 2.8, Absolute Monocytes 1.0 H, Absolute Eosinophils 0.2, Absolute Basophils 0.1 03/27/17 0430: Anion Gap 9, Estimated GFR > 60, Glucose 90, Calcium 7.9 L, Phosphorus 4.3, Magnesium 2.1, Total Bilirubin < 0.1 L, AST 34, ALT 38, Albumin 2.8 L, CBC w Diff NO MAN DIFF REQ, RBC 3.14 L, MCV 81.6, MCH 26.7 L, MCHC 32.7 L, RDW 16.6 H, MPV 9.6, Gran % 68.2, Lymphocytes % 23.4, Monocytes % 6.6, Eosinophils % 1.3 , Basophils % 0.5, Absolute Granulocytes 8.5 H, Absolute Lymphocytes 2.9, Absolute Monocytes 0.8 H, Absolute Eosinophils 0.2, Absolute Basophils 0.1 Vital Signs Date Time Temp Pulse Resp B/P B/P Pulse O2 O2 Flow FiO2 Mean Ox Delivery Rate 03/29 0903 98 Trach Mask 28% 03/29 0902 3 03/29 0800 100 Trach Mask 28% 03/29 0800 97.6 70 20 100/60 100 Trach Mask 28% 03/29 0622 3 03/29 0218 3 03/29 0000 97.1 50 12 100/70 98 Ventilator 3.0L 03/29 0000 98 Ventilator 3.0L 03/28 1935 95 Trach Mask 28% 02 1630 95 Trach Mask 28% 02 1600 96 Trach Mask 28% 02 1600 97.6 74 20 118/80 91 Trach Mask 28% 02 1324 98 Trach Mask 28%
--- NOTE | 2017-03-29 14:00 | PN- Endocrinology ---
Assessment/Plan Assessment: 41-year-old woman with a past medical history of cerebral palsy, seizures, aspiration pneumonia, chronic constipation, incontinence, and history of anoxic brain injury with full assist, was admitted for pneumonia and respiratory failure, s/p tracheostomy. She is currently on tube feeling. However, she was hypotensive and hypoglycemia. Her BP and glucose level improved after she received IV fluid bolus and iv glucose. pituitary hormones were done-- am cortisol 6.5, ACTH 15, TSH 2.96, free T4 1.02 and TT3 1.56, prolactin 16.9, E2 73.4, FSH 14.3 and LH 16. At around midnight on 03/23/2017, her glucose level was down to 70, cortisol was only 3.2 and insulin was 17 and corresponding glucose level was 104 ( blood sample was collected after D50w was given). However, her cortisol was only 3.2 suggestive of adrenal insufficiency. ACTH level is still pending. Patient was started on Hydrocortisone 50 mg iv every 12 hours 03/23/2017. Her BP and glucose level were better. Hydrocortisone was decresaed to 25 mg iv every 12 hours. And then hydrocortisone was further decreased to 20 mg po daily at 8 am and 10 mg at 10 pm. But her BP was still low overnight. Florinef 0.1 mg daily was added. Her BP was better 100-118 /70-80. Her FSGs were 91, 89, 88, 106, 99 and 79. Plan: continue the current Hydrocortisone 20 mg at 8 am and 10 mg at 10 pm; continue Florinef 0.1 mg daily; monitor FSGs and vital signs; will follow. Subjective Subjective: She is non verbal Objective Last 24 Hrs of Vital Signs/I&O Vital Signs Date Time Temp Pulse Resp B/P B/P Pulse O2 O2 Flow FiO2 Mean Ox Delivery Rate 03/29 0903 98 Trach Mask 28% 03/29 0902 3 / 0800 100 Trach Mask 28% 03/29 0800 97.6 70 20 100/60 100 Trach Mask 28% 03/29 0622 3 / 0218 3 02/02 0000 97.1 50 12 100/70 98 Ventilator 3.0L 02/02 0000 98 Ventilator 3.0L 02/ 1935 95 Trach Mask 28% 03/28 1630 95 Trach Mask 28% 03/28 1600 96 Trach Mask 28% 03/28 1600 97.6 74 20 118/80 91 Trach Mask 28% Intake & Output 03/29 1600 03/29 0800 03/29 0000 Intake Total 757 800 Output Total Balance 757 800 Intake, IV 0 130 Intake, Tube 432 520 Feeding Intake, Tube 325 150 Irrigant Number 0 2 Bowel Movements Results Pertinent Lab/Dexter Results: Laboratory Tests 03/29 0435 Chemistry Sodium (137 - 145 mmol/L) 141 Potassium (3.5 - 5.1 mmol/L) 4.4 Chloride (98 - 107 mmol/L) 97 L Carbon Dioxide (22 - 30 mmol/L) 34 H Anion Gap (5 - 16) 11 BUN (7 - 17 mg/dL) 13 Creatinine (0.5 - 1.0 mg/dL) 0.2 L Estimated GFR (>60 ml/min) > 60 BUN/Creatinine Ratio (7 - 25 %) 65.0 H Hematology CBC w Diff NO MAN DIFF REQ WBC (4.8 - 10.8 /CUMM) 13.6 H RBC (4.20 - 5.40 /CUMM) 3.49 L Hgb (12.0 - 16.0 G/DL) 9.3 L Hct (37 - 47 %) 28.6 L MCV (81.0 - 99.0 FL) 81.8 MCH (27.0 - 31.0 PG) 26.5 L MCHC (33.0 - 37.0 G/DL) 32.5 L RDW (11.5 - 14.5 %) 16.2 H Plt Count (130 - 400 /CUMM) 408 H MPV (7.4 - 10.4 FL) 9.3 Gran % (42.2 - 75.2 %) 66.6 Lymphocytes % (20.5 - 51.1 %) 22.8 Monocytes % (1.7 - 9.3 %) 8.5 Eosinophils % (0 - 5 %) 1.7 Basophils % (0.0 - 2.0 %) 0.4 Absolute Granulocytes (1.4 - 6.5 /CUMM) 9.1 H Absolute Lymphocytes (1.2 - 3.4 /CUMM) 3.1 Absolute Monocytes (0.10 - 0.60 /CUMM) 1.2 H Absolute Eosinophils (0.0 - 0.7 /CUMM) 0.2 Absolute Basophils (0.0 - 0.2 /CUMM) 0.1
[2017-03-29] MEDS ORDERED: MIDODRINE HCL10 M1 PEG (14:15)
[2017-03-29] MEDS ORDERED: FEROSUL300 MG/6.8 PEG (14:15)
[2017-03-29] MEDS ORDERED: HYDROCORTISONE10 M2 PEG (14:15)
[2017-03-29] MEDS ORDERED: HYDROCORTISONE20 M1 PEG (14:15)
[2017-03-29] MEDS ORDERED: FLUDROCORTISON0.1 M1 PEG (14:15)
[2017-03-29] MEDS ORDERED: JEVITY 1.5 CAL237 ML PEG (14:15)
[2017-03-29 14:16] VITALS: BP 100/60
== END 2017-03-29 15:00 | disposition home health service (06) | DRG 207 ==
LOC: ERH 11:59 → CRI 17:11 → ERHI 17:11 → CANRESERV 18:05 → ENRESERV 18:05 → ENTRNSPT 20:10 → EDTRNSPTSTS 20:15 → CMPTRNSPT 20:43 → CRI 20:44
PROVIDERS: Internal Medicine; Internal Medicine Infectious Disease; Physician Assistant Medical; Student in an Organized Health Care Education/Training Program
PROC: 5A1955Z Respiratory Ventilation, Greater than 96 Consecutive Hours (ICD-10-PCS; principal; 2017-03-13)
DX: J69.0 Pneumonitis due to inhalation of food and vomit (principal); G93.1 Anoxic brain damage, not elsewhere classified; Z99.81 Dependence on supplemental oxygen; J96.11 Chronic respiratory failure with hypoxia; R13.12 Dysphagia, oropharyngeal phase; E27.49 Other adrenocortical insufficiency; Z99.11 Dependence on respirator [ventilator] status; J96.12 Chronic respiratory failure with hypercapnia; J15.5 Pneumonia due to Escherichia coli; Z93.0 Tracheostomy status; G80.9 Cerebral palsy, unspecified; G40.909 Epilepsy, unspecified, not intractable, without status epilepticus; K59.09 Other constipation; R32 Unspecified urinary incontinence; D64.9 Anemia, unspecified
CPT/HCPCS: CCU; 36415; 71045; 82436; 82670; 83525; 87040; 87070; 87071; 87086; 87449; 87450; 87804; 87804-59; 93005; 93010; 94799; 96361; 96365; J0713; J1642; J1650; J1720; J1953; J2185; J3370; J7040; J7042

== ENCOUNTER 2017-07-10 08:56 | Observation (INO) | payer OTHER, MEDICARE ==
[~2017-07-10] VITALS: Ht 121.9 cm; Wt 53.5 kg
[~2017-07-10 08:56] MED LIST changes: +FEROSUL300 MG/6.8 PEG; +FERROUS SU220 MG/51 PO; +FLUDROCORTISON0.1 M1 PEG; +HYDROCORTISONE10 M2 PEG; +HYDROCORTISONE20 M1 PEG; +JEVITY 1.5 CAL237 ML PEG; +LEVOFLOXACIN500 M1 PO; +MIDODRINE HCL10 M1 PEG
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
--- NOTE | 2017-07-10 09:36 | RADIOLOGY REPORT ---
EXAMINATION: XR PORTABLE CHEST CLINICAL INFORMATION: Altered mental status. Evaluate for aspiration. COMPARISON: Prior chest radiographs, including those from 06/22/2013, 03/25/2017 and 03/26/2017. TECHNIQUE: Portable frontal view of the chest was obtained. FINDINGS: Right chest wall port; the tip of the central catheter is obscured by the spinal fusion hardware. The catheter is likely located in the distal superior vena cava. Lungs are hypoexpanded and right diaphragm slightly elevated. Lungs remain similar in appearance to multiple prior exams, but are poorly evaluated on this single view. The diaphragms are adequately defined. No acute pulmonary consolidation or pleural effusion. There might be chronic hazy opacity in the perihilar region of left lung and left lower lobe. The left hilum and lower lobar poorly visualized due to the patient rotation and prominent mediastinal fat. Bones appear diffusely osteopenic. Gastrostomy feeding tube in the visualized upper abdomen. No pneumoperitoneum. IMPRESSION: The chest remain similar in appearance to prior exams, including 06/22/2013. There appears to be chronic haziness in the left perihilar region and left lower lobe, which are poorly evaluated. No overt evidence for a superimposed acute infiltrate or pleural effusion.
[2017-07-10 13:05] LABS: ABSOLUTE BASOPHIL COUNT 0.1 /CUMM (0.0-0.2); ABSOLUTE EOSINOPHIL COUNT 0.1 /CUMM (0.0-0.7); ABSOLUTE GRANULOCYTE CT 7.1 /CUMM (1.4-6.5); ABSOLUTE MONOCYTE COUNT 0.6 /CUMM (0.10-0.60); BASOPHIL % 1.2 % (0.0-2.0); GRANULOCYTE % 71.9 % (42.2-75.2); HEMATOCRIT 38.7 % (37-47); MEAN CORPUSCULAR HGB 29.6 PG (27.0-31.0); MEAN CORPUSCULAR VOLUME 87.2 FL (81.0-99.0); MEAN PLATELET VOLUME 9.3 FL (7.4-10.4); PLATELET COUNT 313 /CUMM (130-400); RBC DISTRIBUTION WIDTH 15.5 % (11.5-14.5); RED BLOOD CELL CT 4.44 /CUMM (4.20-5.40); WHITE BLOOD CELL COUNT 9.9 /CUMM (4.8-10.8)
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
[2017-07-10 16:00] VITALS: BP 134/70
--- NOTE | 2017-07-10 19:26 | Cons- Pulmonary ---
General Information and HPI Consulting Request Date of Consult: 07/10/17 Requested By: med team History of Present Illness: Patient is a 42-year-old female,completly bed bound with past medical history of cerebral palsy, seizures, aspiration pneumonia, chronic constipation, incontinence of the urine, status post right ORIF, history of anoxic brain injury, status post tracheostomy -needed ventilator in the nighttime for respiratory support, adrenal insufficiency, presented to ED as a loss of power and suction apparatus was not working leading to difficulty in the breathing. Allergies/Medications Allergies: Coded Allergies: Penicillins (HIVES 10/18/16) ceftriaxone (HIVES 10/18/16) Home Med List: Acetaminophen (Arthritis Pain) 650 MG TABLET.ER 1 TAB PO Q4H PRN PAIN/TEMP ( Reported) Baclofen 20 MG TABLET 2 TAB PO TID MUSCLE RELAXER (Reported) Diazepam 10 MG TABLET 2 TAB PO TID MUSCLE SPASMS (Reported) Docusate Sodium (Colace) 100 MG CAPSULE 1 CAP PO BID PRN STOOL SOFTENER ( Reported) Eucalyptus Oil/Menthol/Camphor (Vicks Vaporub Ointment) 1.2 %-2.6 %-4.7 % OINT...G. 1 JULIUS TOP TID PRN COUGH (Reported) Ferrous Sulfate (Ferosul) 300 MG (60 MG IRON)/6.82 ML SOLUTION 300 MG PEG DAILY SUPPLEMENT . Fludrocortisone Acetate 0.1 MG TABLET 1 TAB PEG DAILY Low Blood Pressure . Guaifenesin/Dextromethorphan (Robafen-Dm Syrup) 100 MG-10 MG/5 ML SYRUP 10 ML PO Q6 PRN COUGH/MUCUS (Reported) Guaifenesin/Pseudoephedrne HCl (Mucinex D ER Tablet) 600 MG-60 MG TAB.ER.12H 1 TAB PO DAILY SECRETIONS (Reported) Hydrocortisone 20 MG TABLET 1 TAB PEG 0800 Low Blood Pressure . Hydrocortisone 10 MG TABLET 1 TAB PEG 2200 Low blood pressure . Ipratropium/Albuterol Sulfate (Iprat-Albut 0.5-3(2.5) MG/3 Ml) 0.5 MG-3 MG (2.5 MG BASE)/3 ML AMPUL.NEB 1 VIAL INH Q4H PRN RESP. (Reported) Lactose-Reduced Food/Fiber (Jevity 1.5 Bryan Liquid) 0.06 GRAM-1.5 KCAL/ML LIQUID 0 PEG AD Nutrition Levetiracetam 500 MG TABLET 1 TAB PO TID SEIZURES (Reported) Loratadine (Claritin) 10 MG TABLET 1 TAB PO DAILY PRN ALLERGIES (Reported) Midodrine HCl 10 MG TABLET 1 TAB PEG TID Low Blood Pressure . Phenobarbital 32.4 MG TABLET 32.4 MG PO 8AM SEIZURES (Reported) Phenobarbital 32.4 MG TABLET 1 TAB PO BID SEIZURES (Reported) Phenobarbital 64.8 MG TABLET 1 TAB PO QHS SEIZURES (Reported) Polyethylene Glycol 3350 (Miralax) 17 GRAM POWD.PACK 1 PAC PO DAILY PRN CONSTIPATION (Reported) dissolve in water Review of Systems Review of Systems Constitutional: Reports: see HPI. Past History Travel History Traveled to [place] past 21 day No Medical History Neurological: CP EENT: NONE Cardiovascular: NONE Respiratory: ASP PNEUMONIA Gastrointestinal: constipation Hepatic: NONE Renal: NONE Musculoskeletal: NONE Psychiatric: NONE Endocrine: NONE Blood Disorders: NONE Cancer(s): NONE RN REGISTRY/Reproductive: NONE Other Medical Hx: CEREBAL PALSY, PNA Surgical History Surgical History: TRACHEOSTOMY VEGA PERCY RIGHT ORIF Family History Relations & Conditions If Any: FATHER FH: prostate cancer MOTHER FH: esophageal cancer FH: gastric cancer Relation not specified for: *No pertinent family history Psychosocial History Who Do You Live With? Sister Services at Home: Home Health Aide, Nursing Smoking Status: Never Smoked ETOH Use: denies use Illicit Drug Use: denies illicit drug use Functional Ability ADLs Needs Assist: dressing, eating, toileting, bathing. Ambulation: non-ambulatory IADLs Needs Assist: shopping, housework, finances, food prep, telephone, transportation, medication admin. Exam & Diagnostic Data Last 24 Hrs of Vital Signs/I&O Vital Signs Date Time Temp Pulse Resp B/P B/P Pulse O2 O2 Flow FiO2 Mean Ox Delivery Rate 07/10 1600 94 Trach Mask 2.0L 07/10 1600 98.6 94 20 134/70 94 Trach Mask 2.0L 07/10 1422 98.5 104 22 116/72 95 Trach Mask 2.0L 07/10 1223 98.7 94 22 120/74 97 Trach Mask 2.0L 07/10 0919 Trach Mask 07/10 0911 92 Trach Mask 2.0L 07/10 0900 98.8 117 22 118/78 92 Trach Mask 2.0L Intake & Output 07/10 1600 07/10 0800 07/10 0000 Intake Total 0 Output Total Balance 0 Intake, Oral 0 Patient 118 lb Weight Weight Estimated Measurement Method Last 48 Hrs of Labs/Dexter: Laboratory Tests 07/10/17 1256: Anion Gap 15, Estimated GFR > 60, BUN/Creatinine Ratio 55.0 H, Glucose 90, Calcium 9.4, Total Bilirubin 0.3, AST 28, ALT 38, Alkaline Phosphatase 101, Total Protein 8.5 H, Albumin 4.5, Globulin 4.0, Albumin/Globulin Ratio 1.1, CBC w Diff NO MAN DIFF REQ, RBC 4.44, MCV 87.2, MCH 29.6, MCHC 34.0, RDW 15.5 H, MPV 9.3, Gran % 71.9, Lymphocytes % 19.7 L, Monocytes % 6.2, Eosinophils % 1.0, Basophils % 1.2, Absolute Granulocytes 7.1 H, Absolute Lymphocytes 2.0, Absolute Monocytes 0.6, Absolute Eosinophils 0.1, Absolute Basophils 0.1 Assessment/Plan Impression/Plan: Physical Exam General Appearance Cooperative, No Acute Distress Skin No Rashes, No Breakdown Neck Supple, No JVD, tracheostomy tube in the center of neck connected to oxygen Cardiovascular Normal S1, Normal S2 Lungs bilateral clear, occasional crackles Abdomen Soft, No Tenderness Neurological she makes some words which are not interpretatable,there was disuse atrophy of limbs, with chronic neuropathic changes Extremities chronic neuropathic changes Vascular Normal Pulses, Pulses Symmetrical This is a lady with cerebral palsy with chronic respiratory failure on bedtime ventilation, previous recurrent aspiration, G-tube placement, recurrent admission to the hospital with multilobar pneumonia, bedbound, history of seizure, chronic constipation, urinary incontinence, previous history of brain injury as well now is here in the hospital as she lost power at home with difficulty in maintaining a trach. She does not seem to have any active infection Issues include Chronic respiratory failure on bedtime ventilation to continue her home settings. No indication for antibiotics Aggressive pulmonary toilet Previous cerebral palsy, seizure anoxic brain injury bedbound status stable Recurrent aspiration now on G-tube feeding to keep the head of bed elevated RECOMMENDATION Home ventilation settings Keep the head of bed elevated Continue deep feedings as before Trach care protein Suction as needed Continue outpatient medications Patient is not critically ill Consult Acknowledgment - Thank you for your consult request.
[2017-07-11] VITALS: BP 140/72
[2017-07-11 08:00] VITALS: BP 104/70
--- NOTE | 2017-07-11 08:03 | PN-Observation ---
Observation Note Observation Note _ I have personally examined ANU BROWN. her disposition is uncertain at this time. Before a determination can be made, she requires continued observation for the following reasons need for overnight ventilation. Assessment/Plan Medical Assessment: 42 yo lady with cerebral palsy with chronic respiratory failure on bedtime ventilation, previous recurrent aspiration, G-tube placement, recurrent admission to the hospital with multilobar pneumonia, bedbound, history of seizure, chronic constipation, urinary incontinence, previous history of brain injury as well now is here in the hospital as she lost power at home with difficulty in maintaining a trach. Impression Chronic resp failure s/p tracheostomy requiring night ventilatory support Previous cerebral palsy, seizure anoxic brain injury bedbound status stable Recurrent aspiration now on G-tube feeding Plan Contiune homee ventilation settings Keep the head of bed elevated Continu Tube feedings as before Continue outpatient medications Patient is not critically ill Problem List: 1. Tracheitis Subjective Follow-up For: Ventilator use Subjective: Seen and examined at bedside. She is awake and alert. No acute o/n issues reported. Review of Systems Constitutional: Reports: no symptoms. Objective Last 24 Hrs of Vital Signs/I&O Vital Signs Date Time Temp Pulse Resp B/P B/P Pulse O2 O2 Flow FiO2 Mean Ox Delivery Rate 07/11 0643 28 07/11 0254 28 07/11 0042 28 07/11 0000 99 Ventilator 28% 07/11 0000 97.6 83 20 140/72 99 Ventilator 28% 07/10 2224 28 07/10 2121 Trach Mask 28% 07/10 1600 94 Trach Mask 2.0L 07/10 1600 98.6 94 20 134/70 94 Trach Mask 2.0L 07/10 1422 98.5 104 22 116/72 95 Trach Mask 2.0L 07/10 1223 98.7 94 22 120/74 97 Trach Mask 2.0L 07/10 0919 Trach Mask 07/10 0911 92 Trach Mask 2.0L 07/10 0900 98.8 117 22 118/78 92 Trach Mask 2.0L Intake & Output 07/11 1600 07/11 0800 07/11 0000 Intake Total 700 240 Output Total Balance 700 240 Intake, IV 0 Intake, Oral 0 Intake, Tube 400 90 Feeding Intake, Tube 300 150 Irrigant Number 1 1 Bowel Movements Patient 53.524 kg Weight Physical Exam General Appearance: awake Other Physical Findings: Skin No Rashes, No Breakdown Neck Supple, No JVD, tracheostomy tube intact, connected to ventilator Cardiovascular Normal S1, Normal S2 Lungs bilateral clear, occasional crackles Abdomen Soft, No Tenderness Extremities chronic neuropathic changes Vascular Normal Pulses, Pulses Symmetrical Current Medications: Current Medications Sig/Martinez Start time Last Medication Dose Route Stop Time Status Admin Acetaminophen 650 MG Q4P PRN 07/10 1530 AC PO Albuterol Sulfate 3 ML Q4P PRN 07/10 2145 AC INH Baclofen 40 MG TID 07/11 1599 AC 07/10 PO 211 Diazepam 2 MG TID 07/10 2099 AC 07/10 PO 211 Docusate Sodium 100 MG BID PRN 07/10 1530 AC PO Ferrous Sulfate 325 MG BID 07/10 2100 AC 07/10 PO 211 Guaifenesin 600 MG DAILY 07/11 0900 AC PO Heparin Sodium 5,000 UNIT Q8H 07/11 09 AC (Porcine) SC Heparin Sodium 5,000 UNIT Q8 07/11 0115 DC 07/11 (Porcine) SC 0122 Hydrocortisone 20 MG DAILY 07/11 0900 AC PO Hydrocortisone 10 MG 07/10 AC 07/10 PO 211 Ipratropium [place] 2.5 ML Q4P PRN 07/10 2144 AC INH Levetiracetam 500 MG TID 07/10 1600 AC 07/10 PO 211 Loratadine 10 MG DAILY PRN 07/10 1530 AC PO Midodrine 10 MG 0800,1200,1600 07/10 1600 AC 07/10 PO 1639 Pantoprazole Sodium 40 MG DAILY 07/11 0900 AC IV Phenobarbital 32.4 MG 8AM 07/11 0800 AC PO Phenobarbital 64.8 MG 0 07/10 2199 AC 07/10 PO 2110 Phenobarbital 32.4 MG BID 07/10 2100 CAN PO Polyethylene Glycol 17 GM DAILY 07/11 0900 AC PO Last 24 Hrs of Labs/Mics: Laboratory Tests 07/10/17 1256: Anion Gap 15, Estimated GFR > 60, BUN/Creatinine Ratio 55.0 H, Glucose 90, Calcium 9.4, Total Bilirubin 0.3, AST 28, ALT 38, Alkaline Phosphatase 101, Total Protein 8.5 H, Albumin 4.5, Globulin 4.0, Albumin/Globulin Ratio 1.1, CBC w Diff NO MAN DIFF REQ, RBC 4.44, MCV 87.2, MCH 29.6, MCHC 34.0, RDW 15.5 H, MPV 9.3, Gran % 71.9, Lymphocytes % 19.7 L, Monocytes % 6.2, Eosinophils % 1.0, Basophils % 1.2, Absolute Granulocytes 7.1 H, Absolute Lymphocytes 2.0, Absolute Monocytes 0.6, Absolute Eosinophils 0.1, Absolute Basophils 0.1 Microbiology 07/10 162 UPPER RESP: Surveillance Culture - RECD 07/11 1619 GI: Surveillance Culture - RECD
--- NOTE | 2017-07-11 11:32 | PN- Att Addend ---
Attending Addendum Attending Brief Note Patient stable in bed, had her overnight ventilatory support and continue feeding support apparently still no power at home, that means we have to continue hospital observation until the issue is resolved is no changes on physical examination on her vital signs stable. Intake & Output 07/11 1600 07/11 0800 07/11 0000 07/10 1600 07/10 0800 07/10 0000 Intake Total 700 240 0 Output Total Balance 700 240 0 Intake, IV 0 Intake, Oral 0 0 Intake, Tube 400 90 Feeding Intake, Tube 300 150 Irrigant Number 1 1 Bowel Movements Patient 118 lb Weight Weight Estimated Measurement Method Current Medications Sig/Martinez Start time Last Medication Dose Route Stop Time Status Admin Acetaminophen 650 MG Q4P PRN 07/10 1530 AC PO Albuterol Sulfate 3 ML Q4P PRN 07/10 2145 AC INH Baclofen 40 MG TID 07/10 1600 AC 07/11 PO 0855 Diazepam 2 MG TID 07/10 2100 AC 07/11 PO 0855 Docusate Sodium 100 MG BID PRN 07/10 1530 AC PO Ferrous Sulfate 325 MG BID 07/10 2100 AC 07/11 PO 0857 Guaifenesin 600 MG DAILY 07/11 09 AC 07/11 PO 0855 Heparin Sodium 5,000 UNIT Q8H 07/11 0900 AC 07/11 (Porcine) SC 0857 Heparin Sodium 5,000 UNIT Q8 07/11 0115 DC 07/11 (Porcine) SC 0122 Hydrocortisone 20 MG DAILY 07/11 0900 AC 07/11 PO 0857 Hydrocortisone 10 MG 2200 07/10 2200 AC 07/10 PO 2111 Ipratropium [place] 2.5 ML Q4P PRN 07/10 2145 AC INH Levetiracetam 500 MG TID 07/10 1600 AC 07/11 PO 0856 Loratadine 10 MG DAILY PRN 07/10 1530 AC PO Midodrine 10 MG 0800,1200,1600 07/10 1600 AC 07/11 PO 0910 Pantoprazole Sodium 40 MG DAILY 07/11 0900 AC 07/11 IV 0855 Phenobarbital 32.4 MG 8AM 07/11 0800 AC 07/11 PO 0855 Phenobarbital 64.8 MG 2200 07/10 2200 AC 07/10 PO 2110 Phenobarbital 32.4 MG BID 07/10 2100 CAN PO Polyethylene Glycol 17 GM DAILY 07/11 0900 AC 07/11 PO 0856 Laboratory Tests 07/10/17 1256: Anion Gap 15, Estimated GFR > 60, BUN/Creatinine Ratio 55.0 H, Glucose 90, Calcium 9.4, Total Bilirubin 0.3, AST 28, ALT 38, Alkaline Phosphatase 101, Total Protein 8.5 H, Albumin 4.5, Globulin 4.0, Albumin/Globulin Ratio 1.1, CBC w Diff NO MAN DIFF REQ, RBC 4.44, MCV 87.2, MCH 29.6, MCHC 34.0, RDW 15.5 H, MPV 9.3, Gran % 71.9, Lymphocytes % 19.7 L, Monocytes % 6.2, Eosinophils % 1.0, Basophils % 1.2, Absolute Granulocytes 7.1 H, Absolute Lymphocytes 2.0, Absolute Monocytes 0.6, Absolute Eosinophils 0.1, Absolute Basophils 0.1 Vital Signs Date Time Temp Pulse Resp B/P B/P Pulse O2 O2 Flow FiO2 Mean Ox Delivery Rate 07/11 0835 28 07/11 0800 99 Ventilator 28% 07/11 0800 98.1 78 20 104/70 99 Ventilator 28% 07/11 0643 28 07/11 0254 28 07/11 0042 28 07/11 0000 99 Ventilator 28% 07/11 0000 97.6 83 20 140/72 99 Ventilator 28% 07/10 2224 28 07/10 2121 Trach Mask 28% 07/10 1600 94 Trach Mask 2.0L 07/10 1600 98.6 94 20 134/70 94 Trach Mask 2.0L 07/10 1422 98.5 104 22 116/72 95 Trach Mask 2.0L 07/10 1223 98.7 94 22 120/74 97 Trach Mask 2.0L
--- NOTE | 2017-07-11 13:50 | PN- CRCU ---
Subjective HPI/Critical Care Issues: Subjective: Seen and examined at bedside. She is awake and alert. No acute o/n issues reported. Review of Systems Constitutional: Reports: no symptoms. Objective Current Medications: Current Medications Sig/Martinez Start time Last Medication Dose Route Stop Time Status Admin Acetaminophen 650 MG Q4P PRN 07/10 1530 AC PO Albuterol Sulfate 3 ML Q4P PRN 07/10 2145 AC INH Baclofen 40 MG TID 07/10 1600 AC 07/11 PO 0855 Diazepam 2 MG TID 07/10 2100 AC 07/11 PO 0855 Docusate Sodium 100 MG BID PRN 07/10 1530 AC PO Ferrous Sulfate 325 MG BID 07/10 2100 AC 07/11 PO 0857 Guaifenesin 600 MG DAILY 07/11 09 AC 07/11 PO 0855 Heparin Sodium 5,000 UNIT Q8H 07/11 09 AC 07/11 (Porcine) SC 0857 Heparin Sodium 5,000 UNIT Q8 07/11 0115 DC 07/11 (Porcine) SC 0122 Hydrocortisone 20 MG DAILY 07/11 09 AC 07/11 PO 0857 Hydrocortisone 10 MG 2200 07/10 2200 AC 07/10 PO 2111 Ipratropium [place] 2.5 ML Q4P PRN 07/10 2145 AC INH Levetiracetam 500 MG TID 07/10 1600 AC 07/11 PO 0856 Loratadine 10 MG DAILY PRN 07/10 1530 AC PO Midodrine 10 MG 0800,1200,1600 07/10 1600 AC 07/11 PO 1159 Pantoprazole Sodium 40 MG DAILY 07/11 0900 AC 07/11 IV 0855 Phenobarbital 32.4 MG 8AM 07/11 0800 AC 07/11 PO 0855 Phenobarbital 64.8 MG 2200 07/10 2200 AC 07/10 PO 2110 Phenobarbital 32.4 MG BID 07/10 2100 CAN PO Polyethylene Glycol 17 GM DAILY 07/11 09 AC 07/11 PO 0856 Vital Signs & I&O Last 24 Hrs of Vitals and I&O: Vital Signs Date Time Temp Pulse Resp B/P B/P Pulse O2 O2 Flow FiO2 Mean Ox Delivery Rate 07/11 1205 97 Trach Mask 28% 07/11 0835 28 07/11 0800 99 Ventilator 28% 07/11 08 98.1 78 20 104/70 99 Ventilator 28% 07/11 0643 28 05/17 0254 28 07/11 0042 28 07/11 0000 99 Ventilator 28% 07/11 0000 97.6 83 20 140/72 99 Ventilator 28% 07/10 2224 07/10 2121 Trach Mask 28% 07/10 1600 94 Trach Mask 2.0L 07/10 1600 98.6 94 20 134/70 94 Trach Mask 2.0L 07/10 1422 98.5 104 22 116/72 95 Trach Mask 2.0L Intake & Output 07/11 1600 07/11 0800 07/11 0000 Intake Total 700 240 Output Total Balance 700 240 Intake, IV 0 Intake, Oral 0 Intake, Tube 400 90 Feeding Intake, Tube 300 150 Irrigant Number 1 1 Bowel Movements Patient 118 lb Weight Laboratory Tests 07/10 1256 Chemistry Sodium (137 - 145 mmol/L) 145 Potassium (3.5 - 5.1 mmol/L) 4.8 Chloride (98 - 107 mmol/L) 101 Carbon Dioxide (22 - 30 mmol/L) 29 Anion Gap (5 - 16) 15 BUN (7 - 17 mg/dL) 11 Creatinine (0.5 - 1.0 mg/dL) 0.2 L Estimated GFR (>60 ml/min) > 60 BUN/Creatinine Ratio (7 - 25 %) 55.0 H Glucose (65 - 99 mg/dL) 90 Calcium (8.4 - 10.2 mg/dL) 9.4 Total Bilirubin (0.2 - 1.3 mg/dL) 0.3 AST (14 - 36 U/L) 28 ALT (9 - 52 U/L) 38 Alkaline Phosphatase (<127 U/L) 101 Total Protein (6.3 - 8.2 g/dL) 8.5 H Albumin (3.5 - 5.0 g/dL) 4.5 Globulin (1.9 - 4.2 gm/dL) 4.0 Albumin/Globulin Ratio (1.1 - 2.2 %) 1.1 Hematology CBC w Diff NO MAN DIFF REQ WBC (4.8 - 10.8 /CUMM) 9.9 RBC (4.20 - 5.40 /CUMM) 4.44 Hgb (12.0 - 16.0 G/DL) 13.1 Hct (37 - 47 %) 38.7 MCV (81.0 - 99.0 FL) 87.2 MCH (27.0 - 31.0 PG) 29.6 MCHC (33.0 - 37.0 G/DL) 34.0 RDW (11.5 - 14.5 %) 15.5 H Plt Count (130 - 400 /CUMM) 313 MPV (7.4 - 10.4 FL) 9.3 Gran % (42.2 - 75.2 %) 71.9 Lymphocytes % (20.5 - 51.1 %) 19.7 L Monocytes % (1.7 - 9.3 %) 6.2 Eosinophils % (0 - 5 %) 1.0 Basophils % (0.0 - 2.0 %) 1.2 Absolute Granulocytes (1.4 - 6.5 /CUMM) 7.1 H Absolute Lymphocytes (1.2 - 3.4 /CUMM) 2.0 Absolute Monocytes (0.10 - 0.60 /CUMM) 0.6 Absolute Eosinophils (0.0 - 0.7 /CUMM) 0.1 Absolute Basophils (0.0 - 0.2 /CUMM) 0.1 Microbiology Date/Time Procedure - Status Source Growth 07/11 1619 Surveillance Culture - RECD UPPER RESP 07/11 1619 Surveillance Culture - RECD GI Impression/Plan Impression/Plan Impression/Plan: General Appearance Cooperative, No Acute Distress Skin No Rashes, No Breakdown Neck Supple, No JVD, tracheostomy tube in the center of neck connected to oxygen Cardiovascular Normal S1, Normal S2 Lungs bilateral clear, occasional crackles Abdomen Soft, No Tenderness Neurological she makes some words which are not interpretatable,there was disuse atrophy of limbs, with chronic neuropathic changes Extremities chronic neuropathic changes Vascular Normal Pulses, Pulses Symmetrical This is a lady with cerebral palsy with chronic respiratory failure on bedtime ventilation, previous recurrent aspiration, G-tube placement, recurrent admission to the hospital with multilobar pneumonia, bedbound, history of seizure, chronic constipation, urinary incontinence, previous history of brain injury as well now is here in the hospital as she lost power at home with difficulty in maintaining a trach. She does not seem to have any active infection Issues include Chronic respiratory failure on bedtime ventilation to continue her home settings. No indication for antibiotics Aggressive pulmonary toilet Previous cerebral palsy, seizure anoxic brain injury bedbound status stable Recurrent aspiration now on G-tube feeding to keep the head of bed elevated RECOMMENDATION Home ventilation settings Keep the head of bed elevated Continue deep feedings as before Trach care protein Suction as needed Continue outpatient medications Patient is not critically ill
--- NOTE | 2017-07-11 15:36 | Patient Discharge Instructions ---
Discharge Instructions General Discharge Information You were seen/treated for: NEED FOR NIGHT VENTILATOR Special Instructions: Please f/u with your PCP Acute Coronary Syndrome Inclusion Criteria At DC or during hospital stay patient has or had the following: Discharge Core Measures Meds if any: Prescribed or Continued at Discharge Meds if any: NOT Prescribed or Continued at Discharge Congestive Heart Failure Inclusion Criteria At DC or during hospital stay patient has or had the following: CHF DIAGNOSIS No Discharge Core Measures Meds if any: Prescribed or Continued at Discharge Meds if any: NOT Prescribed or Continued at Discharge Cerebrovascular accident Inclusion Criteria At DC or during hospital stay patient has or had the following: CVA/TIA Diagnosis No Discharge Core Measures Meds if any: Prescribed or Continued at Discharge Meds if any: NOT Prescribed or Continued at Discharge Venous thromboembolism Inclusion Criteria VTE Diagnosis No VTE Type NONE VTE Confirmed by (Test) NONE Discharge Core Measures - Per Current guidelines, there needs to be overlap - treatment for the first 5 days of Warfarin therapy. - If discharged on Warfarin prior to 5 days of - overlap therapy, the patient will need to be - assessed for post discharge needs including - *Post discharge parental anticoagulation - *Warfarin and/or parental anticoagulation education - *Follow up date to check INR post discharge Meds if any: Prescribed or Continued at Discharge Note: Overlap Therapy is Warfarin and Anticoagulant Meds if any: NOT Prescribed or Continued at Discharge
[2017-07-11 16:00] VITALS: BP 114/70
[2017-07-12] VITALS: BP 98/50
[2017-07-12 08:00] VITALS: BP 108/70
--- NOTE | 2017-07-12 10:41 | PN- Att Addend ---
Attending Addendum Attending Brief Note Patient stable. Power restarted at her home for those results will be able to allow her to return safely patient will return the same medications same settings on the respirator same suction orders the same feeding orders. Intake & Output 07/12 0800 07/12 0000 07/11 0807/11 0000 Intake Total 660 760 670 700 240 Output Total Balance 660 760 670 700 240 Intake, IV 0 Intake, Oral 0 0 Intake, Tube 360 360 670 400 90 Feeding Intake, Tube 300 400 300 150 Irrigant Number 1 1 3 1 1 Bowel Movements Patient 118 lb Weight Current Medications Sig/Martinez Start time Last Medication Dose Route Stop Time Status Admin Acetaminophen 650 MG Q4P PRN 07/10 1530 AC PO Albuterol Sulfate 3 ML Q4P PRN 07/10 2145 AC INH Baclofen 40 MG TID 07/11 1599 AC 07/12 PO 0801 Diazepam 2 MG TID 07/10 2100 AC 07/12 PO 0759 Docusate Sodium 100 MG BID PRN 07/10 1530 AC PO Ferrous Sulfate 325 MG BID 07/10 2099 AC 07/12 PO 0757 Guaifenesin 600 MG DAILY 07/11 09 AC 07/12 PO 0759 Heparin Sodium 5,000 UNIT Q8H 07/11 899 AC 07/12 (Porcine) SC 0804 Hydrocortisone 20 MG DAILY 07/11 899 AC 07/12 PO 0759 Hydrocortisone 10 MG 0 07/10 2199 AC 07/12 PO 0003 Ipratropium [place] 2.5 ML Q4P PRN 07/10 2145 AC INH Levetiracetam 500 MG TID 07/10 1600 AC 07/12 PO 0757 Loratadine 10 MG DAILY PRN 07/10 1530 AC PO Midodrine 10 MG 0800,1200,1600 07/10 1600 AC 07/12 PO 0758 Pantoprazole Sodium 40 MG DAILY 07/11 09 AC 07/12 IV 0804 Phenobarbital 32.4 MG 8AM 07/11 08 AC 07/12 PO 0759 Phenobarbital 64.8 MG 0 07/10 2199 AC 07/12 PO 0003 Polyethylene Glycol 17 GM DAILY 07/11 09 AC 07/12 PO 0804 Vital Signs Date Time Temp Pulse Resp B/P B/P Pulse O2 O2 Flow FiO2 Mean Ox Delivery Rate 07/12 818 98 Trach Mask 28% 07/12 817 28 05 0800 98 Ventilator 28% 07/12 0800 97.8 102 20 108/70 98 Ventilator 28% 07/12 0545 28 07/12 0315 28 07/12 0122 28 07/12 0000 99 Ventilator 28% 07/12 0000 98.0 87 12 98/50 99 Ventilator 28% 07/11 2229 28 07/11 1600 97.4 90 20 114/70 99 Trach Mask 28% 07/11 1440 97 Trach Mask 28% 07/11 1205 97 Trach Mask 28%
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
== END 2017-07-12 13:30 | disposition home health service (06) ==
LOC: ERH 08:56 → CRI 14:15 → ERHI 14:15 → CRI 15:45 → ENTRNSPT 15:45 → EDTRNSPTSTS 15:55 → EDTRNSPT 15:55 → CRI 16:06 → CMPTRNSPT 16:15 → CRI 07-12 13:30
PROVIDERS: Emergency Medicine
DX: R06.00 Dyspnea, unspecified (principal); G80.9 Cerebral palsy, unspecified; R56.9 Unspecified convulsions; K59.09 Other constipation; R32 Unspecified urinary incontinence; E27.40 Unspecified adrenocortical insufficiency; J96.10 Chronic respiratory failure, unspecified whether with hypoxia or hypercapnia; G93.1 Anoxic brain damage, not elsewhere classified; Z93.0 Tracheostomy status
CPT/HCPCS: 1328; 1336; 1342; 1344; 1425; 1530; 1748; 71045; 93005; 93010; 96372; 96374; 96376; G0378; J1644